=== PATIENT | male | born 1955 | race Caucasian/White ===

== ENCOUNTER → 2018-02-16 10:35 | Outpatient (CLI) | payer BC, SELFPAY | PROVIDERS: Family Provider Family Medicine Geriatric Medicine; PCP Family Medicine Geriatric Medicine; Visit Provider Family Medicine Geriatric Medicine | DX: R68.83 Chills (without fever) (principal) | CPT/HCPCS: 87633 ==

== ENCOUNTER → 2018-05-09 10:16 | Outpatient (CLI) | payer BC, SELFPAY ==
[2018-05-09 13:02] LABS: AST(SGOT) 19 U/L (15-37); Alanine Aminotransfer ALT/SGPT 26 U/L (16-61); Albumin, Serum 3.5 g/dL (3.2-5.0); Alkaline Phosphatase 52 U/L (45-117); Anion Gap 5 (5-15); BUN 17 mg/dL (7-18); BUN/Creat Ratio 17.6 RATIO (10-20); Calcium,Total 8.8 mg/dL (8.5-10.1); Chloride 105 mmol/L (98-107); Creatinine, Serum 0.97 mg/dL (0.70-1.30); EST Glomerular Filtration Rate 83 mL/min (>60); Est Glom Filt Rate - Afr Amer 101 mL/min (>60); Globulin 3.4 g/dL (2.2-4.2); Glucose 94 mg/dL (74-106); Potassium 4.1 mmol/L (3.5-5.1); Protein, Total 6.9 g/dL (6.4-8.2); Sodium Level 141 mmol/L (136-145); Thyroid Stim Hormone (TSH) 0.46 uIU/mL (0.358-3.74)
[2018-05-09 13:07] LABS: Absolute Lymphocyte Count 0.92 X10^3/ul (0.83-4.51); Absolute Neutrophil Count 2.9 X10^3/uL (2.0-7.7); Basophil# 0.02 X10^3/uL; Basophil% 0.5 % (0-1); Eosinophil# 0.06 X10^3/uL; Eosinophils% 1.4 % (0-5); Hematocrit 43.5 % (40-54); Hemoglobin 13.6 g/dl (13.0-16.5); Lymphocyte # 0.92 X10^3/ul (4.0); Lymphocyte % 22.1 % (19-41); Mean Corp Hgb Conc 31.3 g/gl (32-36); Mean Corpuscular Hgb 28.3 pg (27.0-32.0); Mean Corpuscular Volume 90.4 fL (80-94); Mean Platelet Vol. 9.7 fl (6.2-12.0); Monocyte# 0.29 X10^3/uL; Neutrophil # 2.87 X10^3/uL (2.7-7.7); Neutrophil % 68.8 % (47-70); Platelet Count 243 K/mm3 (150-450); RBC Distribution Width CV 13.3 % (11.6-14.6); RBC Distribution Width SD 44.2 fl (35.1-43.9); Red Blood Count 4.81 M/mm3 (4.6-6.2); White Blood Count 4.2 K/mm3 (4.4-11.0)
[2018-05-09 13:09] LABS: POSITIVE COUNT NO; POSITIVE DIFFERENTIAL NO; POSITIVE MORPHOLOGY NO
[2018-05-10 08:24] LABS: Hep C Antibodies <0.1 s/co ratio (0.0-0.9)
== END ==
PROVIDERS: Family Provider Family Medicine Geriatric Medicine; PCP Family Medicine Geriatric Medicine; Visit Provider Family Medicine Geriatric Medicine
DX: R53.83 Other fatigue (principal); Z12.5 Encounter for screening for malignant neoplasm of prostate; Z13.89 Encounter for screening for other disorder
CPT/HCPCS: 36415; 80053; 84153; 84443; 85025; 86803; G0103

== ENCOUNTER → 2019-03-20 16:51 | Outpatient (CLI) | payer BC, SELFPAY ==
--- NOTE | 2019-03-20 17:05 | RAD_ITS ---
STUDY: X-RAY - LUMBAR SPINE REASON FOR EXAM: Male, 63 years old. Lower back pain, 3 days, without injury. TECHNIQUE: 3 view(s) of the lumbar spine were obtained. COMPARISON: None FINDINGS: Mild osteopenia. Mild symmetric degenerative changes of the SI joints. Evaluated ribs, pelvis and sacrum are intact. Mild levoscoliotic curvature of the lumbar spine, with a Blanco angle approximately 17 degrees. Vertebral body height and alignment are normal with preserved lordosis. No significant intervertebral disc narrowing is present at any level. There are multilevel mild endplate degenerative changes with small anterior osteophytes. There is multilevel mild to moderate facet arthropathy/hypertrophy most prominent in the low lumbar spine. Questionable pars interarticularis defect at L5-S1. Oblique views are not available for refined assessment. The posterior elements appear acutely intact. No acute intra-abdominal process is evident. Unremarkable bowel pattern. RAD/Lumbar Spine 2 or 3 Views IMPRESSION: Spondylotic features as described above. No acute fracture or traumatic subluxation. Mild scoliosis. Correlate clinically for any convincing symptoms of lumbar radiculopathy that may indicate the presence of nerve root impingement. Depending upon clinical presentation a follow-up CT or MR lumbar spine may be appropriate. Electronically Signed: Hank Thomas MD at 8:44 EDT Tel , Service support ,
--- NOTE | 2019-03-20 17:10 | RAD_ITS ---
STUDY: X-RAY - PELVIS AND LEFT HIP REASON FOR EXAM: Male, 63 years old. Left hip pain TECHNIQUE: 3 views of the pelvis and hip. COMPARISON: None. FINDINGS: Right hip: Minimal suppressed turbo margin osteophytic spurring, no significant joint space narrowing and no significant degenerative changes of the articular surfaces. Periarticular soft tissues normal. Left hip: Periarticular soft tissues normal. Osseous structures intact. Minimal superior acetabular margin osteophytic spurring. No significant joint space narrowing and no significant degenerative features of the articular surfaces. No apparent effusion. 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 Electronically Signed: Hank Thomas MD at 8:45 EDT Tel , Service support ,
== END ==
PROVIDERS: Family Provider Family Medicine Geriatric Medicine; PCP Family Medicine Geriatric Medicine; Referring Provider Family Medicine Geriatric Medicine; Visit Provider Family Medicine Geriatric Medicine
DX: M54.5 Low back pain (principal); M25.552 Pain in left hip
CPT/HCPCS: 72100; 73502

== ENCOUNTER → 2019-05-03 15:28 | Outpatient (CLI) | payer BC, SELFPAY ==
[2017-04-29 13:32] VITALS: BMI 26.8
[2019-05-03 17:08] LABS: Anion Gap 6 (5-15); BUN 13 mg/dL (7-18); BUN/Creat Ratio 13.8 RATIO (10-20); Calcium,Total 8.9 mg/dL (8.5-10.1); Chloride 104 mmol/L (98-107); Creatinine, Serum 0.94 mg/dL (0.70-1.30); EST Glomerular Filtration Rate 85 mL/min (>60); Est Glom Filt Rate - Afr Amer 103 mL/min (>60); Glucose 119 mg/dL (74-106); Potassium 3.8 mmol/L (3.5-5.1); Sodium Level 133 mmol/L (136-145); Thyroid Stim Hormone (TSH) 0.23 uIU/mL (0.358-3.74)
[2019-05-03 17:19] LABS: Absolute Lymphocyte Count 0.36 X10^3/ul (0.83-4.51); Absolute Neutrophil Count 9.2 X10^3/uL (2.0-7.7); Basophil# 0.01 X10^3/uL; Basophil% 0.1 % (0-1); Eosinophil# 0.01 X10^3/uL; Eosinophils% 0.1 % (0-5); Hematocrit 43.2 % (40-54); Hemoglobin 14.1 g/dl (13.0-16.5); Lymphocyte # 0.36 X10^3/ul (4.0); Lymphocyte % 3.5 % (19-41); Mean Corp Hgb Conc 32.6 g/gl (32-36); Mean Corpuscular Hgb 28.3 pg (27.0-32.0); Mean Corpuscular Volume 86.6 fL (80-94); Mean Platelet Vol. 9.6 fl (6.2-12.0); Monocyte# 0.54 X10^3/uL; Monocyte% 5.3 % (0-10); Neutrophil # 9.22 X10^3/uL (2.7-7.7); Neutrophil % 90.8 % (47-70); Platelet Count 180 K/mm3 (150-450); RBC Distribution Width SD 40.2 fl (35.1-43.9); Red Blood Count 4.99 M/mm3 (4.6-6.2); White Blood Count 10.2 K/mm3 (4.4-11.0)
[2019-05-03 17:26] LABS: Differential Indicated SCAN CRITERIA MET; POSITIVE COUNT NO; POSITIVE DIFFERENTIAL YES; POSITIVE MORPHOLOGY NO
[2019-05-03 20:18] LABS: Platelet Estimate ADEQUATE (ADEQ); Red Cell Morphology NORM C+C NORMAL (NORM C&C)
[2019-05-05 11:57] LABS: T3 Uptake 34 % (33-40); T4 Free Direct 1.18 ng/dL (0.76-1.46)
== END ==
PROVIDERS: Family Provider Family Medicine Geriatric Medicine; PCP Family Medicine Geriatric Medicine; Visit Provider Family Medicine Geriatric Medicine
DX: N39.0 Urinary tract infection, site not specified (principal); R50.9 Fever, unspecified; R53.83 Other fatigue
CPT/HCPCS: 36415; 80048; 84439; 84443; 84479; 85025; 87040; 87086

== ENCOUNTER → 2019-05-10 08:55 | Outpatient (CLI) | payer BC, SELFPAY ==
[2017-04-29 13:32] VITALS: BMI 26.8
[2019-05-10 13:00] LABS: Absolute Lymphocyte Count 0.99 X10^3/ul (0.83-4.51); Absolute Neutrophil Count 2.4 X10^3/uL (2.0-7.7); Basophil# 0.01 X10^3/uL; Basophil% 0.2 % (0-1); Eosinophil# 0.07 X10^3/uL; Eosinophils% 1.7 % (0-5); Hematocrit 43.4 % (40-54); Hemoglobin 13.8 g/dl (13.0-16.5); Lymphocyte # 0.99 X10^3/ul (4.0); Lymphocyte % 24.5 % (19-41); Mean Corp Hgb Conc 31.8 g/gl (32-36); Mean Corpuscular Hgb 28.2 pg (27.0-32.0); Mean Corpuscular Volume 88.6 fL (80-94); Mean Platelet Vol. 9.1 fl (6.2-12.0); Monocyte# 0.46 X10^3/uL; Monocyte% 11.4 % (0-10); Neutrophil % 59.5 % (47-70); Platelet Count 301 K/mm3 (150-450); RBC Distribution Width CV 13.2 % (11.6-14.6); RBC Distribution Width SD 42.5 fl (35.1-43.9)
[2019-05-10 13:05] LABS: POSITIVE COUNT YES; POSITIVE DIFFERENTIAL NO; POSITIVE MORPHOLOGY YES
[2019-05-10 13:19] LABS: ALB/GLOB Ratio 0.9 RATIO (0.9-2.4); AST(SGOT) 27 U/L (15-37); Alanine Aminotransfer ALT/SGPT 61 U/L (16-61); Albumin, Serum 3.2 g/dL (3.2-5.0); Alkaline Phosphatase 80 U/L (45-117); Anion Gap 7 (5-15); BUN 14 mg/dL (7-18); BUN/Creat Ratio 16.1 RATIO (10-20); Calcium,Total 8.8 mg/dL (8.5-10.1); Chloride 106 mmol/L (98-107); Creatinine, Serum 0.87 mg/dL (0.70-1.30); EST Glomerular Filtration Rate 94 mL/min (>60); Est Glom Filt Rate - Afr Amer 113 mL/min (>60); Globulin 3.6 g/dL (2.2-4.2); Glucose 90 mg/dL (74-106); Potassium 4.2 mmol/L (3.5-5.1); Protein, Total 6.8 g/dL (6.4-8.2); Sodium Level 141 mmol/L (136-145); Thyroid Stim Hormone (TSH) 0.21 uIU/mL (0.358-3.74)
[2019-05-10 18:46] LABS: T3 Uptake 36 % (33-40); T4 Free Direct 1.18 ng/dL (0.76-1.46)
[2019-05-11 11:58] LABS: Pathologist Review Reviewed
== END ==
PROVIDERS: Family Provider Family Medicine Geriatric Medicine; PCP Family Medicine Geriatric Medicine; Visit Provider Family Medicine Geriatric Medicine
DX: R53.83 Other fatigue (principal); E03.9 Hypothyroidism, unspecified; Z12.5 Encounter for screening for malignant neoplasm of prostate
CPT/HCPCS: 36415; 80053; 84153; 84439; 84443; 84479; 85025; G0103

== ENCOUNTER → 2019-05-17 07:06 | Outpatient (CLI) | payer BC, SELFPAY ==
--- NOTE | 2019-05-17 07:10 | CT_ITS ---
STUDY: CT ABDOMEN AND PELVIS WITHOUT CONTRAST REASON FOR EXAM: Male, 63 years old. UTI. RADIATION DOSAGE (If Supplied By Facility): CTDIvol = ( 8.80 ) mGy, DLP = ( 457.34 ) mGycm TECHNIQUE: Transaxial images were obtained from the dome of the diaphragm to the symphysis pubis without oral contrast, and without intravenous contrast. Sagittal and coronal images were reconstructed. Individualized dose optimization techniques were used for this CT. COMPARISON: 11/12/2011 FINDINGS: Evaluation of the abdominal viscera is limited in the absence of intravenous contrast. The visualized lung bases are clear. The visualized portions of the heart and pericardium are within normal limits. There are no calcified gallstones present. The liver demonstrates an unremarkable unenhanced appearance. The spleen is normal in size. The pancreas demonstrates an unremarkable unenhanced appearance. The adrenal glands are within normal limits. There are no renal or ureteral stones. There is no hydronephrosis. There is a simple cyst in the upper pole right kidney. Normal visualized stomach. There is no bowel obstruction or inflammation. There are colonic diverticula without evidence of diverticulitis. The appendix is visualized and appears normal. The aorta is normal in caliber. There is no abdominal or pelvic free air, free fluid, fluid collection or lymphadenopathy. There are no destructive osseous lesions. There is bilateral spondylolysis at L5. CT/Abdomen/Pelvis without Cont IMPRESSION: Thick-walled urinary bladder which is likely due to cystitis. No urinary calculi. No hydronephrosis. Normal noncontrast appearance of the kidneys. However, please note that pyelonephritis cannot be excluded without contrast. Electronically Signed: Elian Castellanos, at 16:59 EDT Tel , Service support ,
== END ==
PROVIDERS: Family Provider Family Medicine Geriatric Medicine; PCP Family Medicine Geriatric Medicine; Referring Provider Urology; Visit Provider Urology
DX: N12 Tubulo-interstitial nephritis, not specified as acute or chronic (principal)
CPT/HCPCS: 74176

== ENCOUNTER → 2019-06-03 08:38 | Outpatient (CLI) | payer BC, SELFPAY ==
[2019-06-03 09:30] LABS: PSA,Total- Diagnostic 7.22 ng/mL (0.0-4.0)
== END ==
PROVIDERS: Family Provider Family Medicine Geriatric Medicine; PCP Family Medicine Geriatric Medicine; Referring Provider Urology; Visit Provider Urology
DX: R97.20 Elevated prostate specific antigen [PSA] (principal)
CPT/HCPCS: 36415; 84153

== ENCOUNTER → 2019-09-22 11:33 | Outpatient (CLI) | payer BC, SELFPAY ==
[2019-09-22 13:17] LABS: PSA,Total- Diagnostic 5.66 ng/mL (0.0-4.0)
== END ==
PROVIDERS: Family Provider Family Medicine Geriatric Medicine; PCP Family Medicine Geriatric Medicine; Referring Provider Urology; Visit Provider Urology
DX: R97.20 Elevated prostate specific antigen [PSA] (principal)
CPT/HCPCS: 36415; 84153

== ENCOUNTER → 2020-05-13 09:38 | Outpatient (CLI) | payer BC, SELFPAY ==
[2020-05-13 12:38] LABS: Absolute Lymphocyte Count 1.04 X10^3/uL (0.83-4.51); Absolute Neutrophil Count 3.2 X10^3/uL (2.0-7.7); Basophil# 0.02 X10^3/uL; Basophil% 0.4 % (0-1); Eosinophils% 2.1 % (0-5); Hematocrit 46.6 % (40-54); Hemoglobin 14.7 g/dL (13.0-16.5); Lymphocyte # 1.04 X10^3/ul (4.0); Lymphocyte % 21.8 % (19-41); Mean Corp Hgb Conc 31.5 g/dL (32-36); Mean Corpuscular Hgb 28.6 pg (27.0-32.0); Mean Corpuscular Volume 90.7 fL (80-94); Monocyte# 0.37 X10^3/uL; Monocyte% 7.8 % (0-10); NRBC Flagged by Analyzer 0 % (0-5); Neutrophil # 3.22 X10^3/uL (2.7-7.7); Neutrophil % 67.7 % (47-70); Platelet Count 264 K/mm3 (150-450); RBC Distribution Width CV 12.5 % (11.6-14.6); RBC Distribution Width SD 41.2 fl (35.1-43.9); Red Blood Count 5.14 M/mm3 (4.6-6.2); White Blood Count 4.8 K/mm3 (4.4-11.0)
[2020-05-13 13:03] LABS: Vitamin D,25 Hydroxy 38.4 ng/mL
[2020-05-13 13:06] LABS: AST(SGOT) 16 U/L (15-37); Alanine Aminotransfer ALT/SGPT 24 U/L (16-61); Albumin, Serum 3.5 g/dL (3.2-5.0); Alkaline Phosphatase 62 U/L (45-117); Anion Gap 6 (5-15); BUN 21 mg/dL (7-18); Calcium,Total 8.8 mg/dL (8.5-10.1); Chloride 104 mmol/L (98-107); EST Glomerular Filtration Rate 80 mL/min (>60); Est Glom Filt Rate - Afr Amer 96 mL/min (>60); Globulin 3.6 g/dL (2.2-4.2); Glucose 77 mg/dL (74-106); Protein, Total 7.1 g/dL (6.4-8.2); Sodium Level 139 mmol/L (136-145); Thyroid Stim Hormone (TSH) 0.77 uIU/mL (0.358-3.74)
== END ==
PROVIDERS: PCP Family Medicine Geriatric Medicine; Visit Provider Family Medicine Geriatric Medicine
DX: E55.9 Vitamin D deficiency, unspecified (principal); R53.83 Other fatigue; Z12.5 Encounter for screening for malignant neoplasm of prostate
CPT/HCPCS: 36415; 80053; 82306; 84443; 85025

== ENCOUNTER → 2021-05-14 08:58 | Outpatient (CLI) | payer BC, SELFPAY ==
[2021-05-14 12:22] LABS: Absolute Lymphocyte Count 1.02 X10^3/uL (0.83-4.51); Absolute Neutrophil Count 3.5 X10^3/uL (2.0-7.7); Basophil# 0.02 X10^3/uL; Basophil% 0.4 % (0-1); Hematocrit 46.2 % (40-54); Hemoglobin 14.6 g/dL (13.0-16.5); Lymphocyte # 1.02 X10^3/ul (0.83-4.51); Lymphocyte % 20.4 % (19-41); Mean Corp Hgb Conc 31.6 g/dL (32-36); Mean Corpuscular Hgb 28.3 pg (27.0-32.0); Mean Corpuscular Volume 89.7 fL (80-94); Mean Platelet Vol. 9.7 fl (6.2-12.0); Monocyte# 0.35 X10^3/uL; NRBC Flagged by Analyzer 0 % (0-5); Neutrophil # 3.48 X10^3/uL (2.7-7.7); Neutrophil % 69.8 % (47-70); Platelet Count 278 K/mm3 (150-450); RBC Distribution Width CV 12.3 % (11.6-14.6); RBC Distribution Width SD 40.7 fl (35.1-43.9); Red Blood Count 5.15 M/mm3 (4.6-6.2)
[2021-05-14 12:51] LABS: AST(SGOT) 15 U/L (15-37); Alanine Aminotransfer ALT/SGPT 27 U/L (16-61); Albumin, Serum 3.6 g/dL (3.2-5.0); Alkaline Phosphatase 65 U/L (45-117); Anion Gap 5 (5-15); BUN 17 mg/dL (7-18); Calcium,Total 8.9 mg/dL (8.5-10.1); Chloride 105 mmol/L (98-107); Creatinine, Serum 1.06 mg/dL (0.70-1.30); EST Glomerular Filtration Rate 74 mL/min (>60); Est Glom Filt Rate - Afr Amer 90 mL/min (>60); Globulin 3.5 g/dL (2.2-4.2); Glucose 83 mg/dL (74-106); PSA,Total - Annual Screen 3.37 ng/mL (0.00-4.00); Potassium 4.2 mmol/L (3.5-5.1); Protein, Total 7.1 g/dL (6.4-8.2); Sodium Level 141 mmol/L (136-145); Thyroid Stim Hormone (TSH) 0.87 uIU/mL (0.358-3.74)
== END ==
PROVIDERS: PCP Family Medicine Geriatric Medicine; Visit Provider Family Medicine Geriatric Medicine
DX: E55.9 Vitamin D deficiency, unspecified (principal); R53.83 Other fatigue; Z12.5 Encounter for screening for malignant neoplasm of prostate
CPT/HCPCS: 36415; 80053; 82306; 84153; 84443; 85025; G0103

== ENCOUNTER → 2022-05-19 | Outpatient (CLI) | payer MEDICARE, OTHER, SELFPAY ==
[2022-05-19 12:24] LABS: Absolute Lymphocyte Count 0.97 X10^3/uL (0.83-4.51); Absolute Neutrophil Count 2.3 X10^3/uL (2.0-7.7); Basophil# 0.04 X10^3/uL; Basophil% 1.1 % (0-1); Eosinophils% 2.7 % (0-5); Hematocrit 42.8 % (40-54); Hemoglobin 14.1 g/dL (13.0-16.5); Lymphocyte # 0.97 X10^3/ul (0.83-4.51); Lymphocyte % 26.4 % (19-41); Mean Corp Hgb Conc 32.9 g/dL (32-36); Mean Corpuscular Hgb 29.1 pg (27.0-32.0); Mean Corpuscular Volume 88.2 fL (80-94); Mean Platelet Vol. 9.5 fl (6.2-12.0); Monocyte# 0.26 X10^3/uL; Monocyte% 7.1 % (0-10); NRBC Flagged by Analyzer 0 % (0-5); Neutrophil # 2.29 X10^3/uL (2.7-7.7); Neutrophil % 62.4 % (47-70); Platelet Count 239 K/mm3 (150-450); RBC Distribution Width CV 12.6 % (11.6-14.6); RBC Distribution Width SD 41.2 fl (35.1-43.9); Red Blood Count 4.85 M/mm3 (4.6-6.2); White Blood Count 3.7 K/mm3 (4.4-11.0)
[2022-05-19 12:38] LABS: Vitamin D,25 Hydroxy 44.4 ng/mL
[2022-05-19 13:05] LABS: AST(SGOT) 14 U/L (15-37); Alanine Aminotransfer ALT/SGPT 23 U/L (16-61); Albumin, Serum 3.3 g/dL (3.2-5.0); Alkaline Phosphatase 55 U/L (45-117); Anion Gap 5 (5-15); BUN 18 mg/dL (7-18); BUN/Creat Ratio 19.6 RATIO (10-20); Calcium,Total 8.8 mg/dL (8.5-10.1); Chloride 106 mmol/L (98-107); Creatinine, Serum 0.92 mg/dL (0.70-1.30); EST Glomerular Filtration Rate 87 mL/min (>60); Est Glom Filt Rate - Afr Amer 106 mL/min (>60); Globulin 3.3 g/dL (2.2-4.2); Glucose 111 mg/dL (74-106); PSA,Total - Annual Screen 5.05 ng/mL (0.00-4.00); Potassium 3.7 mmol/L (3.5-5.1); Protein, Total 6.6 g/dL (6.4-8.2); Sodium Level 141 mmol/L (136-145); Thyroid Stim Hormone (TSH) 1.05 uIU/mL (0.358-3.74)
== END | disposition home or self-care (01) ==
PROVIDERS: PCP Family Medicine Geriatric Medicine; Visit Provider Family Medicine Geriatric Medicine
DX: Z12.5 Encounter for screening for malignant neoplasm of prostate (principal); E55.9 Vitamin D deficiency, unspecified; R53.83 Other fatigue
CPT/HCPCS: 36415; 80053; 82306; 84153; 84443; 85025; G0103

== ENCOUNTER → 2023-06-02 | Outpatient (CLI) | payer MEDICARE, OTHER, SELFPAY ==
[2023-06-02 13:22] LABS: Absolute Lymphocyte Count 0.83 X10^3/uL (0.83-4.51); Basophil# 0.03 X10^3/uL; Basophil% 0.7 % (0-1); Eosinophils% 2.3 % (0-5); Hematocrit 43.8 % (40-54); Hemoglobin 14.3 g/dL (13.0-16.5); Lymphocyte # 0.83 X10^3/ul (0.83-4.51); Lymphocyte % 19.5 % (19-41); Mean Corp Hgb Conc 32.6 g/dL (32-36); Mean Corpuscular Hgb 29.1 pg (27.0-32.0); Mean Platelet Vol. 9.6 fl (6.2-12.0); Monocyte# 0.33 X10^3/uL; Monocyte% 7.7 % (0-10); NRBC Flagged by Analyzer 0 % (0-5); Neutrophil # 2.96 X10^3/uL (2.7-7.7); Neutrophil % 69.6 % (47-70); Platelet Count 255 K/mm3 (150-450); RBC Distribution Width CV 12.7 % (11.6-14.6); RBC Distribution Width SD 41.7 fl (35.1-43.9); Red Blood Count 4.92 M/mm3 (4.6-6.2); White Blood Count 4.3 K/mm3 (4.4-11.0)
[2023-06-02 13:35] LABS: Vitamin D,25 Hydroxy 34.2 ng/mL
[2023-06-02 13:44] LABS: AST(SGOT) 17 U/L (15-37); Alanine Aminotransfer ALT/SGPT 26 U/L (16-61); Albumin, Serum 3.5 g/dL (3.2-5.0); Alkaline Phosphatase 60 U/L (45-117); Anion Gap 2 (5-15); BUN 17 mg/dL (7-18); Chloride 105 mmol/L (98-107); Creatinine, Serum 0.89 mg/dL (0.70-1.30); EST Glomerular Filtration Rate 90 mL/min (>60); Est Glom Filt Rate - Afr Amer 109 mL/min (>60); Globulin 3.5 g/dL (2.2-4.2); Glucose 97 mg/dL (74-106); PSA,Total - Annual Screen 4.24 ng/mL (0.00-4.00); Potassium 4.3 mmol/L (3.5-5.1); Sodium Level 137 mmol/L (136-145); Thyroid Stim Hormone (TSH) 0.72 uIU/mL (0.358-3.74)
== END | disposition home or self-care (01) ==
PROVIDERS: PCP Family Medicine Geriatric Medicine; Visit Provider Family Medicine Geriatric Medicine
DX: Z12.5 Encounter for screening for malignant neoplasm of prostate (principal); E55.9 Vitamin D deficiency, unspecified; R53.83 Other fatigue
CPT/HCPCS: 36415; 80053; 82306; 84153; 84443; 85025; G0103

== ENCOUNTER → 2023-08-10 | Outpatient (CLI) | payer MEDICARE, OTHER, SELFPAY | END | disposition home or self-care (01) | LOC: PSN 12:33 | PROVIDERS: PCP Family Medicine Geriatric Medicine; Referring Provider Family Medicine Geriatric Medicine; Visit Provider Family Medicine Geriatric Medicine | DX: R68.83 Chills (without fever) (principal) | CPT/HCPCS: 87635; 87804; 87807; C9803 ==

== ENCOUNTER 2023-11-22 11:23 | Emergency (ER) | payer MEDICARE, OTHER, SELFPAY ==
[2023-11-22 11:24] VITALS: BP 120/94; PULSE 61; RESP 15; TEMP 36; O2SAT 97; BMI 26.4
--- NOTE | 2023-11-22 11:53 | CT_ITS ---
STUDY: CT ABDOMEN AND PELVIS WITH CONTRAST - URINARY TRACT REASON FOR EXAM: Male, 68 years old. Right lower quadrant pain RADIATION DOSAGE (If Supplied By Facility): CTDIvol = ( 17.05 ) mGy, DLP = ( 917.34 ) mGycm TECHNIQUE: IV 100mL Isovue-370 was administered. Transaxial images were obtained from the dome of the diaphragm to the symphysis pubis subsequent to intravenous contrast administration. Multiplanar coronal and sagittal images were reformatted. Individualized Dose Optimization Techniques Were Used For This CT. COMPARISON: May 17, 2019 FINDINGS: There is a 2.7 mm nodule along the right major fissure.. The visualized portions of the heart are within normal limits. There is decreased attenuation of the liver consistent with steatosis. There is a stable too small to characterize low-attenuation focus within the right hepatic lobe. Normal gallbladder and extrahepatic biliary system. Normal spleen. Normal pancreas. Normal bilateral adrenal glands. Normal visualized stomach. Normal small intestine. There are multiple colonic diverticula consistent with diverticulosis. There is circumferential wall thickening of the proximal and mid sigmoid colon. The appendix is visualized and appears normal. There is diffuse atherosclerotic calcification of the abdominal aorta, without a demonstrated aneurysm. No retroperitoneal adenopathy. There are right renal cysts. Normal left kidney. Normal urinary bladder. There is enlargement of the prostate gland. Normal abdominal wall. There are diffuse degenerative changes of the visualized lumbar spine. There are bilateral L5 pars defects. CT/Abdomen/Pelvis W IV Cont ONLY IMPRESSION: Circumferential wall thickening of the proximal and mid sigmoid colon may be secondary to chronic diverticulitis, cannot exclude a neoplastic process, recommend direct visualization. Fatty infiltration of the liver. Atherosclerosis. Enlarged prostate gland Bilateral L5 pars defects. Degenerative changes of the lumbar spine. Electronically Signed: Pretty Cervantes MD at 13:21 EST ,
--- NOTE | 2023-11-22 11:54 | EX.ED.DYSGE1 ---
HPI History of Present Illness Chief Complaint: Back Informant: patient and spouse/S.O. Narrative Narrative: For the past 4 days or so patient has been having pain in the right flank. He states it started in his right groin and lower quadrant gradually, radiating into his right medial thigh on this tendon right here, hurts more to move it. He then started getting pain into his right low back, it is more into his sacrum and buttock, not higher near the CVA. No urinary symptoms. He states he has had urinary infections and symptoms of an enlarged prostate in the past and has seen urology but nothing in the past month. He was seen at urgent care today and had tenderness in his right lower quadrant and was sent to the emergency department apparently. [facility] Medical History High cholesterol Home Medications pravastatin 40 mg tablet 40 mg PO QHS 04/29/17 [History Last Taken 04/28/17] timolol maleate 0.5 % eye drops 1 drp QHS 04/29/17 [History Last Taken 04/28/17] oxycodone 5 mg tablet 5 mg PO Q8H PRN PRN Pain ##10 04/30/17 [Rx Last Taken Unknown] rivaroxaban 15 mg tablet (Xarelto) 15 mg PO BIDCM #42 tabs 04/30/17 [Rx Last Taken Unknown] rivaroxaban 20 mg tablet (Xarelto) 20 mg PO DAILY ##90 04/30/17 [Rx Last Taken Unknown] hydrocodone-acetaminophen 5-325mg 5mg-325mg 1 tab PO Q6H PRN PRN Pain 3 days #10 TABLETS 11/22/23 [Rx Last Taken Unknown] Allergy/AdvReac Type Severity Reaction Status Date / Time No Known Allergies Allergy Verified 11/22/23 11:27 Social History Smoking Status: Former smoker ROS ROS ED Constitutional Constitutional ED: Denies chills or fever(s) Eyes Eyes: Denies change in vision or diplopia ENT ENT ED: Denies rhinorrhea or sore throat Cardiovascular Cardiovascular: Denies chest pain, leg edema or palpitations Respiratory/Chest Respiratory/Chest: Denies cough or dyspnea Gastrointestinal Gastrointestinal: Reports abdominal pain; Denies diarrhea, nausea or vomiting Genitourinary Genitourinary ED: Denies dysuria, hematuria or urinary frequency Musculoskeletal Musculoskeletal: Reports back pain and extremity pain; Denies neck pain Integumentary Denies abscess or rash Neurologic Neurologic: Denies headache(s), paresthesias or weakness Psychiatric Psychiatric: Denies suicidal ideation or suicidal thoughts EXAM Physical Exam Const Vital Signs: 11/22/23 11:24 Temperature 96.8 F L Temperature Source Temporal Pulse Rate 61 Respiratory Rate 15 Blood Pressure 120/94 H Blood Pressure Mean 102 Pulse Ox 97 Oxygen Delivery Method Room Air Positive well nourished and well developed General Appearance ED: well developed and NAD HEENT Reports moist mucous membranes normocephalic and atraumatic Eyes PERRL and EOMs intact bilaterally Neck full ROM and supple Resp normal respiratory effort and clear to auscultation bilaterally Cardio regular rate, regular rhythm and no murmurs GI non-distended GI Narrative: Tenderness in the right lower quadrant at McBurney's point and a little distal to that as well. Less tender into the flank, no CVA tenderness. No guarding or rebound tenderness. Negative Rovsing, obturator, psoas signs. However, is moving his right lower extremity around makes his groin and medial proximal thigh hurt more. There is mild tenderness here but no palpable cords and no edema. Auscultation: normoactive bowel sounds Palpation: soft Back/Spine no CVA tenderness Back/Spine Narrative: Negative straight leg raises. General Back: other FROM Extremity normal to inspection General Extremety ED: Negative for edema, pulses abnormal or tenderness General Extremity: Negative for edema or pulses abnormal Neuro oriented x3, CN's II-XII intact bilaterally and no sensory deficits noted Sensorium / Orientation: awake and alert Motor Exam: strength 5/5 throughout Skin no rashes or lesions noted and no wounds MDM MDM MDM Narrative Medical decision making narrative: Patient does not have anorexia or any fevers. This is not a great story for appendicitis but I think a CT is indicated as a retroflexed appendix can sometimes present atypically. These tests were performed, the blood work is unremarkable with a very low white blood count and no shift, CT was performed I reviewed the images and report which I agree with, it shows no evidence of appendicitis. There is some nonspecific thickening of the bowel wall in the rectosigmoid, however this is not in an area where he has pain or tenderness. No sign of a stone. No sign of a urinary infection on the urinalysis. He was given Toradol and is doing okay. My suspicion is that this is all musculoskeletal. There is no evidence of any acute intra-abdominal process. I discussed the bowel wall thickening with him. He has had prior colonoscopies that if showed diverticulosis but no polyps or anything else acute. He is supposed to get them every 10 years his last one was 3 to 4 years ago, he is advised to follow-up with his doctor and asking for something for pain at nighttime, supportive care advised otherwise and follow-up next week if the pain is persistent. This is less likely to be sciatica given the nature of the discomfort and negative straight leg raises. Lab Data Attestation: I reviewed the patient's lab results. Labs: Laboratory Results - last 24 hr 11/22/23 12:00 WBC 4.7 RBC 5.23 Hgb 14.9 Hct 45.4 MCV 86.8 MCH 28.5 MCHC 32.8 RDW Std Deviation 40.1 RDW Coeff of Anshu 12.8 Plt Count 251 MPV 9.1 Immature Gran % (Auto) 0.200 Neut % (Auto) 71.6 H Lymph % (Auto) 16.6 L [place] % (Auto) 8.7 Eos % (Auto) 2.3 Baso % (Auto) 0.6 Absolute Neuts (auto) 3.4 Absolute Lymphs (auto) 0.78 L Nucleated RBC % 0 Sodium 140 Potassium 4.2 Chloride 105 Carbon Dioxide 29.0 Anion Gap 6 BUN 16 Creatinine 0.94 Estim Creat Clear Calc 83.82 Est GFR (MDRD) Af Amer 102 Est GFR (MDRD) Non-Af 84 BUN/Creatinine Ratio 16.9 Glucose 102 Calcium 9.3 Total Bilirubin 1.20 H AST 17 ALT 24 Alkaline Phosphatase 63 Total Protein 6.9 Albumin 3.4 Globulin 3.5 Albumin/Globulin Ratio 1.0 Urine Color Yellow Urine Clarity Sl. Cloudy Urine pH 5.0 Ur Specific Sarah Ann 1.020 Urine Protein 30 H Urine Glucose (UA) Normal Urine Ketones Negative Urine Occult Blood 10 H Urine Nitrite Negative Urine Bilirubin Negative Urine Urobilinogen 1 H Ur Leukocyte Esterase 25 H Urine RBC 0-5 SEEN Urine WBC 0-5 SEEN Ur Squamous Epith Cells 0 SEEN Urine Bacteria 1+ Urine Mucus 2+ Radiography Diagnostic Testing: Clinical Impression(s) from Imaging Studies Abdomen/Pelvis CT 11/22/23 11:53 IMPRESSION: Circumferential wall thickening of the proximal and mid sigmoid colon may be secondary to chronic diverticulitis, cannot exclude a neoplastic process, recommend direct visualization. Fatty infiltration of the liver. Atherosclerosis. Enlarged prostate gland Bilateral L5 pars defects. Degenerative changes of the lumbar spine. Electronically Signed: Pretty Cervantes MD at 13:21 EST , Discharge Plan Triage Chief Complaint: Back ED Provider: Douglas Shah Dx/Rx/DC Orders Clinical Impression: Acute abdominal pain in right flank, Right groin pain Instructions: Abdominal Pain Prescriptions: New hydrocodone-acetaminophen [hydrocodone-acetaminophen] 5-325 mg tablet 1 tab PO Q6H PRN PRN (Reason: Pain) 3 Days Qty: 10 0RF No Action pravastatin 40 MG tablet 40 mg PO QHS Patient Comments: CHOLESTEROL timolol maleate 1 DROP drops 1 drp Right Eye QHS Patient Comments: EYE PRESSURE rivaroxaban [Xarelto] 15 MG tablet 15 mg PO BIDCM Qty: 42 0RF rivaroxaban [Xarelto] 20 MG tablet 20 mg PO DAILY Qty: 90 0RF oxycodone 5 MG tablet 5 mg PO Q8H PRN PRN (Reason: Pain) Qty: 10 0RF Primary Care Provider: Aditya Altamirano Chi Referrals: Aditya Altamirano Chi, MD [Primary Care Provider] - Disposition Disposition: Home, Self Care
[2023-11-22 12:12] LABS: Squamous Epithelial Cells - UA 0 SEEN /hpf (0-5)
[2023-11-22] MEDS: Ketorolac 15 MG/ML Vial IV (12:12)
[2023-11-22] MEDS: 0.9% Normal Saline (1000mL) 1,000 ML 125 ML IV (12:12)
[2023-11-22 12:15] LABS: Color, Urine Yellow (Yellow); Glucose, Dipstick Normal (Normal); Ketone-Dipstick Negative (Negative); Leukocyte Esterase-Dipstick 25 /ul (Negative); Nitrite-Dipstick Negative (Negative); Occult Blood-Urine 10 /ul (Negative); Protein-Dipstick 30 mg/dl (Negative); Urine Bilirubin Dipstick Negative (Negative); Urine Clarity Sl. Cloudy (Clear); Urine Urobilinogen 1 mg/dl (Normal)
[2023-11-22 12:24] LABS: Absolute Lymphocyte Count 0.78 X10^3/uL (0.83-4.51); Absolute Neutrophil Count 3.4 X10^3/uL (2.0-7.7); Basophil# 0.03 X10^3/uL; Basophil% 0.6 % (0-1); Eosinophil# 0.11 X10^3/uL; Eosinophils% 2.3 % (0-5); Hematocrit 45.4 % (40-54); Hemoglobin 14.9 g/dL (13.0-16.5); Lymphocyte # 0.78 X10^3/ul (0.83-4.51); Lymphocyte % 16.6 % (19-41); Mean Corp Hgb Conc 32.8 g/dL (32-36); Mean Corpuscular Hgb 28.5 pg (27.0-32.0); Mean Corpuscular Volume 86.8 fL (80-94); Mean Platelet Vol. 9.1 fl (6.2-12.0); Monocyte# 0.41 X10^3/uL; Monocyte% 8.7 % (0-10); NRBC Flagged by Analyzer 0 % (0-5); Neutrophil # 3.36 X10^3/uL (2.7-7.7); Neutrophil % 71.6 % (47-70); Platelet Count 251 K/mm3 (150-450); RBC Distribution Width CV 12.8 % (11.6-14.6); RBC Distribution Width SD 40.1 fl (35.1-43.9); Red Blood Count 5.23 M/mm3 (4.6-6.2); White Blood Count 4.7 K/mm3 (4.4-11.0)
[2023-11-22 12:29] LABS: Bacteria 1+ /hpf (None Seen); Mucous, Urine 2+ /hpf (<or=2+); Red Blood Cells-Urine 0-5 SEEN /hpf (0-5); White Blood Cells 0-5 SEEN /hpf (0-5)
[2023-11-22 12:34] LABS: AST(SGOT) 17 U/L (15-37); Alanine Aminotransfer ALT/SGPT 24 U/L (16-61); Albumin, Serum 3.4 g/dL (3.2-5.0); Alkaline Phosphatase 63 U/L (45-117); Anion Gap 6 (5-15); BUN 16 mg/dL (7-18); BUN/Creat Ratio 16.9 RATIO (10-20); Calcium,Total 9.3 mg/dL (8.5-10.1); Chloride 105 mmol/L (98-107); Creatinine, Serum 0.94 mg/dL (0.70-1.30); EST Glomerular Filtration Rate 84 mL/min (>60); Est Glom Filt Rate - Afr Amer 102 mL/min (>60); Estimated Creatinine Clearance 83.82 ml/min; Globulin 3.5 g/dL (2.2-4.2); Glucose 102 mg/dL (74-106); Potassium 4.2 mmol/L (3.5-5.1); Protein, Total 6.9 g/dL (6.4-8.2); Sodium Level 140 mmol/L (136-145)
[2023-11-22 15:10] VITALS: BP 118/76; PULSE 71; RESP 14; O2SAT 98
== END 2023-11-22 15:12 | disposition home or self-care (01) ==
PROVIDERS: Emergency Provider Emergency Medicine; PCP Family Medicine Geriatric Medicine; Visit Provider Emergency Medicine
DX: R10.9 Unspecified abdominal pain (principal); Z87.891 Personal history of nicotine dependence
CPT/HCPCS: 74177; 80053; 81001; 85025; 96361; 96374; 99283; J7030; Q9967; A4216

== ENCOUNTER → 2023-11-29 | Outpatient (CLI) | payer MEDICARE, OTHER, SELFPAY ==
--- OUTSIDE RECORDS SUMMARY | 2023-11-29 10:48 | XMS RPT_ITS | CCD ---
Author Name Unknown Address [address] [place] [address] Organization [facility] Care Team Providers Care Assistant To The Director Name Role Phone FERNIE [facility]EPEDA [facility] Unavailable Results Test Name Value Interpretation Reference Range Facil ity Encounters Encounter Date Encounter Type Care Provider Facility Start: 11-22-2023 End: 11-22-2023 ambulatory FERNIE ZEPEDA Facility:[facility] Progress note 11-22-2023 Note Date & Type Note Facility 11-22-2023 Note HNO ID: [id number] Author: DANYEL CORREA MD Service: ? Author Type: Physician Type: Progress Notes Filed: 11/22/2023 11:09 Note Text: Patient presents with: Low Back Pain: Radiating to R leg x5 days HPI: Back pain: Duration: 5 days Character: aching, worsening, sleep disturbance from pain last night Location: right upper buttock Radiation: right hip, RLQ, anterior medial thigh to the anterior knee. Aggravating: lying on the right side. Not bothered by hip movement, bowel movements, coughing. Relieving: moving/walking Pain relievers: Aspirin and left over oxycodone Associated: flushing, may have had a UTI around [place] (hesitancy and frequency with small volume), Hx of diverticulosis Pertinent negatives: No known injury. Denies numbness or weakness, fever, loss of bladder or bowel control, nausea, vomiting, diarrhea, constipation, blood in stool, dysuria, frequency, urgency, or hematuria. Imaging: XR 02/18/2019 showed multilevel mild to moderate facet arthropathy/hypertrophy most prominent in the low lumbar spine. Questionable pars interarticularis defect at L5-S1. PAST MEDICAL HISTORY Diagnosis Date Hyperlipidemia Pulmonary embolism (HCC) PAST SURGICAL HISTORY Procedure Laterality Date RPR RETINAL DTCHMNT INJECTION AIR/OTHER GAS Right MEDICATIONS: PRAVASTATIN SODIUM (PRAVASTATIN ORAL) Take by mouth. timolol hemihydrate (BETIMOL) 0.25 % ophthalmic solution Timolol Timolol 0.5% 1 DROP RIGHT EYE AT BEDTIME April 29, 2017 Active 04-29-2017 [facility] ([id number]) (Patient not taking: Reported on 11/22/2023) ALLERGIES: ALLERGIES No Known Allergies VITALS: BP 134/92 Pulse 70 Temp 36.5 ?C (97.7 ?F) Resp 18 Wt 88.9 kg (196 lb) SpO2 97% PHYSICAL EXAM: GEN: pleasant, no acute distress, alert HEART: regular rate, regular rhythm, no murmurs LUNGS: clear to auscultation, no wheezes or crackles, no increased WOB ABD: soft, non-distended, no masses palpated, tender RLQ, no rebound tenderness EXT: no clubbing, no cyanosis, no edema HIP: No tenderness over the greater trochanter. No pain with flexion or internal/external rotation. BACK: Normal curvature of spine. No midline tenderness. No paraspinal tenderness. Tender right SI joint. Straight leg test negative. Deep tendon reflexes 2+/4 at patellas. Normal lower extremity strength. ASSESSMENT/PLAN: 1. Acute hip pain, right - ICD9: 719.45, ICD10: M25.551 (primary diagnosis) 2. Right lower quadrant abdominal tenderness without rebound tenderness - ICD9: 789.63, ICD10: R10.813 Positive exam findings include right lower quadrant/suprapubic tenderness and right upper buttock/SI joint tenderness. Differential includes appendicitis, diverticulitis, urinary calculus, lumbar radicular pain, and hip joint pathology. Imaging would be helpful to delineate the underlying source or sources of pain. He is uncomfortable enough that he prefers ER evaluation rather than follow up with PCP. Report sent to [facility] by ER passport. Danyel Correa MD [facility] Summary Purpose Family History No Family History Records Found Advance Directives No Advanced Directives Records Found Additional Source Comments (unrecognized sect ion and content) No Status Records Found INFORMATION SOURCE (unrecogn ized section and content) FOR RECORDS PERTAINING TO PATIENTS WHO ARE OR HAVE BEEN ENROLLED IN A CHEMICAL DEPENDENCY/SUBSTANCEABUSE PROGRAM, SOME INFORMATION MAY BE OMITTED. This clinical summary was aggregated from multiple sources. Caution should be exercised in using it in the provision of clinical care. This summary normalizes information from multiple sources, and as a consequence, information in this document may materially change the coding, format and clinical context of patient data. In addition, data may be omitted in some cases. CLINICAL DECISIONS SHOULD BE BASED ON THE PRIMARY CLINICAL RECORDS. [employer] [facility]. provides no warranty or guarantee of the accuracy or completeness of information in this document.
[2023-11-29 11:12] LABS: PSA,Total- Diagnostic 7.34 ng/mL (0.0-4.0)
== END | disposition home or self-care (01) ==
LOC: LAB 09:53
PROVIDERS: PCP Family Medicine Geriatric Medicine; Referring Provider Urology; Visit Provider Urology
DX: R97.20 Elevated prostate specific antigen [PSA] (principal)
CPT/HCPCS: 36415; 84153

== ENCOUNTER 2023-12-12 14:41 | Emergency (ER) | payer MEDICARE, OTHER, SELFPAY ==
[2023-12-12 14:41] VITALS: BP 140/85; PULSE 56; RESP 16; TEMP 36.2; O2SAT 94; BMI 25.4
--- OUTSIDE RECORDS SUMMARY | 2023-12-12 15:03 | XMS RPT_ITS | CCD ---
Author Name Unknown Address [address] [place] [address] Organization [facility] Care Team Providers Care Claims Administrator Name Role Phone [facility] Unavailable Results Test Name Value Interpretation Reference Range Facil ity Encounters Encounter Date Encounter Type Care Provider Facility Start: 11-22-2023 End: 11-22-2023 ambulatory FERNIE ZEPEDA Facility:[facility] Progress note 11-22-2023 Note Date & Type Note Facility 11-22-2023 Note HNO ID: [id number] Author: DANYEL CORREA MD Service: ? Author [...] flushing, may have had a UTI around [place] (hesitancy and frequency with small volume), Hx [...] AT BEDTIME April 29, 2017 Active 04-29-2017 [facility] ([id number]) (Patient not taking: Reported on 11/22/2023) ALLERGIES: [...] follow up with PCP. Report sent to [facility] by ER passport. Danyel Correa MD [facility] Summary Purpose Family History No Family History [...] BE BASED ON THE PRIMARY CLINICAL RECORDS. [employer] [facility]. provides no warranty or guarantee of the accuracy or completeness of information in this document.
--- NOTE | 2023-12-12 15:26 | EDS_ITS ---
HPI History of Present Illness Chief Complaint: Back Informant: patient and spouse/S.O. Narrative Narrative: Patient presents with right-sided back pain and sciatica. He has been having the symptoms for about 3 and half weeks. Nothing specifically initiated them. 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 But really no big issues. Never had surgeries. He has had no recent trauma. No fevers or chills. No weight loss. He has had some BPH but his urination is unchanged. He has seen his urologist and had minimal elevation of his PSA but is being followed up. He has radiation of pain mostly down the anterior surface of the right thigh and a little bit into the groin. But no weakness. He was actually seen here on about the . An extensive workup including imaging. It showed some nonspecific thickening of some of the bowels but he has no abdominal pain diarrhea issues at all. Patient states he has not gotten a lot of relief. But when I talked to him he was seen here. He was then seen by his primary doctor who placed him on steroids although I do not know what dose. It sounds like he was also on gabapentin and muscle relaxant. He got well enough that the patient started taking long walks in the park up and down hills for the last 10 days after he finished that. But now the last 3 to 4 days it has been getting worse again. He has been referred to pain management but no referral yet to orthopedic or spine surgeon. [facility] Medical History High cholesterol Home Medications pravastatin 40 mg tablet 40 mg PO QHS 04/29/17 [History Last Taken 04/28/17] timolol maleate 0.5 % eye drops 1 drp QHS 04/29/17 [History Last Taken 04/28/17] oxycodone 5 mg tablet 5 mg PO Q8H PRN PRN Pain ##10 04/30/17 [Rx Last Taken Unknown] rivaroxaban 15 mg tablet (Xarelto) 15 mg PO BIDCM #42 tabs 04/30/17 [Rx Last Taken Unknown] rivaroxaban 20 mg tablet (Xarelto) 20 mg PO DAILY ##90 04/30/17 [Rx Last Taken Unknown] hydrocodone-acetaminophen 5-325mg 5mg-325mg 1 tab PO Q6H PRN PRN Pain 3 days #10 TABLETS 11/22/23 [Rx Last Taken Unknown] oxycodone-acetaminophen 5 mg-325 mg tablet 1 tab PO Q6H PRN PRN Pain 3 days #12 TABLETS 12/12/23 [Rx Last Taken Unknown] prednisone 20 mg tablet 60 mg (3 x 20 mg) PO DAILY #15 TABLETS 12/12/23 [Rx Last Taken Unknown] Allergy/AdvReac Type Severity Reaction Status Date / Time No Known Allergies Allergy Verified 11/22/23 11:27 Social History Smoking Status: Former smoker EXAM Physical Exam Narrative Exam Narrative: CONSTITUTIONAL: Patient is nontoxic in appearance. The patient looks a bit uncomfortable. He rubs his right thigh. He moves in bed trying to get a good comfortable spot. HEENT: No notable trauma. Mucous membranes moist. No sinus tenderness. No sign of dental infection. EYES: No conjunctival injection. No pallor. NECK: No meningismus. No JVD. CARDIOVASCULAR: Regular rate actually a little on the slow side but asymptomatic. Regular rhythm. No notable murmur. No JVD. RESPIRATORY: No respiratory distress. Breathing is unlabored. No wheezes. No rhonchi. No rales. No pain with a deep breath. GASTROINTESTINAL: Not distended. Bowel sounds are normal. No tenderness. No guarding. No rebound. No palpable mass. No bruit. Absolutely no tenderness or clinical indication of diverticulitis. GENITOURINARY: No tenderness over the bladder or enlarged bladder. No CVA tender ness. I had him strain and there is no indication of hernia. MUSCULOSKELETAL: Atraumatic. No peripheral edema. No cord. No tenderness along the deep venous system. No asymmetry. Distal pulses are intact. Patient does have some tenderness low lumbar on the right and a little bit into the SI joint. But no skin changes. A little bit of sciatic notch tenderness. I get no peripheral weakness though. Quadrant strength heel and toe standing are okay. Patient is sore with some motions though. NEUROLOGICAL: Patient is alert and oriented. No focal deficit noted. Patient can stand on toes and heels and do squats Patellar reflex does seem a little bit reduced on right compared to left. He is about 1 on the right and about 1?2 on the left. Achilles reflex are both 1+ and equal. SKIN: No noted rashes. No diaphoresis. No vesicles noted. No notable pallor. PSYCHIATRIC: Patient is calm. Mood is appropriate. Const Vital Signs: 12/12/23 14:41 Temperature 97.2 F L Temperature Source Temporal Pulse Rate 56 L Respiratory Rate 16 Blood Pressure 140/85 H Blood Pressure Mean 103 Pulse Ox 94 Oxygen Delivery Method Room Air MDM MDM MDM Narrative Medical decision making narrative: This patient has been having 3 or so weeks of pain. He has no history indicative of significant cord compression or exam findings. He does have a little bit of reflex change. I do not know if this is new though. But it is concerning. But without weakness bowel bladder dysfunction or numbness I do not think this necessitates an acute MRI. I will start him on a course of steroids because he got benefit a few weeks ago when he took these. But I do not even know the dose that he was on. I will give him meds for pain and meds here. I have encouraged him to follow-up with orthopedic spine. His doctor has him referred to pain management but this is still a relatively acute/subacute issue and I think would be best if we can just manage and get him better. He may b enefit from physical therapy. It is possible he may even get surgery for this. But I think a spine surgeon evaluation is very appropriate. This patient's symptoms seem to match about an L3-4 distribution. But there is no bowel or bladder dysfunction or numbness. Discharge Plan Triage Chief Complaint: Back ED Provider: Thee Phelan Dx/Rx/DC Orders Clinical Impression: Acute lumbar radiculopathy, Lower back pain Instructions: ED Back Pain (Acute or Chronic) Prescriptions: New oxycodone-acetaminophen [oxycodone-acetaminophen] 5-325 mg tablet 1 tab PO Q6H PRN PRN (Reason: Pain) 3 Days Qty: 12 0RF prednisone 20 mg tablet 60 mg PO DAILY Qty: 15 0RF No Action pravastatin 40 MG tablet 40 mg PO QHS Patient Comments: CHOLESTEROL timolol maleate 1 DROP drops 1 drp Right Eye QHS Patient Comments: EYE PRESSURE rivaroxaban [Xarelto] 15 MG tablet 15 mg PO BIDCM Qty: 42 0RF rivaroxaban [Xarelto] 20 MG tablet 20 mg PO DAILY Qty: 90 0RF oxycodone 5 MG tablet 5 mg PO Q8H PRN PRN (Reason: Pain) Qty: 10 0RF hydrocodone-acetaminophen [hydrocodone-acetaminophen] 5-325 mg tablet 1 tab PO Q6H PRN PRN (Reason: Pain) 3 Days Qty: 10 0RF Primary Care Provider: Aditya Altamirano Chi Referrals: Guillermo Parekh DO [Med Staff - Active Staff] - As soon as possible Aditya Altamirano Chi, MD [Primary Care Provider] - Disposition Disposition: Home, Self Care
[2023-12-12] MEDS: HYDROmorphone 1 MG/ML Syringe IM (15:42)
[2023-12-12 16:07] VITALS: PULSE 72; RESP 16; O2SAT 97
== END 2023-12-12 16:10 | disposition home or self-care (01) ==
PROVIDERS: Emergency Provider Emergency Medicine; PCP Family Medicine Geriatric Medicine; Visit Provider Emergency Medicine
DX: M54.16 Radiculopathy, lumbar region (principal); Z87.891 Personal history of nicotine dependence
CPT/HCPCS: 96372; 99282

== ENCOUNTER → 2023-12-27 | Outpatient (CLI) | payer MEDICARE, OTHER, SELFPAY ==
[2023-12-27 15:17] LABS: Absolute Lymphocyte Count 0.89 X10^3/uL (0.83-4.51); Basophil# 0.02 X10^3/uL; Basophil% 0.2 % (0-1); Eosinophils% 0.9 % (0-5); Hemoglobin 14.9 g/dL (13.0-16.5); Lymphocyte # 0.89 X10^3/ul (0.83-4.51); Lymphocyte % 7.6 % (19-41); Mean Corp Hgb Conc 32.4 g/dL (32-36); Mean Corpuscular Hgb 28.9 pg (27.0-32.0); Mean Corpuscular Volume 89.3 fL (80-94); Monocyte# 0.69 X10^3/uL; Monocyte% 5.9 % (0-10); NRBC Flagged by Analyzer 0 % (0-5); Neutrophil # 9.97 X10^3/uL (2.7-7.7); Neutrophil % 84.7 % (47-70); Platelet Count 263 K/mm3 (150-450); RBC Distribution Width SD 42.5 fl (35.1-43.9); Red Blood Count 5.15 M/mm3 (4.6-6.2); White Blood Count 11.8 K/mm3 (4.4-11.0)
[2023-12-27 15:28] LABS: International Normalized Ratio 0.9; Prothrombin Time (Protime)PT. 12.4 SECONDS (11.7-14.9)
[2023-12-27 15:34] LABS: Anion Gap 3 (5-15); BUN 22 mg/dL (7-18); BUN/Creat Ratio 26.4 RATIO (10-20); Calcium,Total 9.7 mg/dL (8.5-10.1); Chloride 105 mmol/L (98-107); Creatinine, Serum 0.83 mg/dL (0.70-1.30); EST Glomerular Filtration Rate 97 mL/min (>60); Est Glom Filt Rate - Afr Amer 118 mL/min (>60); Glucose 102 mg/dL (74-106); Potassium 4.1 mmol/L (3.5-5.1); Sodium Level 139 mmol/L (136-145)
--- OUTSIDE RECORDS SUMMARY | 2023-12-27 23:08 | XMS RPT_ITS | CCD ---
Author Name Unknown Address [address] [place] [address] Organization [facility] Care Team Providers Care Public Address Announcer Name Role Phone FERNIE ZEPEDA [facility] Unavailable Results Test Name Value Interpretation Reference Range Facil ity Encounters Encounter Date Encounter Type Care Provider Facility Start: 11-22-2023 End: 11-22-2023 ambulatory FERNIE ZEPEDA Facility:[facility] Progress note 11-22-2023 Note Date & Type Note Facility 11-22-2023 Note HNO ID: [id number] Author: DANYEL CORREA MD Service: ? Author [...] flushing, may have had a UTI around [place] (hesitancy and frequency with small volume), Hx [...] AT BEDTIME April 29, 2017 Active 04-29-2017 [facility] ([id number]) (Patient not taking: Reported on 11/22/2023) ALLERGIES: [...] follow up with PCP. Report sent to [facility] by ER passport. Danyel Correa MD [facility] Summary Purpose Family History No [...] BE BASED ON THE PRIMARY CLINICAL RECORDS. [employer] [facility]. provides no warranty or guarantee of the accuracy or completeness of information in this document.
== END | disposition home or self-care (01) ==
LOC: POLAB3 14:37
PROVIDERS: PCP Family Medicine Geriatric Medicine; Visit Provider Family Medicine Geriatric Medicine
DX: E78.5 Hyperlipidemia, unspecified (principal); D86.9 Sarcoidosis, unspecified
CPT/HCPCS: 36415; 80048; 85025; 85610

== ENCOUNTER 2023-12-28 13:16 | Inpatient (IN) | payer MEDICARE, OTHER, SELFPAY ==
[2023-12-28 13:18] VITALS: BP 81/62; PULSE 82; RESP 20; TEMP 36.4; O2SAT 95
[2023-12-28 13:22] VITALS: BMI 26.6
--- NOTE | 2023-12-28 13:48 | EDS_ITS ---
HPI History of Present Illness Chief Complaint: Complaint Detail of Chief Complaint: Fever and chills and generalized weakness Informant: patient Narrative Narrative: Patient presents the emergency department complaint not feeling well since yesterday afternoon. They were seen in the primary care physician for some preadmission testing and on the way home he started feeling fevered and chilled. He states he had a hard time sleeping last night. He has been complaining of some lightheadedness with standing and walking. He denies cough or sore throat. Patient scheduled to have surgery on his back for herniated disc in January 17. Patient also complaining of some right-sided lower abdomen pain. Patient noticed very dark urine today. [facility] Medical History High cholesterol Home Medications pravastatin 40 mg tablet 40 mg PO QHS 04/29/17 [History Last Taken 04/28/17] timolol maleate 0.5 % eye drops 1 drp QHS 04/29/17 [History Last Taken 04/28/17] gabapentin 300 mg capsule 300 mg PO DAILY 12/28/23 [History Last Taken Unknown] naproxen 500 mg tablet 500 mg PO Q12H 12/28/23 [History Last Taken Unknown] pantoprazole 40 mg tablet,delayed release 40 mg PO DAILY 12/28/23 [History Last Taken Unknown] Allergy/AdvReac Type Severity Reaction Status Date / Time No Known Allergies Allergy Verified 12/28/23 13:18 Social History (Updated 12/28/23 @ 13:56 by Nighat Treviño) household members: spouse housing: house Smoking Status: Former smoker ROS ROS ED Review of Systems ROS Unobtainable: other Constitutional Constitutional ED: Reports chills, fever(s) and lethargy; Denies sweats or weight loss Eyes Eyes: Denies blurry vision, change in vision or diplopia ENT ENT ED: Denies rhinorrhea or sore throat Cardiovascular Cardiovascular: Denies chest pain, orthopnea or racing heartbeat Respiratory/Chest Respiratory/Chest: Denies cough, dyspnea, dyspnea on exertion, orthopnea or sputum Gastrointestinal Gastrointestinal: Denies abdominal pain, diarrhea, nausea or vomiting Genitourinary Genitourinary ED: Reports other Details: Dark urine ; Denies dysuria, hematuria or urinary frequency Musculoskeletal Musculoskeletal: Denies arthralgias, back pain, myalgias or neck pain Integumentary Denies abscess, Abrasions or rash Neurologic Neurologic: Reports weakness; Denies headache(s) Psychiatric Psychiatric: Denies anxiety, depression or suicidal thoughts Endocrine Endocrinology: Denies polydipsia, polyphagia or polyuria Hematologic/Lymphatic Hematologic/Lymphatic: Denies easy bleeding, easy bruising or lymphadenopathy Allergic/Immunologic Allergic/Immunologic ED: Denies mouth swelling, tongue swelling or urticaria EXAM Physical Exam Const Vital Signs: 12/28/23 13:18 12/28/23 15:16 12/28/23 15:17 Temperature 97.6 F L 98.2 F Temperature Source Temporal Pulse Rate 82 67 Respiratory Rate 20 H 15 Respiratory Effort Normal Respiratory Pattern Normal Blood Pressure 81/62 L 98/65 Blood Pressure Mean 68 76 Pulse Ox 95 94 Oxygen Delivery Method Room Air 12/28/23 15:18 Temperature Temperature Source Pulse Rate 66 Respiratory Rate 18 Respiratory Effort Respiratory Pattern Blood Pressure Blood Pressure Mean Pulse Ox 96 Oxygen Delivery Method Room Air Positive well nourished and well developed General Appearance ED: well developed and NAD HEENT Reports TM's clear and moist mucous membranes normocephalic and atraumatic; Negative for trauma or tenderness Tympanic Membrane ED: Yes TM's clear Eyes PERRL and EOMs intact bilaterally General Eye ED: Negative for pale conjunctiva or scleral icterus Neck no lymphadenopathy, supple and no JVD General: Negative for tenderness Chest Wall inspection of chest normal and palpation of chest normal Chest: Negative for tenderness Resp normal respiratory effort and clear to auscultation bilaterally Effort and Inspection: Negative for respiratory distress or pain with movement Auscultation: Negative for rhonchi, wheezes or diminished lung sounds Cardio regular rate, regular rhythm, S1 normal heart sound, S2 normal heart sound and no murmurs Peripheral Pulses: pulses 2+ throughout GI normal to inspection, nondistended, normoactive bowel sounds, soft to palpation, non-distended and no masses GI Narrative: Tender to palpation over right lower quadrant with some guarding. There is no rebound, rigidity, or signs. No mass palpated. Back/Spine no CVA tenderness and no thoracic nor lumbar tenderness Extremity normal to inspection General Extremety ED: Negative for edema General Extremity: Negative for edema Neuro oriented x3, CN's II-XII intact bilaterally, no sensory deficits noted and gait normal Sensorium / Orientation: awake, alert, oriented to person, oriented to place and oriented to time Motor Exam: strength 5/5 throughout and strength abnormal Psych mental status grossly normal Skin no rashes or lesions noted and no wounds MDM MDM MDM Narrative Medical decision making narrative: Patient presents with fever and chills and low blood pressure. Complains of lower abdomen pain. Patient also noted dark urine today. IV line established. CBC with differential obtained showed white count 8.0 with hemoglobin 14 and platelet count 153. Chemistries unremarkable. Lactate was normal at 1.9. Patient did have elevated total bilirubin at 2.2 with AST of 105 and ALT of 165 and a normal alk phos at 83. Urinalysis positive for nitrites and +1 bacteria however only 25 leukocyte esterase and 0-5 WBCs seen. Urine culture sent. CT scan of the abdomen pelvis without contrast showed acute diverticulitis of the sigmoid colon without complication. I did start patient on Cipro and Flagyl. On arrival he had a liter of normal saline ordered and his most recent pressure is 97 systolic. I ordered a second liter of normal saline. Case will be discussed with hospitalist to evaluate patient for admission for acute diverticulitis and hypotension. Patient was given 50 mcg of fentanyl IV for his chronic back pain. Lab Data Attestation: I reviewed the patient's lab results. Labs: Laboratory Results - last 24 hr 12/28/23 14:00 WBC 8.0 RBC 4.90 Hgb 14.2 Hct 43.2 MCV 88.2 MCH 29.0 MCHC 32.9 RDW Std Deviation 43.0 RDW Coeff of Anshu 13.2 Plt Count 153 MPV 9.2 Immature Gran % (Auto) 0.600 Neut % (Auto) 94.9 H Lymph % (Auto) 2.5 L [place] % (Auto) 1.4 Eos % (Auto) 0.3 Baso % (Auto) 0.3 Absolute Neuts (auto) 7.6 Absolute Lymphs (auto) 0.20 L Nucleated RBC % 0 Sodium 137 Potassium 4.4 Chloride 107 Carbon Dioxide 28.0 Anion Gap 2 L BUN 25 H Creatinine 1.03 Est GFR (MDRD) Af Amer 92 Est GFR (MDRD) Non-Af 76 BUN/Creatinine Ratio 24.3 H Glucose 111 H Lactic Acid 1.9 Calcium 9.0 Total Bilirubin 2.20 H AST 105 H ALT 165 H Alkaline Phosphatase 83 Total Protein 6.1 L Albumin 2.5 L Globulin 3.6 Albumin/Globulin Ratio 0.7 L Urine Color Yellow Urine Clarity Clear Urine pH 5.0 Ur Specific [place] 1.020 Urine Protein 30 H Urine Glucose (UA) Normal Urine Ketones 5 H Urine Occult Blood 10 H Urine Nitrite Positive H Urine Bilirubin 3 H Urine Urobilinogen 8 H Ur Leukocyte Esterase 25 H Urine RBC 0 SEEN Urine WBC 0-5 SEEN Ur Squamous Epith Cells 0 SEEN Urine Bacteria 1+ Urine Mucus 0 SEEN Radiography Diagnostic Testing: Clinical Impression(s) from Imaging Studies Abdomen/Pelvis CT 12/28/23 13:51 IMPRESSION: Findings suggestive of a noncomplicated acute sigmoid diverticulitis. Stable right renal cyst. Prostatic enlargement. Electronically Signed: Jermain Mendoza MD at 14:55 EST , Discharge Plan Dx/Rx/DC Orders Clinical Impression: Acute hypotension, Acute diverticulitis, Chronic back pain Disposition Disposition: Acute Care Hospital [facility]
--- NOTE | 2023-12-28 13:51 | CT_ITS ---
STUDY: CT ABDOMEN AND PELVIS WITHOUT CONTRAST REASON FOR EXAM: Male, 68 years old. Right flank pain. Fever. Hematuria. RADIATION DOSAGE (If Supplied By Facility): CTDIvol = ( 13.89 ) mGy, DLP = ( 743.25 ) mGycm TECHNIQUE: Transaxial images were obtained from the dome of the diaphragm to the symphysis pubis without oral contrast, and without intravenous contrast. Sagittal and coronal images were reconstructed. Individualized dose optimization techniques were used for this CT. COMPARISON: Comparison is made with prior study dated November 22, 2023 and May 17, 2019. FINDINGS: Stable 2 mm nodule in the lateral aspect of the anterior right lower lobe abutting the right minor fissure. Coronary artery calcification. Normal liver. Normal gallbladder and extrahepatic biliary system. Normal spleen. Normal pancreas. Normal bilateral adrenal glands. Stable 2.6 cm cyst in the upper medial aspect of the right kidney. Normal left kidney. Normal visualized stomach. Normal small intestine. There is diverticulosis, with thickening of the colon wall, and pericolonic inflammation changes consistent with acute diverticulitis. The appendix is visualized and appears normal. There is scattered atherosclerotic calcification of the abdominal aorta, without a demonstrated aneurysm. Normal inferior vena cava. Normal retroperitoneum. Normal urinary bladder. Prostate is enlarged and measures 4.8 cm x 4.4 cm. This causes indentation at the bladder base. Normal abdominal wall. There are degenerative changes of the visualized lumbar spine. 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 CT/Abdomen/Pelvis without Cont IMPRESSION: Findings suggestive of a noncomplicated acute sigmoid diverticulitis. Stable right renal cyst. Prostatic enlargement. Electronically Signed: Jermain Mendoza MD at 14:55 EST ,
[2023-12-28] MEDS: 0.9% Normal Saline (1000mL) 1,000 ML 1000 ML IV (14:13)
[2023-12-28 14:14] LABS: Mucous, Urine 0 SEEN /hpf (<or=2+); Red Blood Cells-Urine 0 SEEN /hpf (0-5); Squamous Epithelial Cells - UA 0 SEEN /hpf (0-5)
[2023-12-28 14:27] LABS: Absolute Neutrophil Count 7.6 X10^3/uL (2.0-7.7); Basophil# 0.02 X10^3/uL; Basophil% 0.3 % (0-1); Color, Urine Yellow (Yellow); Eosinophil# 0.02 X10^3/uL; Eosinophils% 0.3 % (0-5); Glucose, Dipstick Normal (Normal); Hematocrit 43.2 % (40-54); Hemoglobin 14.2 g/dL (13.0-16.5); Ketone-Dipstick 5 mg/dl (Negative); Leukocyte Esterase-Dipstick 25 /ul (Negative); Lymphocyte % 2.5 % (19-41); Mean Corp Hgb Conc 32.9 g/dL (32-36); Mean Corpuscular Volume 88.2 fL (80-94); Mean Platelet Vol. 9.2 fl (6.2-12.0); Monocyte# 0.11 X10^3/uL; Monocyte% 1.4 % (0-10); NRBC Flagged by Analyzer 0 % (0-5); Neutrophil # 7.55 X10^3/uL (2.7-7.7); Neutrophil % 94.9 % (47-70); Nitrite-Dipstick Positive (Negative); Occult Blood-Urine 10 /ul (Negative); POSITIVE DIFFERENTIAL YES; Platelet Count 153 K/mm3 (150-450); Protein-Dipstick 30 mg/dl (Negative); RBC Distribution Width CV 13.2 % (11.6-14.6); Urine Clarity Clear (Clear); Urine Urobilinogen 8 mg/dl (Normal)
[2023-12-28 14:29] LABS: Urine Bilirubin Dipstick 3 mg/dL (Negative)
[2023-12-28 14:36] LABS: Bacteria 1+ /hpf (None Seen); White Blood Cells 0-5 SEEN /hpf (0-5)
[2023-12-28 14:39] LABS: ALB/GLOB Ratio 0.7 RATIO (0.9-2.4); AST(SGOT) 105 U/L (15-37); Alanine Aminotransfer ALT/SGPT 165 U/L (16-61); Albumin, Serum 2.5 g/dL (3.2-5.0); Alkaline Phosphatase 83 U/L (45-117); Anion Gap 2 (5-15); BUN 25 mg/dL (7-18); BUN/Creat Ratio 24.3 RATIO (10-20); Chloride 107 mmol/L (98-107); Creatinine, Serum 1.03 mg/dL (0.70-1.30); EST Glomerular Filtration Rate 76 mL/min (>60); Est Glom Filt Rate - Afr Amer 92 mL/min (>60); Globulin 3.6 g/dL (2.2-4.2); Glucose 111 mg/dL (74-106); Lactic Acid 1.9 mmol/L (0.4-1.9); Potassium 4.4 mmol/L (3.5-5.1); Protein, Total 6.1 g/dL (6.4-8.2); Sodium Level 137 mmol/L (136-145)
[2023-12-28] MEDS: Ciprofloxacin 400 MG/200 ML BAG 200 MG IV (15:11)
[2023-12-28] MEDS: fentaNYL 100 MCG/2 ML Ampul 50 MCG IV (15:11)
[2023-12-28] MEDS: 0.9% Normal Saline (1000mL) 1,000 ML 150 ML IV ×2 (15:12→23:38)
--- NOTE | 2023-12-28 15:12 | NURSING ---
DR DELGADILLO FOR DR FAUSTIN
[2023-12-28 15:16] VITALS: BP 98/65; PULSE 67; RESP 15; TEMP 36.8; O2SAT 94
[2023-12-28 15:18] VITALS: PULSE 66; RESP 18; O2SAT 96
[2023-12-28] MEDS: 0.9% Normal Saline (1000mL) 1,000 ML 999 ML IV (15:19)
--- NOTE | 2023-12-28 15:29 | NURSING ---
MED SURG TERRAMYA ABD PAIN, ACUTE DIVERTICULITIS, HYPOTENSION
[2023-12-28] MEDS: metroNIDAZOLE 500 MG/100 ML BAG 100 MG IV (16:26)
--- NOTE | 2023-12-28 16:29 | PCM.HP.STD ---
HPI - General General Date of Admission: 12/28/23 Date of Service: 12/28/23 Chief Complaint: Mid abdominal pain, fever, chills HPI Narrative LORIE COOK, is a 68 M who presents to the emergency room at [facility] with complaints of fever and chills since last night along with mid to lower/right lower quadrant abdominal pain. Patient had been seen in the emergency room in November with complaints of abdominal discomfort, CT done at that time question chronic diverticulitis. Patient denies any blood in his stool, he denies any nausea and vomiting, he denies any diarrhea. Patient states that his urine has looked dark and he question whether there was blood in the urine. Patient denies any dysuria or urinary frequency. Patient states his temperature at home last night went up to 101. Lab work done in the emergency room revealed a normal white blood cell count, hemoglobin and platelet counts were normal, chemistry profile was remarkable for BUN of 25, liver enzymes were elevated with a total bilirubin of 2.2, AST of 105, ALT of 165, patient's urinalysis showed no red cells, there is 0-5 white cells and +1 bacteria. Nitrites were positive. CT of the abdomen pelvis shows evidence of sigmoid diverticulitis. Patient blood pressure was low in the emergency room, he was given a fluid bolus and IV antibiotics were started for diverticulitis. [facility] Medical History High cholesterol Home Medications pravastatin 40 mg tablet 40 mg PO QHS 04/29/17 [History Last Taken 04/28/17] timolol maleate 0.5 % eye drops 1 drp QHS 04/29/17 [History Last Taken 04/28/17] gabapentin 300 mg capsule 300 mg PO DAILY 12/28/23 [History Last Taken Unknown] naproxen 500 mg tablet 500 mg PO Q12H 12/28/23 [History Last Taken Unknown] pantoprazole 40 mg tablet,delayed release 40 mg PO DAILY 12/28/23 [History Last Taken Unknown] Allergy/AdvReac Type Severity Reaction Status Date / Time No Known Allergies Allergy Verified 12/28/23 13:18 Social History (Updated 12/28/23 @ 13:56 by Nighat Treviño) household members: spouse housing: house Smoking Status: Former smoker ROS Constitutional Constitutional: Reports chills and fever(s); Denies anorexia, change in weight, night sweats or weakness Eyes Eyes: Denies blurry vision, change in vision, discharge from eye(s) or eye pain Cardiovascular Cardiovascular: Denies chest pain, claudication, dyspnea on exertion, edema, lightheadedness or palpitations Respiratory/Chest Respiratory/Chest: Denies cough, dyspnea, excessive phlegm production, hemoptysis, productive cough, shortness of breath at rest or shortness of breath with exertion Gastrointestinal Gastrointestinal: Reports abdominal pain; Denies coffee ground emesis, constipation, diarrhea, dyspepsia, hematemesis, hematochezia, melena, nausea or vomiting Genitourinary Genitourinary: Denies difficulty urinating, dysuria, hematuria, nocturia, urinary frequency, urinary hesitancy, urinary incontinence or urinary urgency Musculoskeletal Musculoskeletal: Denies back pain, joint pain, joint stiffness, joint swelling, myalgias or neck pain Neurologic Neurologic: Denies abnormal gait, abnormal speech, dizziness, focal weakness, headache(s), loss of vision, numbness, other visual disturbances, paresthesias, syncope or tingling Psychiatric Psychiatric: Denies anxiety, cognitive impairment, depression, irritability, mood swings or suicidal ideation Endocrine Endocrinology: Denies change in body appearance, cold intolerance, excessive sweating, heat intolerance, polydipsia or polyuria Hematologic/Lymphatic Hematologic/Lymphatic: Denies none, anemia, easy bleeding, easy bruising or lymphadenopathy Allergic/Immunologic Allergic/Immunologic: Denies rhinitis, urticaria, eczemia or asthma Vital Signs Vital Signs Vital Signs: 12/28/23 13:18 12/28/23 15:16 12/28/23 15:17 Temperature 97.6 F L 98.2 F Temperature Source Temporal Pulse Rate 82 67 Respiratory Rate 20 H 15 Respiratory Effort Normal Respiratory Pattern Normal Blood Pressure 81/62 L 98/65 Blood Pressure Mean 68 76 Pulse Ox 95 94 Oxygen Delivery Method Room Air 12/28/23 15:18 Temperature Temperature Source Pulse Rate 66 Respiratory Rate 18 Respiratory Effort Respiratory Pattern Blood Pressure Blood Pressure Mean Pulse Ox 96 Oxygen Delivery Method Room Air Weight Weight: 91.6 kg Body Mass Index (BMI) 26.6 Physical Exam Const alert, oriented x3, no apparent distress, average body habitus and healthy appearing General Appearance: cooperative, well kempt and well developed Orientation / Consciousness: awake, oriented to person, oriented to place and oriented to time HEENT normocephalic, head/scalp atraumatic, hearing grossly normal bilaterally and moist oral mucous membranes Eyes PERRL, EOMs intact bilaterally and conjunctivae normal Neck supple, no JVD, thyroid normal and no carotid bruits General: trachea midline Resp normal respiratory effort, no retractions, no use of accessory muscles and clear to auscultation bilaterally Auscultation: Negative for rales, rhonchi or wheezes Cardio regular rate, regular rhythm, S1 normal heart sound, S2 normal heart sound, no murmurs, no rub and no gallops GI GI Narrative: Patient is abdomen is soft, there is tenderness to palpation in the mid lower abdominal area and the right lower quadrant, no rebound abdominal tenderness was noted, bowel sounds are present in all 4 quadrants, abdomen is not distended. Extremity no clubbing, cyanosis or edema Skin no rashes or lesions noted General Skin Exam: no breakdown Neuro oriented x3, CN's II-XII intact bilaterally, moves all extremities, no focal motor deficits and no sensory deficits noted Sensorium / Orientation: awake, alert, oriented to person, oriented to place and oriented to time Speech: speech normal Psych affect normal Results Lab / Micro Data 12/28/23 14:00 12/28/23 14:00 Labs: Laboratory Results - last 24 hr 12/28/23 14:00: WBC 8.0, RBC 4.90, Hgb 14.2, Hct 43.2, MCV 88.2, MCH 29.0, MCHC 32.9, RDW Std Deviation 43.0, RDW Coeff of Anshu 13.2, Plt Count 153, MPV 9.2, Immature Gran % (Auto) 0.600, Neut % (Auto) 94.9 H, Lymph % (Auto) 2.5 L, [place] % (Auto) 1.4, Eos % (Auto) 0.3, Baso % (Auto) 0.3, Absolute Neuts (auto) 7.6, Absolute Lymphs (auto) 0.20 L, Nucleated RBC % 0, Sodium 137, Potassium 4.4, Chloride 107, Carbon Dioxide 28.0, Anion Gap 2 L, BUN 25 H, Creatinine 1.03, Est GFR (MDRD) Af Amer 92, Est GFR (MDRD) Non-Af 76, BUN/Creatinine Ratio 24.3 H, Glucose 111 H, Lactic Acid 1.9, Calcium 9.0, Total Bilirubin 2.20 H, AST 105 H, ALT 165 H, Alkaline Phosphatase 83, Total Protein 6.1 L, Albumin 2.5 L, Globulin 3.6, Albumin/Globulin Ratio 0.7 L, Urine Color Yellow, Urine Clarity Clear, Urine pH 5.0, Ur Specific Mercer 1.020, Urine Protein 30 H, Urine Glucose (UA) Normal, Urine Ketones 5 H, Urine Occult Blood 10 H, Urine Nitrite Positive H, Urine Bilirubin 3 H, Urine Urobilinogen 8 H, Ur Leukocyte Esterase 25 H, Urine RBC 0 SEEN, Urine WBC 0-5 SEEN, Ur Squamous Epith Cells 0 SEEN, Urine Bacteria 1+, Urine Mucus 0 SEEN Micro: Microbiology 12/28/23 14:02 Mucosa - Nose SARS-CoV-2, Influenza & RSV (PCR) - Final Imaging Radiology Impression Abdomen/Pelvis CT 12/28/23 13:51 IMPRESSION: Findings suggestive of a noncomplicated acute sigmoid diverticulitis. Stable right renal cyst. Prostatic enlargement. Electronically Signed: Jermain Mendoza MD at 14:55 EST , Assessment & Plan Assessment/Plan (1) Acute diverticulitis: PLAN: Plan 1. Acute sigmoid diverticulitis-patient's presentation is odd and that he does not complain of any left lower quadrant abdominal pain, CT scan does show evidence of acute diverticulitis however in the sigmoid area. Patient will be admitted to [facility], he was started on Zosyn, he will receive fluids and be on a clear liquid diet for now. #2 elevated liver enzymes-etiology unclear at this point, patient does not appear to have an obstructive type pattern on his liver enzyme elevation, I have ordered an ultrasound of the right upper quadrant, CMP will be repeated tomorrow. #3 hypotension-etiology unclear, this may be due to dehydration, patient will be given IV fluids and blood pressure will be monitored #4 degenerative disc disease of the lumbar spine-patient is due to have a microdiscectomy done in December of this year. #5 hyperlipidemia-I doubt that the patient's pravastatin is causing any problems but I have elected to hold it for now Total clinical time spent by myself addressing the patient's medical issues, reviewing all of his data, and collaborating with patient's care team: 55 minutes Charges/Coding Visit Charges Inpatient E&M: 22055 Init Hosp L2
[2023-12-28 17:51] VITALS: BMI 25.6
--- NOTE | 2023-12-28 18:02 | US_ITS ---
STUDY: ABDOMINAL ULTRASOUND - RIGHT UPPER QUADRANT REASON FOR VISIT: Male, 68 years old Elevated liver enzymes TECHNIQUE: Ultrasound evaluation of the right upper quadrant was performed with real-time and static arizmendi-scale imaging. TECHNICAL QUALITY: Adequate. COMPARISON: Comparison is made with prior CT scan the abdomen and pelvis done on December 28, 2023. FINDINGS: Liver: The liver is enlarged and measures 17.9 cm. There is normal echogenicity of the liver. The bile ducts are within normal limits. There is hepatic color flow. The direction of portal flow is hepatopetal. There is no demonstrated mass lesion. Gallbladder: Normal distended gallbladder. The gallbladder wall measures 2.3 mm. There is a negative sonographic Christianson''s sign. There is no pericholecystic fluid. There is a solitary echogenic gallstone within the gallbladder. This measures 1.7 cm x 1.4 cm x 1 cm. Common Bile Duct (C.B.D.): The common bile duct measures 4.2 mm. Pancreas: Normal size of the head, body and tail of the pancreas. There is increased echogenicity of the pancreas. There is no demonstrated pancreatic mass or cyst. Right Kidney: Normal size of the right kidney. The right kidney measures 11 cm x 6.2 cm x 5.3 cm. Normal renal cortex. The right cortex measures 1.5 cm. There is a 3.2 cm x 2.1 centimeters by 2.4 cm cyst in the upper pole of the kidney. There is also evidence of a 1.4 cm x 1 cm x 1 cm cyst in the lateral portion of the kidney. There is no right hydronephrosis. US/Abdomen Limited IMPRESSION: Solitary gallstone measuring 1.7 cm x 1.4 cm x 1 cm. Right renal cysts. Electronically Signed: Jermain Mendoza MD at 15:33 EST ,
[2023-12-28 18:03] VITALS: BP 100/66; PULSE 68; RESP 18; TEMP 36.7; O2SAT 95
[2023-12-28] MEDS: Acetaminophen 325 MG Tablet 650 MG PO (18:19)
[2023-12-28 20:10] VITALS: BP 93/65; PULSE 65; RESP 16; TEMP 36.7; O2SAT 99
[2023-12-28] MEDS: oxyCODONE 5 MG Tablet 10 MG PO (23:37)
--- OUTSIDE RECORDS SUMMARY | 2023-12-28 23:54 | XMS RPT_ITS | CCD ---
Author Name Unknown Address [address] [place] [address] Organization [facility] Care Team Providers Care Store Promoter Name Role Phone FERNIE ZEPEDA [facility] Unavailable Results Test Name Value Interpretation Reference Range Facil ity Encounters Encounter Date Encounter Type Care Provider Facility Start: 11-22-2023 End: 11-22-2023 ambulatory FERNIE ZEPEDA Facility:[facility] Progress note 11-22-2023 Note Date & Type Note Facility 11-22-2023 Note HNO ID: [id number] Author: DANYEL CORREA MD Service: ? Author [...] flushing, may have had a UTI around [place] (hesitancy and frequency with small volume), Hx [...] AT BEDTIME April 29, 2017 Active 04-29-2017 [facility] ([id number]) (Patient not taking: Reported on 11/22/2023) ALLERGIES: [...] follow up with PCP. Report sent to [facility] by ER passport. Danyel Correa MD [facility] Summary Purpose Family History No Family [...] BE BASED ON THE PRIMARY CLINICAL RECORDS. [employer] [facility]. provides no warranty or guarantee of the accuracy or completeness of information in this document.
--- OUTSIDE RECORDS SUMMARY | 2023-12-29 00:31 | XMS RPT_ITS | CCD ---
Author Name Unknown Address [address] [place] [address] Organization [facility] Care Team Providers Care Staffing Operations Manager Name Role Phone FERNIE ZEPEDA [facility] Unavailable Results Test Name Value Interpretation Reference Range Facil ity Encounters Encounter Date Encounter Type Care Provider Facility Start: 11-22-2023 End: 11-22-2023 ambulatory FERNIE ZEPEDA Facility:[facility] Progress note 11-22-2023 Note Date & Type Note Facility 11-22-2023 Note HNO ID: [id number] Author: DANYEL CORREA MD Service: ? Author [...] flushing, may have had a UTI around [place] (hesitancy and frequency with small volume), Hx [...] AT BEDTIME April 29, 2017 Active 04-29-2017 [facility] ([id number]) (Patient not taking: Reported on 11/22/2023) ALLERGIES: [...] Hospital by ER passport. Danyel Correa MD [facility] Summary Purpose Family History No [...] BE BASED ON THE PRIMARY CLINICAL RECORDS. [employer] [facility]. provides no warranty or guarantee of the accuracy or completeness of information in this document.
[2023-12-29] MEDS: 0.9% Normal Saline (1000mL) 1,000 ML 150 ML IV ×2 (05:38→12:27)
[2023-12-29 05:43] VITALS: BP 93/53; PULSE 68; RESP 16; TEMP 36.8; O2SAT 95
[2023-12-29 06:01] LABS: Absolute Lymphocyte Count 0.21 X10^3/uL (0.83-4.51); Absolute Neutrophil Count 3.8 X10^3/uL (2.0-7.7); Basophil# 0.01 X10^3/uL; Basophil% 0.2 % (0-1); Eosinophil# 0.01 X10^3/uL; Eosinophils% 0.2 % (0-5); Hematocrit 37.2 % (40-54); Hemoglobin 11.6 g/dL (13.0-16.5); Lymphocyte # 0.21 X10^3/ul (0.83-4.51); Mean Corp Hgb Conc 31.2 g/dL (32-36); Mean Corpuscular Hgb 28.1 pg (27.0-32.0); Mean Corpuscular Volume 90.1 fL (80-94); Mean Platelet Vol. 9.3 fl (6.2-12.0); Monocyte# 0.15 X10^3/uL; Monocyte% 3.6 % (0-10); NRBC Flagged by Analyzer 0 % (0-5); Neutrophil # 3.81 X10^3/uL (2.7-7.7); Neutrophil % 90.3 % (47-70); POSITIVE DIFFERENTIAL YES; POSITIVE MORPHOLOGY YES; Platelet Count 104 K/mm3 (150-450); RBC Distribution Width CV 13.2 % (11.6-14.6); RBC Distribution Width SD 43.8 fl (35.1-43.9); Red Blood Count 4.13 M/mm3 (4.6-6.2); White Blood Count 4.2 K/mm3 (4.4-11.0)
[2023-12-29 06:13] LABS: Differential Indicated SCAN CRITERIA MET
[2023-12-29 06:36] LABS: ALB/GLOB Ratio 0.7 RATIO (0.9-2.4); AST(SGOT) 77 U/L (15-37); Alanine Aminotransfer ALT/SGPT 141 U/L (16-61); Alkaline Phosphatase 76 U/L (45-117); Anion Gap -1 (5-15); BUN 15 mg/dL (7-18); BUN/Creat Ratio 19.7 RATIO (10-20); Calcium,Total 8.4 mg/dL (8.5-10.1); Chloride 112 mmol/L (98-107); Creatinine, Serum 0.76 mg/dL (0.70-1.30); EST Glomerular Filtration Rate 108 mL/min (>60); Est Glom Filt Rate - Afr Amer 130 mL/min (>60); Estimated Creatinine Clearance 98.49 ml/min; Globulin 2.8 g/dL (2.2-4.2); Glucose 109 mg/dL (74-106); Potassium 4.6 mmol/L (3.5-5.1); Protein, Total 4.8 g/dL (6.4-8.2); Sodium Level 141 mmol/L (136-145)
[2023-12-29 07:56] LABS: Differential Comment SCANNED
[2023-12-29 08:46] VITALS: BP 103/67; PULSE 66; RESP 18; TEMP 37.2; O2SAT 95
--- NOTE | 2023-12-29 09:36 | CASEMGMT ---
DEWAYNE HERNANDEZ Assessment Face to Face with patient for initial transition planning/care coordination assessment. DEWAYNE HERNANDEZ introduced self and role at [facility], pt voices understanding. Pt is A&Ox4 and is resting comfortably in bed and is calm. Care providers, pharmacy, and demographics verified. Admitting dx: ABD pain, Acute Diverticulitis, Hypotension LACE Strata: 2 PCP: [facility] Specialists: Pt states he does not normally see any specialist but he will be seeing Dr. Parekh for surgery in 3 weeks for a herniated disc. Preferred Pharmacy: [facility] Insurance: [employer] Prescription Benefit: Yes LNOK: Otilia Obrien (W) Living Arrangements: Pt lives with his and son (38) in a single story home with a BM with HR and 2 steps to enter the home with HR and no issues. ADLs/IADLs: States normally ind but the pt has been having back pain since November d/t a herniated disc (per the pt). Transportation: Pt drives. Pt will drive pt home from [facility] DME: Pt states he has been using a walker more lately d/t his back pain. Walk-in shower with GB and seat. Denies all other DME uses or needs. HHC/SNF: Denies history or needs. Pt?s goal: Home Plan: Pt 6-Click is 21. No therapy ordered on the pt. Pt denies the need for HHC or OP therapy at this time. Pt states that he would be interested in visiting a chiropractor after DC for his back. This DEWAYNE HERNANDEZ educated the pt that it would be luciano to talk to his orthopedic Dr or PCP prior to going to the chiropractor to make sure that would be OK. Pt states understanding and denies further needs at this time. Gunner Lopez RN, CM
[2023-12-29] MEDS: Gabapentin 300 MG Capsule PO (10:04)
[2023-12-29] MEDS: Pantoprazole Sodium 40 MG Tablet PO (10:04)
[2023-12-29] MEDS: Heparin Injection (Vial) 5,000 UNIT/ML VIAL 5000 UNIT SC ×2 (10:04→21:05)
[2023-12-29] MEDS: oxyCODONE 5 MG Tablet 10 MG PO ×2 (10:09→21:18)
[2023-12-29 15:00] VITALS: BP 142/58; PULSE 78; RESP 18; TEMP 36.8; O2SAT 97
--- NOTE | 2023-12-29 16:50 | PN.HOSP_ITS ---
Reason for Visit Reason for Visit: Abdominal pain/fever/chills Subjective Subjective Mr. Obrien is a 68-year-old white male who presented to emergency department at [facility] on 12/28/2023 with a chief complaint of abdominal pain, fever, and chills that started the evening prior to presentation. The patient was seen in November with similar complaints and a CT was done at that time that had questionable chronic diverticulitis. Patient denied any hematochezia or melena and had no nausea or vomiting. He has not had any diarrhea. He reported his temperature last evening on presentation was 101. Vital signs emergency department demonstrated he was afebrile with a temperature of 97.6, heart rate 82, blood pressure was 81/62 with repeat at 98/65, heart rate was 82 and oxygen saturation was 95% on room air. His CBC was overtly unremarkable, but he did have a significant left shift with a 94.9% neutrophilia on presentation. His chemistry panel was consistent with some mild dehydration showing a BUN of 25 and a serum creatinine of 1.03 and a baseline of 0.7-0.9. His lactic acid was normal however his liver enzymes were elevated with an AST of 105 and an ALT of 6165 and a total bilirubin of 2.2. His UA was somewhat suggestive of infection overall as he had no white cells and only 1+ bacteria however he was positive for nitrates and leuk esterase. Urine culture was sent and is preliminary positive for Enterococcus however colony counts are less than 1000 which is below infection level. COVID/flu/RSV was normal. CT of the abdomen pelvis showed uncomplicated acute sigmoid diverticulitis and a stable right renal cyst with prostatic enlargement and a right upper quadrant ultrasound was performed due to transaminitis and demonstrated a solitary gallstone measuring 1.7 x 1.4 x 1 cm and right renal cysts. Common bile duct was not dilated. He was admitted to the medical floor and maintained on IV antibiotics with Zosyn. Patient states all of his pain is on the right side of his very lower abdomen and he was afraid he had appendicitis. He is having no abdominal pain today. He states the pain he had yesterday was related to his low back and radiated down to his leg. He is tolerating a diet without any difficulty. Objective Data Objective Data Vital Signs: Vital Signs Temp Pulse Resp BP Pulse Ox O2 Del Method 98.3 F 78 18 142/58 H 97 Room Air 12/29/23 15:00 12/29/23 15:00 12/29/23 15:00 12/29/23 15:00 12/29/23 15:00 12/29/23 15:00 Oxygen Delivery Method Room Air Weight: 88.1 kg Body Mass Index (BMI) 25.6 Intake & Output: Intake and Output for Last 24 Hours 12/27/23 12/28/23 12/29/23 23:59 23:59 23:59 Intake Total 4050.0 / 4050.0 2049 Balance 4050.0 / 4050.0 2049 Lab / Micro Data 12/29/23 05:05 12/29/23 05:05 Labs: Laboratory Results - last 24 hr 12/29/23 05:05: WBC 4.2 L, RBC 4.13 L, Hgb 11.6 L, Hct 37.2 L, MCV 90.1, MCH 28.1, MCHC 31.2 L D, RDW Std Deviation 43.8, RDW Coeff of Anshu 13.2, Plt Count 104 L, MPV 9.3, Immature Gran % (Auto) 0.700, Neut % (Auto) 90.3 H, Lymph % (Auto) 5.0 L, [place] % (Auto) 3.6, Eos % (Auto) 0.2, Baso % (Auto) 0.2, Absolute Neuts (auto) 3.8, Absolute Lymphs (auto) 0.21 L, Nucleated RBC % 0, Differential Comment SCANNED, Diff Path Review March, Sodium 141, Potassium 4.6, Chloride 112 H, Carbon Dioxide 30.0, Anion Gap -1 L, BUN 15, Creatinine 0.76, Estim Creat Clear Calc 98.49, Est GFR (MDRD) Af Amer 130, Est GFR (MDRD) Non-Af 108, BUN/Creatinine Ratio 19.7, Glucose 109 H, Calcium 8.4 L, Total Bilirubin 1.80 H, AST 77 H, ALT 141 H, Alkaline Phosphatase 76, Total Protein 4.8 L, Albumin 2.0 L , Globulin 2.8, Albumin/Globulin Ratio 0.7 L Micro: Microbiology 12/28/23 14:00 Urine, Clean Catch Urine Culture - Preliminary GPC Poss Enterococcus sp 12/28/23 14:02 Mucosa - Nose SARS-CoV-2, Influenza & RSV (PCR) - Final Radiography Diagnostic Testing: Radiology Impression Abdomen Ultrasound 12/28/23 18:02 IMPRESSION: Solitary gallstone measuring 1.7 cm x 1.4 cm x 1 cm. Right renal cysts. Electronically Signed: Jermain Mendoza MD at 15:33 EST , Physical Exam Const alert, oriented x3, no apparent distress, average body habitus, healthy appearing and well nourished Constitutional Narrative: Upper middle-aged white male, sitting up in bed eating dinner, appears well and nontoxic HEENT head/scalp atraumatic and moist oral mucous membranes Head and Scalp: normocephalic Resp normal respiratory effort, no retractions, no use of accessory muscles and clear to auscultation bilaterally Auscultation: Negative for rales, rhonchi or wheezes Cardio regular rate, regular rhythm, S1 normal heart sound, S2 normal heart sound, no murmurs, no rub, no gallops and no clicks GI normal to inspection, nondistended, normoactive bowel sounds, soft to palpation and non-tender Extremity no clubbing, cyanosis or edema Extremity Narrative: Pedal pulses are 2+ Neuro oriented x3, moves all extremities and no focal motor deficits Speech: speech normal Psych affect normal Psych Narrative: Eye contact is good, patient interacts appropriately Assessment & Plan Assessment/Plan (1) Chronic back pain: (2) Acute diverticulitis: (3) Acute hypotension: (4) Transaminitis: (5) Hyperbilirubinemia: PLAN: Plan Acute sigmoid diverticulitis -Continue IV antibiotics with Zosyn -Continue clear liquid diet for today -As needed pain medication -Continue IV fluids but decrease rate from 150 cc/h to 75 cc/h Hyperbilirubinemia/transaminitis -Etiology is unclear -No dilated biliary ducts noted on ultrasound -May be related to hypotension and decreased perfusion -Bilirubin and transaminases are trending down -Repeat in a.m. and continue to monitor -If do not further trend down may consider ERCP Hypotension -Resolved -Current blood pressure is 142/58 -Continue to monitor Thrombocytopenia -Platelet count has dropped to 104 -Suspect related to Zosyn -If drop further as will transition from Zosyn to Cipro and Flagyl. -Repeat CBC in a.m. -Could also be dilutional with IV fluids Mild serum creatinine elevation -Has returned to normal Hyperlipidemia -Continue home pravastatin GERD -Continue home PPI Neuropathy -Continue home gabapentin Degenerative disc disease of the lumbar spine -Due to have microdiscectomy done in December 2023 DVT prophylaxis -Continue subcu heparin CODE STATUS -Full code Charges/Coding Visit Charges Inpatient E&M: 41605 Subs Hosp L2
[2023-12-29 20:55] VITALS: BP 125/78; PULSE 73; RESP 18; TEMP 37.1; O2SAT 95
[2023-12-29] MEDS: 0.9% Normal Saline (1000mL) 1,000 ML 75 ML IV (21:05)
[2023-12-30 03:00] VITALS: BP 127/88; PULSE 62; RESP 16; TEMP 36.4; O2SAT 95
[2023-12-30 05:45] VITALS: BP 112/76; PULSE 60; RESP 16; TEMP 36.7; O2SAT 96
[2023-12-30 08:01] LABS: Absolute Lymphocyte Count 0.29 X10^3/uL (0.83-4.51); Absolute Neutrophil Count 2.2 X10^3/uL (2.0-7.7); Basophil# 0.01 X10^3/uL; Basophil% 0.4 % (0-1); Eosinophil# 0.01 X10^3/uL; Eosinophils% 0.4 % (0-5); Hematocrit 39.2 % (40-54); Hemoglobin 12.5 g/dL (13.0-16.5); Lymphocyte # 0.29 X10^3/ul (0.83-4.51); Lymphocyte % 10.9 % (19-41); Mean Corp Hgb Conc 31.9 g/dL (32-36); Mean Corpuscular Hgb 28.6 pg (27.0-32.0); Mean Corpuscular Volume 89.7 fL (80-94); Mean Platelet Vol. 9.4 fl (6.2-12.0); Monocyte# 0.16 X10^3/uL; NRBC Flagged by Analyzer 0 % (0-5); Neutrophil # 2.18 X10^3/uL (2.7-7.7); Neutrophil % 81.6 % (47-70); POSITIVE DIFFERENTIAL YES; Platelet Count 102 K/mm3 (150-450); RBC Distribution Width CV 13.2 % (11.6-14.6); RBC Distribution Width SD 43.8 fl (35.1-43.9); Red Blood Count 4.37 M/mm3 (4.6-6.2); White Blood Count 2.7 K/mm3 (4.4-11.0)
[2023-12-30 08:09] LABS: Differential Indicated SCAN CRITERIA MET
[2023-12-30 08:13] VITALS: BP 127/90; PULSE 58; RESP 16; TEMP 36.6; O2SAT 96
[2023-12-30] MEDS: oxyCODONE 5 MG Tablet 10 MG PO (08:22)
[2023-12-30 08:44] LABS: ALB/GLOB Ratio 0.6 RATIO (0.9-2.4); AST(SGOT) 100 U/L (15-37); Alanine Aminotransfer ALT/SGPT 171 U/L (16-61); Albumin, Serum 2.2 g/dL (3.2-5.0); Alkaline Phosphatase 194 U/L (45-117); Anion Gap 1 (5-15); BUN 11 mg/dL (7-18); BUN/Creat Ratio 14.2 RATIO (10-20); Chloride 110 mmol/L (98-107); Creatinine, Serum 0.78 mg/dL (0.70-1.30); EST Glomerular Filtration Rate 105 mL/min (>60); Est Glom Filt Rate - Afr Amer 128 mL/min (>60); Estimated Creatinine Clearance 98.49 ml/min; Globulin 3.6 g/dL (2.2-4.2); Glucose 111 mg/dL (74-106); Magnesium 2.2 mg/dL (1.6-2.6); Phosphorus 3.2 mg/dL (2.5-4.9); Protein, Total 5.8 g/dL (6.4-8.2); Sodium Level 140 mmol/L (136-145)
--- NOTE | 2023-12-30 09:18 | MRI_ITS ---
INDICATION: transamines elevation EXAMINATION: MRI - MR MRCP and Abdomen W/O Contrast TECHNIQUE: Multiplanar and multisequence MR images of the abdomen were obtained with MRCP sequence. Three-dimensional post-processing reconstructions were performed. IV Contrast Dosage and Agent: None. COMPARISON: FINDINGS: LIVER: No mass. Normal morphology. GALLBLADDER AND BILIARY TREE: Cholelithiasis. No gallbladder distension or wall edema. The CBD measures 3 mm. No intra- or extrahepatic biliary dilation. No choledochal filling defect. PANCREAS: No mass. No pancreatic duct dilation. SPLEEN: Non-enlarged. ADRENAL GLANDS: No nodules. KIDNEYS: Normal renal size and position. No hydronephrosis. Bilateral renal cysts. LYMPH NODES: No enlarged periportal or retroperitoneal lymph nodes. Colonic diverticulosis. PERITONEUM: No ascites or fluid collection. VESSELS: Aorta is non-dilated. LOWER CHEST: No pleural effusion. MRI/MRCP Abdomen without Contrast IMPRESSION: Cholelithiasis. Renal cysts. Diverticulosis of the colon. Electronically Signed: Tl Baeza DO at 17:26 EST ,
[2023-12-30] MEDS: Heparin Injection (Vial) 5,000 UNIT/ML VIAL 5000 UNIT SC (10:05)
[2023-12-30] MEDS: Gabapentin 300 MG Capsule PO (10:05)
[2023-12-30] MEDS: Pantoprazole Sodium 40 MG Tablet PO (10:05)
[2023-12-30] MEDS: 0.9% Normal Saline (1000mL) 1,000 ML 75 ML IV (10:06)
[2023-12-30] MEDS: 0.9% Saline Lock 10 ML Syringe IV ×2 (10:11→12:41)
[2023-12-30] MEDS: Morphine 4 MG/ML Syringe IV ×2 (10:12→12:40)
[2023-12-30 11:59] LABS: Differential Comment SCANNED
[2023-12-30 15:49] VITALS: BP 124/87; PULSE 59; RESP 18; TEMP 36.9; O2SAT 96
--- NOTE | 2023-12-30 17:37 | DS.PCM_ITS ---
Providers Date of Admission: 12/28/23 Date of Discharge: 12/30/23 Primary Care Physician: Dr. Aditya Altamirano MD Reason For Visit: ABDOMINAL PAIN, ACUTE DIVERTICULITIS, HYPOTENSION Diagnosis Discharge Diagnosis (1) Chronic back pain: Status: Chronic Code(s): M54.9 - Dorsalgia, unspecified; G89.29 - Other chronic pain (2) Acute diverticulitis: Status: Acute Code(s): K57.92 - Diverticulitis of intestine, part unspecified, without perforation or abscess without bleeding (3) Acute hypotension: Status: Acute Code(s): I95.9 - Hypotension, unspecified (4) Transaminitis: Status: Acute Code(s): R74.01 - Elevation of levels of liver transaminase levels (5) Hyperbilirubinemia: Status: Acute Code(s): E80.6 - Other disorders of bilirubin metabolism Plan Acute sigmoid diverticulitis -Continue IV antibiotics with Zosyn -Continue clear liquid diet for today -As needed pain medication -Continue IV fluids but decrease rate from 150 cc/h to 75 cc/h Hyperbilirubinemia/transaminitis -Etiology is unclear -No dilated biliary ducts noted on ultrasound -May be related to hypotension and decreased perfusion -Bilirubin and transaminases are trending down -Repeat in a.m. and continue to monitor -If do not further trend down may consider ERCP Hypotension -Resolved -Current blood pressure is 142/58 -Continue to monitor Thrombocytopenia -Platelet count has dropped to 104 -Suspect related to Zosyn -If drop further as will transition from Zosyn to Cipro and Flagyl. -Repeat CBC in a.m. -Could also be dilutional with IV fluids Mild serum creatinine elevation -Has returned to normal Hyperlipidemia -Continue home pravastatin GERD -Continue home PPI Neuropathy -Continue home gabapentin Degenerative disc disease of the lumbar spine -Due to have microdiscectomy done in December 2023 DVT prophylaxis -Continue subcu heparin CODE STATUS -Full code Medications at Discharge Home Medications pravastatin 40 mg tablet 40 mg PO QHS 04/29/17 timolol maleate 0.5 % eye drops 1 drp QHS 04/29/17 gabapentin 300 mg capsule 300 mg PO DAILY 12/28/23 naproxen 500 mg tablet 500 mg PO Q12H 12/28/23 pantoprazole 40 mg tablet,delayed release 40 mg PO DAILY 12/28/23 amoxicillin 875 mg-potassium clavulanate 125 mg tablet 1 tab PO BID #10 tabs 12/30/23 Hospital Course Operations None Procedures - (Right upper quadrant ultrasound/MRCP/CT of the abdomen pelvis) Summary of Care Provided Minutes Spent on Discharge: 40 Hospital Course: Mr. Obrien is a 68-year-old white male who presented to emergency department at [facility] on 12/28/2023 with a chief complaint of abdominal pain, fever, and chills that started the evening prior to presentation. The patient was seen in November with similar complaints and a CT was done at that time that had questionable chronic diverticulitis. Patient denied any hematochezia or melena and had no nausea or vomiting. He has not had any diarrhea. He reported his temperature last evening on presentation was 101. Vital signs emergency department demonstrated he was afebrile with a temperature of 97.6, heart rate 82, blood pressure was 81/62 with repeat at 98/65, heart rate was 82 and oxygen saturation was 95% on room air. His CBC was overtly unremarkable, but he did have a significant left shift with a 94.9% neutrophilia on presentation. His chemistry panel was consistent with some mild dehydration showing a BUN of 25 and a serum creatinine of 1.03 and a baseline of 0.7-0.9. His lactic acid was normal however his liver enzymes were elevated with an AST of 105 and an ALT of 6165 and a total bilirubin of 2.2. His UA was somewhat suggestive of infection overall as he had no white cells and only 1+ bacteria however he was positive for nitrates and leuk esterase. Urine culture was sent and is preliminary positive for Enterococcus however colony counts are less than 1000 which is below infection level. COVID/flu/RSV was normal. CT of the abdomen pelvis showed uncomplicated acute sigmoid diverticulitis and a stable right renal cyst with prostatic enlargement and a right upper quadrant ultrasound was performed due to transaminitis and demonstrated a solitary gallstone measuring 1.7 x 1.4 x 1 cm and right renal cysts. Common bile duct was not dilated. He was admitted to the medical floor and maintained on IV antibiotics with Zosyn. Within 24 hours after admission he was feeling much better. His liver enzymes were trending down and his blood pressure had normalized. Diet was started and he was monitored for tolerance. I discussed with him the probability of discharge on as long as his liver enzymes trended down. He continued to feel well however his liver enzymes trended slightly back up but his bilirubin normalized. Given this I obtained an MRCP and it was found to be unremarkable. He incidentally was found to have a right renal cyst that was appeared to be noncomplex and should not need extensive follow-up. I have asked him to get a repeat hepatic panel in another week to 2 to ensure normalization and we will hold his atorvastatin until that time and he was told to hold until he discusses further with his primary care physician. He also should receive a repeat CBC as he did have some thrombocytopenia however I suspect this is likely related to his Zosyn as it was normal on presentation. The MRCP did note diverticulosis but no diverticulitis at this time so he trina ears to be clinically improving. Given no findings of diverticulitis on the MRI I will discharge him home with 5 more days of Augmentin to complete his treatment and have asked him to follow-up with his primary care physician in 1-2 weeks. His prescription was sent to his local pharmacy and the patient was discharged in stable condition on 12/30/2023. Discharge diagnoses: Sigmoid diverticulitis-resolving Hyperbilirubinemia-resolved Transaminitis Bilateral renal cysts Hypotension-resolved Thrombocytopenia-stable Leukopenia-suspect antibiotic induced Mild serum creatinine elevation-resolved Hyperlipidemia GERD Neuropathy Degenerative disc disease of the lumbar spine-microdiscectomy to be done in December 2023 Physical Exam Const alert, oriented x3, no apparent distress, average body habitus, no limitations, healthy appearing and well nourished Constitutional Narrative: Upper middle-aged white male, sitting up in bed watching television, at bedside, appears well and nontoxic General Appearance: cooperative, comfortable, well kempt and well developed Orientation / Consciousness: awake, oriented to person, oriented to place and oriented to time Exam Limitations: no limitations HEENT normocephalic, head/scalp atraumatic, hearing grossly normal bilaterally and moist oral mucous membranes HEENT Narrative: Mallampati 2, no thrush Eyes PERRL, EOMs intact bilaterally and conjunctivae normal Eyes Narrative: No scleral icterus Neck no lymphadenopathy and supple Neck Narrative: Trachea midline, no thyroid enlargement Resp normal respiratory effort, no retractions, no use of accessory muscles and clear to auscultation bilaterally Auscultation: Negative for rales, rhonchi or wheezes Cardio regular rate, regular rhythm, S1 normal heart sound, S2 normal heart sound, no murmurs, no rub, no gallops and no clicks GI normal to inspection, nondistended, normoactive bowel sounds, soft to palpation and non-tender Extremity no clubbing, cyanosis or edema Extremity Narrative: Pedal pulses are 2+ Skin no rashes or lesions noted, no wounds, skin turgor normal and no jaundice Neuro oriented x3, moves all extremities and no focal motor deficits Speech: speech normal Psych affect normal Psych Narrative: Eye contact is good, patient interacts appropriately Weight / BMI Weight Weight: 88.1 kg Body Mass Index (BMI) 25.6 ABG / Lab / Microbiology Data 12/30/23 07:51 12/30/23 07:51 Laboratory: Laboratory Results - last 24 hr 12/30/23 07:51: WBC 2.7 L, RBC 4.37 L, Hgb 12.5 L, Hct 39.2 L, MCV 89.7, MCH 28.6, MCHC 31.9 L, RDW Std Deviation 43.8, RDW Coeff of Anshu 13.2, Plt Count 102 L, MPV 9.4, Immature Gran % (Auto) 0.700, Neut % (Auto) 81.6 H, Lymph % (Auto) 10.9 L, [place] % (Auto) 6.0, Eos % (Auto) 0.4, Baso % (Auto) 0.4, Absolute Neuts (auto) 2.2, Absolute Lymphs (auto) 0.29 L, Nucleated RBC % 0, Differential Comment SCANNED, Diff Path Review March, Sodium 140, Potassium 4.0, Chloride 110 H, Carbon Dioxide 29.0, Anion Gap 1 L, BUN 11, Creatinine 0.78, Estim Creat Clear Calc 98.49, Est GFR (MDRD) Af Amer 128, Est GFR (MDRD) Non-Af 105, BUN/Creatinine Ratio 14.2, Glucose 111 H, Calcium 9.0, Phosphorus 3.2, Magnesium 2.2, Total Bilirubin 0.90, AST 100 H, ALT 171 H, Alkaline Phosphatase 194 H, Total Protein 5.8 L, Albumin 2.2 L, Globulin 3.6, Albumin/Globulin Ratio 0.6 L Microbiology: Microbiology 12/28/23 14:00 Urine, Clean Catch Urine Culture - Final GPC Poss Enterococcus sp 12/28/23 14:02 Mucosa - Nose SARS-CoV-2, Influenza & RSV (PCR) - Final Radiography Diagnostic Testing: Radiology Impression MRCP 12/30/23 09:18 IMPRESSION: Cholelithiasis. Renal cysts. Diverticulosis of the colon. Electronically Signed: Tl DO Aryan at 17:26 EST , Meaningful Use Info Meaningful Use Diagnoses (Choose all that apply): None applicable Discharge Plan Admission Admit Date/Time: 12/28/23 16:47 Primary Reason for Your Visit: Abdominal pain Attending Provider: Meera Plaza Primary Care Provider: Aditya Altamirano [employer] Consulting Providers: Deacon Ramirez Instructions Additional Instructions / Restrictions: 1. Please call your primary care physician and request that a hepatic panel be performed in 1 to 2 weeks to reassess your liver function. Extensive workup here for obstruction was unremarkable and we want to be sure that those trend back down to normal. 2. Please hold your statin (atorvastatin) until instructed to restart it by your primary care physician since your liver enzymes are currently elevated Discharge Orders/Prescriptions Prescriptions: New amoxicillin-pot clavulanate 875-125 mg tablet 1 tab PO BID Qty: 10 0RF Continued timolol maleate 1 DROP drops 1 drp Right Eye QHS Patient Comments: EYE PRESSURE naproxen 500 mg tablet 500 mg PO Q12H Patient Comments: TAKE 1 TAB BY MOUTH TWICE A DAY NEEDED WITH FOOD gabapentin 300 mg capsule 300 mg PO DAILY Patient Comments: TAKE 1 CAPSULE BY MOUTH EVERYDAY AT BEDTIME pantoprazole 40 mg tablet,delayed release (DR/EC) 40 mg PO DAILY Patient Comments: TAKE 1 TABLET BY MOUTH EVERY DAY Held pravastatin 40 MG tablet 40 mg PO QHS Hold Instructions: Until after you get your liver functions rechecked Patient Comments: CHOLESTEROL Referrals / Follow Up: Aditya Altamirano Chi, MD [Primary Care Provider] - Within 2 Weeks Disposition Disposition (needs filled in before D/C Order can be placed): Home, Self Care Charges/Coding Visit Charges Inpatient E&M: 14009 Disch Hosp >30min
[2023-12-30 19:10] VITALS: BP 124/88; PULSE 67; RESP 18; TEMP 36.8; O2SAT 98
[2023-12-31 10:13] LABS: Pathologist Review Reviewed
[2023-12-31 14:30] LABS: Pathologist Review Reviewed
== END 2023-12-30 19:14 | disposition home or self-care (01) | DRG 392 ==
LOC: ED 15:08 → MS3 15:48
PROVIDERS: Admitting Provider Internal Medicine; Emergency Provider Emergency Medicine; PCP Family Medicine Geriatric Medicine; Visit Provider Internal Medicine
DX: K57.32 Diverticulitis of large intestine without perforation or abscess without bleeding (principal); D69.6 Thrombocytopenia, unspecified; E78.00 Pure hypercholesterolemia, unspecified; M51.36 Other intervertebral disc degeneration, lumbar region; G62.9 Polyneuropathy, unspecified; K21.9 Gastro-esophageal reflux disease without esophagitis; D72.829 Elevated white blood cell count, unspecified; G89.29 Other chronic pain; R74.01 Elevation of levels of liver transaminase levels; Z79.899 Other long term (current) drug therapy; Z87.891 Personal history of nicotine dependence; N28.1 Cyst of kidney, acquired
CPT/HCPCS: 36415; 74176; 74181; 76705; 80048; 80053; 81001; 83605; 83735; 84100; 85025; 85610; 87086; 87088; 87631; 97802; 99285; J7030; A4216; J0744

== ENCOUNTER → 2024-01-03 | Outpatient (CLI) | payer MEDICARE, OTHER, SELFPAY | END | disposition home or self-care (01) | LOC: LAB 13:57 | PROVIDERS: PCP Family Medicine Geriatric Medicine; Referring Provider Family Medicine Geriatric Medicine; Visit Provider Family Medicine Geriatric Medicine | DX: R69 Illness, unspecified (principal) ==

== ENCOUNTER → 2024-01-05 | Outpatient (CLI) | payer MEDICARE, OTHER, SELFPAY ==
--- OUTSIDE RECORDS SUMMARY | 2024-01-05 12:09 | XMS RPT_ITS | CCD ---
Author Name Unknown Address [address] [place] [address] Organization [facility] Care Team Providers Care Filter Tank Tender Helper Head Name Role Phone FERNIE ZEPEDA [facility] Unavailable Results Test Name Value Interpretation Reference Range Facil ity Encounters Encounter Date Encounter Type Care Provider Facility Start: 11-22-2023 End: 11-22-2023 ambulatory FERNIE ZEPEDA Facility:[facility] Progress note 11-22-2023 Note Date & Type Note Facility 11-22-2023 Note HNO ID: [id number] Author: DANYEL CORREA MD Service: ? Author [...] AT BEDTIME April 29, 2017 Active 04-29-2017 [facility] ([id number]) (Patient not taking: Reported on 11/22/2023) ALLERGIES: [...] Hospital by ER passport. Danyel Correa MD [facility] Summary Purpose Family History No [...] BE BASED ON THE PRIMARY CLINICAL RECORDS. [employer] [facility]. provides no warranty or guarantee of the accuracy or completeness of information in this document.
[2024-01-05 13:32] LABS: Absolute Lymphocyte Count 1.07 X10^3/uL (0.83-4.51); Absolute Neutrophil Count 3.6 X10^3/uL (2.0-7.7); Basophil# 0.02 X10^3/uL; Basophil% 0.4 % (0-1); Eosinophil# 0.05 X10^3/uL; Hematocrit 45.7 % (40-54); Hemoglobin 14.5 g/dL (13.0-16.5); Lymphocyte # 1.07 X10^3/ul (0.83-4.51); Lymphocyte % 20.6 % (19-41); Mean Corp Hgb Conc 31.7 g/dL (32-36); Mean Corpuscular Volume 88.4 fL (80-94); Mean Platelet Vol. 8.6 fl (6.2-12.0); Monocyte# 0.36 X10^3/uL; Monocyte% 6.9 % (0-10); NRBC Flagged by Analyzer 0 % (0-5); Neutrophil # 3.55 X10^3/uL (2.7-7.7); Neutrophil % 68.4 % (47-70); Platelet Count 375 K/mm3 (150-450); RBC Distribution Width CV 13.3 % (11.6-14.6); RBC Distribution Width SD 43.4 fl (35.1-43.9); Red Blood Count 5.17 M/mm3 (4.6-6.2); White Blood Count 5.2 K/mm3 (4.4-11.0)
[2024-01-05 13:38] LABS: ALB/GLOB Ratio 0.8 RATIO (0.9-2.4); AST(SGOT) 28 U/L (15-37); Alanine Aminotransfer ALT/SGPT 113 U/L (16-61); Albumin, Serum 2.9 g/dL (3.2-5.0); Alkaline Phosphatase 200 U/L (45-117); Anion Gap 7 (5-15); BUN 23 mg/dL (7-18); BUN/Creat Ratio 30.4 RATIO (10-20); Calcium,Total 9.1 mg/dL (8.5-10.1); Chloride 107 mmol/L (98-107); Creatinine, Serum 0.76 mg/dL (0.70-1.30); EST Glomerular Filtration Rate 108 mL/min (>60); Est Glom Filt Rate - Afr Amer 131 mL/min (>60); Globulin 3.7 g/dL (2.2-4.2); Glucose 108 mg/dL (74-106); Potassium 4.2 mmol/L (3.5-5.1); Protein, Total 6.6 g/dL (6.4-8.2); Sodium Level 141 mmol/L (136-145)
== END | disposition home or self-care (01) ==
LOC: POLAB3 11:49
PROVIDERS: PCP Family Medicine Geriatric Medicine; Visit Provider Family Medicine Geriatric Medicine
DX: E80.6 Other disorders of bilirubin metabolism (principal); R79.89 Other specified abnormal findings of blood chemistry
CPT/HCPCS: 36415; 80053; 85025

== ENCOUNTER 2024-01-07 10:48 | Outpatient (CLI) | payer MEDICARE, OTHER, SELFPAY ==
[2024-01-07 10:55] LABS: Red Blood Cells-Urine 0 SEEN /hpf (0-5); Squamous Epithelial Cells - UA 0 SEEN /hpf (0-5)
--- OUTSIDE RECORDS SUMMARY | 2024-01-07 11:11 | XMS RPT_ITS | CCD ---
Author Name Unknown Address [address] [place] [address] Organization [facility] Care Team Providers Care Battery Inspector Name Role Phone [facility] Unavailable Results Test Name Value Interpretation Reference Range Facil ity Encounters Encounter Date Encounter Type Care Provider Facility Start: 11-22-2023 End: 11-22-2023 ambulatory FERNIE ZEPEDA Facility:[facility] Progress note 11-22-2023 Note Date & Type Note Facility 11-22-2023 Note HNO ID: [id number] Author: DANYEL CORREA MD Service: ? Author [...] AT BEDTIME April 29, 2017 Active 04-29-2017 [facility] ([id number]) (Patient not taking: Reported on 11/22/2023) ALLERGIES: [...] follow up with PCP. Report sent to [facility] by ER passport. Danyel Correa MD [facility] Summary Purpose Family History No Family History [...] BE BASED ON THE PRIMARY CLINICAL RECORDS. [facility]. provides no warranty or guarantee of the accuracy or completeness of information in this document.
--- NOTE | 2024-01-07 11:13 | RAD_ITS ---
STUDY: X-RAY CHEST REASON FOR EXAM: Male, 68 years old. Preoperative evaluation. TECHNIQUE: Frontal and lateral views of the chest. COMPARISON: 10/19/2016 FINDINGS: Stable mild hyperinflation. There is no demonstrated pleural abnormality. Mild cardiomegaly unchanged. Normal mediastinum and shawn. Normal visualized pulmonary arteries. Aortic tortuosity with calcification unchanged. Stable thoracic spondylosis. Normal visualized ribs, clavicles, and shoulders. No abnormality of the visualized soft tissue structures of the upper abdomen. RAD/Chest PA and Lateral IMPRESSION: Stable chest with no acute or active cardiopulmonary disease. Electronically Signed: Praveen Peterson MD at 14:22 EST ,
[2024-01-07 12:11] LABS: Absolute Lymphocyte Count 1.12 X10^3/uL (0.83-4.51); Absolute Neutrophil Count 3.6 X10^3/uL (2.0-7.7); Basophil# 0.03 X10^3/uL; Basophil% 0.6 % (0-1); Eosinophil# 0.05 X10^3/uL; Eosinophils% 0.9 % (0-5); Hematocrit 42.9 % (40-54); Hemoglobin 13.7 g/dL (13.0-16.5); Lymphocyte # 1.12 X10^3/ul (0.83-4.51); Lymphocyte % 21.3 % (19-41); Mean Corp Hgb Conc 31.9 g/dL (32-36); Mean Corpuscular Hgb 28.8 pg (27.0-32.0); Mean Corpuscular Volume 90.1 fL (80-94); Mean Platelet Vol. 8.5 fl (6.2-12.0); Monocyte# 0.41 X10^3/uL; Monocyte% 7.8 % (0-10); NRBC Flagged by Analyzer 0 % (0-5); Neutrophil # 3.59 X10^3/uL (2.7-7.7); Neutrophil % 68.1 % (47-70); Platelet Count 417 K/mm3 (150-450); RBC Distribution Width CV 13.3 % (11.6-14.6); Red Blood Count 4.76 M/mm3 (4.6-6.2); White Blood Count 5.3 K/mm3 (4.4-11.0)
[2024-01-07 12:15] LABS: Color, Urine Yellow (Yellow); Glucose, Dipstick Normal (Normal); Ketone-Dipstick Negative (Negative); Leukocyte Esterase-Dipstick 25 /ul (Negative); Nitrite-Dipstick Negative (Negative); Occult Blood-Urine Negative /ul (Negative); Protein-Dipstick 15 mg/dl (Negative); Urine Clarity Sl. Cloudy (Clear); Urine Urobilinogen 1 mg/dl (Normal)
[2024-01-07 12:18] LABS: Urine Bilirubin Dipstick 1 mg/dL (Negative)
[2024-01-07 12:22] LABS: Bacteria 1+ /hpf (None Seen); Mucous, Urine 1+ /hpf (<or=2+); White Blood Cells 0-5 SEEN /hpf (0-5)
[2024-01-07 12:27] LABS: Partial Thromboplast Time 27.4 Seconds (24.1-36.2)
== END 2024-01-07 23:59 | disposition home or self-care (01) ==
LOC: RAD 10:50
PROVIDERS: PCP Family Medicine Geriatric Medicine; Referring Provider Orthopaedic Surgery; Visit Provider Orthopaedic Surgery
DX: Z01.811 Encounter for preprocedural respiratory examination (principal); M46.96 Unspecified inflammatory spondylopathy, lumbar region; M46.98 Unspecified inflammatory spondylopathy, sacral and sacrococcygeal region; M51.26 Other intervertebral disc displacement, lumbar region; M48.061 Spinal stenosis, lumbar region without neurogenic claudication; M43.16 Spondylolisthesis, lumbar region; M47.896 Other spondylosis, lumbar region; M51.36 Other intervertebral disc degeneration, lumbar region; M41.86 Other forms of scoliosis, lumbar region; M51.16 Intervertebral disc disorders with radiculopathy, lumbar region; R79.9 Abnormal finding of blood chemistry, unspecified; R82.90 Unspecified abnormal findings in urine; R31.9 Hematuria, unspecified
CPT/HCPCS: 36415; 71046; 81001; 85025; 85610; 85730; 87086

== ENCOUNTER → 2024-01-12 | Outpatient (CLI) | payer MEDICARE, OTHER, SELFPAY ==
[2024-01-12 16:39] LABS: ALB/GLOB Ratio 0.9 RATIO (0.9-2.4); AST(SGOT) 16 U/L (15-37); Alanine Aminotransfer ALT/SGPT 38 U/L (16-61); Albumin, Serum 3.2 g/dL (3.2-5.0); Alkaline Phosphatase 112 U/L (45-117); Anion Gap 4 (5-15); BUN 18 mg/dL (7-18); BUN/Creat Ratio 22.5 RATIO (10-20); Calcium,Total 9.2 mg/dL (8.5-10.1); Chloride 105 mmol/L (98-107); EST Glomerular Filtration Rate 102 mL/min (>60); Est Glom Filt Rate - Afr Amer 123 mL/min (>60); Globulin 3.5 g/dL (2.2-4.2); Glucose 111 mg/dL (74-106); Potassium 3.8 mmol/L (3.5-5.1); Protein, Total 6.7 g/dL (6.4-8.2); Sodium Level 140 mmol/L (136-145)
== END | disposition home or self-care (01) ==
LOC: LAB 15:14
PROVIDERS: PCP Family Medicine Geriatric Medicine; Referring Provider Family Medicine Geriatric Medicine; Visit Provider Family Medicine Geriatric Medicine
DX: E80.6 Other disorders of bilirubin metabolism (principal)
CPT/HCPCS: 36415; 80053

== ENCOUNTER 2024-01-18 17:22 | Emergency (ER) | payer MEDICARE, OTHER, SELFPAY ==
[2024-01-18 17:22] VITALS: BP 136/94; PULSE 66; RESP 17; TEMP 36.4; O2SAT 97; BMI 25.2
--- NOTE | 2024-01-18 18:35 | EX.ED.DYSGE1 ---
HPI History of Present Illness Chief Complaint: Complaint Informant: patient Onset/Context/Timing Onset: Today Narrative Narrative: Patient presents with difficulty urinating. He had back surgery this morning with Dr. Parekh at the outpatient surgery center. He had an L3 laminectomy and discectomy. He states he did not urinate prior to leaving the surgery center. He has had the urge to urinate all afternoon but can only get out small trickles. He states he does not have significant pain in his legs. PFSH PFS Medical History Chronic pain COPD (chronic obstructive pulmonary disease) Former smoker High cholesterol Home Medications pravastatin 40 mg tablet 40 mg PO QHS 04/29/17 [History Last Taken 04/28/17] timolol maleate 0.5 % eye drops 1 drp QHS 04/29/17 [History Last Taken 04/28/17] gabapentin 300 mg capsule 300 mg PO DAILY 12/28/23 [History Last Taken Unknown] naproxen 500 mg tablet 500 mg PO Q12H 12/28/23 [History Last Taken Unknown] pantoprazole 40 mg tablet,delayed release 40 mg PO DAILY 12/28/23 [History Last Taken Unknown] amoxicillin 875 mg-potassium clavulanate 125 mg tablet 1 tab PO BID #10 tabs 12/30/23 [Rx Last Taken Unknown] Allergy/AdvReac Type Severity Reaction Status Date / Time No Known Allergies Allergy Verified 01/18/24 17:24 Social History household members: spouse housing: house Smoking Status: Never smoker ROS ROS ED Constitutional Constitutional ED: Denies chills or fever(s) Eyes Eyes: Denies discharge from eye(s) ENT ENT ED: Denies discharge from eye(s), rhinorrhea or sore throat Cardiovascular Cardiovascular: Denies chest pain or palpitations Respiratory/Chest Respiratory/Chest: Denies cough or dyspnea Gastrointestinal Gastrointestinal: Denies abdominal pain, nausea or vomiting Genitourinary Genitourinary ED: Reports difficulty urinating Musculoskeletal Musculoskeletal: Denies extremity pain Integumentary Denies Abrasions or rash Neurologic Neurologic: Denies headache(s) or weakness Psychiatric Psychiatric: Denies anxiety or depression Allergic/Immunologic Allergic/Immunologic ED: Denies lip swelling or urticaria EXAM Physical Exam Const Vital Signs: 01/18/24 17:22 01/18/24 19:00 Temperature 97.6 F L Temperature Source Temporal Pulse Rate 66 63 Respiratory Rate 17 18 Blood Pressure 136/94 H 122/81 H Blood Pressure Mean 108 95 Pulse Ox 97 98 Oxygen Delivery Method Room Air Positive well nourished and well developed General Appearance ED: well developed Eyes EOMs intact bilaterally Chest Wall inspection of chest normal and palpation of chest normal Resp normal respiratory effort and clear to auscultation bilaterally Cardio regular rate and regular rhythm GI non-tender Palpation: soft Extremity normal to inspection Neuro oriented x3 and no sensory deficits noted Motor Exam: strength 5/5 throughout Psych mental status grossly normal Skin no rashes or lesions noted MDM MDM MDM Narrative Medical decision making narrative: Willams catheter ordered given the patient's urinary retention after surgery. Nursing staff did advise the patient had urinated about 200 cc of urine. Bladder scan was performed that showed at least 500 cc remaining in the bladder. Willams catheter is placed and at this time he has approximately 700 cc of urine out. I did speak with Dr. Parekh given the patient just had surgery today. Given the patient has not have any saddle paresthesias, leg pain or weakness, or increased back pain I do not feel imaging is needed at this time. Dr. Parekh will be in the clinic tomorrow and is happy to see the patient for follow-up. This was relayed to the patient. Patient be given a leg bag and instructions for home care. Discharge Plan Triage Chief Complaint: Complaint ED Provider: Jaclyn Phillips Dx/Rx/DC Orders Clinical Impression: Urinary retention Instructions: Willams Catheter Male , ED Urinary Retention, Male Prescriptions: No Action pravastatin 40 MG tablet 40 mg PO QHS Hold Instructions: Until after you get your liver functions rechecked Patient Comments: CHOLESTEROL timolol maleate 1 DROP drops 1 drp Right Eye QHS Patient Comments: EYE PRESSURE naproxen 500 mg tablet 500 mg PO Q12H Patient Comments: TAKE 1 TAB BY MOUTH TWICE A DAY NEEDED WITH FOOD gabapentin 300 mg capsule 300 mg PO DAILY Patient Comments: TAKE 1 CAPSULE BY MOUTH EVERYDAY AT BEDTIME pantoprazole 40 mg tablet,delayed release (DR/EC) 40 mg PO DAILY Patient Comments: TAKE 1 TABLET BY MOUTH EVERY DAY amoxicillin-pot clavulanate 875-125 mg tablet 1 tab PO BID Qty: 10 0RF Primary Care Provider: Aditya Altamirano Chi Referrals: Guillermo Parekh DO [Med Staff - Active Staff] - 1 Day Aditya Altamirano Chi, MD [Primary Care Provider] - 3-5 Days
[2024-01-18 19:00] VITALS: BP 122/81; PULSE 63; RESP 18; O2SAT 98
[2024-01-18 20:05] VITALS: BP 126/81; PULSE 57; RESP 16; TEMP 36.8; O2SAT 97
== END 2024-01-18 20:09 | disposition home or self-care (01) ==
PROVIDERS: Emergency Provider Emergency Medicine; PCP Family Medicine Geriatric Medicine; Visit Provider Emergency Medicine
DX: R33.9 Retention of urine, unspecified (principal); J44.9 Chronic obstructive pulmonary disease, unspecified
CPT/HCPCS: 51702; 99283

== ENCOUNTER 2024-01-20 21:34 | Emergency (ER) | payer MEDICARE, OTHER, SELFPAY ==
[2024-01-20 21:34] VITALS: BP 113/71; PULSE 85; RESP 16; TEMP 36.8; O2SAT 95
[2024-01-20 21:36] VITALS: BP 123/84; PULSE 80; RESP 16; TEMP 36.6; O2SAT 99
--- NOTE | 2024-01-20 22:11 | CT_ITS ---
EXAM: CT LUMBAR SPINE WITH INTRAVENOUS CONTRAST CLINICAL INDICATION: POST OP DRAINAGE TECHNIQUE: Helically acquired images were obtained of the lumbar spine with intravenous contrast. 2D reformats were reviewed. This CT exam was performed using one or more of the following dose reduction techniques: automated exposure control, adjustment of the mA and/or kV according to patient size, and/or use of iterative reconstruction technique. CONTRAST: IV 100mL Isovue-370 RADIATION DOSE: CTDIvol = 15.35 mGy, DLP = 542.12 mGy-cm COMPARISON: Abdomen and pelvis December 28, 2023. FINDINGS: VERTEBRAE: There are bilateral L5 pars defects but no significant anterolisthesis of L5 with respect to S1. No evidence of intraspinous gas or suspicious fluid collection on mildly enhanced exam. DISCS/SPINAL CANAL/NEURAL FORAMINA: Vacuum disc and minimal disc space narrowing and mild annular disc bulge and mild spondylosis at L5-S1. With annular disc bulge and spondylosis at L3-4 and L4-5 and to a lesser extent at L2-3. Fairly well-maintained disc height. SOFT TISSUES: In the soft tissues there is mild bilateral subcutaneous gas and there is gas in the right laminectomy site at L3, slight gas posterior to the right L2-3 facet joint, and mild gas in right paraspinous muscle at this level. No discrete drainable visible fluid collection evident. VASCULATURE: See below. LYMPH NODES: Unremarkable. No retroperitoneal adenopathy. KIDNEYS AND URETERS: There are at least 2 right renal cysts, the largest 3.1 cm AP-and oblique. Mild peripheral calcification of aortoiliac vessels. STOMACH AND BOWEL: Previously seen marked diverticulosis of the sigmoid colon is not included. No aortic aneurysm or dissection. CT/Spine Lumbar WITH Contrast IMPRESSION: Postoperative changes with postoperative gas. No discrete drainable fluid collection. Multilevel degenerative changes. Electronically Signed: Sherri Hammonds MD at 23:47 EDT ,
--- NOTE | 2024-01-20 22:13 | EX.ED.DYSGE1 ---
HPI History of Present Illness Chief Complaint: General Illness Informant: patient and spouse/S.O. Narrative Narrative: Patient and his are presenting out of concern for infection. Patient postop day 3 from L3 laminectomy/discectomy with Dr. Parekh. Postoperatively was complicated by urinary retention. He is currently on Bactrim. He saw urology this morning. He was started on Flomax but has not yet taken it tonight. Patient states that tonight he felt chilled and a little shaky. states she noticed some drainage that seemed more than normal on the dressing. She notes it was serosanguineous in nature. Oral temperature is about 99 degrees. He notes that he did cough earlier tonight but wonders is more clearing his throat. No rhinorrhea. He had diverticulitis and was hospitalized about 2 weeks ago. No pain like that. He does note continued constipation and increased gas today but is having flatus. He states the color/clarity of the urine is not different. He denies any acute neurologic deficits. No significant headache. PFSH PFS Medical History Chronic pain COPD (chronic obstructive pulmonary disease) Former smoker High cholesterol Home Medications pravastatin 40 mg tablet 40 mg PO QHS 04/29/17 [History Last Taken 04/28/17] timolol maleate 0.5 % eye drops 1 drp QHS 04/29/17 [History Last Taken 04/28/17] gabapentin 300 mg capsule 300 mg PO DAILY 12/28/23 [History Last Taken Unknown] naproxen 500 mg tablet 500 mg PO Q12H 12/28/23 [History Last Taken Unknown] pantoprazole 40 mg tablet,delayed release 40 mg PO DAILY 12/28/23 [History Last Taken Unknown] amoxicillin 875 mg-potassium clavulanate 125 mg tablet 1 tab PO BID #10 tabs 12/30/23 [Rx Last Taken Unknown] Allergy/AdvReac Type Severity Reaction Status Date / Time No Known Allergies Allergy Verified 01/20/24 21:37 Social History household members: spouse housing: house Smoking Status: Never smoker ROS ROS ED Constitutional Constitutional ED: Reports chills and other Details: Temperature reported 99 degrees ; Denies weight loss Eyes Eyes: Denies change in vision or diplopia ENT ENT ED: Denies ear pain, rhinorrhea or sore throat Cardiovascular Cardiovascular: Denies chest pain, orthopnea, palpitations or racing heartbeat Respiratory/Chest Respiratory/Chest: Reports cough and other Details: Patient notes a very slight cough earlier tonight but states it could be just clearing his throat ; Denies dyspnea or orthopnea Gastrointestinal Gastrointestinal: Reports constipation and other Details: Positive flatus ; Denies abdominal pain, diarrhea, nausea or vomiting Genitourinary Genitourinary ED: Reports other Details: Indwelling catheter secondary to urinary retention postoperatively ; Denies dysuria, hematuria or urinary frequency Musculoskeletal Musculoskeletal: Denies arthralgias or myalgias Integumentary Reports other Details: Serosanguineous like drainage from wound ; Denies abscess or rash Neurologic Neurologic: Denies headache(s), paresthesias or weakness Psychiatric Psychiatric: Denies anxiety, depression, suicidal ideation or suicidal thoughts Endocrine Endocrinology: Denies polydipsia, polyphagia or polyuria Allergic/Immunologic Allergic/Immunologic ED: Denies mouth swelling, tongue swelling or urticaria EXAM Physical Exam Const Vital Signs: 01/20/24 21:34 01/20/24 22:02 01/20/24 21:36 Temperature 98.2 F 98 F Temperature Source Oral Oral Pulse Rate 85 80 Respiratory Rate 16 16 Respiratory Effort Normal Respiratory Pattern Normal Blood Pressure 113/71 123/84 H Blood Pressure Mean 85 97 Pulse Ox 95 99 Oxygen Delivery Method Room Air 01/20/24 22:36 01/20/24 23:00 01/20/24 23:34 Temperature 98 F 98.1 F Temperature Source Oral Temporal Pulse Rate 80 89 82 Respiratory Rate 16 18 18 Respiratory Effort Respiratory Pattern Blood Pressure 133/80 H 125/77 H 126/75 H Blood Pressure Mean 97 93 92 Pulse Ox 98 99 Oxygen Delivery Method Room Air Room Air Room Air 01/21/24 00:42 Temperature 97.9 F Temperature Source Pulse Rate 69 Respiratory Rate 16 Respiratory Effort Respiratory Pattern Blood Pressure 140/68 H Blood Pressure Mean 92 Pulse Ox 95 Oxygen Delivery Method Positive well nourished and well developed General Appearance ED: well developed HEENT Reports normocephalic, head/scalp atraumatic and moist mucous membranes Eyes PERRL and EOMs intact bilaterally Neck no lymphadenopathy, supple and no JVD Resp normal respiratory effort and clear to auscultation bilaterally Cardio regular rate, regular rhythm and no murmurs GI normal to inspection, nondistended, normoactive bowel sounds and non-tender Palpation: soft Narrative: Indwelling Willams catheter present Back/Spine no CVA tenderness and normal ROM Extremity normal to inspection General Extremety ED: Negative for edema General Extremity: Negative for edema Neuro oriented x3 and CN's II-XII intact bilaterally Sensorium / Orientation: alert Motor Exam: strength 5/5 throughout Psych mental status grossly normal Mood & Affect: Negative for depressed or tearful Skin no rashes or lesions noted Skin Narrative: There is a lumbar midline incision. There is Betadine on the dressing in the wound. I do not appreciate any odor or significant erythema. There is local skin irritation from the tape in a linear pattern. MDM MDM MDM Narrative Medical decision making narrative: Broad differential including but not limited to postoperative wound infection, viral syndrome, UTI, hepatitis, pneumonia/atelectasis electrolyte abnormalities, renal dysfunction White count returns at 7.5 hemoglobin of 13 platelet count of 250. 76.3 neutrophils 13.4 lymphocytes. Coags normal. BMP with a glucose of 134 lactic acid 1.8 liver enzymes within normal limits. Urinalysis 0-5 red cells 0 white cells 0 bacteria. My independent interpretation of the chest x-ray is no acute process. CT of the lumbar spine with IV contrast was obtained. Please see radiologist read below. Essentially though there is postoperative changes including some postoperative air but drainable fluid collection. COVID influenza RSV were negative. The above results were discussed with Dr. Parekh. I also spoke with the patient and his regarding the above findings and we participated together and shared decision making. She notes that he seems extremely restful here in the bed. He states he just cannot get comfortable that as he lays on his back makes the incision hurt. If he lays on his hips too long it makes him roll over. He states he feels shaky but that has been ongoing since this afternoon. He states he really felt shaky while he was going into the CT scanner. states that he feels very stressed. We talked about pain medication. They want to try to stick with Tylenol and he will take a home dose here. He states that he has hydrocodone but was advised not to take it by urology. I advised him that if he is having pain that is not controlled by Tylenol he can certainly try some hydrocodone but I would recommend to use it only when needed. We talked about giving a dose of morphine here to see if we can help him get some sleep when he gets home. History & Record Review Discussion w/independent historian: Patient and Significant other Additional record(s) reviewed:: Prior ED visit and Prior labs Lab Data Attestation: I reviewed the patient's lab results. Labs: Laboratory Results - last 24 hr 01/20/24 01/20/24 22:27 22:32 WBC 7.5 RBC 4.52 L Hgb 13.0 Hct 39.8 L MCV 88.1 MCH 28.8 MCHC 32.7 RDW Std Deviation 43.8 RDW Coeff of Anshu 13.6 Plt Count 250 MPV 9.3 Immature Gran % (Auto) 1.200 H Neut % (Auto) 76.3 H Lymph % (Auto) 13.4 L [place] % (Auto) 8.4 Eos % (Auto) 0.4 Baso % (Auto) 0.3 Absolute Neuts (auto) 5.7 Absolute Lymphs (auto) 1.01 Nucleated RBC % 0 PT 13.6 INR 1.0 APTT 29.9 Sodium 137 Potassium 3.6 Chloride 103 Carbon Dioxide 26.0 Anion Gap 8 BUN 14 Creatinine 0.95 Est GFR (MDRD) Af Amer 101 Est GFR (MDRD) Non-Af 84 BUN/Creatinine Ratio 14.8 Glucose 134 H Lactic Acid 1.8 Calcium 9.1 Total Bilirubin 0.70 Direct Bilirubin 0.15 AST 25 ALT 45 Alkaline Phosphatase 79 Total Protein 6.4 Albumin 2.8 L Globulin 3.6 Lipase 76 H Urine Color Yellow Urine Clarity Clear Urine pH 6.0 Ur Specific [place] 1.025 Urine Protein 15 H Urine Glucose (UA) Normal Urine Ketones Negative Urine Occult Blood 50 H Urine Nitrite Negative Urine Bilirubin Negative Urine Urobilinogen 1 H Ur Leukocyte Esterase 100 H Urine RBC 0-5 SEEN Urine WBC 0 SEEN Ur Squamous Epith Cells 0 SEEN Urine Bacteria 0 SEEN Urine Mucus 0 SEEN Radiography Diagnostic Testing: Clinical Impression(s) from Imaging Studies Lumbar Spine CT 01/20/24 22:11 IMPRESSION: Postoperative changes with postoperative gas. No discrete drainable fluid collection. Multilevel degenerative changes. Electronically Signed: Sherri Hammonds MD at 23:47 EDT , Chest X-Ray 01/20/24 23:01 IMPRESSION: No radiographic evidence of acute cardiopulmonary disease. Electronically Signed: Sherri Hammonds MD at 23:49 EDT , Management Discussion w/another healthcare provider: Tube Test Technician (Dr Parekh) Discharge Plan Triage Chief Complaint: General Illness Other Complaint: Wound ED Provider: Robert Vallejo Dx/Rx/DC Orders Clinical Impression: Encounter for post surgical wound check, Paresthesia, Shaking Prescriptions: No Action pravastatin 40 MG tablet 40 mg PO QHS Hold Instructions: Until after you get your liver functions rechecked Patient Comments: CHOLESTEROL timolol maleate 1 DROP drops 1 drp Right Eye QHS Patient Comments: EYE PRESSURE naproxen 500 mg tablet 500 mg PO Q12H Patient Comments: TAKE 1 TAB BY MOUTH TWICE A DAY NEEDED WITH FOOD gabapentin 300 mg capsule 300 mg PO DAILY Patient Comments: TAKE 1 CAPSULE BY MOUTH EVERYDAY AT BEDTIME pantoprazole 40 mg tablet,delayed release (DR/EC) 40 mg PO DAILY Patient Comments: TAKE 1 TABLET BY MOUTH EVERY DAY amoxicillin-pot clavulanate 875-125 mg tablet 1 tab PO BID Qty: 10 0RF Primary Care Provider: Aditya Altamirano Chi Referrals: Guillermo Parekh DO [Med Staff - Active Staff] - Keep Magi appointment Aditya Altamirano Chi, MD [Primary Care Provider] - As Needed Activity Restrictions/Additional Instructions: Continue to monitor and follow postoperative instructions as you were given by your surgeon. Please feel free to return if any concerns or worsening. Disposition Disposition: Home, Self Care Discharge Date/Time: 01/21/24 00:43
[2024-01-20 22:36] VITALS: BP 133/80; PULSE 80; RESP 16; TEMP 36.6; O2SAT 98
[2024-01-20 22:43] LABS: Bacteria 0 SEEN /hpf (None Seen); Mucous, Urine 0 SEEN /hpf (<or=2+); Squamous Epithelial Cells - UA 0 SEEN /hpf (0-5); White Blood Cells 0 SEEN /hpf (0-5)
[2024-01-20 22:45] LABS: Absolute Lymphocyte Count 1.01 X10^3/uL (0.83-4.51); Absolute Neutrophil Count 5.7 X10^3/uL (2.0-7.7); Basophil# 0.02 X10^3/uL; Basophil% 0.3 % (0-1); Eosinophil# 0.03 X10^3/uL; Eosinophils% 0.4 % (0-5); Hematocrit 39.8 % (40-54); Lymphocyte # 1.01 X10^3/ul (0.83-4.51); Lymphocyte % 13.4 % (19-41); Mean Corp Hgb Conc 32.7 g/dL (32-36); Mean Corpuscular Hgb 28.8 pg (27.0-32.0); Mean Corpuscular Volume 88.1 fL (80-94); Mean Platelet Vol. 9.3 fl (6.2-12.0); Monocyte# 0.63 X10^3/uL; Monocyte% 8.4 % (0-10); NRBC Flagged by Analyzer 0 % (0-5); Neutrophil # 5.73 X10^3/uL (2.7-7.7); Neutrophil % 76.3 % (47-70); Platelet Count 250 K/mm3 (150-450); RBC Distribution Width CV 13.6 % (11.6-14.6); RBC Distribution Width SD 43.8 fl (35.1-43.9); Red Blood Count 4.52 M/mm3 (4.6-6.2); White Blood Count 7.5 K/mm3 (4.4-11.0)
[2024-01-20 22:53] LABS: Color, Urine Yellow (Yellow); Glucose, Dipstick Normal (Normal); Ketone-Dipstick Negative (Negative); Leukocyte Esterase-Dipstick 100 /ul (Negative); Nitrite-Dipstick Negative (Negative); Occult Blood-Urine 50 /ul (Negative); Protein-Dipstick 15 mg/dl (Negative); Specific Gravity, Urine 1.025 (1.002-1.030); Urine Bilirubin Dipstick Negative (Negative); Urine Clarity Clear (Clear); Urine Urobilinogen 1 mg/dl (Normal)
[2024-01-20 22:53] LABS: Prothrombin Time (Protime)PT. 13.6 SECONDS (11.7-14.9)
[2024-01-20 22:54] LABS: Red Blood Cells-Urine 0-5 SEEN /hpf (0-5)
[2024-01-20 22:54] LABS: Partial Thromboplast Time 29.9 Seconds (24.1-36.2)
[2024-01-20 23:00] VITALS: BP 125/77; PULSE 89; RESP 18; TEMP 36.7; O2SAT 99
--- NOTE | 2024-01-20 23:01 | RAD_ITS ---
EXAM: XR CHEST, 1 VIEW CLINICAL INDICATION: COUGH TECHNIQUE: Frontal view of the chest. COMPARISON: No relevant prior studies available. FINDINGS: LUNGS AND PLEURAL SPACES: Unremarkable. No consolidation or edema. No pneumothorax. No effusion. HEART: Unremarkable. Cardiac silhouette not enlarged. MEDIASTINUM: Central airways and mediastinal contour are unremarkable. BONES/JOINTS: Unremarkable. No acute fracture. SOFT TISSUES: Unremarkable. RAD/Chest 1 View (Portable) IMPRESSION: No radiographic evidence of acute cardiopulmonary disease. Electronically Signed: Sherri Hammonds MD at 23:49 EDT ,
[2024-01-20 23:05] LABS: AST(SGOT) 25 U/L (15-37); Alanine Aminotransfer ALT/SGPT 45 U/L (16-61); Albumin, Serum 2.8 g/dL (3.2-5.0); Alkaline Phosphatase 79 U/L (45-117); Anion Gap 8 (5-15); BUN 14 mg/dL (7-18); BUN/Creat Ratio 14.8 RATIO (10-20); Bilirubin, Direct 0.15 mg/dL (0.00-0.30); Calcium,Total 9.1 mg/dL (8.5-10.1); Chloride 103 mmol/L (98-107); Creatinine, Serum 0.95 mg/dL (0.70-1.30); EST Glomerular Filtration Rate 84 mL/min (>60); Est Glom Filt Rate - Afr Amer 101 mL/min (>60); Globulin 3.6 g/dL (2.2-4.2); Glucose 134 mg/dL (74-106); Lipase 76 U/L (13-75); Potassium 3.6 mmol/L (3.5-5.1); Protein, Total 6.4 g/dL (6.4-8.2); Sodium Level 137 mmol/L (136-145)
[2024-01-20 23:07] LABS: Lactic Acid 1.8 mmol/L (0.4-1.9)
[2024-01-20 23:34] VITALS: BP 126/75; PULSE 82; RESP 18
[2024-01-21] MEDS: Ondansetron 4 MG/2 ML Vial IV (00:30)
[2024-01-21] MEDS: Morphine 4 MG/ML Syringe IV (00:30)
[2024-01-21 00:42] VITALS: BP 140/68; PULSE 69; RESP 16; TEMP 36.6; O2SAT 95
== END 2024-01-21 00:43 | disposition home or self-care (01) ==
PROVIDERS: Emergency Provider Emergency Medicine; PCP Family Medicine Geriatric Medicine; Visit Provider Emergency Medicine
DX: Z48.01 Encounter for change or removal of surgical wound dressing (principal); J44.9 Chronic obstructive pulmonary disease, unspecified; R20.2 Paresthesia of skin; R25.1 Tremor, unspecified; E78.00 Pure hypercholesterolemia, unspecified; Z98.1 Arthrodesis status; Z79.899 Other long term (current) drug therapy; Z87.891 Personal history of nicotine dependence
CPT/HCPCS: 71045; 72132; 80048; 80076; 81001; 83605; 83690; 85025; 85610; 85730; 87040; 87086; 87631; 96374; 96375; 99284; Q9967; A4216; J2405

== ENCOUNTER 2024-03-09 12:30 | Outpatient (RCR) | payer MEDICARE, OTHER, SELFPAY ==
--- NOTE | 2024-02-07 14:55 | HP.PTEVAL_ITS ---
Patient's Visit Information Visit Information Visit Information: LORIE COOK is a 68 year old M referred to Physical Therapy by Dr. Guillermo Parekh DO with a diagnosis of INTERVERTRBRAL DISC DISPLACEMENT ,LUMBAR REGION ,SPINAL STENOSIS. Date of Evaluation: 02/07/24 Physical Therapist: Miguel Smith, PT, Cert MDT, OCS Visit Plan Frequency: 2-3x /Week Duration: 4-6 Weeks Plan: S/P LUMBAR DISCECTOMY 01/17 PT INTERVENTIONS DLS ,POSTURAL EX'S ,LE FLEXABILITY ,LUMBAR ROM ,BLE STRENGTHENING AND ACTIVITY MODIFICATION Subjective Subjective: This 68 y/o female presents to physical therapy with lumbar discectomy on 01/18/24 at [facility] by DR Parekh. Patient d/c day of surgery and had complications 2 days with patient had difficulty urinating had catheter for 1week and seen Urologist provided medication. Seen DR dietz Wed remove sutures. Patient initially used walker after surgery for ~ 1week. Patient has had back many years pain worse in November . MRI showed Lumbar HNP. Patient initially had pain in right thigh to knee. Patient doing better some pain incision and lateral back. Patient stop pain medication. Current aggravating fac tors extended standing ,walking.Alleviating better rest. Coughing/sneezing-. Bowel/bladder - Sleeping okay buit 2 weeks was not good. Patient surgery affects QOL and function. Patient goal to return to normal activity ride back. SOCIAL: VOCATION: retired Pain Bilateral Back: Pain Intensity (Out of 10): 2 Pain Intensity Range: 10 Objective Objective: POSTURE: mild forward posture INCISION: well approximate ,crusty dry NEURO: denies paresthesia/tingling reflexes L3-4,L4-5 ,L5-S1 1/3 GAIT: reciprocal pattern MMT: quads/hams 4/5 ,hip flexion 4-/5 ,ankle 4/5 LUMBAR ROM: flexion min loss ,extension mod/severe loss ,side glides min loss FLEXABILITY: hamstrings min loss Special Tests L/S Slump test left side: Negative L/S Slump test right side: Negative L/S Left Straight Leg Raise: Negative L/S Right Straight Leg Raise: Negative Balance/Special Test Scores Oswestry Low Back Score: 13 Goals Goal 1:: I with HEP for lumbar Goal Time Frame: 4-6 Weeks Goal 2:: Patient to improve lumbar ROM for function of recovery to tie shoes Goal Time Frame: 4-6 Weeks Goal 3:: Patient to improve back oswestry score by 5 points to improve QOL and function. Goal Time Frame: 4-6 Weeks Goal 4:: Patient to demonstrate 60% -70% improved function and QOL Goal Time Frame: 4-6 Weeks Goal 5:: Patient to return to prior level of function with housework tasks and hobbies with min to no limiations Goal Time Frame: 4-6 Weeks Rehabilitation Potential Physical Therapy Diagnosis: This patient had s/p lumbar discectomy 01/18/24 with some pain ,weakness with gait and endurance and decrease lumbar ROM and muscular endurance core thus benefit from skilled PT Rehabilitation Potential: Good Anticipated Interventions Patient/Client Instruction: Educate patient on: Condition and Plan of Care For the Purpose of:: To decrease pain, To improve muscle performance and motor function, To improve ability to perform ADL's, To increase tolerance to activity/condition/position, To improve performance and independence with ADL's, To improve ability of physical actions for home/community/work/leisure, To improve gait and locomotor functions, To improve health of tissue, To increase flexibility/ROM and To improve endurance Therapeutic Exercise to Include: Strength training, Agility training, Postural training, Flexibilty training and Dynamic Lumbar Stabilization Comment: BLE For the Purpose of:: To decrease pain, To increase ROM, To improve muscle performance and motor function, To improve ability to perform ADL's, To increase tolerance to activity/condition/position, To improve performance and independence with ADL's, To improve ability of physical actions for home/community/work/leisure, To improve health of tissue, To decrease soft tissue restriction, To increase flexibility/ROM, To improve endurance, To prevent re-injury and To improve tolerance to ADL's Text: Thank you for the opportunity to evaluate your patient. For Medicare and Medicare HMO plans, please review the plan of care and approve it. It will need to be FAXED BACK to us at [phone] for Medicare purposes. For Medicare only, by signing this I certify the plan of care. Please let me know if there are questions or concerns regarding this plan of care. Physician Signature: Date:
--- NOTE | 2024-03-09 13:16 | HP.PTDCSUM ---
Discharge Summary D/C summary: It has been my pleasure to treat LORIE COOK referred by Dr. Guillermo Parekh DO, with the diagnosis of INTERVERTRBRAL DISC DISPLACEMENT ,LUMBAR REGION ,SPINAL STENOSIS for a total of 10 visit(s). Discharge Date: 03/09/24 Please see the following information for a summary of their discharge status. Subjective Subjective: Patient return to normal Patient Pain Bilateral Back: Pain Intensity (Out of 10): 0 Overall Improvement % Improvement: 100 Objective Objective/Function: OSTURE: mild forward posture INCISION: well approximate ,crusty dry NEURO: denies paresthesia/tingling reflexes L3-4,L4-5 ,L5-S1 1/3 GAIT: reciprocal pattern MMT: quads/hams 4/5 ,hip flexion 4-/5 ,ankle 4/5 LUMBAR ROM: flexion min loss ,extension mod/severe loss ,side glides min loss FLEXABILITY: hamstrings min loss Goals Goal 1:: I with HEP for lumbar Goal Progress: Goal Met Goal 2:: Patient to improve lumbar ROM for function of recovery to tie shoes Goal Progress: Goal Met Goal 3:: Patient to improve back oswestry score by 5 points to improve QOL and function. Goal Progress: Goal Met Goal 4:: Patient to demonstrate 60% -70% improved function and QOL Goal Progress: Goal Met Goal 5:: Patient to return to prior level of function with housework tasks and hobbies with min to no limiations Goal Progress: Goal Met Plan Plan: D/C TO HEP D/C Information Discharge Comments: HEP d/c sentence: If there are questions or concerns regarding this patient's physical therapy, please feel free to call me at [phone]. Thank you for the referral of this patient. Sincerely, Miguel Smith, PT, Cert MDT, OCS Balance/Gait/Functional tests Balance/Special Test Scores Oswestry Low Back Score: 1 Improvement % Improvement: 100
== END 2024-03-09 19:00 | disposition home or self-care (01) ==
LOC: PT 12:30
PROVIDERS: PCP Family Medicine Geriatric Medicine; Referring Provider Orthopaedic Surgery; Visit Provider Orthopaedic Surgery
DX: M51.26 Other intervertebral disc displacement, lumbar region (principal); M48.061 Spinal stenosis, lumbar region without neurogenic claudication; M43.06 Spondylolysis, lumbar region
CPT/HCPCS: 97110; 97162; 97530

== ENCOUNTER → 2024-05-17 | Outpatient (CLI) | payer MEDICARE, OTHER, SELFPAY ==
[2024-05-17 15:59] LABS: PSA,Total- Diagnostic 1.31 ng/mL (0.0-4.0)
== END | disposition home or self-care (01) ==
LOC: LAB 14:04
PROVIDERS: PCP Family Medicine Geriatric Medicine; Referring Provider Urology; Visit Provider Urology
DX: R97.20 Elevated prostate specific antigen [PSA] (principal)
CPT/HCPCS: 36415; 84153

== ENCOUNTER → 2024-06-05 | Outpatient (CLI) | payer MEDICARE, OTHER, SELFPAY ==
[2024-06-05 14:47] LABS: Absolute Neutrophil Count 3.1 X10^3/uL (2.0-7.7); Basophil# 0.03 X10^3/uL; Basophil% 0.6 % (0-1); Eosinophil# 0.11 X10^3/uL; Eosinophils% 2.3 % (0-5); Hematocrit 45.1 % (40-54); Hemoglobin 14.1 g/dL (13.0-16.5); Lymphocyte % 23.4 % (19-41); Mean Corp Hgb Conc 31.3 g/dL (32-36); Mean Corpuscular Hgb 27.9 pg (27.0-32.0); Mean Corpuscular Volume 89.3 fL (80-94); Mean Platelet Vol. 9.3 fl (6.2-12.0); Monocyte# 0.31 X10^3/uL; Monocyte% 6.6 % (0-10); NRBC Flagged by Analyzer 0 % (0-5); Neutrophil # 3.14 X10^3/uL (2.7-7.7); Neutrophil % 66.7 % (47-70); Platelet Count 270 K/mm3 (150-450); RBC Distribution Width CV 12.5 % (11.6-14.6); RBC Distribution Width SD 41.1 fl (35.1-43.9); Red Blood Count 5.05 M/mm3 (4.6-6.2); White Blood Count 4.7 K/mm3 (4.4-11.0)
[2024-06-05 15:15] LABS: Vitamin D,25 Hydroxy 36.8 ng/mL
[2024-06-05 15:23] LABS: ALB/GLOB Ratio 0.9 RATIO (0.9-2.4); AST(SGOT) 16 U/L (15-37); Alanine Aminotransfer ALT/SGPT 19 U/L (16-61); Albumin, Serum 3.2 g/dL (3.2-5.0); Alkaline Phosphatase 74 U/L (45-117); Anion Gap 4 (5-15); BUN 15 mg/dL (7-18); BUN/Creat Ratio 16.7 RATIO (10-20); Calcium,Total 8.9 mg/dL (8.5-10.1); Chloride 107 mmol/L (98-107); EST Glomerular Filtration Rate 89 mL/min (>60); Est Glom Filt Rate - Afr Amer 107 mL/min (>60); Globulin 3.6 g/dL (2.2-4.2); Glucose 97 mg/dL (74-106); Potassium 4.1 mmol/L (3.5-5.1); Protein, Total 6.8 g/dL (6.4-8.2); Sodium Level 141 mmol/L (136-145); Thyroid Stim Hormone (TSH) 0.57 uIU/mL (0.358-3.74)
== END | disposition home or self-care (01) ==
LOC: POLAB3 14:04
PROVIDERS: PCP Family Medicine Geriatric Medicine; Visit Provider Family Medicine Geriatric Medicine
DX: R53.83 Other fatigue (principal); E55.9 Vitamin D deficiency, unspecified
CPT/HCPCS: 36415; 80053; 82306; 84443; 85025

== ENCOUNTER → 2025-06-06 | Outpatient (CLI) | payer MEDICARE, OTHER, SELFPAY ==
[2025-06-06 13:05] LABS: Hematocrit 43.7 % (40-54); Hemoglobin 14.3 g/dL (13.0-16.5); Immature Granulocytes Count 0.010 X10^3/uL (0.0-0.0); Mean Corp Hgb Conc 32.7 g/dL (32-36); Mean Corpuscular Volume 87.6 fL (80-94); Mean Platelet Vol. 9.0 fl (6.2-12.0); NRBC Flagged by Analyzer 0 % (0-5); Platelet Count 245 K/mm3 (150-450); RBC Distribution Width CV 12.8 % (11.6-14.6); RBC Distribution Width SD 40.8 fl (35.1-43.9); Red Blood Count 4.99 M/mm3 (4.6-6.2); White Blood Count 4.4 K/mm3 (4.4-11.0)
[2025-06-06 14:23] LABS: AST(SGOT) 18 U/L (<=37); Alanine Aminotransfer ALT/SGPT 17 U/L (<=46); Albumin, Serum 4.0 g/dL (3.4-4.8); Alkaline Phosphatase 63 U/L (40-129); Anion Gap 13 (5-15); BUN 16 mg/dL (4-19); BUN/Creat Ratio 17.1 RATIO (10-20); Calcium,Total 9.2 mg/dL (7.6-11.0); Carbon Dioxide 23.9 mmol/L (21.0-32.0); Chloride 103 mmol/L (98-108); Globulin 2.8 g/dL (2.2-4.2); Glucose 103 mg/dL (70-99); PSA,Total - Annual Screen 5.81 ng/mL (0.02-4.00); Potassium 4.1 mmol/L (3.3-5.1); Vitamin D,25 Hydroxy 27.3 ng/mL (30-100)
--- OUTSIDE RECORDS SUMMARY | 2025-06-06 17:42 | XMS RPT_ITS | CCD ---
Author Organization [facility] Care Team Providers Care Reliability Technicians Name Role Phone KATELYN FERNIE CHI Primary Care Unavailable Katelyn, Dr. Fernie Luke Primary Care Provider [phone] Kasey Thomas Emergency Provider Dr. Deacon Ramirez Admit Provider 1([facility])[phone] Deacon Ramirez Attending Provider Dr. Deacon Ramirez Other Provider Dr. Meera Plaza Attending Provider Dr. Meera Plaza Other Provider Dr. Fernie Altamirano Chi Primary Care Provider [phone] Kasey Thomas Emergency Provider Dr. Deacon Ramirez Admit Provider Dr. Deacon Ramirez Attending Provider Dr. Deacon Ramirez Other Provider Dr. Meera Plaza Attending Provider Dr. Meera Plaza Other Provider Katelyn, Fernie Chi Primary Care Unavailable Deacon Ramirez Consulting Unavailable Meera Plaza Attending Unavailable Deacon Ramirez Admitting Unavailable Meera Plaza Consulting Unavailable Katelyn, Fernie Chi Primary Care Unavailable Katelyn, Fernie Chi Attending Unavailable Katelyn, Fernie Chi Attending Unavailable Katelyn, Fernie Chi Primary Care Unavailable Katelyn, Fernie Chi Primary Care Unavailable Katelyn, Fernie Chi Attending Unavailable Katelyn, Fernie Chi Primary Care Unavailable SaiDavid Referring Unavailable SaiDavid Attending Unavailable Katelyn, Fernie Chi Primary Care Unavailable Katelyn, Fernie Chi Referring Unavailable Katelyn, Fernie Chi Attending Unavailable Katelyn, Fernie Chi Primary Care Unavailable Tereletsky, Deacon Admitting Unavailable Meera Plaza Attending Unavailable Deacon Ramirez Consulting Unavailable Katelyn, Fernie Chi Primary Care Unavailable Robert Vallejo Attending Unavailable Katelyn, Fernie Chi Attending Unavailable Katelyn, Fernie Chi Primary Care Unavailable Katelyn, Fernie Chi Referring Unavailable Katelyn, Fernie Chi Primary Care Unavailable Guillermo Parekh Referring Unavailable Guillermo Parekh Attending Unavailable Katelyn, Fernie Chi Primary Care Unavailable Guillermo Parekh Referring Unavailable Giullermo Parekh Attending Unavailable Katelyn, Fernie Chi Primary Care Unavailable Jaclyn Phillips Attending Unavailable Katelyn, Fernie Chi Primary Care Unavailable Douglas Shah Attending Unavailable Thee Phelan Attending Unavailable Katelyn, Fernie Chi Primary Care Unavailable Katelyn, Fernie Chi Primary Care Unavailable Katelyn, Fernie Chi Referring Unavailable Katelyn, Fernie Chi Attending Unavailable Katelyn, Fernie Chi Primary Care Unavailable David Gibbs Referring Unavailable David Gibbs Attending Unavailable Katelyn, Fernie Chi Primary Care Unavailable Deacon Ramirez Admitting Unavailable Deacon Ramirez Attending Unavailable Deacon Ramirez Consulting Unavailable Medications Current Medications Medication Drug Class(es) Dates Sig (Normalized) Sig (Original) amoxicillin 875 mg / clavulanate 125 mg oral tablet (9 sources) Penicillin-class Antibacterial Start: 12-30-2023 take 1 tablet by mouth twice daily Amoxicillin-Pot Clavulanate Active 1 TABLET PO TWICE A DAY 10 December 30, 2023 1:00am gabapentin 300 mg oral capsule (10 sources) Anti-epileptic Agent Start: 12-28-2023 take 300 mg by mouth once daily Gabapentin Active 300 MG PO DAILY December 28, 2023 1:00am naproxen 500 mg oral tablet (10 sources) Nonsteroidal Anti-inflammatory Drug Start: 12-28-2023 take 500 mg by mouth every twelve hours Naproxen Active 500 MG PO Q12H December 28, 2023 1:00am pantoprazole 40 mg delayed release oral tablet (10 sources) Proton Pump Inhibitor Start: 12-28-2023 take 40 mg by mouth once daily Pantoprazole Active 40 MG PO DAILY December 28, 2023 1:00am pravastatin sodium 40 mg oral tablet (15 sources) HMG-CoA Reductase Inhibitor Start: 04-29-2017 take 40 mg by mouth at bedtime Pravastatin Active 40 MG PO AT BEDTIME April 29, 2017 12:00am Timolol Maleate (15 sources) beta-Adrenergic Rosalina Start: 04-29-2017 Timolol Maleate Active 1 DRP Right Eye AT BEDTIME April 28, 2017 11:00pm Start: 04-29-2017 Timolol Maleat e Active 1 DRP Right Eye AT BEDTIME April 29, 2017 12:00am Completed/Discontinued Medications Medication Drug Class(es) Dates Sig (Normalized) Sig (Original) acetaminophen 325 mg / HYDROcodone bitartrate 5 mg oral tablet (12 sources) Opioid Agonist Start: 11-22-2023 End: 12-28-2023 take 1 tablet by mouth every six hours as needed Hydrocodone-Acetam inophen Discontinued 1 TABLET PO EVERY 6 HOURS NEEDED 08 03November 22, 2023 December 28, 2023 2:59pm acetaminophen 325 mg / oxyCODONE hydrochloride 5 mg oral tablet (11 sources) Opioid Agonist Start: 12-12-2023 End: 12-28-2023 take 1 tablet by mouth every six hours as needed Oxycodone-Acetamin ophen Discontinued 1 TABLET PO EVERY 6 HOURS NEEDED 12 December 12, 2023 December 28, 2023 2:59pm oxyCODONE hydrochloride 5 mg oral tablet (15 sources) Opioid Agonist Start: 04-30-2017 End: 12-28-2023 take 5 mg by mouth every eight hours as needed Oxycodone Discontinued 5 MG PO EVERY 8 HOURS NEEDED April 30, 2017 10:04am December 28, 2023 2:59pm predniSONE 20 mg oral tablet (11 sources) Start: 12-12-2023 End: 12-28-2023 take 60 mg by mouth once daily Prednisone Discontinued 60 MG PO DAILY December 12, 2023 1:00am December 28, 2023 2:58pm rivaroxaban 15 mg oral tablet (20 sources) Factor Xa Inhibitor Start: 04-30-2017 End: 12-28-2023 take 1 tablet by mouth twice daily at mealtime Rivaroxaban (Xarelto) 15 MG tablet Discontinued 15 MG PO TWICE DAILY WITH MEALS April 30, 2017 12:00am December 28, 2023 2:59pm Start: 04-30-2017 End: 12-28-2023 take 1 tablet by mouth once daily Rivaroxaban (Xarelto) 20 MG tablet Discontinued 20 MG PO DAILY 90 April 30, 2017 12:00am December 28, 2023 2:59pm Problems Active Problems Problem Classification Problem Date Documented Date Episodic/Chronic Disorders of lipid metabolism (16 sources) Hyperlipidemia; Translations: [Hyperlipidemia, unspecified] Onset: 12-31-2023 04-29-2017 Chronic Diverticulosis and diverticulitis (20 sources) Diverticulitis of intestine; Translations: [Diverticulitis of intestine, part unspecified, without perforation or abscess without bleeding] Onset: 12-30-2023 12-28-2023 Chronic Malaise and fatigue (1 source) Other fatigue; Translations: [Other fatigue] Onset: 07-11-2024 Episodic Other aftercare (2 sources) Wound ; Translations: [Encounter for other specified surgical aftercare] 01-21-2024 Episodic Other circulatory disease (10 sources) Low blood pressure; Translations: [Hypotension, unspecified] 12-28-2023 Episodic Other liver diseases (18 sources) Enzyme level - finding; Translations: [Elevated transaminase measurement] 12-29-2023 Episodic Other lower respiratory disease (15 sources) Multiple nodules of lung; Translations: [Other nonspecific abnormal finding of lung field] 04-29-2017 Episodic Other nervous system disorders (1 source) Other chronic pain; Translations: [Other chronic pain] Onset: 12-30-2023 Chronic Other nervous system disorders (2 sources) Paresthesia; Translations: [Paresthesia of skin] 01-21-2024 Episodic Other nervous system disorders (2 sources) Tremor; Translations: [Tremor, unspecified] 01-21-2024 Episodic Other non-epithelial cancer of skin (15 sources) Basal cell carcinoma of skin; Translations: [Basal cell carcinoma of skin, unspecified] 04-29-2017 Episodic Other nutritional; endocrine; and metabolic disorders (9 sources) Hyperbilirubinemia; Translations: [Other disorders of bilirubin metabolism] 12-29-2023 Chronic Other nutritional; endocrine; and metabolic disorders (11 sources) Other disorders of bilirubin metabolism; Translations: [Jaundice, unspecified, not of ] Onset: 12-30-2023 12-30-2023 Chronic Other screening for suspected conditions (not mental disorders or infectious disease) (1 source) Elevated prostate specific antigen [PSA]; Translations: [Elevated prostate specific antigen [PSA]] Onset: 06-01-2024 Episodic Pulmonary heart disease (6 sources) Acute pulmonary embolism; Translations: [Other pulmonary embolism without acute cor pulmonale] 04-29-2017 Episodic Unclassified (1 source) Elevation of levels of liver transaminase levels; Translations: [Elevation of levels of liver transaminase levels] Onset: 12-30-2023 Unclassified (1 source) Low back pain, unspecified; Translations: [Low back pain, unspecified] Onset: 12-16-2023 Past or Other Problems Problem Classification Problem Date Documented Da te Episodic/Chronic Abdominal pain (20 sources) Right flank pain; Translations: [Unspecified abdominal pain] Onset: 11-22-2023 11-30-2023 Episodic Genitourinary symptoms and ill-defined conditions (4 sources) Retention of urine; Translations: [Retention of urine, unspecified] Onset: 01-24-2024 01-18-2024 Episodic Other aftercare (1 source) Encounter for change or removal of surgical wound dressing; Translations: [Encounter for change or removal of surgical wound dressing] Onset: 01-27-2024 Episodic Other circulatory disease (11 sources) Hypotension, unspecified; Translations: [Hypotension, unspecified] Onset: 12-30-2023 12-28-2023 Episodic Residual codes; unclassified (1 source) Illness, unspecified; Translations: [Illness, unspecified] Onset: 01-07-2024 Episodic Residual codes; unclassified (1 source) Chills (without fever); Translations: [Chills (without fever)] Onset: 08-14-2023 Episodic Spondylosis; intervertebral disc disorders; other back problems (20 sources) Lumbar radiculopathy; Translations: [Radiculopathy, lumbar region] Onset: 12-30-2023 12-12-2023 Episodic Results Test Name Value Interpretation Reference Range Facility CBC W/Diff, Automatedon 08-0 Absolute Lymph 1.10 X10 3/uL Normal 0.83-4.51 [facility] Comment on above: Performed By: #### L 506.1000, L501.9520, L100.0100, L500.4050 #### [facility] [address] [place], [address] Absolute Neut 3.1 X10 3/uL Normal 2.0-7.7 [facility] Comment on above: Performed By: #### L 506.1000, L501.9520, L100.0100, L500.4050 #### [facility] [address] [place], [address] Basophils/100 WBC (Bld) 0.6 % Normal 0-1 [facility] Comment on above: Performed By: #### L 506.1000, L501.9520, L100.0100, L500.4050 #### [facility] [address] [place], [address] Eosinophils/100 WBC (Bld) 2.3 % Normal 0-5 [facility] Comment on above: Performed By: #### L 506.1000, L501.9520, L100.0100, L500.4050 #### [facility] [address] [place], [address] Erythrocyte distribution width (RBC) [Ratio] 12.5 % Normal 11.6-14.6 [facility] Comment on above: Performed By: #### L 506.1000, L501.9520, L100.0100, L500.4050 #### [facility] [address] [place], [address] Hematocrit (Bld) [Volume fraction] 45.1 % Normal 40-54 [facility] Comment on above: Performed By: #### L 506.1000, L501.9520, L100.0100, L500.4050 #### [facility] [address] [place], [address] Hemoglobin (Bld) [Mass/Vol] 14.1 g/dL Normal 13.0-16.5 [facility] Comment on above: Performed By: #### L 506.1000, L501.9520, L100.0100, L500.4050 #### [facility] [address] [place], [address] IG% 0.400 Normal 0.0-0.9 [facility] Comment on above: Result Comment: IG% - Immature Granulocytes (promyelocytes, myelocytes and metamyelocytes) > 1% indicates that a LEFT SHIFT is Present. Performed By: #### L 506.1000, L501.9520, L100.0100, L500.4050 #### [facility] [address] [place], [address] Lymphocytes/100 WBC (Bld) 23.4 % Normal 19-41 [facility] Comment on above: Performed By: #### L 506.1000, L501.9520, L100.0100, L500.4050 #### [facility] [address] [place], [address] MCH (RBC) [Entitic mass] 27.9 pg Normal 27.0-32.0 [facility] Comment on above: Performed By: #### L 506.1000, L501.9520, L100.0100, L500.4050 #### [facility] [address] [place], [address] MCHC (RBC) [Mass/Vol] 31.3 g/dL Low 32-36 [facility] Comment on above: Performed By: #### L 506.1000, L501.9520, L100.0100, L500.4050 #### [facility] [address] [place], [address] MCV (RBC) [Entitic vol] 89.3 fL Normal 80-94 [facility] Comment on above: Performed By: #### L 506.1000, L501.9520, L100.0100, L500.4050 #### [facility] [address] [place], [address] Monocytes/100 WBC (Bld) 6.6 % Normal 0-10 [facility] Comment on above: Performed By: #### L 506.1000, L501.9520, L100.0100, L500.4050 #### [facility] [address] [place], [address] Neutrophils/100 WBC (Bld) 66.7 % Normal 47-70 [facility] Comment on above: Performed By: #### L 506.1000, L501.9520, L100.0100, L500.4050 #### [facility] [address] [place], [address] Nucleated RBC (Bld) [#/Vol] 0 10*3/uL Normal 0-5 [facility] Comment on above: Performed By: #### L 506.1000, L501.9520, L100.0100, L500.4050 #### [facility] [address] [place], [address] Platelet mean volume (Bld) [Entitic vol] 9.3 fL Normal 6.2-12.0 [facility] Comment on above: Performed By: #### L 506.1000, L501.9520, L100.0100, L500.4050 #### [facility] [address] [place], [address] Platelets (Bld) [#/Vol] 270 10*3/uL Normal 150-450 [facility] Comment on above: Performed By: #### L 506.1000, L501.9520, L100.0100, L500.4050 #### [facility] [address] [place], [address] RBC (Bld) [#/Vol] 5.05 10*6/uL Normal 4.6-6.2 [facility] Comment on above: Performed By: #### L 506.1000, L501.9520, L100.0100, L500.4050 #### [facility] [address] [place], [address] RDW SD 41.1 fl Normal 35.1-43.9 [facility] Comment on above: Performed By: #### L 506.1000, L501.9520, L100.0100, L500.4050 #### [facility] [address] [place], [address] WBC (Bld) [#/Vol] 4.7 10*3/uL Normal 4.4-11.0 [facility] Comment on above: Performed By: #### L 506.1000, L501.9520, L100.0100, L500.4050 #### [facility] [address] [place], [address] Comprehensive Metabolic [facility] 06-05-2024 Albumin [Mass/Vol] 3.2 g/dL Normal 3.2-5.0 [facility] Comment on above: Performed By: #### L 506.1000, L501.9520, L100.0100, L500.4050 #### [facility] [address] [place], [address] Albumin/Globulin [Mass ratio] 0.9 {ratio} Normal 0.9-2.4 [facility] Comment on above: Performed By: #### L 506.1000, L501.9520, L100.0100, L500.4050 #### [facility] [address] [place], [address] ALK P 74 U/L Normal 45-117 [facility] Comment on above: Performed By: #### L 506.1000, L501.9520, L100.0100, L500.4050 #### [facility] [address] [place], [address] ALT [Catalytic activity/Vol] 19 U/L Normal 16-61 [facility] Comment on above: Performed By: #### L 506.1000, L501.9520, L100.0100, L500.4050 #### [facility] [address] [place], [address] AST [Catalytic activity/Vol] 16 U/L Normal 15-37 [facility] Comment on above: Performed By: #### L 506.1000, L501.9520, L100.0100, L500.4050 #### [facility] [address] [place], [address] Bilirubin [Mass/Vol] 1.30 mg/dL High 0.20-1.00 [facility] Comment on above: Result Comment: For patients on eltrombopag therapy, use of Dimension [place] TBIL is not recommended. Performed By: #### L 506.1000, L501.9520, L100.0100, L500.4050 #### [facility] [address] [place], [address] BUN/CRE 16.7 RATIO Normal 10-20 [facility] Comment on above: Performed By: #### L 506.1000, L501.9520, L100.0100, L500.4050 #### [facility] [address] [place], [address] CA,Total 8.9 mg/dL Normal 8.5-10.1 [facility] Comment on above: Performed By: #### L 506.1000, L501.9520, L100.0100, L500.4050 #### [facility] [address] [place], [address] Chloride [Moles/Vol] 107 mmol/L Normal 98-107 [facility] Comment on above: Performed By: #### L 506.1000, L501.9520, L100.0100, L500.4050 #### [facility] [address] [place] [place], [address] CO2 [Moles/Vol] 30.0 mmol/L Normal 21.0-32.0 [facility] Comment on above: Performed By: #### L 506.1000, L501.9520, L100.0100, L500.4050 #### [facility] [address] [place], [address] Creatinine [Mass/Vol] 0.90 mg/dL Normal 0.70-1.30 [facility] Comment on above: Result Comment: The validity of the calculated GFR GFRAA in patients over 70 years has not been determined. Clinical correlation is essential. Performed By: #### L 506.1000, L501.9520, L100.0100, L500.4050 #### [facility] [address] [place], [address] EST GFR - AA 107 mL/min Normal >60 [facility] Comment on above: Result Comment: Afri can Iraqi GFR Calc Performed By: #### L 506.1000, L501.9520, L100.0100, L500.4050 #### [facility] [address] [place], [address] GAP 4 Low 5-15 [facility] Comment on above: Performed By: #### L 506.1000, L501.9520, L100.0100, L500.4050 #### [facility] [address] [place], [address] GFR/1.73 sq M.predicted among non-blacks MDRD (S/P/Bld) [Vol rate/Area] 89 mL/min/{1.73_m2} Normal >60 [facility] Comment on above: Result Comment: Non- GFR Calc Performed By: #### L 506.1000, L501.9520, L100.0100, L500.4050 #### [facility] [address] [place], [address] Globulin (S) [Mass/Vol] 3.6 g/dL Normal 2.2-4.2 [facility] Comment on above: Performed By: #### L 506.1000, L501.9520, L100.0100, L500.4050 #### [facility] [address] [place], [address] Glucose [Mass/Vol] 97 mg/dL Normal 74-106 [facility] Comment on above: Performed By: #### L 506.1000, L501.9520, L100.0100, L500.4050 #### [facility] [address] [place], [address] Potassium [Moles/Vol] 4.1 mmol/L Normal 3.5-5.1 [facility] Comment on above: Performed By: #### L 506.1000, L501.9520, L100.0100, L500.4050 #### [facility] [address] [place], [address] Sodium [Moles/Vol] 141 mmol/L Normal 136-145 [facility] Comment on above: Performed By: #### L 506.1000, L501.9520, L100.0100, L500.4050 #### [facility] [address] [place], [address] T PROT 6.8 g/dL Normal 6.4-8.2 [facility] Comment on above: Performed By: #### L 506.1000, L501.9520, L100.0100, L500.4050 #### [facility] [address] [place], [address] Urea nitrogen [Mass/Vol] 15 mg/dL Normal 7-18 [facility] Comment on above: Performed By: #### L 506.1000, L501.9520, L100.0100, L500.4050 #### [facility] [address] [place], [address] Thyroid Stim Hormone (TSH)on 06-05-2024 TSH 0.57 uIU/mL Normal 0.358-3.74 [facility] Comment on above: Performed By: #### L 506.1000, L501.9520, L100.0100, L500.4050 #### [facility] [address] [place], [address] Vitamin D,25 Hydroxyon 06-05 Vitamin D 25-OH 36.8 ng/mL Normal [facility] Comment on above: Result Comment: Dariela min D 25(OH) Status Range Deficiency <20 ng/mL (50nmol/L) Insufficiency 20 - 30 ng/mL (50 - 75 nmol/L) Sufficiency 30 - 100 ng/mL (75 - 250 nmol/L) Toxicity >100 ng/mL (>250 nmol/L) Performed By: #### L 506.1000, L501.9520, L100.0100, L500.4050 #### [facility] [address] [place], [address] PSA,Total- Diagnosticon 05-01 PSA, DIAGNOSTIC 1.31 ng/mL Normal 0.0-4.0 [facility] Comment on above: Result Comment: This test was performed using the TPSA assay method for the ImageTag chemistry system. Values obtained with different assay methods cannot be used interchangably. When changing PSA assays in the course of monitoring a patient, additional sequential testing should be carried out to confirm baseline values. Performed By: #### L 501.9940 #### [facility] [address] [place], [place], [address] PT D/C Summary (1)on 024 PT D/C Summary (1) [facility] Physical Therapy [facility] [place] [address] / REHABILITATION SERVICES DISCHARGE SUMMARY MR#: [id number] Acct: [id number] Name: LORIE OBRIEN Rep #: [id number] : 1955 68 From: Miguel Smith PT, Cert. MD Dominguez, OCS Referring DrJacy: Dr. Guillermo Parekh DO Status: RE G RCR [place] [facility] [place] D/C summary: It has been my pleasure to treat LORIE OBRIEN referred by Dr. Guillermo Parekh DO, with the diagnosis of INTERVERTRBRAL DISC DISPLACEMENT ,LUMBAR REGION ,SPINAL STENOSIS for a total of 10 visit(s). Discharge Date: 03/09/24 Please see the following information for a summary of their discharge status. Subjective Subjective: Patient return to normal Patient Pain Bilateral Back: Pain Intensity (Out of 10): 0 Overall Improvement % Improvement: 100 Objective Objective/Function: OSTURE: mild forward posture INCISION: well approximate ,crusty dry NEURO: denies paresthesia/tingling reflexes L3-4,L4-5 ,L5-S1 1/3 GAIT: reciprocal pattern MMT: quads/hams 4/5 ,hip flexion 4-/5 ,ankle 4/5 LUMBAR ROM: flexion min loss ,extension mod/severe loss ,side glides min loss FLEXABILITY: hamstrings min loss Goals Goal 1:: I with HEP for lumbar Goal Progress: Goal Met Goal 2:: Patient to improve lumbar ROM for function of recovery to tie shoes Goal Progress: Goal Met Goal 3:: Patient to improve back oswestry score by 5 points to improve QOL and function. Goal Progress: Goal Met Goal 4:: Patient to demonstrate 60% -70% improved function and QOL Goal Progress: Goal Met Goal 5:: Patient to return to prior level of function with housework tasks and hobbies with min to no limiations Goal Progress: Goal Met Plan Plan: D/C TO HEP D/C Information Discharge Comments: HEP d/c sentence: If there are questions or concerns regarding this patient's physical therapy, please feel free to call me at [phone]. Thank you for the referral of this patient. Sincerely, Miguel Smith PT, Cert MDT, OCS Balance/Gait/Functio nal tests Balance/Special Test Scores Oswestry Low Back Score: 1 Improvement % Improvement: 100 03/09/24 1524 CC: Dr. Guillermo Parekh DO; Dr. Fernie Altamirano MD TEE Signed Normal [facility] Inital Evaluation (1) - PTon 02-07-2024 Inital Evaluation (1) - PT [facility] [address] [place] [address] / REHABILITATION SERVICES INITIAL EVALUATION MR#: [id number] Acct: [id number] Name: LORIE OBRIEN Rep #: [id number] : 1955 68 From: Miguel Smith PT, Cert. MD Dominguez, OCS Referring Dr.: Dr. Guillermo Parekh DO Status: RE G RCR Insurance: MEDICARE PART A B [employer] [facility] Patient's Visit Information Visit Information Visit Information: LORIE OBRIEN is a 68 year old M referred to Physical Therapy by Dr. Guillermo Parekh DO with a diagnosis of INTERVERTRBRAL DISC DISPLACEMENT ,LUMBAR REGION ,SPINAL STENOSIS. Date of Evaluation: 02/07/24 Physical Therapist: Miguel Smith PT, Cert T, OCS Visit Plan Frequency: 2-3x /Week Duration: 4-6 Weeks Plan: S/P LUMBAR DISCECTOMY 01/17 PT INTERVENTIONS DLS ,POSTURAL EX'S ,LE FLEXABILITY ,LUMBAR ROM ,BLE STRENGTHENING AND ACTIVITY MODIFICATION Subjective Subjective: This 68 y/o female presents to physical therapy with lumbar discectomy on 01/18/24 at [facility] by DR Parekh. Patient d/c day of surgery and had complications 2 days with patient had difficulty urinating had catheter for 1week and seen Urologist provided medication. Seen DR dietz Wed remove sutures. Patient initially used walker after surgery for 1week. Patient has had back many years pain worse in November . MRI showed Lumbar HNP. Patient initially had pain in right thigh to knee. Patient doing better some pain incision and lateral back. Patient stop pain medication. Current aggravating factors extended standing ,walking.Alleviating better rest. Coughing/sneezing-. Bowel/bladder - Sleeping okay buit 2 weeks was not good. Patient surgery affects QOL and function. Patient goal to return to normal activity ride back. SOCIAL: VOCATION: retired Pain Bilateral Back: Pain Intensity (Out of 10): 2 Pain Intensity Range: 10 Objective Objective: POSTURE: mild forward posture INCISION: well approximate ,crusty dry NEURO: denies paresthesia/tingling reflexes L3-4,L4-5 ,L5-S1 1/3 GAIT: reciprocal pattern MMT: quads/hams 4/5 ,hip flexion 4-/5 ,ankle 4/5 LUMBAR ROM: flexion min loss ,extension mod/severe loss ,side glides min loss FLEXABILITY: hamstrings min loss Special Tests L/S Slump test left side: Negative L/S Slump test right side: Negative L/S Left Straight Leg Raise: Negative L/S Right Straight Leg Raise: Negative Balance/Special Test Scores Oswestry Low Back Score: 13 Goals Goal 1:: I with HEP for lumbar Goal Time Frame: 4-6 Weeks Goal 2:: Patient to improve lumbar ROM for function of recovery to tie shoes Goal Time Frame: 4-6 Weeks Goal 3:: Patient to improve back oswestry score by 5 points to improve QOL and function. Goal Time Frame: 4-6 Weeks Goal 4:: Patient to demonstrate 60% -70% improved function and QOL Goal Time Frame: 4-6 Weeks Goal 5:: Patient to return to prior level of function with housework tasks and hobbies with min to no limiations Goal Time Frame: 4-6 Weeks Rehabilitation Potential Physical Therapy Diagnosis: This patient had s/p lumbar discectomy 01/18/24 with some pain ,weakness with gait and endurance and decrease lumbar ROM and muscular endurance core thus benefit from skilled PT Rehabilitation Potential: Good Anticipated Interventions Patient/Client Instruction: Educate patient on: Condition and Plan of Care For the Purpose of:: To decrease pain, To improve muscle performance and motor function, To improve ability to perform ADL's, To increase tolerance to activity/condition/p osition, To improve performance and independence with ADL's, To improve ability of physical actions for home/community/work/ leisure, To improve gait and locomotor functions, To improve health of tissue, To increase flexibility/ROM and To improve endurance Therapeutic Exercise to Include: Strength training, Agility training, Postural training, Flexibilty training and Dynamic Lumbar Stabilization Comment: BLE For the Purpose of:: To decrease pain, To increase ROM, To improve muscle performance and motor function, To improve ability to perform ADL's, To increase tolerance to activity/condition/p osition, To improve performance and independence with ADL's, To improve ability of physical actions for home/community/work/ leisure, To improve health of tissue, To decrease soft tissue restriction, To increase flexibility/ROM, To improve endurance, To prevent re-injury and To improve tolerance to ADL's Text: Thank you for the opportunity to evaluate your patient. For Medicare and Medicare HMO plans, please review the plan of care and approve it. It will need to be FAXED BACK to us at [phone] for Medicare purposes. For Medicare only, by signing this I certify the plan of care. Please let me know if there are questions or concerns regardi (more content not included)... Normal [facility] Culture, Blood (WB)on 2023 CUB No growth in 5 days. Normal [facility] Comment on above: Performed By: #### L 501.9940 #### [facility] [address] [place], [address] Performed By: #### L 506.1000, L501.9520, L100.0100, L500.4050 #### [facility] [address] [place], [address] Urine Cultureon 01-21-2024 [facility] Culture exhibits no growth. Normal [facility] Comment on above: Performed By: #### L 506.1000, L501.9520, L100.0100, L500.4050 #### [facility] [address] [place], [address] Absolute lymphocyte countOrd ered By: Robert Vallejo on 01-20-2024 Lymphocytes Auto (Unsp spec) [#/Vol] 1.01 10*3/uL 0.83-4.51 [facility] Activated partial thrombopla stin time (aPTT) in platelet poor plasma by coagulation aOrdered By: Robert Vallejo on 01-20-2024 aPTT Coag (PPP) [Time] 29.9 s 24.1-36.2 [facility] Automated lymphocyte count a s percentage of total leukocytesOrdered By: Robert Vallejo on 01-20-2024 Lymphocytes/100 WBC Auto (Unsp spec) 13.4 % 19-41 [facility] Basic Metabolic Profile (BMP )on 01-20-2024 BUN/CRE 14.8 RATIO Normal 10-20 [facility] Comment on above: Performed By: #### L 300.3900, L500.2500, L100.0100 #### [facility] [address] [place], [address] CA,Total 9.1 mg/dL Normal 8.5-10.1 [facility] Comment on above: Performed By: #### L 300.3900, L500.2500, L100.0100 #### [facility] [address] [place], [address] Chloride [Moles/Vol] 103 mmol/L Normal 98-107 [facility] Comment on above: Performed By: #### L 300.3900, L500.2500, L100.0100 #### [facility] [address] [place], [address] CO2 [Moles/Vol] 26.0 mmol/L Normal 21.0-32.0 [facility] Comment on above: Performed By: #### L 300.3900, L500.2500, L100.0100 #### [facility] [address] [place], [address] Creatinine [Mass/Vol] 0.95 mg/dL Normal 0.70-1.30 [facility] Comment on above: Result Comment: The validity of the calculated GFR GFRAA in patients over 70 years has not been determined. Clinical correlation is essential. Performed By: #### L 300.3900, L500.2500, L100.0100 #### [facility] [address] [place], [address] EST GFR - AA 101 mL/min Normal >60 [facility] Comment on above: Result Comment: Afri can Iraqi GFR Calc Performed By: #### L 300.3900, L500.2500, L100.0100 #### [facility] [address] [place], [address] GAP 8 Normal 5-15 [facility] Comment on above: Performed By: #### L 300.3900, L500.2500, L100.0100 #### [facility] [address] [place], [address] GFR/1.73 sq M.predicted among non-blacks MDRD (S/P/Bld) [Vol rate/Area] 84 mL/min/{1.73_m2} Normal >60 [facility] Comment on above: Result Comment: Non- GFR Calc Performed By: #### L 300.3900, L500.2500, L100.0100 #### [facility] [address] [place], [address] Glucose [Mass/Vol] 134 mg/dL High 74-106 [facility] Comment on above: Result Comment: Fast ing Glucose result greater than or equal to 126 mg/dL suggests DIABETES MELLITUS per A.D.A. criteria. Performed By: #### L 300.3900, L500.2500, L100.0100 #### [facility] [address] [place], [address] Potassium [Moles/Vol] 3.6 mmol/L Normal 3.5-5.1 [facility] Comment on above: Performed By: #### L 300.3900, L500.2500, L100.0100 #### [facility] [address] [place], [address] Sodium [Moles/Vol] 137 mmol/L Normal 136-145 [facility] Comment on above: Performed By: #### L 300.3900, L500.2500, L100.0100 #### [facility] [address] [place], [address] Urea nitrogen [Mass/Vol] 14 mg/dL Normal 7-18 [facility] Comment on above: Performed By: #### L 300.3900, L500.2500, L100.0100 #### [facility] [address] [place], [address] Basophil percentageOrdered B y: Robert Nietoehne on 01-20-2024 Basophil percentage 0 SEEN /hpf 0-5 [facility] Basophils/100 WBC (Bld) 0.3 % 0-1 [facility] Bilirubin [Mass/Vol] 0.70 mg/dL 0.20-1.00 [facility] Comment on above: For patients on eltr ombopag therapy, use of Dimension [place] TBIL is not recommended. Chloride [Moles/Vol] 103 mmol/L 98-107 [facility] Eosinophils/100 WBC (Bld) 0.4 % 0-5 [facility] Glucose [Mass/Vol] 134 mg/dL 74-106 [facility] Comment on above: Fasting Glucose resu lt greater than or equal to 126 mg/dL suggests DIABETES MELLITUS per A.D.A. criteria. Hemoglobin (Bld) [Mass/Vol] 13.0 g/dL 13.0-16.5 [facility] Lactate [Moles/Vol] 1.8 mmol/L 0.4-2.0 [facility] Monocytes/100 WBC (Bld) 8.4 % 0-10 [facility] Neutrophils (Bld) [#/Vol] 5.7 10*3/uL 2.0-7.7 [facility] Neutrophils/100 WBC (Bld) 76.3 % 47-70 [facility] Potassium [Moles/Vol] 3.6 mmol/L 3.5-5.1 [facility] Protein [Mass/Vol] 6.4 g/dL 6.4-8.2 [facility] Sodium [Moles/Vol] 137 mmol/L 136-145 [facility] WBC (Bld) [#/Vol] 7.5 10*3/uL 4.4-11.0 [facility] Bilirubin Test strip Ql (U)O rdered By: Robert Nietoehne on 01-20-2024 Bilirubin Ql (U) Negative Negative [facility] CBC W/Diff, Automatedon - Absolute Lymph 1.01 X10 3/uL Normal 0.83-4.51 [facility] Comment on above: Performed By: #### L 300.3900, L500.2500, L100.0100 #### [facility] [address] [place], [address] Absolute Neut 5.7 X10 3/uL Normal 2.0-7.7 [facility] Comment on above: Performed By: #### L 300.3900, L500.2500, L100.0100 #### [facility] [address] [place], [address] Basophils/100 WBC (Bld) 0.3 % Normal 0-1 [facility] Comment on above: Performed By: #### L 300.3900, L500.2500, L100.0100 #### [facility] [address] [place], [address] Eosinophils/100 WBC (Bld) 0.4 % Normal 0-5 [facility] Comment on above: Performed By: #### L 300.3900, L500.2500, L100.0100 #### [facility] [address] [place], [address] Erythrocyte distribution width (RBC) [Ratio] 13.6 % Normal 11.6-14.6 [facility] Comment on above: Performed By: #### L 300.3900, L500.2500, L100.0100 #### [facility] [address] [place], [address] Hematocrit (Bld) [Volume fraction] 39.8 % Low 40-54 [facility] Comment on above: Performed By: #### L 300.3900, L500.2500, L100.0100 #### [facility] [address] [place], [address] Hemoglobin (Bld) [Mass/Vol] 13.0 g/dL Normal 13.0-16.5 [facility] Comment on above: Performed By: #### L 300.3900, L500.2500, L100.0100 #### [facility] [address] [place], [address] IG% 1.200 High 0.0-0.9 [facility] Comment on above: Result Comment: IG% - Immature Granulocytes (promyelocytes, myelocytes and metamyelocytes) > 1% indicates that a LEFT SHIFT is Present. Performed By: #### L 300.3900, L500.2500, L100.0100 #### [facility] [address] [place], [address] Lymphocytes/100 WBC (Bld) 13.4 % Low 19-41 [facility] Comment on above: Performed By: #### L 300.3900, L500.2500, L100.0100 #### [facility] [address] [place], [address] MCH (RBC) [Entitic mass] 28.8 pg Normal 27.0-32.0 [facility] Comment on above: Performed By: #### L 300.3900, L500.2500, L100.0100 #### [facility] [address] [place], [address] MCHC (RBC) [Mass/Vol] 32.7 g/dL Normal 32-36 [facility] Comment on above: Performed By: #### L 300.3900, L500.2500, L100.0100 #### [facility] [address] [place], [address] MCV (RBC) [Entitic vol] 88.1 fL Normal 80-94 [facility] Comment on above: Performed By: #### L 300.3900, L500.2500, L100.0100 #### [facility] [address] [place], [address] Monocytes/100 WBC (Bld) 8.4 % Normal 0-10 [facility] Comment on above: Performed By: #### L 300.3900, L500.2500, L100.0100 #### [facility] [address] [place], [address] Neutrophils/100 WBC (Bld) 76.3 % High 47-70 [facility] Comment on above: Performed By: #### L 300.3900, L500.2500, L100.0100 #### [facility] [address] [place], [address] Nucleated RBC (Bld) [#/Vol] 0 10*3/uL Normal 0-5 [facility] Comment on above: Performed By: #### L 300.3900, L500.2500, L100.0100 #### [facility] [address] [place], [address] Platelet mean volume (Bld) [Entitic vol] 9.3 fL Normal 6.2-12.0 [facility] Comment on above: Performed By: #### L 300.3900, L500.2500, L100.0100 #### [facility] [address] [place], [address] Platelets (Bld) [#/Vol] 250 10*3/uL Normal 150-450 [facility] Comment on above: Performed By: #### L 300.3900, L500.2500, L100.0100 #### [facility] [address] [place], [address] RBC (Bld) [#/Vol] 4.52 10*6/uL Low 4.6-6.2 [facility] Comment on above: Performed By: #### L 300.3900, L500.2500, L100.0100 #### [facility] [address] [place], [address] RDW SD 43.8 fl Normal 35.1-43.9 [facility] Comment on above: Performed By: #### L 300.3900, L500.2500, L100.0100 #### [facility] [address] [place], [address] WBC (Bld) [#/Vol] 7.5 10*3/uL Normal 4.4-11.0 [facility] Comment on above: Performed By: #### L 300.3900, L500.2500, L100.0100 #### [facility] [address] [place], [address] Chest 1 View (Portable)on Chest 1 View (Portable) [facility] Imaging Services [address] [place] [address] Chest 1 View (Portable) MR#: [id number] Acct: [id number] Name: LORIE OBRIEN Regina Rep #: [id number] : 1955 M 68 From: Sherri Hammonds MD PCP: Dr. Fernie Altamirano MD Status: REG ER Study: Chest 1 View (Portable) Date of Exam: 01/20/24 Exam# [id number] Ordering Dr: Robert Vallejo DO [id number] EXAM: XR CHEST, 1 VIEW CLINICAL INDICATION: COUGH TECHNIQUE: Frontal view of the chest. COMPARISON: No relevant prior studies available. FINDINGS: LUNGS AND PLEURAL SPACES: Unremarkable. No consolidation or edema. No pneumothorax. No effusion. HEART: Unremarkable. Cardiac silhouette not enlarged. MEDIASTINUM: Central airways and mediastinal contour are unremarkable. BONES/JOINTS: Unremarkable. No acute fracture. SOFT TISSUES: Unremarkable. RAD/Chest 1 View (Portable) IMPRESSION: No radiographic evidence of acute cardiopulmonary disease. Electronically Signed: Sherri Hammonds MD at 23:49 EDT , CC: Dr. Robert Vallejo DO; Dr. Fernie Altamirano MD [employer]: Signed Normal [facility] Culture, urineOrdered By: Armin Vallejo on 01-20-2024 Bacteria identified Cx Nom (U) Culture exhibits no growth. [facility] Determination of erythrocyte mean corpuscular volume (MCV)Ordered By: Robert Vallejo on 01-20-2024 MCV (RBC) [Entitic vol] 88.1 fL 80-94 [facility] Direct bilirubinOrdered By: Robert Vallejo on 01-20-2024 Bilirubin.direct [Mass/Vol] 0.15 mg/dL 0.00-0.30 [facility] Emergency Department Summary on 01-20-2024 Emergency Department Summary [facility] Medical Records Department [address] [place] [address] Emergency Department Summary 01/20/24 MR#: [id number] Acct: [id number] Name: LORIE OBRIEN Rep #: [id number] : 1955 68 From: Robert Vallejo DO PCP: Dr. Fernie Altamirano MD Status:DEP ER Location: ED HPI History of Present Illness Chief Complaint: General Illness Informant: patient and spouse/S.O. Narrative Narrative: Patient and his are presenting out of concern for infection. Patient postop day 3 from L3 laminectomy/discecto my with Dr. Parekh. Postoperatively was complicated by urinary retention. He is currently on Bactrim. He saw urology this morning. He was started on Flomax but has not yet taken it tonight. Patient states that tonight he felt chilled and a little shaky. states she noticed some drainage that seemed more than normal on the dressing. She notes it was serosanguineous in nature. Oral temperature is about 99 degrees. He notes that he did cough earlier tonight but wonders is more clearing his throat. No rhinorrhea. He had diverticulitis and was hospitalized about 2 weeks ago. No pain like that. He does note continued constipation and increased gas today but is having flatus. He states the color/clarity of the urine is not different. He denies any acute neurologic deficits. No significant headache. PFSH PFSH Medical History Chronic pain COPD (chronic obstructive pulmonary disease) Former smoker High cholesterol Home Medications pravastatin 40 mg tablet 40 mg PO QHS 04/29/17 [History Last Taken 04/28/17] timolol maleate 0.5 % eye drops 1 drp QHS 04/29/17 [History Last Taken 04/28/17] gabapentin 300 mg capsule 300 mg PO DAILY 12/28/23 [History Last Taken Unknown] naproxen 500 mg tablet 500 mg PO Q12H 12/28/23 [History Last Taken Unknown] pantoprazole 40 mg tablet,delayed release 40 mg PO DAILY 12/28/23 [History Last Taken Unknown] amoxicillin 875 mg-potassium clavulanate 125 mg tablet 1 tab PO BID #10 tabs 12/30/23 [Rx Last Taken Unknown] Allergy/AdvReac Type Severity Reaction Status Date / Time No Known Allergies Allergy Verified 01/20/24 21:37 Social History household members: spouse housing: house Smoking Status: Never smoker ROS ROS ED Constitutional Constitutional ED: Reports chills and other Details: Temperature reported 99 degrees ; Denies weight loss Eyes Eyes: Denies change in vision or diplopia ENT ENT ED: Denies ear pain, rhinorrhea or sore throat Cardiovascular Cardiovascular: Denies chest pain, orthopnea, palpitations or racing heartbeat Respiratory/Chest Respiratory/Chest: Reports cough and other Details: Patient notes a very slight cough earlier tonight but states it could be just clearing his throat ; Denies dyspnea or orthopnea Gastrointestinal Gastrointestinal: Reports constipation and other Details: Positive flatus ; Denies abdominal pain, diarrhea, nausea or vomiting Genitourinary Genitourinary ED: Reports other Details: Indwelling catheter secondary to urinary retention postoperatively ; Denies dysuria, hematuria or urinary frequency Musculoskeletal Musculoskeletal: Denies arthralgias or myalgias Integumentary Reports other Details: Serosanguineous like drainage from wound ; Denies abscess or rash Neurologic Neurologic: Denies headache(s), paresthesias or weakness Psychiatric Psychiatric: Denies anxiety, depression, suicidal ideation or suicidal thoughts Endocrine Endocrinology: Denies polydipsia, polyphagia or polyuria Allergic/Immunologic Allergic/Immunologic ED: Denies mouth swelling, tongue swelling or urticaria EXAM Physical Exam Const Vital Signs: 01/20/24 21:34 01/20/24 22:02 01/20/24 21:36 Temperature 98.2 F 98 F Temperature Source Oral Oral Pulse Rate 85 80 Respiratory Rate 16 16 Respiratory Effort Normal Respiratory Pattern Normal Blood Pressure 113/71 123/84 H Blood Pressure Mean 85 97 Pulse Ox 95 99 Oxygen Delivery Method Room Air 01/20/24 22:36 01/20/24 23:00 01/20/24 23:34 Temperature 98 F 98.1 F Temperature Source Oral Temporal Pulse Rate 80 89 82 Respiratory Rate 16 18 18 Respiratory Effort Respiratory Pattern Blood Pressure 133/80 H 125/77 H 126/75 H Blood Pressure Mean 97 93 92 Pulse Ox 98 99 Oxygen Delivery Method Room Air Room Air Room Air 01/21/24 00:42 Temperature 97.9 F Temperature Source Pulse Rate 69 Respiratory Rate 16 Respiratory Effort Respiratory Pattern Blood Pressure 140/68 H Blood Pressure Mean 92 Pulse Ox 95 Oxygen Delivery Method Positive well nourished and well developed General Appearance ED: well developed HEENT Reports no (more content not included)... Normal [facility] Erythrocyte distribution wid th ratioOrdered By: Robert Vallejo on 01-20-2024 Erythrocyte distribution width (RBC) [Ratio] 13.6 % 11.6-14.6 [facility] Erythrocyte distribution wid th standard deviationOrdered By: Robert Vallejo on 01-20-2024 Erythrocyte distribution width (RBC) [Entitic vol] 43.8 fL 35.1-43.9 [facility] Hematocrit Auto (Bld) [Volum e fraction]Ordered By: Robert Vallejo on 01-20-2024 Hematocrit (Bld) [Volume fraction] 39.8 % 40-54 [facility] Immature granulocytes/100 WB C Auto (Bld)Ordered By: Robert Vallejo on 01-20-2024 Immature granulocytes/100 WBC (Bld) 1.200 % 0.0-0.9 [facility] Comment on above: IG% - Immature Granu locytes (promyelocytes, myelocytes and metamyelocytes) > 1% indicates that a LEFT SHIFT is Present. Ketones Test strip Ql (U)Ord ered By: Robert Vallejo on 01-20-2024 Ketones Ql (U) Negative Negative [facility] - Chemistry and C hemistry - challengeOrdered By: Robert Vallejo on 01-20-2024 ALP [Catalytic activity/Vol] 79 U/L 45-117 [facility] ALT [Catalytic activity/Vol] 45 U/L 16-61 [facility] CO2 [Moles/Vol] 26.0 mmol/L 21.0-32.0 [facility] Globulin (S) [Mass/Vol] 3.6 g/dL 2.2-4.2 [facility] Lipase [Catalytic activity/Vol] 76 U/L 13-75 [facility] Comment on above: Please note:LIPASE r evised reference range effective 23. New Lipase methodology. Expected to produce lower values than the previous assay method. NEW Reference Range: 13 - 75 U/L Urea nitrogen/Creatinine [Mass ratio] 14.8 mg/mg 10-20 [facility] - CoagulationOrde red By: Robert Vallejo on 01-20-2024 INR Coag (Bld) [Relative time] 1.0 {INR} [facility] PT Coag (PPP) [Time] 13.6 s 11.7-14.9 [facility] - Hematology and Cell countsOrdered By: Robert Vallejo on 01-20-2024 MCH (RBC) [Entitic mass] 28.8 pg 27.0-32.0 [facility] MCHC (RBC) [Mass/Vol] 32.7 g/dL 32-36 [facility] Nucleated RBC/100 WBC (Bld) [Ratio] 0 % 0-5 [facility] Platelet mean volume (Bld) [Entitic vol] 9.3 fL 6.2-12.0 [facility] Platelets (Bld) [#/Vol] 250 10*3/uL 150-450 [facility] - Microbiology an d Antimicrobial susceptibilityOrdered By: Robert Vallejo on 01-20-2024 SARS-CoV-2 (COVID-19) RNA VINI+probe Ql (Unsp spec) [facility] Bacteria identified Cx Nom (Bld) No growth in 5 days. [facility] Lactic Acidon 01-20-2024 Lactate [Moles/Vol] 1.8 mmol/L Normal 0.4-1.9 [facility] Comment on above: Order Comment: Y Performed By: #### L 300.3900, L500.2500, L100.0100 #### [facility] [address] [place], [address] Lipaseon 01-20-2024 Lipase [Catalytic activity/Vol] 76 U/L High 13-75 [facility] Comment on above: Result Comment: Dior foote note: LIPASE revised reference range effective 23. New Lipase methodology. Expected to produce lower values than the previous assay method. NEW Reference Range: 13 - 75 U/L Performed By: #### L 300.3900, L500.2500, L100.0100 #### [facility] [address] [place], [address] Liver Profileon 01-20-2024 Albumin [Mass/Vol] 2.8 g/dL Low 3.2-5.0 [facility] Comment on above: Performed By: #### L 300.3900, L500.2500, L100.0100 #### [facility] [address] [place], [address] ALK P 79 U/L Normal 45-117 [facility] Comment on above: Performed By: #### L 300.3900, L500.2500, L100.0100 #### [facility] [address] [place], [address] ALT [Catalytic activity/Vol] 45 U/L Normal 16-61 [facility] Comment on above: Performed By: #### L 300.3900, L500.2500, L100.0100 #### [facility] [address] [place], [address] AST [Catalytic activity/Vol] 25 U/L Normal 15-37 [facility] Comment on above: Performed By: #### L 300.3900, L500.2500, L100.0100 #### [facility] [address] [place], [address] Bilirubin [Mass/Vol] 0.70 mg/dL Normal 0.20-1.00 [facility] Comment on above: Result Comment: For patients on eltrombopag therapy, use of Dimension [place] TBIL is not recommended. Performed By: #### L 300.3900, L500.2500, L100.0100 #### [facility] [address] [place], [address] Bilirubin.direct [Mass/Vol] 0.15 mg/dL Normal 0.00-0.30 [facility] Comment on above: Performed By: #### L 300.3900, L500.2500, L100.0100 #### [facility] [address] [place], [address] Globulin (S) [Mass/Vol] 3.6 g/dL Normal 2.2-4.2 [facility] Comment on above: Performed By: #### L 300.3900, L500.2500, L100.0100 #### [facility] [address] [place], [address] T PROT 6.4 g/dL Normal 6.4-8.2 [facility] Comment on above: Performed By: #### L 300.3900, L500.2500, L100.0100 #### [facility] [address] [place], [address] M100.678on 01-20-2024 M100.678 SARS-CoV-2 (COVID 19) Negative INFLUENZA A Negative INFLUENZA B Negative RSV PCR Negative Normal [facility] Comment on above: Performed By: #### L 506.1000, L501.9520, L100.0100, L500.4050 #### [facility] [address] [place], [address] Mucus LM Ql (Urine sed)Order ed By: Robert Vallejo on 01-20-2024 Mucus Ql (Urine sed) 0 SEEN /hpf [facility] Nitrite Test strip Ql (U)Ord ered By: Robert Vallejo on 01-20-2024 Nitrite Ql (U) Negative Negative [facility] No Panel InformationOrdered By: Robert Vallejo on 01-20-2024 Urine RBC 0-5 SEEN /hpf 0-5 [facility] Estimated GFR (MDRD) Amer 101 mL/min >60 [facility] Comment on above: GFR Calc Estimated GFR (MDRD) Non-Af Amer 84 mL/min >60 [facility] Comment on above: Non- GFR Calc Partial Thromboplast Timeon 01-20-2024 aPTT Coag (Bld) [Time] 29.9 s Normal 24.1-36.2 [facility] Comment on above: Performed By: #### L 300.3900, L500.2500, L100.0100 #### [facility] [address] [place], [address] Protein Test strip Ql (U)Ord ered By: Robert Vallejo on 01-20-2024 Protein Ql (U) 15 mg/dl Negative [facility] Prothrombin Time w/INRon INR Coag (PPP) [Relative time] 1.0 {INR} Normal [facility] Comment on above: Performed By: #### L 300.3900, L500.2500, L100.0100 #### [facility] [address] [place], [address] PT Coag (PPP) [Time] 13.6 s Normal 11.7-14.9 [facility] Comment on above: Performed By: #### L 300.3900, L500.2500, L100.0100 #### [facility] [address] [place], [address] RBC Auto (Bld) [#/Vol]Ordere d By: Robert Vallejo on 01-20-2024 RBC (Bld) [#/Vol] 4.52 10*6/uL 4.6-6.2 [facility] Serum or plasma calcium shante urement (mass/volume)Ordered By: Robert Vallejo on 01-20-2024 Calcium [Mass/Vol] 9.1 mg/dL 8.5-10.1 [facility] Serum or plasma creatinine m easurement (mass/volume)Ordered By: Robert Vallejo on 01-20-2024 Creatinine [Mass/Vol] 0.95 mg/dL 0.70-1.30 [facility] Comment on above: The validity of the calculated GFR & GFRAA in patients over 70 years has not been determined. Clinical correlation is essential. Serum or plasma urea nitroge n measurement (mass/volume)Ordered By: Robert Vallejo on 01-20-2024 Urea nitrogen [Mass/Vol] 14 mg/dL 7 [facility] Spine Lumbar WITH Contraston 01-20-2024 Spine Lumbar WITH Contrast [facility] [address] [place] [address] Spine Lumbar WITH Contrast MR#: [id number] Acct: [id number] Name: LOREI OBRIEN Rep #: [id number] : 1955 M 68 From: Sherri Hammonds MD PCP: Dr. Fernie Altamirano MD Status: [facility] ER Study: Spine Lumbar WITH Contrast Date of Exam: 01/19 Exam# [id number] Ordering Dr: Robert Vallejo DO [id number] EXAM: CT LUMBAR SPINE WITH INTRAVENOUS CONTRAST CLINICAL INDICATION: POST OP DRAINAGE TECHNIQUE: Helically acquired images were obtained of the lumbar spine with intravenous contrast. 2D reformats were reviewed. This CT exam was performed using one or more of the following dose reduction techniques: automated exposure control, adjustment of the mA and/or kV according to patient size, and/or use of iterative reconstruction technique. CONTRAST: IV 100mL Isovue-370 RADIATION DOSE: CTDIvol = 15.35 mGy, DLP = 542.12 mGy-cm COMPARISON: Abdomen and pelvis December 28, 2023. FINDINGS: VERTEBRAE: There are bilateral L5 pars defects but no significant anterolisthesis of L5 with respect to S1. No evidence of intraspinous gas or suspicious fluid collection on mildly enhanced exam. DISCS/SPINAL CANAL/NEURAL FORAMINA: Vacuum disc and minimal disc space narrowing and mild annular disc bulge and mild spondylosis at L5-S1. With annular disc bulge and spondylosis at L3-4 and L4-5 and to a lesser extent at L2-3. Fairly well-maintained disc height. SOFT TISSUES: In the soft tissues there is mild bilateral subcutaneous gas and there is gas in the right laminectomy site at L3, slight gas posterior to the right L2-3 facet joint, and mild gas in right paraspinous muscle at this level. No discrete drainable visible fluid collection evident. VASCULATURE: See below. LYMPH NODES: Unremarkable. No retroperitoneal adenopathy. KIDNEYS AND URETERS: There are at least 2 right renal cysts, the largest 3.1 cm AP-and oblique. Mild peripheral calcification of aortoiliac vessels. STOMACH AND BOWEL: Previously seen marked diverticulosis of the sigmoid colon is not included. No aortic aneurysm or dissection. CT/Spine Lumbar WITH Contrast IMPRESSION: Postoperative changes with postoperative gas. No discrete drainable fluid collection. Multilevel degenerative changes. Electronically Signed: Sherri Hammonds MD at 23:47 EDT , CC: Dr. Robert Vallejo DO; Dr. Fernie Altamirano MD [employer]: Signed Normal [facility] Squamous epithelial cells de tection in urine sediment by light microscopyOrdered By: Robert Vallejo on 01-20-2024 Epithelial cells.squamous LM Ql (Urine sed) 0 SEEN /hpf 0-5 [facility] Thin prep Papanicolaou smear with manual screeningOrdered By: Robert Vallejo on 01-20-2024 Thin prep Papanicolaou smear with manual screening 2.8 g/dL 3.2-5.0 [facility] Thin prep Papanicolaou smear with manual screening 25 U/L 15-37 [facility] Thin prep Papanicolaou smear with manual screening 8 5-15 [facility] Urinalysis, Completeon 01-19 RBC 0-5 SEEN Normal 0-5 [facility] Comment on above: Order Comment: CLEAN CATCH Performed By: #### L 506.1000, L501.9520, L100.0100, L500.4050 #### [facility] [address] [place], [address] BACTERIA 0 SEEN Normal None Seen [facility] Comment on above: Order Comment: CLEAN CATCH Performed By: #### L 506.1000, L501.9520, L100.0100, L500.4050 #### [facility] [address] [place], [address] EPI,SQUAMOUS 0 SEEN Normal 0-5 [facility] Comment on above: Order Comment: CLEAN CATCH Performed By: #### L 506.1000, L501.9520, L100.0100, L500.4050 #### [facility] [address] [place], [address] Mucus Ql (Urine sed) 0 SEEN Normal [facility] Comment on above: Order Comment: CLEAN CATCH Performed By: #### L 506.1000, L501.9520, L100.0100, L500.4050 #### [facility] [address] [place], [address] WBC 0 SEEN Normal [address] Comment on above: Order Comment: CLEAN CATCH Performed By: #### L 506.1000, L501.9520, L100.0100, L500.4050 #### [facility] [address] [place], [address] Urine blood detectionOrdered By: Robert Vallejo on 01-20-2024 RBC Ql (U) 50 /ul Negative [facility] Urine clarityOrdered By: Ronal Vallejo on 01-20-2024 Clarity (U) Clear Clear [facility] Urine color determinationOrd ered By: Robert Vallejo on 01-20-2024 Color (U) Yellow Yellow [facility] Urine glucose detectionOrder ed By: Robert Vallejo on 01-20-2024 Glucose Ql (U) Normal mg/dl Normal [facility] Urine leukocyte esterase det ection by dipstickOrdered By: Robert Vallejo on 01-20-2024 Leukocyte esterase Test strip Ql (U) 100 /ul Negative [facility] Urine pHOrdered By: Robert hess on 01-20-2024 pH (U) 6.0 [pH] 5.0 - 8.0 [facility] Urine sediment bacteria coun t by microscopy (number/high power field)Ordered By: Robert Vallejo on 01-20-2024 Bacteria LM.HPF (Urine sed) [#/Area] 0 /[HPF] None Seen [facility] Urine specific gravity measu rementOrdered By: Robert Vallejo on 01-20-2024 Specific gravity (U) [Rel density] 1.025 1.002-1.030 [facility] Urine urobilinogen measureme ntOrdered By: Robert Vallejo on 01-20-2024 Urobilinogen Ql (U) 1 mg/dl Normal [facility] Emergency Department Summary on 01-18-2024 Emergency Department Summary [facility] Medical Records Department [address] [place] [address] Emergency Department Summary 01/18/24 MR#: [id number] Acct: [id number] Name: LORIE OBRIEN Rep #: [id number] : 1955 68 From: Jaclyn Phillips MD PCP: Dr. Fernie Altamirano MD Status:DEP ER Location: ED HPI History of Present Illness Chief Complaint: Complaint Informant: patient Onset/Context/Timing Onset: Today Narrative Narrative: Patient presents with difficulty urinating. He had back surgery this morning with Dr. Parekh at the outpatient surgery center. He had an L3 laminectomy and discectomy. He states he did not urinate prior to leaving the surgery center. He has had the urge to urinate all afternoon but can only get out small trickles. He states he does not have significant pain in his legs. [facility] Medical History Chronic pain COPD (chronic obstructive pulmonary disease) Former smoker High cholesterol Home Medications pravastatin 40 mg tablet 40 mg PO QHS 04/29/17 [History Last Taken 04/28/17] timolol maleate 0.5 % eye drops 1 drp QHS 04/29/17 [History Last Taken 04/28/17] gabapentin 300 mg capsule 300 mg PO DAILY 12/28/23 [History Last Taken Unknown] naproxen 500 mg tablet 500 mg PO Q12H 12/28/23 [History Last Taken Unknown] pantoprazole 40 mg tablet,delayed release 40 mg PO DAILY 12/28/23 [History Last Taken Unknown] amoxicillin 875 mg-potassium clavulanate 125 mg tablet 1 tab PO BID #10 tabs 12/30/23 [Rx Last Taken Unknown] Allergy/AdvReac Type Severity Reaction Status Date / Time No Known Allergies Allergy Verified 01/18/24 17:24 Social History household members: spouse housing: house Smoking Status: Never smoker ROS ROS ED Constitutional Constitutional ED: Denies chills or fever(s) Eyes Eyes: Denies discharge from eye(s) ENT ENT ED: Denies discharge from eye(s), rhinorrhea or sore throat Cardiovascular Cardiovascular: Denies chest pain or palpitations Respiratory/Chest Respiratory/Chest: Denies cough or dyspnea Gastrointestinal Gastrointestinal: Denies abdominal pain, nausea or vomiting Genitourinary Genitourinary ED: Reports difficulty urinating Musculoskeletal Musculoskeletal: Denies extremity pain Integumentary Denies Abrasions or rash Neurologic Neurologic: Denies headache(s) or weakness Psychiatric Psychiatric: Denies anxiety or depression Allergic/Immunologic Allergic/Immunologic ED: Denies lip swelling or urticaria EXAM Physical Exam Const Vital Signs: 01/18/24 17:22 01/18/24 19:00 Temperature 97.6 F L Temperature Source Temporal Pulse Rate 66 63 Respiratory Rate 17 18 Blood Pressure 136/94 H 122/81 H Blood Pressure Mean 108 95 Pulse Ox 97 98 Oxygen Delivery Method Room Air Positive well nourished and well developed General Appearance ED: well developed Eyes EOMs intact bilaterally Chest Wall inspection of chest normal and palpation of chest normal Resp normal respiratory effort and clear to auscultation bilaterally Cardio regular rate and regular rhythm GI non-tender Palpation: soft Extremity normal to inspection Neuro oriented x3 and no sensory deficits noted Motor Exam: strength 5/5 throughout Psych mental status grossly normal Skin no rashes or lesions noted MDM MDM MDM Narrative Medical decision making narrative: Willams catheter ordered given the patient's urinary retention after surgery. Nursing staff did advise the patient had urinated about 200 cc of urine. Bladder scan was performed that showed at least 500 cc remaining in the bladder. Willams catheter is placed and at this time he has approximately 700 cc of urine out. I did speak with Dr. Parekh given the patient just had surgery today. Given the patient has not have any saddle paresthesias, leg pain or weakness, or increased back pain I do not feel imaging is needed at this time. Dr. Parekh will be in the clinic tomorrow and is happy to see the patient for follow-up. This was relayed to the patient. Patient be given a leg bag and instructions for home care. Discharge Plan Triage Chief Complaint: Complaint ED Provider: Jaclyn Phillips Dx/Rx/DC Orders Clinical Impression: Urinary retention Instructions: Willams Catheter Male Ch, ED Urinary Retention, Male Prescriptions: No Action pravastatin 40 MG tablet 40 mg PO QHS Hold Instructions: Until after you get your liver functions rechecked Patient Comments: CHOLESTEROL timolol maleate 1 DROP drops 1 drp Right Eye QHS Patient Comments: EYE PRESSURE naproxen 500 mg tablet 500 mg PO Q12H Patient Comments: TAKE 1 TAB BY MOUTH TWICE A DAY NEEDED WITH FOOD gabapentin 300 mg capsule 300 mg PO DA (more content not included)... Normal [facility] Basophil percentageOrdered B y: Fernie Altamirano on 01-12-2024 Bilirubin [Mass/Vol] 1.00 mg/dL 0.20-1.00 [facility] Comment on above: For patients on eltr ombopag therapy, use of Dimension [place] TBIL is not recommended. Chloride [Moles/Vol] 105 mmol/L 98-107 [facility] Glucose [Mass/Vol] 111 mg/dL 74-106 [facility] Comment on above: Fasting Glucose resu lt from 100 to 125 mg/dL suggests IMPAIRED HOMEOSTASIS per A.D.A. criteria. Potassium [Moles/Vol] 3.8 mmol/L 3.5-5.1 [facility] Protein [Mass/Vol] 6.7 g/dL 6.4-8.2 [facility] Sodium [Moles/Vol] 140 mmol/L 136-145 [facility] Comprehensive Metabolic Prof ilon 01-12-2024 Albumin [Mass/Vol] 3.2 g/dL Normal 3.2-5.0 [facility] Comment on above: Performed By: #### L 506.1000, L501.9520, L100.0100, L500.4050 #### [facility] [address] [place], [address] Albumin/Globulin [Mass ratio] 0.9 {ratio} Normal 0.9-2.4 [facility] Comment on above: Performed By: #### L 506.1000, L501.9520, L100.0100, L500.4050 #### [facility] [address] [place], [address] ALK P 112 U/L Normal 45-117 [facility] Comment on above: Performed By: #### L 506.1000, L501.9520, L100.0100, L500.4050 #### [facility] [address] [place], [address] ALT [Catalytic activity/Vol] 38 U/L Normal 16-61 [facility] Comment on above: Performed By: #### L 506.1000, L501.9520, L100.0100, L500.4050 #### [facility] [address] [place], [address] AST [Catalytic activity/Vol] 16 U/L Normal 15-37 [facility] Comment on above: Performed By: #### L 506.1000, L501.9520, L100.0100, L500.4050 #### [facility] [address] [place], [address] Bilirubin [Mass/Vol] 1.00 mg/dL Normal 0.20-1.00 [facility] Comment on above: Result Comment: For patients on eltrombopag therapy, use of Dimension [place] TBIL is not recommended. Performed By: #### L 506.1000, L501.9520, L100.0100, L500.4050 #### [facility] [address] [place], [address] BUN/CRE 22.5 RATIO High 10-20 [facility] Comment on above: Performed By: #### L 506.1000, L501.9520, L100.0100, L500.4050 #### [facility] [address] [place], [address] CA,Total 9.2 mg/dL Normal 8.5-10.1 [facility] Comment on above: Performed By: #### L 506.1000, L501.9520, L100.0100, L500.4050 #### [facility] [address] [place], [address] Chloride [Moles/Vol] 105 mmol/L Normal 98-107 [facility] Comment on above: Performed By: #### L 506.1000, L501.9520, L100.0100, L500.4050 #### [facility] [address] [place], [address] CO2 [Moles/Vol] 31.0 mmol/L Normal 21.0-32.0 [facility] Comment on above: Performed By: #### L 506.1000, L501.9520, L100.0100, L500.4050 #### [facility] [address] [place], [address] Creatinine [Mass/Vol] 0.80 mg/dL Normal 0.70-1.30 [facility] Comment on above: Result Comment: The validity of the calculated GFR GFRAA in patients over 70 years has not been determined. Clinical correlation is essential. Performed By: #### L 506.1000, L501.9520, L100.0100, L500.4050 #### [facility] [address] [place], [address] EST GFR - AA 123 mL/min Normal >60 [facility] Comment on above: Result Comment: Afri can Iraqi GFR Calc Performed By: #### L 506.1000, L501.9520, L100.0100, L500.4050 #### [facility] [address] [place], [address] GAP 4 Low 5-15 [facility] Comment on above: Performed By: #### L 506.1000, L501.9520, L100.0100, L500.4050 #### [facility] [address] [place], [address] GFR/1.73 sq M.predicted among non-blacks MDRD (S/P/Bld) [Vol rate/Area] 102 mL/min/{1.73_m2} Normal >60 [facility] Comment on above: Result Comment: Non- GFR Calc Performed By: #### L 506.1000, L501.9520, L100.0100, L500.4050 #### [facility] [address] [place], [address] Globulin (S) [Mass/Vol] 3.5 g/dL Normal 2.2-4.2 [facility] Comment on above: Performed By: #### L 506.1000, L501.9520, L100.0100, L500.4050 #### [facility] [address] [place], [address] Glucose [Mass/Vol] 111 mg/dL High 74-106 [facility] Comment on above: Result Comment: Fast ing Glucose result from 100 to 125 mg/dL suggests IMPAIRED HOMEOSTASIS per A.D.A. criteria. Performed By: #### L 506.1000, L501.9520, L100.0100, L500.4050 #### [facility] [address] [place], [address] Potassium [Moles/Vol] 3.8 mmol/L Normal 3.5-5.1 [facility] Comment on above: Performed By: #### L 506.1000, L501.9520, L100.0100, L500.4050 #### [facility] [address] [place], [address] Sodium [Moles/Vol] 140 mmol/L Normal 136-145 [facility] Comment on above: Performed By: #### L 506.1000, L501.9520, L100.0100, L500.4050 #### [facility] [address] [place], [address] T PROT 6.7 g/dL Normal 6.4-8.2 [facility] Comment on above: Performed By: #### L 506.1000, L501.9520, L100.0100, L500.4050 #### [facility] [address] [place], [address] Urea nitrogen [Mass/Vol] 18 mg/dL Normal 7-18 [facility] Comment on above: Performed By: #### L 506.1000, L501.9520, L100.0100, L500.4050 #### [facility] [address] [place], [address] Laboratory - Chemistry and C hemistry - challengeOrdered By: Fernie Altamirano on 01-12-2024 Albumin/Globulin [Mass ratio] 0.9 {ratio} 0.9-2.4 [facility] ALP [Catalytic activity/Vol] 112 U/L 45-117 [facility] ALT [Catalytic activity/Vol] 38 U/L 16-61 [facility] CO2 [Moles/Vol] 31.0 mmol/L 21.0-32.0 [facility] Globulin (S) [Mass/Vol] 3.5 g/dL 2.2-4.2 [facility] Urea nitrogen/Creatinine [Mass ratio] 22.5 mg/mg 10-20 [facility] No Panel InformationOrdered By: Fernie Altamirano on 01-12-2024 Estimated GFR (MDRD) Amer 123 mL/min >60 [facility] Comment on above: GFR Calc Estimated GFR (MDRD) Non-Af Amer 102 mL/min >60 [facility] Comment on above: Non- GFR Calc Serum or plasma calcium shante urement (mass/volume)Ordered By: Fernie Altamirano on 01-12-2024 Calcium [Mass/Vol] 9.2 mg/dL 8.5-10.1 [facility] Serum or plasma creatinine m easurement (mass/volume)Ordered By: Fernie Altamirano on 01-12-2024 Creatinine [Mass/Vol] 0.80 mg/dL 0.70-1.30 [facility] Comment on above: The validity of the calculated GFR & GFRAA in patients over 70 years has not been determined. Clinical correlation is essential. Serum or plasma urea nitroge n measurement (mass/volume)Ordered By: Fernie Altamirano on 01-12-2024 Urea nitrogen [Mass/Vol] 18 mg/dL 7-18 [facility] Thin prep Papanicolaou smear with manual screeningOrdered By: Fernie Altamirano on 01-12-2024 Thin prep Papanicolaou smear with manual screening 3.2 g/dL 3.2-5.0 [facility] Thin prep Papanicolaou smear with manual screening 16 U/L 15-37 [facility] [facility] Thin prep Papanicolaou smear with manual screening 4 5-15 [facility] Urine Cultureon 01-08-2024 URC Culture exhibits no growth. Normal [facility] Comment on above: Performed By: #### L 300.3900, L500.2500, L100.0100 #### [facility] [address] [place], [address] Absolute lymphocyte countOrd ered By: Guillermo Parekh on 01-07-2024 Lymphocytes Auto (Unsp spec) [#/Vol] 1.12 10*3/uL 0.83-4.51 [facility] Activated partial thrombopla stin time (aPTT) in platelet poor plasma by coagulation aOrdered By: Guillermo Parekh on 01-07-2024 aPTT Coag (PPP) [Time] 27.4 s 24.1-36.2 [facility] Automated lymphocyte count a s percentage of total leukocytesOrdered By: Guillermo Parekh on 01-07-2024 Lymphocytes/100 WBC Auto (Unsp spec) 21.3 % 19-41 [facility] Basophil percentageOrdered B y: Guillermo Parekh on 01-07-2024 Basophil percentage 0-5 SEEN /hpf 0-5 [facility] Basophils/100 WBC (Bld) 0.6 % 0-1 [facility] Eosinophils/100 WBC (Bld) 0.9 % 0-5 [facility] Hemoglobin (Bld) [Mass/Vol] 13.7 g/dL 13.0-16.5 [facility] Monocytes/100 WBC (Bld) 7.8 % 0-10 [facility] Neutrophils (Bld) [#/Vol] 3.6 10*3/uL 2.0-7.7 [facility] Neutrophils/100 WBC (Bld) 68.1 % 47-70 [facility] WBC (Bld) [#/Vol] 5.3 10*3/uL 4.4-11.0 [facility] Bilirubin Test strip Ql (U)O rdered By: Guillermo Parekh on 01-07-2024 Bilirubin Ql (U) 1 mg/dL Negative [facility] Comment on above: COLOR OF URINE MAY A FFECT DIPSTICK RESULTS. CBC W/Diff, Automatedon Absolute Lymph 1.12 X10 3/uL Normal 0.83-4.51 [facility] Comment on above: Performed By: #### M 100.2200, L100.0100, L400.0001, L300.3900, L300.4310 #### [facility] [address] [place], [place], [id number] Absolute Neut 3.6 X10 3/uL Normal 2.0-7.7 [facility] Comment on above: Performed By: #### M 100.2200, L100.0100, L400.0001, L300.3900, L300.4310 #### [facility] [address] [place], [address] Basophils/100 WBC (Bld) 0.6 % Normal 0-1 [facility] Comment on above: Performed By: #### M 100.2200, L100.0100, L400.0001, L300.3900, L300.4310 #### [facility] [address] [place], [address] Eosinophils/100 WBC (Bld) 0.9 % Normal 0-5 [facility] Comment on above: Performed By: #### M 100.2200, L100.0100, L400.0001, L300.3900, L300.4310 #### [facility] [address] [place], [address] Erythrocyte distribution width (RBC) [Ratio] 13.3 % Normal 11.6-14.6 [facility] Comment on above: Performed By: #### M 100.2200, L100.0100, L400.0001, L300.3900, L300.4310 #### [facility] [address] [place], [address] Hematocrit (Bld) [Volume fraction] 42.9 % Normal 40-54 [facility] Comment on above: Performed By: #### M 100.2200, L100.0100, L400.0001, L300.3900, L300.4310 #### [facility] [address] [place], [address] Hemoglobin (Bld) [Mass/Vol] 13.7 g/dL Normal 13.0-16.5 [facility] Comment on above: Performed By: #### M 100.2200, L100.0100, L400.0001, L300.3900, L300.4310 #### [facility] [address] [place], [address] IG% 1.300 High 0.0-0.9 [facility] Comment on above: Result Comment: IG% - Immature Granulocytes (promyelocytes, myelocytes and metamyelocytes) > 1% indicates that a LEFT SHIFT is Present. Performed By: #### M 100.2200, L100.0100, L400.0001, L300.3900, L300.4310 #### [facility] [address] [place], [address] Lymphocytes/100 WBC (Bld) 21.3 % Normal 19-41 [facility] Comment on above: Performed By: #### M 100.2200, L100.0100, L400.0001, L300.3900, L300.4310 #### [facility] [address] [place], [address] MCH (RBC) [Entitic mass] 28.8 pg Normal 27.0-32.0 [facility] Comment on above: Performed By: #### M 100.2200, L100.0100, L400.0001, L300.3900, L300.4310 #### [facility] [address] [place], [address] MCHC (RBC) [Mass/Vol] 31.9 g/dL Low 32-36 [facility] Comment on above: Performed By: #### M 100.2200, L100.0100, L400.0001, L300.3900, L300.4310 #### [facility] [address] [place], [address] MCV (RBC) [Entitic vol] 90.1 fL Normal 80-94 [facility] Comment on above: Performed By: #### M 100.2200, L100.0100, L400.0001, L300.3900, L300.4310 #### [facility] [address] [place], [address] Monocytes/100 WBC (Bld) 7.8 % Normal 0-10 [facility] Comment on above: Performed By: #### M 100.2200, L100.0100, L400.0001, L300.3900, L300.4310 #### [facility] [address] [place], [address] Neutrophils/100 WBC (Bld) 68.1 % Normal 47-70 [facility] Comment on above: Performed By: #### M 100.2200, L100.0100, L400.0001, L300.3900, L300.4310 #### [facility] [address] [place], [address] Nucleated RBC (Bld) [#/Vol] 0 10*3/uL Normal 0-5 [facility] Comment on above: Performed By: #### M 100.2200, L100.0100, L400.0001, L300.3900, L300.4310 #### [facility] [address] [place], [address] Platelet mean volume (Bld) [Entitic vol] 8.5 fL Normal 6.2-12.0 [facility] Comment on above: Performed By: #### M 100.2200, L100.0100, L400.0001, L300.3900, L300.4310 #### [facility] [address] [place], [address] Platelets (Bld) [#/Vol] 417 10*3/uL Normal 150-450 [facility] Comment on above: Performed By: #### M 100.2200, L100.0100, L400.0001, L300.3900, L300.4310 #### [facility] [address] [place], [address] RBC (Bld) [#/Vol] 4.76 10*6/uL Normal 4.6-6.2 [facility] Comment on above: Performed By: #### M 100.2200, L100.0100, L400.0001, L300.3900, L300.4310 #### [facility] [address] [place], [address] RDW SD 44.0 fl High 35.1-43.9 [facility] Comment on above: Performed By: #### M 100.2200, L100.0100, L400.0001, L300.3900, L300.4310 #### [facility] [address] [place], [address] WBC (Bld) [#/Vol] 5.3 10*3/uL Normal 4.4-11.0 [facility] Comment on above: Performed By: #### M 100.2200, L100.0100, L400.0001, L300.3900, L300.4310 #### [facility] [address] [place], [address] Chest PA and Lateralon 01-06 Chest PA and Lateral [facility] [address] [place] [address] Chest PA and Lateral MR#: [id number] Acct: [id number] Name: LORIE OBRIEN Rep #: [id number] : 1955 M 68 From: Praveen Peterson MD PCP: Dr. Fernie Altamirano MD Status: [facility] Study: Chest PA and Lateral Date of Exam: 01/07/24 Exam# [id number] Ordering Dr: Guillermo Parekh DO [id number] STUDY: X-RAY CHEST REASON FOR EXAM: Male, 68 years old. Preoperative evaluation. TECHNIQUE: Frontal and lateral views of the chest. COMPARISON: 10/19/2016 FINDINGS: Stable mild hyperinflation. There is no demonstrated pleural abnormality. Mild cardiomegaly unchanged. Normal mediastinum and shawn. Normal visualized pulmonary arteries. Aortic tortuosity with calcification unchanged. Stable thoracic spondylosis. Normal visualized ribs, clavicles, and shoulders. No abnormality of the visualized soft tissue structures of the upper abdomen. RAD/Chest PA and Lateral IMPRESSION: Stable chest with no acute or active cardiopulmonary disease. Electronically Signed: Praveen Peterson MD at 14:22 EST , CC: Dr. Guillermo Parekh DO; Dr. Fernie Altamirano MD [employer]: Signed Normal [facility] Culture, urineOrdered By: Osvaldo Parekh on 01-07-2024 Bacteria identified Cx Nom (U) Culture exhibits no growth. [facility] Determination of erythrocyte mean corpuscular volume (MCV)Ordered By: Guillermo Parekh on 01-07-2024 MCV (RBC) [Entitic vol] 90.1 fL 80-94 [facility] Erythrocyte distribution wid th ratioOrdered By: Guillermo Parekh on 01-07-2024 Erythrocyte distribution width (RBC) [Ratio] 13.3 % 11.6-14.6 [facility] Erythrocyte distribution wid th standard deviationOrdered By: Guillermo Parekh on 01-07-2024 Erythrocyte distribution width (RBC) [Entitic vol] 44.0 fL 35.1-43.9 [facility] Hematocrit Auto (Bld) [Volum e fraction]Ordered By: Guillermo Parekh on 01-07-2024 Hematocrit (Bld) [Volume fraction] 42.9 % 40-54 [facility] Immature granulocytes/100 WB C Auto (Bld)Ordered By: Guillermo Parekh on 01-07-2024 Immature granulocytes/100 WBC (Bld) 1.300 % 0.0-0.9 [facility] Comment on above: IG% - Immature Granu locytes (promyelocytes, myelocytes and metamyelocytes) > 1% indicates that a LEFT SHIFT is Present. Ketones Test strip Ql (U)Ord ered By: Guillermo Parekh on 01-07-2024 Ketones Ql (U) Negative Negative [facility] - CoagulationOrde red By: Guillermo Parekh on 01-07-2024 INR Coag (Bld) [Relative time] 1.0 {INR} [facility] PT Coag (PPP) [Time] 13.0 s 11.7-14.9 [facility] Laboratory - Hematology and Cell countsOrdered By: Guillermo Parekh on 01-07-2024 MCH (RBC) [Entitic mass] 28.8 pg 27.0-32.0 [facility] MCHC (RBC) [Mass/Vol] 31.9 g/dL 32-36 [facility] Nucleated RBC/100 WBC (Bld) [Ratio] 0 % 0-5 [facility] Platelet mean volume (Bld) [Entitic vol] 8.5 fL 6.2-12.0 [facility] Platelets (Bld) [#/Vol] 417 10*3/uL 150-450 [facility] Mucus LM Ql (Urine sed)Order ed By: Guillermo Parekh on 01-07-2024 Mucus Ql (Urine sed) 1+ /hpf [facility] Nitrite Test strip Ql (U)Ord ered By: Guillermo Parekh on 01-07-2024 Nitrite Ql (U) Negative Negative [facility] No Panel InformationOrdered By: Guillermo Parekh on 01-07-2024 Urine RBC 0 SEEN /hpf 0-5 [facility] Partial Thromboplast Timeon 01-07-2024 aPTT Coag (Bld) [Time] 27.4 s Normal 24.1-36.2 [facility] Comment on above: Performed By: #### L 300.3900, L500.2500, L100.0100 #### [facility] [place], [address] Protein Test strip Ql (U)Ord ered By: Guillermo Parekh on 01-07-2024 Protein Ql (U) 15 mg/dl Negative [facility] Prothrombin Time w/INRon INR Coag (PPP) [Relative time] 1.0 {INR} Normal [facility] Comment on above: Performed By: #### L 300.3900, L500.2500, L100.0100 #### [facility] [address] [place], [address] PT Coag (PPP) [Time] 13.0 s Normal 11.7-14.9 [facility] Comment on above: Performed By: #### L 300.3900, L500.2500, L100.0100 #### [facility] [address] [place], [address] RBC Auto (Bld) [#/Vol]Ordere d By: Guillermo Parekh on 01-07-2024 RBC (Bld) [#/Vol] 4.76 10*6/uL 4.6-6.2 [facility] Squamous epithelial cells de tection in urine sediment by light microscopyOrdered By: Guillermo Parekh on 01-07-2024 Epithelial cells.squamous LM Ql (Urine sed) 0 SEEN /hpf 0-5 [facility] Urinalysis, Completeon 01-06 BACTERIA 1+ /hpf Normal None Seen [facility] Comment on above: Order Comment: CLEAN CATCH Performed By: #### M 100.2200, L100.0100, L400.0001, L300.3900, L300.4310 #### [facility] [address] [place], [address] Mucus Ql (Urine sed) 1+ /hpf Normal [facility] Comment on above: Order Comment: CLEAN CATCH Performed By: #### M 100.2200, L100.0100, L400.0001, L300.3900, L300.4310 #### [facility] [address] [place], [address] WBC 0-5 SEEN Normal 0-5 [facility] Comment on above: Order Comment: CLEAN CATCH Performed By: #### M 100.2200, L100.0100, L400.0001, L300.3900, L300.4310 #### [facility] [address] [place], [address] EPI,SQUAMOUS 0 SEEN Normal 0-5 [facility] Comment on above: Order Comment: CLEAN CATCH Performed By: #### M 100.2200, L100.0100, L400.0001, L300.3900, L300.4310 #### [facility] [address] [place], [address] RBC 0 SEEN Normal 0-5 [facility] Comment on above: Order Comment: CLEAN CATCH Performed By: #### M 100.2200, L100.0100, L400.0001, L300.3900, L300.4310 #### [facility] [address] [place], [address] Urine blood detectionOrdered By: Guillermo Parekh on 01-07-2024 RBC Ql (U) Negative Negative [facility] Urine clarityOrdered By: Anselmo Parekh on 01-07-2024 Clarity (U) Sl. Cloudy Clear [facility] Urine color determinationOrd ered By: Guillermo Parekh on 01-07-2024 Color (U) Yellow Yellow [facility] Urine glucose detectionOrder ed By: Guillermo Parekh on 01-07-2024 Glucose Ql (U) Normal mg/dl Normal [facility] Urine leukocyte esterase det ection by dipstickOrdered By: Guillermo Parekh on 01-07-2024 Leukocyte esterase Test strip Ql (U) 25 /ul Negative [facility] Urine pHOrdered By: Guillermo Parekh on 01-07-2024 pH (U) 5.0 [pH] 5.0 - 8.0 [facility] Urine sediment bacteria coun t by microscopy (number/high power field)Ordered By: Guillermo Parekh on 01-07-2024 Bacteria LM.HPF (Urine sed) [#/Area] 1 /[HPF] None Seen [facility] Urine specific gravity measu rementOrdered By: Guillermo Parekh on 01-07-2024 Specific gravity (U) [Rel density] 1.020 1.002-1.030 [facility] Urine urobilinogen measureme ntOrdered By: Guillermo Parekh on 01-07-2024 Urobilinogen Ql (U) 1 mg/dl Normal [facility] Absolute lymphocyte countOrd ered By: Fernie Altamirano on 01-05-2024 Lymphocytes Auto (Unsp spec) [#/Vol] 1.07 10*3/uL 0.83-4.51 [facility] Automated lymphocyte count a s percentage of total leukocytesOrdered By: Fernie Altamirano on 01-05-2024 Lymphocytes/100 WBC Auto (Unsp spec) 20.6 % 19-41 [facility] Basophil percentageOrdered B y: Fernie Altamirano on 01-05-2024 Basophils/100 WBC (Bld) 0.4 % 0-1 [facility] Bilirubin [Mass/Vol] 1.30 mg/dL 0.20-1.00 [facility] Comment on above: For patients on eltr ombopag therapy, use of Dimension [place] TBIL is not recommended. Chloride [Moles/Vol] 107 mmol/L 98-107 [facility] Eosinophils/100 WBC (Bld) 1.0 % 0-5 [facility] Glucose [Mass/Vol] 108 mg/dL 74-106 [facility] Comment on above: Fasting Glucose resu lt from 100 to 125 mg/dL suggests IMPAIRED HOMEOSTASIS per A.D.A. criteria. Hemoglobin (Bld) [Mass/Vol] 14.5 g/dL 13.0-16.5 [facility] Monocytes/100 WBC (Bld) 6.9 % 0-10 [facility] Neutrophils (Bld) [#/Vol] 3.6 10*3/uL 2.0-7.7 [facility] Neutrophils/100 WBC (Bld) 68.4 % 47-70 [facility] Potassium [Moles/Vol] 4.2 mmol/L 3.5-5.1 [facility] Protein [Mass/Vol] 6.6 g/dL 6.4-8.2 [facility] Sodium [Moles/Vol] 141 mmol/L 136-145 [facility] WBC (Bld) [#/Vol] 5.2 10*3/uL 4.4-11.0 [facility] CBC W/Diff, Automatedon Absolute Lymph 1.07 X10 3/uL Normal 0.83-4.51 [facility] Comment on above: Performed By: #### L 300.3900, L500.2500, L100.0100 #### [facility] [address] [place], [address] Absolute Neut 3.6 X10 3/uL Normal 2.0-7.7 [facility] Comment on above: Performed By: #### L 300.3900, L500.2500, L100.0100 #### [facility] [address] [place], [address] Basophils/100 WBC (Bld) 0.4 % Normal 0-1 [facility] Comment on above: Performed By: #### L 300.3900, L500.2500, L100.0100 #### [facility] [address] [place], [address] Eosinophils/100 WBC (Bld) 1.0 % Normal 0-5 [facility] Comment on above: Performed By: #### L 300.3900, L500.2500, L100.0100 #### [facility] [address] [place], [address] Erythrocyte distribution width (RBC) [Ratio] 13.3 % Normal 11.6-14.6 [facility] Comment on above: Performed By: #### L 300.3900, L500.2500, L100.0100 #### [facility] [address] [place], [address] Hematocrit (Bld) [Volume fraction] 45.7 % Normal 40-54 [facility] Comment on above: Performed By: #### L 300.3900, L500.2500, L100.0100 #### [facility] [address] [place], [address] Hemoglobin (Bld) [Mass/Vol] 14.5 g/dL Normal 13.0-16.5 [facility] Comment on above: Performed By: #### L 300.3900, L500.2500, L100.0100 #### [facility] [address] [place], [address] IG% 2.700 High 0.0-0.9 [facility] Comment on above: Result Comment: IG% - Immature Granulocytes (promyelocytes, myelocytes and metamyelocytes) > 1% indicates that a LEFT SHIFT is Present. Performed By: #### L 300.3900, L500.2500, L100.0100 #### [facility] [address] [place], [address] Lymphocytes/100 WBC (Bld) 20.6 % Normal 19-41 [facility] Comment on above: Performed By: #### L 300.3900, L500.2500, L100.0100 #### [facility] [address] [place], [address] MCH (RBC) [Entitic mass] 28.0 pg Normal 27.0-32.0 [facility] Comment on above: Performed By: #### L 300.3900, L500.2500, L100.0100 #### [facility] [address] [place], [address] MCHC (RBC) [Mass/Vol] 31.7 g/dL Low 32-36 [facility] Comment on above: Performed By: #### L 300.3900, L500.2500, L100.0100 #### [facility] [address] [place], [address] MCV (RBC) [Entitic vol] 88.4 fL Normal 80-94 [facility] Comment on above: Performed By: #### L 300.3900, L500.2500, L100.0100 #### [facility] [address] [place], [address] Monocytes/100 WBC (Bld) 6.9 % Normal 0-10 [facility] Comment on above: Performed By: #### L 300.3900, L500.2500, L100.0100 #### [facility] [address] [place], [address] Neutrophils/100 WBC (Bld) 68.4 % Normal 47-70 [facility] Comment on above: Performed By: #### L 300.3900, L500.2500, L100.0100 #### [facility] [address] [place], [address] Nucleated RBC (Bld) [#/Vol] 0 10*3/uL Normal 0-5 [facility] Comment on above: Performed By: #### L 300.3900, L500.2500, L100.0100 #### [facility] [address] [place], [address] Platelet mean volume (Bld) [Entitic vol] 8.6 fL Normal 6.2-12.0 [facility] Comment on above: Performed By: #### L 300.3900, L500.2500, L100.0100 #### [facility] [address] [place], [address] Platelets (Bld) [#/Vol] 375 10*3/uL Normal 150-450 [facility] Comment on above: Performed By: #### L 300.3900, L500.2500, L100.0100 #### [facility] [address] [place], [address] RBC (Bld) [#/Vol] 5.17 10*6/uL Normal 4.6-6.2 [facility] Comment on above: Performed By: #### L 300.3900, L500.2500, L100.0100 #### [facility] [address] [place], [address] RDW SD 43.4 fl Normal 35.1-43.9 [facility] Comment on above: Performed By: #### L 300.3900, L500.2500, L100.0100 #### [facility] [address] [place], [address] WBC (Bld) [#/Vol] 5.2 10*3/uL Normal 4.4-11.0 [facility] Comment on above: Performed By: #### L 300.3900, L500.2500, L100.0100 #### [facility] [address] [place], [address] Comprehensive Metabolic Prof ilon 01-05-2024 Albumin [Mass/Vol] 2.9 g/dL Low 3.2-5.0 [facility] Comment on above: Performed By: #### L 300.3900, L500.2500, L100.0100 #### [facility] [address] [place], [address] Albumin/Globulin [Mass ratio] 0.8 {ratio} Low 0.9-2.4 [facility] Comment on above: Performed By: #### L 300.3900, L500.2500, L100.0100 #### [facility] [address] [place], [address] ALK P 200 U/L High 45-117 [facility] Comment on above: Performed By: #### L 300.3900, L500.2500, L100.0100 #### [facility] [address] [place], [address] ALT [Catalytic activity/Vol] 113 U/L High 16-61 [facility] Comment on above: Performed By: #### L 300.3900, L500.2500, L100.0100 #### [facility] [address] [place], [address] AST [Catalytic activity/Vol] 28 U/L Normal 15-37 [facility] Comment on above: Performed By: #### L 300.3900, L500.2500, L100.0100 #### [facility] [address] [place], [address] Bilirubin [Mass/Vol] 1.30 mg/dL High 0.20-1.00 [facility] Comment on above: Result Comment: For patients on eltrombopag therapy, use of Dimension [place] TBIL is not recommended. Performed By: #### L 300.3900, L500.2500, L100.0100 #### [facility] [address] [place], [address] BUN/CRE 30.4 RATIO High 10-20 [facility] Comment on above: Performed By: #### L 300.3900, L500.2500, L100.0100 #### [facility] [address] [place], [address] CA,Total 9.1 mg/dL Normal 8.5-10.1 [facility] Comment on above: Performed By: #### L 300.3900, L500.2500, L100.0100 #### [facility] [address] [place], [address] Chloride [Moles/Vol] 107 mmol/L Normal 98-107 [facility] Comment on above: Performed By: #### L 300.3900, L500.2500, L100.0100 #### [facility] [address] [place], [address] CO2 [Moles/Vol] 27.0 mmol/L Normal 21.0-32.0 [facility] Comment on above: Performed By: #### L 300.3900, L500.2500, L100.0100 #### [facility] [address] [place], [address] Creatinine [Mass/Vol] 0.76 mg/dL Normal 0.70-1.30 [facility] Comment on above: Result Comment: The validity of the calculated GFR GFRAA in patients over 70 years has not been determined. Clinical correlation is essential. Performed By: #### L 300.3900, L500.2500, L100.0100 #### [facility] [address] [place], [address] EST GFR - AA 131 mL/min Normal >60 [facility] Comment on above: Result Comment: Afri can Iraqi GFR Calc Performed By: #### L 300.3900, L500.2500, L100.0100 #### [facility] [address] [place], [address] GAP 7 Normal 5-15 [facility] Comment on above: Performed By: #### L 300.3900, L500.2500, L100.0100 #### [facility] [address] [place], [address] GFR/1.73 sq M.predicted among non-blacks MDRD (S/P/Bld) [Vol rate/Area] 108 mL/min/{1.73_m2} Normal >60 [facility] Comment on above: Result Comment: Non- GFR Calc Performed By: #### L 300.3900, L500.2500, L100.0100 #### [facility] [address] [place], [address] Globulin (S) [Mass/Vol] 3.7 g/dL Normal 2.2-4.2 [facility] Comment on above: Performed By: #### L 300.3900, L500.2500, L100.0100 #### [facility] [address] [place], [address] Glucose [Mass/Vol] 108 mg/dL High 74-106 [facility] Comment on above: Result Comment: Fast ing Glucose result from 100 to 125 mg/dL suggests IMPAIRED HOMEOSTASIS per A.D.A. criteria. Performed By: #### L 300.3900, L500.2500, L100.0100 #### [facility] [address] [place], [address] Potassium [Moles/Vol] 4.2 mmol/L Normal 3.5-5.1 [facility] Comment on above: Performed By: #### L 300.3900, L500.2500, L100.0100 #### [facility] [address] [place], [address] Sodium [Moles/Vol] 141 mmol/L Normal 136-145 [facility] Comment on above: Performed By: #### L 300.3900, L500.2500, L100.0100 #### [facility] [address] [place], [address] T PROT 6.6 g/dL Normal 6.4-8.2 [facility] Comment on above: Performed By: #### L 300.3900, L500.2500, L100.0100 #### [facility] [address] [place], [address] Urea nitrogen [Mass/Vol] 23 mg/dL High 7-18 [facility] Comment on above: Performed By: #### L 300.3900, L500.2500, L100.0100 #### [facility] [address] [place], [address] Determination of erythrocyte mean corpuscular volume (MCV)Ordered By: Fernie Altamirano on 01-05-2024 MCV (RBC) [Entitic vol] 88.4 fL 80-94 [facility] Erythrocyte distribution wid th ratioOrdered By: Fernie Altamirano on 01-05-2024 Erythrocyte distribution width (RBC) [Ratio] 13.3 % 11.6-14.6 [facility] Erythrocyte distribution wid th standard deviationOrdered By: Fernie Altamirano on 01-05-2024 Erythrocyte distribution width (RBC) [Entitic vol] 43.4 fL 35.1-43.9 [facility] Hematocrit Auto (Bld) [Volum e fraction]Ordered By: Fernie Altamirano on 01-05-2024 Hematocrit (Bld) [Volume fraction] 45.7 % 40-54 [facility] Immature granulocytes/100 WB C Auto (Bld)Ordered By: Fernie Altamirano on 01-05-2024 Immature granulocytes/100 WBC (Bld) 2.700 % 0.0-0.9 [facility] Comment on above: IG% - Immature Granu locytes (promyelocytes, myelocytes and metamyelocytes) > 1% indicates that a LEFT SHIFT is Present. Laboratory - Chemistry and C hemistry - challengeOrdered By: Fernie Altamirano on 01-05-2024 Albumin/Globulin [Mass ratio] 0.8 {ratio} 0.9-2.4 [facility] ALP [Catalytic activity/Vol] 200 U/L 45-117 [facility] ALT [Catalytic activity/Vol] 113 U/L 16-61 [facility] CO2 [Moles/Vol] 27.0 mmol/L 21.0-32.0 [facility] Globulin (S) [Mass/Vol] 3.7 g/dL 2.2-4.2 [facility] Urea nitrogen/Creatinine [Mass ratio] 30.4 mg/mg 10-20 [facility] - Hematology and Cell countsOrdered By: Fernie Altamirano on 01-05-2024 MCH (RBC) [Entitic mass] 28.0 pg 27.0-32.0 [facility] MCHC (RBC) [Mass/Vol] 31.7 g/dL 32-36 [facility] Nucleated RBC/100 WBC (Bld) [Ratio] 0 % 0-5 [facility] Platelet mean volume (Bld) [Entitic vol] 8.6 fL 6.2-12.0 [facility] Platelets (Bld) [#/Vol] 375 10*3/uL 150-450 [facility] No Panel InformationOrdered By: Fernie Altamirano on 01-05-2024 Estimated GFR (MDRD) Amer 131 mL/min >60 [facility] Comment on above: GFR Calc Estimated GFR (MDRD) Non-Af Amer 108 mL/min >60 [facility] Comment on above: Non- GFR Calc RBC Auto (Bld) [#/Vol]Ordere d By: Fernie Altamirano on 01-05-2024 RBC (Bld) [#/Vol] 5.17 10*6/uL 4.6-6.2 [facility] Serum or plasma calcium shante urement (mass/volume)Ordered By: Fernie Altamirano on 01-05-2024 Calcium [Mass/Vol] 9.1 mg/dL 8.5-10.1 [facility] Serum or plasma creatinine m easurement (mass/volume)Ordered By: Fernie Altamirano on 01-05-2024 Creatinine [Mass/Vol] 0.76 mg/dL 0.70-1.30 [facility] Comment on above: The validity of the calculated GFR & GFRAA in patients over 70 years has not been determined. Clinical correlation is essential. Serum or plasma urea nitroge n measurement (mass/volume)Ordered By: Fernie Altamirano on 01-05-2024 Urea nitrogen [Mass/Vol] 23 mg/dL 7-18 [facility] Thin prep Papanicolaou smear with manual screeningOrdered By: Fernie Altamirano on 01-05-2024 Thin prep Papanicolaou smear with manual screening 2.9 g/dL 3.2-5.0 [facility] Thin prep Papanicolaou smear with manual screening 28 U/L 15-37 [facility] Thin prep Papanicolaou smear with manual screening 7 5-15 [facility] CBC W/Diff, Automatedon 03-0 PATH REV Reviewed Normal [facility] Comment on above: Result Comment: Panc ytopenia. Leukopenia and Neutropenia. Normocytic anemia. Thrombocytopenia Clinical correlation necessary. Vivek Lobato M.D. 12/31/23 AMENDED REPORT 12/31/23 1429 PATH REV previously reported as: March Performed By: #### L 300.3900, L500.2500, L100.0100 #### [facility] [address] [place], [address] PATH REV Reviewed Normal [facility] Comment on above: Result Comment: Panc ytopenia. Leukopenia and Neutropenia. Normocytic anemia. Thrombocytopenia Clinical correlation necessary. Vivek Lobato M.D. 12/31/23 AMENDED REPORT 12/31/23 1012 PATH REV previously reported as: March Performed By: #### L 300.3900, L500.2500, L100.0100 #### [facility] [address] [place], [address] Absolute lymphocyte countOrd ered By: Meera Plaza on 12-30-2023 Lymphocytes Auto (Unsp spec) [#/Vol] 0.29 10*3/uL 0.83-4.51 [facility] Automated lymphocyte count a s percentage of total leukocytesOrdered By: Meera Plaza on 12-30-2023 Lymphocytes/100 WBC Auto (Unsp spec) 10.9 % 19-41 [facility] Basophil percentageOrdered B y: Meera Plaza on 12-30-2023 Basophil percentage 3.2 mg/dL 2.5-4.9 [facility] Basophils/100 WBC (Bld) 0.4 % 0-1 [facility] Bilirubin [Mass/Vol] 0.90 mg/dL 0.20-1.00 [facility] Comment on above: For patients on eltr ombopag therapy, use of Dimension [place] TBIL is not recommended. Chloride [Moles/Vol] 110 mmol/L 98-107 [facility] Eosinophils/100 WBC (Bld) 0.4 % 0-5 [facility] Glucose [Mass/Vol] 111 mg/dL 74-106 [facility] Comment on above: Fasting Glucose resu lt from 100 to 125 mg/dL suggests IMPAIRED HOMEOSTASIS per A.D.A. criteria. Hemoglobin (Bld) [Mass/Vol] 12.5 g/dL 13.0-16.5 [facility] Monocytes/100 WBC (Bld) 6.0 % 0-10 [facility] Neutrophils (Bld) [#/Vol] 2.2 10*3/uL 2.0-7.7 [facility] Neutrophils/100 WBC (Bld) 81.6 % 47-70 [facility] Potassium [Moles/Vol] 4.0 mmol/L 3.5-5.1 [facility] Protein [Mass/Vol] 5.8 g/dL 6.4-8.2 [facility] Sodium [Moles/Vol] 140 mmol/L 136-145 [facility] WBC (Bld) [#/Vol] 2.7 10*3/uL 4.4-11.0 [facility] Blood manual differential co mment interpretation (narrative result)Ordered By: Meera Plaza on 12-30-2023 Manual differential comment Brendan (Bld) [Interp] SCANNED [facility] Comprehensive Metabolic Prof ilon 12-30-2023 Albumin [Mass/Vol] 2.2 g/dL Low 3.2-5.0 [facility] Comment on above: Performed By: #### L 300.3900, L500.2500, L100.0100 #### [facility] [address] [place], [address] Albumin/Globulin [Mass ratio] 0.6 {ratio} Low 0.9-2.4 [facility] Comment on above: Performed By: #### L 300.3900, L500.2500, L100.0100 #### [facility] [address] [place], [address] ALK P 194 U/L High 45-117 [facility] Comment on above: Performed By: #### L 300.3900, L500.2500, L100.0100 #### [facility] [address] [place], [address] ALT [Catalytic activity/Vol] 171 U/L High 16-61 [facility] Comment on above: Performed By: #### L 300.3900, L500.2500, L100.0100 #### [facility] [address] [place], [address] AST [Catalytic activity/Vol] 100 U/L High 15-37 [facility] Comment on above: Performed By: #### L 300.3900, L500.2500, L100.0100 #### [facility] [address] [place], [address] Bilirubin [Mass/Vol] 0.90 mg/dL Normal 0.20-1.00 [facility] Comment on above: Result Comment: For patients on eltrombopag therapy, use of Dimension [place] TBIL is not recommended. Performed By: #### L 300.3900, L500.2500, L100.0100 #### [facility] [address] [place], [address] BUN/CRE 14.2 RATIO Normal 10-20 [facility] Comment on above: Performed By: #### L 300.3900, L500.2500, L100.0100 #### [facility] [address] [place], [address] CA,Total 9.0 mg/dL Normal 8.5-10.1 [facility] Comment on above: Performed By: #### L 300.3900, L500.2500, L100.0100 #### [facility] [address] [place], [address] Chloride [Moles/Vol] 110 mmol/L High 98-107 [facility] Comment on above: Performed By: #### L 300.3900, L500.2500, L100.0100 #### [facility] [address] [place], [address] CO2 [Moles/Vol] 29.0 mmol/L Normal 21.0-32.0 [facility] Comment on above: Performed By: #### L 300.3900, L500.2500, L100.0100 #### [facility] [address] [place], [address] Creatinine [Mass/Vol] 0.78 mg/dL Normal 0.70-1.30 [facility] Comment on above: Result Comment: The validity of the calculated GFR GFRAA in patients over 70 years has not been determined. Clinical correlation is essential. Performed By: #### L 300.3900, L500.2500, L100.0100 #### [facility] [address] [place], [address] ECRCL 98.49 ml/min Normal [facility] Comment on above: Performed By: #### L 300.3900, L500.2500, L100.0100 #### [facility] [address] [place], [address] EST GFR - AA 128 mL/min Normal >60 [facility] Comment on above: Result Comment: Afri can Iraqi GFR Calc Performed By: #### L 300.3900, L500.2500, L100.0100 #### [facility] [address] [place], [address] GAP 1 Low 5-15 [facility] Comment on above: Performed By: #### L 300.3900, L500.2500, L100.0100 #### [facility] [address] [place], [address] GFR/1.73 sq M.predicted among non-blacks MDRD (S/P/Bld) [Vol rate/Area] 105 mL/min/{1.73_m2} Normal >60 [facility] Comment on above: Result Comment: Non- GFR Calc Performed By: #### L 300.3900, L500.2500, L100.0100 #### [facility] [address] [place], [address] Globulin (S) [Mass/Vol] 3.6 g/dL Normal 2.2-4.2 [facility] Comment on above: Performed By: #### L 300.3900, L500.2500, L100.0100 #### [facility] [address] [place], [address] Glucose [Mass/Vol] 111 mg/dL High 74-106 [facility] Comment on above: Result Comment: Fast ing Glucose result from 100 to 125 mg/dL suggests IMPAIRED HOMEOSTASIS per A.D.A. criteria. Performed By: #### L 300.3900, L500.2500, L100.0100 #### [facility] [address] [place], [address] Potassium [Moles/Vol] 4.0 mmol/L Normal 3.5-5.1 [facility] Comment on above: Performed By: #### L 300.3900, L500.2500, L100.0100 #### [facility] [address] [place], [address] Sodium [Moles/Vol] 140 mmol/L Normal 136-145 [facility] Comment on above: Performed By: #### L 300.3900, L500.2500, L100.0100 #### [facility] [address] [place], [address] T PROT 5.8 g/dL Low 6.4-8.2 [facility] Comment on above: Performed By: #### L 300.3900, L500.2500, L100.0100 #### [facility] [address] [place], [address] Urea nitrogen [Mass/Vol] 11 mg/dL Normal 7-18 [facility] Comment on above: Performed By: #### L 300.3900, L500.2500, L100.0100 #### [facility] [address] [place], [address] Determination of erythrocyte mean corpuscular volume (MCV)Ordered By: Meera Plaza on 12-30-2023 MCV (RBC) [Entitic vol] 89.7 fL 80-94 [facility] Erythrocyte distribution wid th ratioOrdered By: Meera Plaza on 12-30-2023 Erythrocyte distribution width (RBC) [Ratio] 13.2 % 11.6-14.6 [facility] Erythrocyte distribution wid th standard deviationOrdered By: Meera Plaza on 12-30-2023 Erythrocyte distribution width (RBC) [Entitic vol] 43.8 fL 35.1-43.9 [facility] Hematocrit Auto (Bld) [Volum e fraction]Ordered By: Meera Plaza on 12-30-2023 Hematocrit (Bld) [Volume fraction] 39.2 % 40-54 [facility] Immature granulocytes/100 WB C Auto (Bld)Ordered By: Meera Plaza on 12-30-2023 Immature granulocytes/100 WBC (Bld) 0.700 % 0.0-0.9 [facility] Comment on above: IG% - Immature Granu locytes (promyelocytes, myelocytes and metamyelocytes) > 1% indicates that a LEFT SHIFT is Present. Laboratory - Chemistry and C hemistry - challengeOrdered By: Meera Plaza on 12-30-2023 Albumin/Globulin [Mass ratio] 0.6 {ratio} 0.9-2.4 [facility] ALP [Catalytic activity/Vol] 194 U/L 45-117 [facility] ALT [Catalytic activity/Vol] 171 U/L 16-61 [facility] CO2 [Moles/Vol] 29.0 mmol/L 21.0-32.0 [facility] Globulin (S) [Mass/Vol] 3.6 g/dL 2.2-4.2 [facility] Magnesium [Mass/Vol] 2.2 mg/dL 1.6-2.6 [facility] Urea nitrogen/Creatinine [Mass ratio] 14.2 mg/mg 10-20 [facility] - Hematology and Cell countsOrdered By: Meera Plaza on 12-30-2023 MCH (RBC) [Entitic mass] 28.6 pg 27.0-32.0 [facility] MCHC (RBC) [Mass/Vol] 31.9 g/dL 32-36 [facility] Nucleated RBC/100 WBC (Bld) [Ratio] 0 % 0-5 [facility] Platelet mean volume (Bld) [Entitic vol] 9.4 fL 6.2-12.0 [facility] Platelets (Bld) [#/Vol] 102 10*3/uL 150-450 [facility] MRCP Abdomen without Contras ton 12-30-2023 MRCP Abdomen without Contrast [facility] [address] [place] [address] MRCP Abdomen without Contrast MR#: [id number] Acct: [id number] Name: LORIE OBRIEN Rep #: [id number] : 1955 M 68 From: Tl Baeza DO PCP: Dr. Fernie Altamirano MD Status: ADM IN Study: MRCP Abdomen without Contrast Date of Exam: Exam# [id number] Ordering Dr: Meera Plaza DO [id number] INDICATION: transamines elevation EXAMINATION: MRI - MR MRCP and Abdomen W/O Contrast TECHNIQUE: Multiplanar and multisequence MR images of the abdomen were obtained with MRCP sequence. Three-dimensional post-processing reconstructions were performed. IV Contrast Dosage and Agent: None. COMPARISON: ____ FINDINGS: LIVER: No mass. Normal morphology. GALLBLADDER AND BILIARY TREE: Cholelithiasis. No gallbladder distension or wall edema. The CBD measures 3 mm. No intra- or extrahepatic biliary dilation. No choledochal filling defect. PANCREAS: No mass. No pancreatic duct dilation. SPLEEN: Non-enlarged. ADRENAL GLANDS: No nodules. KIDNEYS: Normal renal size and position. No hydronephrosis. Bilateral renal cysts. LYMPH NODES: No enlarged periportal or retroperitoneal lymph nodes. Colonic diverticulosis. PERITONEUM: No ascites or fluid collection. VESSELS: Aorta is non-dilated. LOWER CHEST: No pleural effusion. MRI/MRCP Abdomen without Contrast IMPRESSION: Cholelithiasis. Renal cysts. Diverticulosis of the colon. Electronically Signed: Tl Baeza DO at 17:26 EST , CC: Dr. Meera Plaza DO; Dr. Fernie Altamirano MD [employer]: Signed Normal [facility] Magnesiumon 12-30-2023 Magnesium [Mass/Vol] 2.2 mg/dL Normal 1.6-2.6 [facility] Comment on above: Performed By: #### L 300.3900, L500.2500, L100.0100 #### [facility] [address] [place], [address] No Panel InformationOrdered By: Meera Plaza on 12-30-2023 Estimated Creatinine Clearance Calc 98.49 ml/min [facility] Estimated GFR (MDRD) Amer 128 mL/min >60 [facility] Comment on above: GFR Calc Estimated GFR (MDRD) Non-Af Amer 105 mL/min >60 [facility] Comment on above: Non- GFR Calc Phosphoruson 12-30-2023 Phosphate [Mass/Vol] 3.2 mg/dL Normal 2.5-4.9 [facility] Comment on above: Performed By: #### L 300.3900, L500.2500, L100.0100 #### [facility] [address] [place], [address] RBC Auto (Bld) [#/Vol]Ordere d By: Meera Plaza on 12-30-2023 RBC (Bld) [#/Vol] 4.37 10*6/uL 4.6-6.2 [facility] Review by pathologistOrdered By: Meera Plaza on 12-30-2023 Pathologist review Brendan (Unsp spec) [Interp] Pauline steward [facility] Pathologist review Brendan (Unsp spec) [Interp] Reviewed [facility] Comment on above: Previous reported re sult: Pauline steward Edited by: RGOOD on 12/31/23:1429Pancytopenia.Leukopenia and Neutropenia.Normocytic anemia.ThrombocytopeniaClinical correlation necessary.Vivek Lobato M.D. 12/31/23 AMENDED REPORT 12/31/23 1429 PATH REV previously reported as: Pauline steward Serum or plasma calcium shante urement (mass/volume)Ordered By: Meera Plaza on 12-30-2023 Calcium [Mass/Vol] 9.0 mg/dL 8.5-10.1 [facility] Serum or plasma creatinine m easurement (mass/volume)Ordered By: Meera Plaza on 12-30-2023 Creatinine [Mass/Vol] 0.78 mg/dL 0.70-1.30 [facility] Comment on above: The validity of the calculated GFR & GFRAA in patients over 70 years has not been determined. Clinical correlation is essential. Serum or plasma urea nitroge n measurement (mass/volume)Ordered By: Meera Plaza on 12-30-2023 Urea nitrogen [Mass/Vol] 11 mg/dL 7-18 [facility] Thin prep Papanicolaou smear with manual screeningOrdered By: Meera Plaza on 12-30-2023 Thin prep Papanicolaou smear with manual screening 2.2 g/dL 3.2-5.0 [facility] Thin prep Papanicolaou smear with manual screening 100 U/L 15-37 [facility] Thin prep Papanicolaou smear with manual screening 1 5-15 [facility] Comprehensive Metabolic Prof ilon 12-29-2023 Albumin [Mass/Vol] 2.0 g/dL Low 3.2-5.0 [facility] Comment on above: Performed By: #### L 300.3900, L500.2500, L100.0100 #### [facility] [address] [facility] [place], [address] Albumin/Globulin [Mass ratio] 0.7 {ratio} Low 0.9-2.4 [facility] Comment on above: Performed By: #### L 300.3900, L500.2500, L100.0100 #### [facility] [address] [place], [address] ALK P 76 U/L Normal 45-117 [facility] Comment on above: Performed By: #### L 300.3900, L500.2500, L100.0100 #### [facility] [address] [place], [address] ALT [Catalytic activity/Vol] 141 U/L High 16-61 [facility] Comment on above: Performed By: #### L 300.3900, L500.2500, L100.0100 #### [facility] [address] [place], [address] AST [Catalytic activity/Vol] 77 U/L High 15-37 [facility] Comment on above: Performed By: #### L 300.3900, L500.2500, L100.0100 #### [facility] [address] [place], [address] Bilirubin [Mass/Vol] 1.80 mg/dL High 0.20-1.00 [facility] Comment on above: Result Comment: For patients on eltrombopag therapy, use of Dimension [place] TBIL is not recommended. Performed By: #### L 300.3900, L500.2500, L100.0100 #### [facility] [address] [place], [address] BUN/CRE 19.7 RATIO Normal 10-20 [facility] Comment on above: Performed By: #### L 300.3900, L500.2500, L100.0100 #### [facility] [address] [place], [address] CA,Total 8.4 mg/dL Low 8.5-10.1 [facility] Comment on above: Performed By: #### L 300.3900, L500.2500, L100.0100 #### [facility] [address] [place], [address] Chloride [Moles/Vol] 112 mmol/L High 98-107 [facility] Comment on above: Performed By: #### L 300.3900, L500.2500, L100.0100 #### [facility] [address] [place], [address] CO2 [Moles/Vol] 30.0 mmol/L Normal 21.0-32.0 [facility] Comment on above: Performed By: #### L 300.3900, L500.2500, L100.0100 #### [facility] [address] [place], [address] Creatinine [Mass/Vol] 0.76 mg/dL Normal 0.70-1.30 [facility] Comment on above: Result Comment: The validity of the calculated GFR GFRAA in patients over 70 years has not been determined. Clinical correlation is essential. Performed By: #### L 300.3900, L500.2500, L100.0100 #### [facility] [address] [place], [address] ECRCL 98.49 ml/min Normal [facility] Comment on above: Performed By: #### L 300.3900, L500.2500, L100.0100 #### [facility] [address] [place], [address] EST GFR - AA 130 mL/min Normal >60 [facility] Comment on above: Result Comment: Afri can Iraqi GFR Calc Performed By: #### L 300.3900, L500.2500, L100.0100 #### [facility] [address] [place], [address] GAP -1 Low 5-15 [facility] Comment on above: Performed By: #### L 300.3900, L500.2500, L100.0100 #### [facility] [address] [place], [address] GFR/1.73 sq M.predicted among non-blacks MDRD (S/P/Bld) [Vol rate/Area] 108 mL/min/{1.73_m2} Normal >60 [facility] Comment on above: Result Comment: Non- GFR Calc Performed By: #### L 300.3900, L500.2500, L100.0100 #### [facility] [address] [place], [address] Globulin (S) [Mass/Vol] 2.8 g/dL Normal 2.2-4.2 [facility] Comment on above: Performed By: #### L 300.3900, L500.2500, L100.0100 #### [facility] [address] [place], [address] Glucose [Mass/Vol] 109 mg/dL High 74-106 [facility] Comment on above: Result Comment: Fast ing Glucose result from 100 to 125 mg/dL suggests IMPAIRED HOMEOSTASIS per A.D.A. criteria. Performed By: #### L 300.3900, L500.2500, L100.0100 #### [facility] [address] [place], [address] Potassium [Moles/Vol] 4.6 mmol/L Normal 3.5-5.1 [facility] Comment on above: Performed By: #### L 300.3900, L500.2500, L100.0100 #### [facility] [address] [place], [address] Sodium [Moles/Vol] 141 mmol/L Normal 136-145 [facility] Comment on above: Performed By: #### L 300.3900, L500.2500, L100.0100 #### [facility] [address] [place], [address] T PROT 4.8 g/dL Low 6.4-8.2 [facility] Comment on above: Performed By: #### L 300.3900, L500.2500, L100.0100 #### [facility] [address] [place], [address] Urea nitrogen [Mass/Vol] 15 mg/dL Normal 7-18 [facility] Comment on above: Performed By: #### L 300.3900, L500.2500, L100.0100 #### [facility] [address] [place], [address] Urine Cultureon 12-29-2023 URC Below infection level. GPC Poss Enterococcus sp [place] Count <1000 Normal [facility] Comment on above: Performed By: #### L 506.1000, L501.9520, L100.0100, L500.4050 #### [facility] [address] [place], [address] Abdomen Limitedon 12-28-2023 Abdomen Limited [facility] [address] [place] [address] Abdomen Limited MR#: [id number] Acct: [id number] Name: LORIE OBRIEN Rep #: [id number] : 1955 M 68 From: Jermain olson MD PCP: Dr. Ferine Altamirano MD Status: ADM IN Study: Abdomen Limited Date of Exam: 12/28/23 Exam# [id number] Ordering Dr: Deacon Ramirez DO [id number] STUDY: ABDOMINAL ULTRASOUND - RIGHT UPPER QUADRANT REASON FOR VISIT: Male, 68 years old Elevated liver enzymes TECHNIQUE: Ultrasound evaluation of the right upper quadrant was performed with real-time and static arizmendi-scale imaging. TECHNICAL QUALITY: Adequate. COMPARISON: Comparison is made with prior CT scan the abdomen and pelvis done on December 28, 2023. FINDINGS: Liver: The liver is enlarged and measures 17.9 cm. There is normal echogenicity of the liver. The bile ducts are within normal limits. There is hepatic color flow. The direction of portal flow is hepatopetal. There is no demonstrated mass lesion. Gallbladder: Normal distended gallbladder. The gallbladder wall measures 2.3 mm. There is a negative sonographic Christianson''s sign. There is no pericholecystic fluid. There is a solitary echogenic gallstone within the gallbladder. This measures 1.7 cm x 1.4 cm x 1 cm. Common Bile Duct (C.B.D.): The common bile duct measures 4.2 mm. Pancreas: Normal size of the head, body and tail of the pancreas. There is increased echogenicity of the pancreas. There is no demonstrated pancreatic mass or cyst. Right Kidney: Normal size of the right kidney. The right kidney measures 11 cm x 6.2 cm x 5.3 cm. Normal renal cortex. The right cortex measures 1.5 cm. There is a 3.2 cm x 2.1 centimeters by 2.4 cm cyst in the upper pole of the kidney. There is also evidence of a 1.4 cm x 1 cm x 1 cm cyst in the lateral portion of the kidney. There is no right hydronephrosis. US/Abdomen Limited IMPRESSION: Solitary gallstone measuring 1.7 cm x 1.4 cm x 1 cm. Right renal cysts. Electronically Signed: Jermain Mendoza MD at 15:33 EST Reading Location ID and State: [address] [place] [address] , Service support , CC: Dr. Deacon Ramirez DO; Dr. Fernie Altamirano MD [employer]: Signed Normal [facility] Abdomen/Pelvis without Conto n 12-28-2023 Abdomen/Pelvis without Cont [facility] [address] [place] [address] Abdomen/Pelvis without Cont MR#: [id number] Acct: [id number] Name: LORIE OBRIEN Rep #: [id number] : 1955 M 68 From: Jermain olson MD PCP: Dr. Fernie Altamirano MD Status: REG ER Study: Abdomen/Pelvis without Cont Date of Exam: 12/03 05/24 Exam# [id number] Ordering Dr: Kasey Thomas DO [id number] STUDY: CT ABDOMEN AND PELVIS WITHOUT CONTRAST REASON FOR EXAM: Male, 68 years old. Right flank pain. Fever. Hematuria. RADIATION DOSAGE (If Supplied By Facility): CTDIvol = ( 13.89 ) mGy, DLP = ( 743.25 ) mGycm TECHNIQUE: Transaxial images were obtained from the dome of the diaphragm to the symphysis pubis without oral contrast, and without intravenous contrast. Sagittal and coronal images were reconstructed. Individualized dose optimization techniques were used for this CT. COMPARISON: Comparison is made with prior study dated November 22, 2023 and May 17, 2019. FINDINGS: Stable 2 mm nodule in the lateral aspect of the anterior right lower lobe abutting the right minor fissure. Coronary artery calcification. Normal liver. Normal gallbladder and extrahepatic biliary system. Normal spleen. Normal pancreas. Normal bilateral adrenal glands. Stable 2.6 cm cyst in the upper medial aspect of the right kidney. Normal left kidney. Normal visualized stomach. Normal small intestine. There is diverticulosis, with thickening of the colon wall, and pericolonic inflammation changes consistent with acute diverticulitis. The appendix is visualized and appears normal. There is scattered atherosclerotic calcification of the abdominal aorta, without a demonstrated aneurysm. Normal inferior vena cava. Normal retroperitoneum. Normal urinary bladder. Prostate is enlarged and measures 4.8 cm x 4.4 cm. This causes indentation at the bladder base. Normal abdominal wall. There are degenerative changes of the visualized lumbar spine. 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 CT/Abdomen/Pelvis without Cont IMPRESSION: Findings suggestive of a noncomplicated acute sigmoid diverticulitis. Stable right renal cyst. Prostatic enlargement. Electronically Signed: Jermain Mendoza MD at 14:55 EST , CC: Dr. Kasey Thomas DO; Dr. Fernie Altamirano MD [employer]: Signed Normal [facility] Absolute lymphocyte countOrd ered By: Kasey Thomas on 12-28-2023 Lymphocytes Auto (Unsp spec) [#/Vol] 0.20 10*3/uL 0.83-4.51 [facility] Automated blood erythrocyte count (number/volume)Ordered By: Kasey Morejonvalerie on 12-28-2023 RBC (Bld) [#/Vol] 4.90 10*6/uL Normal 4.6-6.2 [facility] Comment on above: Performed By: #### L 506.1000, L501.9520, L100.0100, L500.4050 #### [facility] [address] [place], [address] Automated blood hematocrit ( percentage)Ordered By: Kasey Morejonvalerie on 12-28-2023 Hematocrit (Bld) [Volume fraction] 43.2 % Normal 40-54 [facility] Comment on above: Performed By: #### L 506.1000, L501.9520, L100.0100, L500.4050 #### [facility] [address] [place], [address] Automated lymphocyte count a s percentage of total leukocytesOrdered By: Kasey Morejonvalerie on 12-28-2023 Lymphocytes/100 WBC Auto (Unsp spec) 2.5 % 19-41 [facility] Basophil percentageOrdered B y: Kasey Morejonvalerie on 12-28-2023 Bilirubin [Mass/Vol] 2.20 mg/dL High 0.20-1.00 [facility] Comment on above: For patients on eltr ombopag therapy, use of Dimension [place] TBIL is not recommended. Result Comment: For patients on eltrombopag therapy, use of Dimension [place] TBIL is not recommended. Performed By: #### L 506.1000, L501.9520, L100.0100, L500.4050 #### [facility] [address] [place], [address] Chloride [Moles/Vol] 107 mmol/L Normal 98-107 [facility] Comment on above: Performed By: #### L 506.1000, L501.9520, L100.0100, L500.4050 #### [facility] [address] [place], [address] Glucose [Mass/Vol] 111 mg/dL High 74-106 [facility] Comment on above: Fasting Glucose resu lt from 100 to 125 mg/dL suggests IMPAIRED HOMEOSTASIS per A.D.A. criteria. Result Comment: Fast ing Glucose result from 100 to 125 mg/dL suggests IMPAIRED HOMEOSTASIS per A.D.A. criteria. Performed By: #### L 506.1000, L501.9520, L100.0100, L500.4050 #### [facility] [address] [place], [address] Lactate [Moles/Vol] 1.9 mmol/L Normal 0.4-1.9 [facility] Comment on above: Order Comment: Y Performed By: #### L 506.1000, L501.9520, L100.0100, L500.4050 #### [facility] [address] [place], [address] Potassium [Moles/Vol] 4.4 mmol/L Normal 3.5-5.1 [facility] Comment on above: Moderate Hemolysis, Result may be falsely increased. Result Comment: Mode rate Hemolysis, Result may be falsely increased. Performed By: #### L 506.1000, L501.9520, L100.0100, L500.4050 #### [facility] [address] [place], [address] Sodium [Moles/Vol] 137 mmol/L Normal 136-145 [facility] Comment on above: Performed By: #### L 506.1000, L501.9520, L100.0100, L500.4050 #### [facility] [address] [place], [address] Basophils/100 WBC (Bld) 0.3 % Normal 0-1 [facility] Comment on above: Performed By: #### L 506.1000, L501.9520, L100.0100, L500.4050 #### [facility] [address] [place], [address] Eosinophils/100 WBC (Bld) 0.3 % Normal 0-5 [facility] Comment on above: Performed By: #### L 506.1000, L501.9520, L100.0100, L500.4050 #### [facility] [address] [place], [address] Hemoglobin (Bld) [Mass/Vol] 14.2 g/dL Normal 13.0-16.5 [facility] Comment on above: Performed By: #### L 506.1000, L501.9520, L100.0100, L500.4050 #### [facility] [address] [place], [address] Monocytes/100 WBC (Bld) 1.4 % Normal 0-10 [facility] Comment on above: Performed By: #### L 506.1000, L501.9520, L100.0100, L500.4050 #### [facility] [address] [place], [address] Neutrophils/100 WBC (Bld) 94.9 % High 47-70 [facility] Comment on above: Performed By: #### L 506.1000, L501.9520, L100.0100, L500.4050 #### [facility] [address] [place], [address] WBC (Bld) [#/Vol] 8.0 10*3/uL Normal 4.4-11.0 [facility] Comment on above: Performed By: #### L 506.1000, L501.9520, L100.0100, L500.4050 #### [facility] [address] [place], [address] Basophil percentage 0-5 SEEN /hpf 0-5 [facility] Neutrophils (Bld) [#/Vol] 7.6 10*3/uL 2.0-7.7 [facility] Protein [Mass/Vol] 6.1 g/dL 6.4-8.2 [facility] Bilirubin Test strip Ql (U)O rdered By: Kasey Thomas on 12-28-2023 Bilirubin Ql (U) 3 mg/dL Negative [facility] Comment on above: COLOR OF URINE MAY A FFECT DIPSTICK RESULTS. CBC W/Diff, Automatedon 12-03 Absolute Lymph 0.20 X10 3/uL Low 0.83-4.51 [facility] Comment on above: Performed By: #### L 506.1000, L501.9520, L100.0100, L500.4050 #### [facility] [address] [place], [address] Absolute Neut 7.6 X10 3/uL Normal 2.0-7.7 [facility] Comment on above: Performed By: #### L 506.1000, L501.9520, L100.0100, L500.4050 #### [facility] [address] [place], [address] IG% 0.600 Normal 0.0-0.9 [facility] Comment on above: Result Comment: IG% - Immature Granulocytes (promyelocytes, myelocytes and metamyelocytes) > 1% indicates that a LEFT SHIFT is Present. Performed By: #### L 506.1000, L501.9520, L100.0100, L500.4050 #### [facility] [address] [place], [address] Lymphocytes/100 WBC (Bld) 2.5 % Low 19-41 [facility] Comment on above: Performed By: #### L 506.1000, L501.9520, L100.0100, L500.4050 #### [facility] [address] [place], [address] Nucleated RBC (Bld) [#/Vol] 0 10*3/uL Normal 0-5 [facility] Comment on above: Performed By: #### L 506.1000, L501.9520, L100.0100, L500.4050 #### [facility] [address] [place], [address] RDW SD 43.0 fl Normal 35.1-43.9 [facility] Comment on above: Performed By: #### L 506.1000, L501.9520, L100.0100, L500.4050 #### [facility] [address] [place], [address] CBC W/Diff, AutomatedOrdered By: Kasey Thomas on 12-28-2023 MCH (RBC) [Entitic mass] 29.0 pg Normal 27.0-32.0 [facility] Comment on above: Performed By: #### L 506.1000, L501.9520, L100.0100, L500.4050 #### [facility] [address] [place], [address] MCHC (RBC) [Mass/Vol] 32.9 g/dL Normal 32-36 [facility] Comment on above: Performed By: #### L 506.1000, L501.9520, L100.0100, L500.4050 #### [facility] [address] [place], [address] Platelet mean volume (Bld) [Entitic vol] 9.2 fL Normal 6.2-12.0 [facility] Comment on above: Performed By: #### L 506.1000, L501.9520, L100.0100, L500.4050 #### [facility] [address] [place], [address] Platelets (Bld) [#/Vol] 153 10*3/uL Normal 150-450 [facility] Comment on above: Performed By: #### L 506.1000, L501.9520, L100.0100, L500.4050 #### [facility] [address] [place], [address] Comprehensive Metabolic Prof ilon 12-28-2023 Albumin [Mass/Vol] 2.5 g/dL Low 3.2-5.0 [facility] Comment on above: Performed By: #### L 506.1000, L501.9520, L100.0100, L500.4050 #### [facility] [address] [place], [address] ALK P 83 U/L Normal 45-117 [facility] Comment on above: Performed By: #### L 506.1000, L501.9520, L100.0100, L500.4050 #### [facility] [address] [place], [address] AST [Catalytic activity/Vol] 105 U/L High 15-37 [facility] Comment on above: Result Comment: Mode rate Hemolysis, Result may be falsely increased. Performed By: #### L 506.1000, L501.9520, L100.0100, L500.4050 #### [facility] [address] [place], [address] BUN/CRE 24.3 RATIO High 10-20 [facility] Comment on above: Performed By: #### L 506.1000, L501.9520, L100.0100, L500.4050 #### [facility] [address] [place], [address] CA,Total 9.0 mg/dL Normal 8.5-10.1 [facility] Comment on above: Performed By: #### L 506.1000, L501.9520, L100.0100, L500.4050 #### [facility] [address] [place], [address] EST GFR - AA 92 mL/min Normal >60 [facility] Comment on above: Result Comment: Afri can Iraqi GFR Calc Performed By: #### L 506.1000, L501.9520, L100.0100, L500.4050 #### [facility] [address] [place], [address] GAP 2 Low 5-15 [facility] Comment on above: Performed By: #### L 506.1000, L501.9520, L100.0100, L500.4050 #### [facility] [address] [place], [address] GFR/1.73 sq M.predicted among non-blacks MDRD (S/P/Bld) [Vol rate/Area] 76 mL/min/{1.73_m2} Normal >60 [facility] Comment on above: Result Comment: Non- GFR Calc Performed By: #### L 506.1000, L501.9520, L100.0100, L500.4050 #### [facility] [address] [place], [address] T PROT 6.1 g/dL Low 6.4-8.2 [facility] Comment on above: Performed By: #### L 506.1000, L501.9520, L100.0100, L500.4050 #### [facility] [address] [place], [address] Comprehensive Metabolic Prof ilOrdered By: Kasey Thomas on 12-28-2023 Albumin/Globulin [Mass ratio] 0.7 {ratio} Low 0.9-2.4 [facility] Comment on above: Performed By: #### L 506.1000, L501.9520, L100.0100, L500.4050 #### [facility] [address] [place], [address] ALT [Catalytic activity/Vol] 165 U/L High 16-61 [facility] Comment on above: Performed By: #### L 506.1000, L501.9520, L100.0100, L500.4050 #### [facility] [address] [place], [address] CO2 [Moles/Vol] 28.0 mmol/L Normal 21.0-32.0 [facility] Comment on above: Performed By: #### L 506.1000, L501.9520, L100.0100, L500.4050 #### [facility] [address] [place], [address] Globulin (S) [Mass/Vol] 3.6 g/dL Normal 2.2-4.2 [facility] Comment on above: Performed By: #### L 506.1000, L501.9520, L100.0100, L500.4050 #### [facility] [address] [place], [address] Culture, urineOrdered By: Celsa Thomas on 12-28-2023 Bacteria identified Cx Nom (U) GPC Poss Enterococcus sp [facility] Determination of erythrocyte mean corpuscular volume (MCV)Ordered By: Kasey Thomas on 12-28-2023 MCV (RBC) [Entitic vol] 88.2 fL Normal 80-94 [facility] Comment on above: Performed By: #### L 506.1000, L501.9520, L100.0100, L500.4050 #### [facility] [address] [place], [address] Emergency Department Summary on 12-28-2023 Emergency Department Summary [facility] Medical Records Department [address] [place], [place] [address] [place] [address] Emergency Department Summary 12/28/23 MR#: [id number] Acct: [id number] Name: LORIE OBRIEN Rep #: [id number] : 1955 68 From: Kasey Thomas DO PCP: Dr. Fernie Altamirano MD Status:ADM IN Location: [place] [address]-1 HPI History of Present Illness Chief Complaint: Complaint Detail of Chief Complaint: Fever and chills and generalized weakness Informant: patient Narrative Narrative: Patient presents the emergency department complaint not feeling well since yesterday afternoon. They were seen in the primary care physician for some preadmission testing and on the way home he started feeling fevered and chilled. He states he had a hard time sleeping last night. He has been complaining of some lightheadedness with standing and walking. He denies cough or sore throat. Patient scheduled to have surgery on his back for herniated disc in January 17. Patient also complaining of some right-sided lower abdomen pain. Patient noticed very dark urine today. [facility] Medical History High cholesterol Home Medications pravastatin 40 mg tablet 40 mg PO QHS 04/29/17 [History Last Taken 04/28/17] timolol maleate 0.5 % eye drops 1 drp QHS 04/29/17 [History Last Taken 04/28/17] gabapentin 300 mg capsule 300 mg PO DAILY 12/28/23 [History Last Taken Unknown] naproxen 500 mg tablet 500 mg PO Q12H 12/28/23 [History Last Taken Unknown] pantoprazole 40 mg tablet,delayed release 40 mg PO DAILY 12/28/23 [History Last Taken Unknown] Allergy/AdvReac Type Severity Reaction Status Date / Time No Known Allergies Allergy Verified 12/28/23 13:18 Social History (Updated 12/28/23 @ 13:56 by Nighat Treviño) household members: spouse housing: house Smoking Status: Former smoker ROS ROS ED Review of Systems ROS Unobtainable: other Constitutional Constitutional ED: Reports chills, fever(s) and lethargy; Denies sweats or weight loss Eyes Eyes: Denies blurry vision, change in vision or diplopia ENT ENT ED: Denies rhinorrhea or sore throat Cardiovascular Cardiovascular: Denies chest pain, orthopnea or racing heartbeat Respiratory/Chest Respiratory/Chest: Denies cough, dyspnea, dyspnea on exertion, orthopnea or sputum Gastrointestinal Gastrointestinal: Denies abdominal pain, diarrhea, nausea or vomiting Genitourinary Genitourinary ED: Reports other Details: Dark urine ; Denies dysuria, hematuria or urinary frequency Musculoskeletal Musculoskeletal: Denies arthralgias, back pain, myalgias or neck pain Integumentary Denies abscess, Abrasions or rash Neurologic Neurologic: Reports weakness; Denies headache(s) Psychiatric Psychiatric: Denies anxiety, depression or suicidal thoughts Endocrine Endocrinology: Denies polydipsia, polyphagia or polyuria Hematologic/Lymphati c Hematologic/Lymphati c: Denies easy bleeding, easy bruising or lymphadenopathy Allergic/Immunologic Allergic/Immunologic ED: Denies mouth swelling, tongue swelling or urticaria EXAM Physical Exam Const Vital Signs: 12/28/23 13:18 12/28/23 15:16 12/28/23 15:17 Temperature 97.6 F L 98.2 F Temperature Source Temporal Pulse Rate 82 67 Respiratory Rate 20 H 15 Respiratory Effort Normal Respiratory Pattern Normal Blood Pressure 81/62 L 98/65 Blood Pressure Mean 68 76 Pulse Ox 95 94 Oxygen Delivery Method Room Air 12/28/23 15:18 Temperature Temperature Source Pulse Rate 66 Respiratory Rate 18 Respiratory Effort Respiratory Pattern Blood Pressure Blood Pressure Mean Pulse Ox 96 Oxygen Delivery Method Room Air Positive well nourished and well developed General Appearance ED: well developed and NAD HEENT Reports TM's clear and moist mucous membranes normocephalic and atraumatic; Negative for trauma or tenderness Tympanic Membrane ED: Yes TM's clear Eyes PERRL and EOMs intact bilaterally General Eye ED: Negative for pale conjunctiva or scleral icterus Neck no lymphadenopathy, supple and no JVD General: Negative for tenderness Chest Wall inspection of chest normal and palpation of chest normal Chest: Negative for tenderness Resp normal respiratory effort and clear to auscultation bilaterally Effort and Inspection: Negative for respiratory distress or pain with movement Auscultation: Negative for rhonchi, wheezes or diminished lung sounds Cardio regular rate, regular rhythm, S1 normal heart sound, S2 normal heart sound and no murmurs Peripheral Pulses: pulses 2+ throughout GI normal to inspection, nondistended, normoactive bowel sounds, soft to palpation, non-distended and no masses GI Narrative: Tender to palpation over right lower quadrant with some guarding. There is no rebound, rigidi (more content not included)... Normal [facility] Erythrocyte distribution wid th ratioOrdered By: Kasey Thomas on 12-28-2023 Erythrocyte distribution width (RBC) [Ratio] 13.2 % Normal 11.6-14.6 [facility] Comment on above: Performed By: #### L 506.1000, L501.7120, L100.0100, L500.4050 #### [facility] [place], [address] Erythrocyte distribution wid th standard deviationOrdered By: Kasey Thomas on 12-28-2023 Erythrocyte distribution width (RBC) [Entitic vol] 43.0 fL 35.1-43.9 [facility] H [facility] P [facility] 12-28-2023 H&P Exam - Hospitalist [facility] Medical Records Department [address] [place] [address] H P Exam - Hospitalist 12/28/23 1629 MR#: [id number] Acct: [id number] Name: LORIE OBRIEN Rep #: [id number] : 1955 68 From: Deacon Ramirez DO PCP: Dr. Fernie Altamirano MD Status:ADM IN Location: [facility] [place] [facility] HPI - General General Date of Admission: 12/28/23 Date of Service: 12/28/23 Chief Complaint: Mid abdominal pain, fever, chills HPI Narrative LORIE OBRIEN, is a 68 M who presents to the emergency room at [facility] with complaints of fever and chills since last night along with mid to lower/right lower quadrant abdominal pain. Patient had been seen in the emergency room in November with complaints of abdominal discomfort, CT done at that time question chronic diverticulitis. Patient denies any blood in his stool, he denies any nausea and vomiting, he denies any diarrhea. Patient states that his urine has looked dark and he question whether there was blood in the urine. Patient denies any dysuria or urinary frequency. Patient states his temperature at home last night went up to 101. Lab work done in the emergency room revealed a normal white blood cell count, hemoglobin and platelet counts were normal, chemistry profile was remarkable for BUN of 25, liver enzymes were elevated with a total bilirubin of 2.2, AST of 105, ALT of 165, patient's urinalysis showed no red cells, there is 0-5 white cells and +1 bacteria. Nitrites were positive. CT of the abdomen pelvis shows evidence of sigmoid diverticulitis. Patient blood pressure was low in the emergency room, he was given a fluid bolus and IV antibiotics were started for diverticulitis. [facility] Medical History High cholesterol Home Medications pravastatin 40 mg tablet 40 mg PO QHS 06/29/17 [History Last Taken 04/28/17] timolol maleate 0.5 % eye drops 1 drp QHS 04/29/17 [History Last Taken 04/28/17] gabapentin 300 mg capsule 300 mg PO DAILY 12/28/23 [History Last Taken Unknown] naproxen 500 mg tablet 500 mg PO Q12H 12/28/23 [History Last Taken Unknown] pantoprazole 40 mg tablet,delayed release 40 mg PO DAILY 12/28/23 [History Last Taken Unknown] Allergy/AdvReac Type Severity Reaction Status Date / Time No Known Allergies Allergy Verified 12/28/23 13:18 Social History (Updated 12/28/23 @ 13:56 by Nighat Treviño) household members: spouse housing: house Smoking Status: Former smoker ROS Constitutional Constitutional: Reports chills and fever(s); Denies anorexia, change in weight, night sweats or weakness Eyes Eyes: Denies blurry vision, change in vision, discharge from eye(s) or eye pain Cardiovascular Cardiovascular: Denies chest pain, claudication, dyspnea on exertion, edema, lightheadedness or palpitations Respiratory/Chest Respiratory/Chest: Denies cough, dyspnea, excessive phlegm production, hemoptysis, productive cough, shortness of breath at rest or shortness of breath with exertion Gastrointestinal Gastrointestinal: Reports abdominal pain; Denies coffee ground emesis, constipation, diarrhea, dyspepsia, hematemesis, hematochezia, melena, nausea or vomiting Genitourinary Genitourinary: Denies difficulty urinating, dysuria, hematuria, nocturia, urinary frequency, urinary hesitancy, urinary incontinence or urinary urgency Musculoskeletal Musculoskeletal: Denies back pain, joint pain, joint stiffness, joint swelling, myalgias or neck pain Neurologic Neurologic: Denies abnormal gait, abnormal speech, dizziness, focal weakness, headache(s), loss of vision, numbness, other visual disturbances, paresthesias, syncope or tingling Psychiatric Psychiatric: Denies anxiety, cognitive impairment, depression, irritability, mood swings or suicidal ideation Endocrine Endocrinology: Denies change in body appearance, cold intolerance, excessive sweating, heat into lerance, polydipsia or polyuria Hematologic/Lymphati c Hematologic/Lymphati c: Denies none, anemia, easy bleeding, easy bruising or lymphadenopathy Allergic/Immunologic Allergic/Immunologic : Denies rhinitis, urticaria, eczemia or asthma Vital Signs Vital Signs Vital Signs: 12/28/23 13:18 12/28/23 15:16 12/28/23 15:17 Temperature 97.6 F L 98.2 F Temperature Source Temporal Pulse Rate 82 67 Respiratory Rate 20 H 15 Respiratory Effort Normal Respiratory Pattern Normal Blood Pressure 81/62 L 98/65 Blood Pressure Mean 68 76 Pulse Ox 95 94 Oxygen Delivery Method Room Air 12/28/23 15:18 Temperature Temperature Source Pulse Rate 66 Respiratory Rate 18 Respiratory Effort Respiratory Pattern Blood Pressure Blood Pressure Mean Pulse Ox 96 Oxygen Delivery Method Room Air Weight Weight: 91.6 kg Body Mass Index (B (more content not included)... Normal [facility] Immature granulocytes/100 WB C Auto (Bld)Ordered By: Kasey Thomas on 12-28-2023 Immature granulocytes/100 WBC (Bld) 0.600 % 0.0-0.9 [facility] Comment on above: IG% - Immature Granu locytes (promyelocytes, myelocytes and metamyelocytes) > 1% indicates that a LEFT SHIFT is Present. Ketones Test strip Ql (U)Ord ered By: Kasey Thomas on 12-28-2023 Ketones Ql (U) 5 mg/dl Negative [facility] Laboratory - Chemistry and C hemistry - challengeOrdered By: Kasey Thomas on 12-28-2023 ALP [Catalytic activity/Vol] 83 U/L 45-117 [facility] Urea nitrogen/Creatinine [Mass ratio] 24.3 mg/mg 10-20 [facility] - Hematology and Cell countsOrdered By: Kasey Thomas on 12-28-2023 Nucleated RBC/100 WBC (Bld) [Ratio] 0 % 0-5 [facility] - Microbiology an d Antimicrobial susceptibilityOrdered By: Kasey Thomas on 12-28-2023 SARS-CoV-2 (COVID-19) RNA VINI+probe Ql (Unsp spec) [facility] SARS-CoV-2 (COVID-19) RNA VINI+probe Ql (Unsp spec) [facility] M100.678on 12-28-2023 M100.678 SARS-CoV-2 (COVID 19) Negative INFLUENZA A Negative INFLUENZA B Negative RSV PCR Negative Normal [facility] Comment on above: Performed By: #### L 300.3900, L500.2500, L100.0100 #### [facility] [address] [place], [address] Mucus LM Ql (Urine sed)Order ed By: Kasey Thomas on 12-28-2023 Mucus Ql (Urine sed) 0 SEEN /hpf [facility] Nitrite Test strip Ql (U)Ord ered By: Remus Ungur on 12-28-2023 Nitrite Ql (U) Positive Negative [facility] No Panel InformationOrdered By: Remus Ungvalerie on 12-28-2023 Estimated GFR (MDRD) Amer 92 mL/min >60 [facility] Comment on above: GFR Calc Estimated GFR (MDRD) Non-Af Amer 76 mL/min >60 [facility] Comment on above: Non- GFR Calc Urine RBC 0 SEEN /hpf 0-5 [facility] Protein Test strip Ql (U)Ord ered By: Remus Ungvalerie on 12-28-2023 Protein Ql (U) 30 mg/dl Negative [facility] Serum or plasma calcium shante urement (mass/volume)Ordered By: Remus William on 12-28-2023 Calcium [Mass/Vol] 9.0 mg/dL 8.5-10.1 [facility] Serum or plasma creatinine m easurement (mass/volume)Ordered By: Remus Thomas on 12-28-2023 Creatinine [Mass/Vol] 1.03 mg/dL Normal 0.70-1.30 [facility] Comment on above: The validity of the calculated GFR & GFRAA in patients over 70 years has not been determined. Clinical correlation is essential. Result Comment: The validity of the calculated GFR GFRAA in patients over 70 years has not been determined. Clinical correlation is essential. Performed By: #### L 506.1000, L501.9520, L100.0100, L500.4050 #### [facility] [address] [place], [address] Serum or plasma urea nitroge n measurement (mass/volume)Ordered By: Remus Ungvalerie on 12-28-2023 Urea nitrogen [Mass/Vol] 25 mg/dL High 7-18 [facility] Comment on above: Performed By: #### L 506.1000, L501.9520, L100.0100, L500.4050 #### [facility] [address] [place], [address] Squamous epithelial cells de tection in urine sediment by light microscopyOrdered By: Kasey Thomas on 12-28-2023 Epithelial cells.squamous LM Ql (Urine sed) 0 SEEN /hpf 0-5 [facility] Thin prep Papanicolaou smear with manual screeningOrdered By: Kasey Thomas on 12-28-2023 Thin prep Papanicolaou smear with manual screening 2.5 g/dL 3.2-5.0 [facility] Thin prep Papanicolaou smear with manual screening 105 U/L 15-37 [facility] Comment on above: Moderate Hemolysis, Result may be falsely increased. Thin prep Papanicolaou smear with manual screening 2 5-15 [facility] Urinalysis, Completeon 12-28 BACTERIA 1+ /hpf Normal None Seen [facility] Comment on above: Order Comment: CLEAN CATCH Performed By: #### L 300.3900, L500.2500, L100.0100 #### [facility] [address] [place], [address] WBC 0-5 SEEN Normal 0-5 [facility] Comment on above: Order Comment: CLEAN CATCH Performed By: #### L 300.3900, L500.2500, L100.0100 #### [facility] [address] [place], [address] EPI,SQUAMOUS 0 SEEN Normal 0-5 [facility] Comment on above: Order Comment: CLEAN CATCH Performed By: #### L 300.3900, L500.2500, L100.0100 #### [facility] [address] [place], [address] Mucus Ql (Urine sed) 0 SEEN Normal [facility] Comment on above: Order Comment: CLEAN CATCH Performed By: #### L 300.3900, L500.2500, L100.0100 #### [facility] [address] [place], [place], [address] RBC 0 SEEN Normal 0-5 [facility] Comment on above: Order Comment: CLEAN CATCH Performed By: #### L 300.3900, L500.2500, L100.0100 #### [facility] [address] [place], [place], [address] Urine blood detectionOrdered By: Remus William on 12-28-2023 RBC Ql (U) 10 /ul Negative [facility] Urine clarityOrdered By: Rem us William on 12-28-2023 Clarity (U) Clear Clear [facility] Urine color determinationOrd ered By: Remus Thomas on 12-28-2023 Color (U) Yellow Yellow [facility] Urine glucose detectionOrder ed By: Remus Thomas on 12-28-2023 Glucose Ql (U) Normal mg/dl Normal [facility] Urine leukocyte esterase det ection by dipstickOrdered By: Remus William on 12-28-2023 Leukocyte esterase Test strip Ql (U) 25 /ul Negative [facility] Urine pHOrdered By: Kasey Barboza gur on 12-28-2023 pH (U) 5.0 [pH] 5.0 - 8.0 [facility] Urine sediment bacteria coun t by microscopy (number/high power field)Ordered By: Kasey Thomas on 12-28-2023 Bacteria LM.HPF (Urine sed) [#/Area] 1 /[HPF] None Seen [facility] Urine specific gravity measu rementOrdered By: Remus William on 12-28-2023 Specific gravity (U) [Rel density] 1.020 1.002-1.030 [facility] Urine urobilinogen measureme ntOrdered By: Remus William on 12-28-2023 Urobilinogen Ql (U) 8 mg/dl Normal [facility] Absolute lymphocyte countOrd ered By: Fernie Altamirano on 12-27-2023 Lymphocytes Auto (Unsp spec) [#/Vol] 0.89 10*3/uL 0.83-4.51 [facility] Automated lymphocyte count a s percentage of total leukocytesOrdered By: Fernie Altamirano on 12-27-2023 Lymphocytes/100 WBC Auto (Unsp spec) 7.6 % 19-41 [facility] Basic Metabolic Profile (BMP )on 12-27-2023 BUN/CRE 26.4 RATIO High 10-20 [facility] Comment on above: Performed By: #### L 300.3900, L500.2500, L100.0100 #### [facility] [address] [place], [address] CA,Total 9.7 mg/dL Normal 8.5-10.1 [facility] Comment on above: Performed By: #### L 300.3900, L500.2500, L100.0100 #### [facility] [address] [place], [address] Chloride [Moles/Vol] 105 mmol/L Normal 98-107 [facility] Comment on above: Performed By: #### L 300.3900, L500.2500, L100.0100 #### [facility] [address] [place], [address] CO2 [Moles/Vol] 31.0 mmol/L Normal 21.0-32.0 [facility] Comment on above: Performed By: #### L 300.3900, L500.2500, L100.0100 #### [facility] [address] [place], [address] Creatinine [Mass/Vol] 0.83 mg/dL Normal 0.70-1.30 [facility] Comment on above: Result Comment: The validity of the calculated GFR GFRAA in patients over 70 years has not been determined. Clinical correlation is essential. Performed By: #### L 300.3900, L500.2500, L100.0100 #### [facility] [address] [place], [address] EST GFR - AA 118 mL/min Normal >60 [facility] Comment on above: Result Comment: Afri can Iraqi GFR Calc Performed By: #### L 300.3900, L500.2500, L100.0100 #### [facility] [address] [place], [address] GAP 3 Low 5-15 [facility] Comment on above: Performed By: #### L 300.3900, L500.2500, L100.0100 #### [facility] [address] [place], [address] GFR/1.73 sq M.predicted among non-blacks MDRD (S/P/Bld) [Vol rate/Area] 97 mL/min/{1.73_m2} Normal >60 [facility] Comment on above: Result Comment: Non- GFR Calc Performed By: #### L 300.3900, L500.2500, L100.0100 #### [facility] [address] [place], [address] Glucose [Mass/Vol] 102 mg/dL Normal 74-106 [facility] Comment on above: Result Comment: Fast ing Glucose result from 100 to 125 mg/dL suggests IMPAIRED HOMEOSTASIS per A.D.A. criteria. Performed By: #### L 300.3900, L500.2500, L100.0100 #### [facility] [address] [place], [address] Potassium [Moles/Vol] 4.1 mmol/L Normal 3.5-5.1 [facility] Comment on above: Performed By: #### L 300.3900, L500.2500, L100.0100 #### [facility] [address] [place], [address] Sodium [Moles/Vol] 139 mmol/L Normal 136-145 [facility] Comment on above: Performed By: #### L 300.3900, L500.2500, L100.0100 #### [facility] [address] [place], [address] Urea nitrogen [Mass/Vol] 22 mg/dL High 7-18 [facility] Comment on above: Performed By: #### L 300.3900, L500.2500, L100.0100 #### [facility] [address] [place], [address] Basophil percentageOrdered B y: Fernie Altamirano on 12-27-2023 Basophils/100 WBC (Bld) 0.2 % 0-1 [facility] Chloride [Moles/Vol] 105 mmol/L 98-107 [facility] Eosinophils/100 WBC (Bld) 0.9 % 0-5 [facility] Glucose [Mass/Vol] 102 mg/dL 74-106 [facility] Comment on above: Fasting Glucose resu lt from 100 to 125 mg/dL suggests IMPAIRED HOMEOSTASIS per A.D.A. criteria. Hemoglobin (Bld) [Mass/Vol] 14.9 g/dL 13.0-16.5 [facility] Monocytes/100 WBC (Bld) 5.9 % 0-10 [facility] Neutrophils (Bld) [#/Vol] 10.0 10*3/uL 2.0-7.7 [facility] Neutrophils/100 WBC (Bld) 84.7 % 47-70 [facility] Potassium [Moles/Vol] 4.1 mmol/L 3.5-5.1 [facility] Sodium [Moles/Vol] 139 mmol/L 136-145 [facility] WBC (Bld) [#/Vol] 11.8 10*3/uL 4.4-11.0 [facility] CBC W/Diff, Automatedon 12-03 Absolute Lymph 0.89 X10 3/uL Normal 0.83-4.51 [facility] Comment on above: Performed By: #### L 300.3900, L500.2500, L100.0100 #### [facility] [address] [place], [address] Absolute Neut 10.0 X10 3/uL High 2.0-7.7 [facility] Comment on above: Performed By: #### L 300.3900, L500.2500, L100.0100 #### [facility] [address] [place], [address] Basophils/100 WBC (Bld) 0.2 % Normal 0-1 [facility] Comment on above: Performed By: #### L 300.3900, L500.2500, L100.0100 #### [facility] [address] [place], [address] Eosinophils/100 WBC (Bld) 0.9 % Normal 0-5 [facility] Comment on above: Performed By: #### L 300.3900, L500.2500, L100.0100 #### [facility] [address] [place], [address] Erythrocyte distribution width (RBC) [Ratio] 13.0 % Normal 11.6-14.6 [facility] Comment on above: Performed By: #### L 300.3900, L500.2500, L100.0100 #### [facility] [address] [place], [address] Hematocrit (Bld) [Volume fraction] 46.0 % Normal 40-54 [facility] Comment on above: Performed By: #### L 300.3900, L500.2500, L100.0100 #### [facility] [address] [place], [address] Hemoglobin (Bld) [Mass/Vol] 14.9 g/dL Normal 13.0-16.5 [facility] Comment on above: Performed By: #### L 300.3900, L500.2500, L100.0100 #### [facility] [address] [place], [address] IG% 0.700 Normal 0.0-0.9 [facility] Comment on above: Result Comment: IG% - Immature Granulocytes (promyelocytes, myelocytes and metamyelocytes) > 1% indicates that a LEFT SHIFT is Present. Performed By: #### L 300.3900, L500.2500, L100.0100 #### [facility] [address] [place], [address] Lymphocytes/100 WBC (Bld) 7.6 % Low 19-41 [facility] Comment on above: Performed By: #### L 300.3900, L500.2500, L100.0100 #### [facility] [address] [place], [address] MCH (RBC) [Entitic mass] 28.9 pg Normal 27.0-32.0 [facility] Comment on above: Performed By: #### L 300.3900, L500.2500, L100.0100 #### [facility] [address] [place], [address] MCHC (RBC) [Mass/Vol] 32.4 g/dL Normal 32-36 [facility] Comment on above: Performed By: #### L 300.3900, L500.2500, L100.0100 #### [facility] [address] [place], [address] MCV (RBC) [Entitic vol] 89.3 fL Normal 80-94 [facility] Comment on above: Performed By: #### L 300.3900, L500.2500, L100.0100 #### [facility] [address] [place], [address] Monocytes/100 WBC (Bld) 5.9 % Normal 0-10 [facility] Comment on above: Performed By: #### L 300.3900, L500.2500, L100.0100 #### [facility] [address] [place], [address] Neutrophils/100 WBC (Bld) 84.7 % High 47-70 [facility] Comment on above: Performed By: #### L 300.3900, L500.2500, L100.0100 #### [facility] [address] [place], [address] Nucleated RBC (Bld) [#/Vol] 0 10*3/uL Normal 0-5 [facility] Comment on above: Performed By: #### L 300.3900, L500.2500, L100.0100 #### [facility] [address] [place], [address] Platelet mean volume (Bld) [Entitic vol] 9.0 fL Normal 6.2-12.0 [facility] Comment on above: Performed By: #### L 300.3900, L500.2500, L100.0100 #### [facility] [address] [place], [address] Platelets (Bld) [#/Vol] 263 10*3/uL Normal 150-450 [facility] Comment on above: Performed By: #### L 300.3900, L500.2500, L100.0100 #### [facility] [address] [place], [address] RBC (Bld) [#/Vol] 5.15 10*6/uL Normal 4.6-6.2 [facility] Comment on above: Performed By: #### L 300.3900, L500.2500, L100.0100 #### [facility] [address] [place], [address] RDW SD 42.5 fl Normal 35.1-43.9 [facility] Comment on above: Performed By: #### L 300.3900, L500.2500, L100.0100 #### [facility] [address] [place], [address] WBC (Bld) [#/Vol] 11.8 10*3/uL High 4.4-11.0 [facility] Comment on above: Performed By: #### L 300.3900, L500.2500, L100.0100 #### [facility] [address] [place], [place], [address] Determination of erythrocyte mean corpuscular volume (MCV)Ordered By: Fernie Altamirano on 12-27-2023 MCV (RBC) [Entitic vol] 89.3 fL 80-94 [facility] Erythrocyte distribution wid th ratioOrdered By: [facility] 12-27-2023 Erythrocyte distribution width (RBC) [Ratio] 13.0 % 11.6-14.6 [facility] Erythrocyte distribution wid th standard deviationOrdered By: [facility] on 12-27-2023 Erythrocyte distribution width (RBC) [Entitic vol] 42.5 fL 35.1-43.9 [facility] Hematocrit Auto (Bld) [Volum e fraction]Ordered By: [facility] 12-27-2023 Hematocrit (Bld) [Volume fraction] 46.0 % 40-54 [facility] Immature granulocytes/100 WB C Auto (Bld)Ordered By: [facility] 12-27-2023 Immature granulocytes/100 WBC (Bld) 0.700 % 0.0-0.9 [facility] Comment on above: IG% - Immature Granu locytes (promyelocytes, myelocytes and metamyelocytes) > 1% indicates that a LEFT SHIFT is Present. Laboratory - Chemistry and C hemistry - challengeOrdered By: Fernie Altamirano 12-27-2023 CO2 [Moles/Vol] 31.0 mmol/L 21.0-32.0 [facility] Urea nitrogen/Creatinine [Mass ratio] 26.4 mg/mg 10-20 [facility] Laboratory - CoagulationOrde red By: Fernie Katelyn 12-27-2023 INR Coag (Bld) [Relative time] 0.9 {INR} [facility] PT Coag (PPP) [Time] 12.4 s 11.7-14.9 [facility] Laboratory - Hematology and Cell countsOrdered By: [facility] 12-27-2023 MCH (RBC) [Entitic mass] 28.9 pg 27.0-32.0 [facility] MCHC (RBC) [Mass/Vol] 32.4 g/dL 32-36 [facility] Nucleated RBC/100 WBC (Bld) [Ratio] 0 % 0-5 [facility] Platelet mean volume (Bld) [Entitic vol] 9.0 fL 6.2-12.0 [facility] Platelets (Bld) [#/Vol] 263 10*3/uL 150-450 [facility] No Panel InformationOrdered By: Fernie Altamirano on 12-27-2023 Estimated GFR (MDRD) Amer 118 mL/min >60 [facility] Comment on above: GFR Calc Estimated GFR (MDRD) Non-Af Amer 97 mL/min >60 [facility] Comment on above: Non- GFR Calc Prothrombin Time w/INRon INR Coag (PPP) [Relative time] 0.9 {INR} Normal [facility] Comment on above: Performed By: #### L 300.3900, L500.2500, L100.0100 #### [facility] [address] [place], [address] PT Coag (PPP) [Time] 12.4 s Normal 11.7-14.9 [facility] Comment on above: Performed By: #### L 300.3900, L500.2500, L100.0100 #### [facility] [address] [place], [address] RBC Auto (Bld) [#/Vol]Ordere d By: Fernie Altamirano on 12-27-2023 RBC (Bld) [#/Vol] 5.15 10*6/uL 4.6-6.2 [facility] Serum or plasma calcium shante urement (mass/volume)Ordered By: Fernie Altamirano on 12-27-2023 Calcium [Mass/Vol] 9.7 mg/dL 8.5-10.1 [facility] Serum or plasma creatinine m easurement (mass/volume)Ordered By: Fernie Altamirano on 12-27-2023 Creatinine [Mass/Vol] 0.83 mg/dL 0.70-1.30 [facility] Comment on above: The validity of the calculated GFR & GFRAA in patients over 70 years has not been determined. Clinical correlation is essential. Serum or plasma urea nitroge n measurement (mass/volume)Ordered By: Fernie Altamirano on 12-27-2023 Urea nitrogen [Mass/Vol] 22 mg/dL 7-18 [facility] Thin prep Papanicolaou smear with manual screeningOrdered By: Fernie Altamirano on 12-27-2023 Thin prep Papanicolaou smear with manual screening 3 - [facility] Emergency Department Summary on 12-12-2023 Emergency Department Summary [facility] Medical Records Department [address] [place] [address] Emergency Department Summary 12/12/23 MR#: [id number] Acct: [id number] Name: LORIE OBRIEN Rep #: [id number] : 1955 68 From: Thee Phelan MD PCP: Dr. Fernie Altamirano MD Status:REG ER Location: ED HPI History of Present Illness Chief Complaint: Back Informant: patient and spouse/S.O. Narrative Narrative: Patient presents with right-sided back pain and sciatica. He has been having the symptoms for about 3 and half weeks. Nothing specifically initiated them. 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 But really no big issues. Never had surgeries. He has had no recent trauma. No fevers or chills. No weight loss. He has had some BPH but his urination is unchanged. He has seen his urologist and had minimal elevation of his PSA but is being followed up. He has radiation of pain mostly down the anterior surface of the right thigh and a little bit into the groin. But no weakness. He was actually seen here on about the . An extensive workup including imaging. It showed some nonspecific thickening of some of the bowels but he has no abdominal pain diarrhea issues at all. Patient states he has not gotten a lot of relief. But when I talked to him he was seen here. He was then seen by his primary doctor who placed him on steroids although I do not know what dose. It sounds like he was also on gabapentin and muscle relaxant. He got well enough that the patient started taking long walks in the park up and down hills for the last 10 days after he finished that. But now the last 3 to 4 days it has been getting worse again. He has been referred to pain management but no referral yet to orthopedic or spine surgeon. [facility] Medical History High cholesterol Home Medications pravastatin 40 mg tablet 40 mg PO QHS 04/29/17 [History Last Taken 04/28/17] timolol maleate 0.5 % eye drops 1 drp QHS 04/29/17 [History Last Taken 04/28/17] oxycodone 5 mg tablet 5 mg PO Q8H PRN PRN Pain ##10 04/30/17 [Rx Last Taken Unknown] rivaroxaban 15 mg tablet (Xarelto) 15 mg PO BIDCM #42 tabs 04/30/17 [Rx Last Taken Unknown] rivaroxaban 20 mg tablet (Xarelto) 20 mg PO DAILY ##90 04/30/17 [Rx Last Taken Unknown] hydrocodone-acetamin ophen 5-325mg 5mg-325mg 1 tab PO Q6H PRN PRN Pain 3 days #10 TABLETS 11/22/23 [Rx Last Taken Unknown] oxycodone-acetaminop hen 5 mg-325 mg tablet 1 tab PO Q6H PRN PRN Pain 3 days #12 TABLETS 12/12/23 [Rx Last Taken Unknown] prednisone 20 mg tablet 60 mg (3 x 20 mg) PO DAILY #15 TABLETS 12/12/23 [Rx Last Taken Unknown] Allergy/AdvReac Type Severity Reaction Status Date / Time No Known Allergies Allergy Verified 11/22/23 11:27 Social History Smoking Status: Former smoker EXAM Physical Exam Narrative Exam Narrative: CONSTITUTIONAL: Patient is nontoxic in appearance. The patient looks a bit uncomfortable. He rubs his right thigh. He moves in bed trying to get a good comfortable spot. HEENT: No notable trauma. Mucous membranes moist. No sinus tenderness. No sign of dental infection. EYES: No conjunctival injection. No pallor. NECK: No meningismus. No JVD. CARDIOVASCULAR: Regular rate actually a little on the slow side but asymptomatic. Regular rhythm. No notable murmur. No JVD. RESPIRATORY: No respiratory distress. Breathing is unlabored. No wheezes. No rhonchi. No rales. No pain with a deep breath. GASTROINTESTINAL: Not distended. Bowel sounds are normal. No tenderness. No guarding. No rebound. No palpable mass. No bruit. Absolutely no tenderness or clinical indication of diverticulitis. GENITOURINARY: No tenderness over the bladder or enlarged bladder. No CVA tenderness. I had him strain and there is no indication of hernia. MUSCULOSKELETAL: Atraumatic. No peripheral edema. No cord. No tenderness along the deep venous system. No asymmetry. Distal pulses are intact. Patient does have some tenderness low lumbar on the right and a little bit into the SI joint. But no skin changes. A little bit of sciatic notch tenderness. I get no peripheral weakness though. Quadrant strength heel and toe standing are okay. Patient is sore with some motions though. NEUROLOGICAL: Patient is alert and oriented. No focal deficit noted. Patient can stand on toes and heels and do squats Patellar reflex does seem a little bit reduced on right compared to left. He is about 1 on the right and about 1???2 on the left. Achilles reflex are both 1+ and equal. SKIN: No noted rashes. No diaphoresis. No vesicles noted. No notable pallor. PSYCHIATRIC: Patient is calm. Mood is appropriate. Const Vital Signs: 12/12/23 14:41 Temperature 97.2 F L Temperature Sour (more content not included)... Normal [facility] Basophil percentageOrdered B y: David Gibbs on 11-29-2023 Basophil percentage 7.34 ng/mL 0.0-4.0 [facility] Comment on above: This test was perfor med using the TPSA assay method for theImageTag chemistry system. Values obtained with differentassay methods cannot be used interchangably.When changing PSA assays in the course of monitoring apatient, additional sequential testing should be carriedout to confirm baseline values. PSA,Total- Diagnosticon 11-02 PSA, DIAGNOSTIC 7.34 ng/mL High 0.0-4.0 [facility] Comment on above: Result Comment: This test was performed using the TPSA assay method for the ImageTag chemistry system. Values obtained with different assay methods cannot be used interchangably. When changing PSA assays in the course of monitoring a patient, additional sequential testing should be carried out to confirm baseline values. Performed By: #### L 501.9940 #### [facility] [address] [place], [address] Abdomen/Pelvis W IV Cont ONL Yon 11-22-2023 Abdomen/Pelvis W IV Cont ONLY [facility] Imaging Services [address] [place] [address] Abdomen/Pelvis W IV Cont ONLY MR#: [id number] Acct: [id number] Name: LORIE OBRIEN Rep #: [id number] : 1955 M 68 From: Pretty Cervantes MD PCP: Dr. Fernie Altamirano MD Status: REG ER Study: Abdomen/Pelvis W IV Cont ONLY Date of Exam: Exam# [id number] Ordering Dr: Douglas Shah MD [id number] STUDY: CT ABDOMEN AND PELVIS WITH CONTRAST - URINARY TRACT REASON FOR EXAM: Male, 68 years old. Right lower quadrant pain RADIATION DOSAGE (If Supplied By Facility): CTDIvol = ( 17.05 ) mGy, DLP = ( 917.34 ) mGycm TECHNIQUE: IV 100mL Isovue-370 was administered. Transaxial images were obtained from the dome of the diaphragm to the symphysis pubis subsequent to intravenous contrast administration. Multiplanar coronal and sagittal images were reformatted. Individualized Dose Optimization Techniques Were Used For This CT. COMPARISON: May 17, 2019 FINDINGS: There is a 2.7 mm nodule along the right major fissure.. The visualized portions of the heart are within normal limits. There is decreased attenuation of the liver consistent with steatosis. There is a stable too small to characterize low-attenuation focus within the right hepatic lobe. Normal gallbladder and extrahepatic biliary system. Normal spleen. Normal pancreas. Normal bilateral adrenal glands. Normal visualized stomach. Normal small intestine. There are multiple colonic diverticula consistent with diverticulosis. There is circumferential wall thickening of the proximal and mid sigmoid colon. The appendix is visualized and appears normal. There is diffuse atherosclerotic calcification of the abdominal aorta, without a demonstrated aneurysm. No retroperitoneal adenopathy. There are right renal cysts. Normal left kidney. Normal urinary bladder. There is enlargement of the prostate gland. Normal abdominal wall. There are diffuse degenerative changes of the visualized lumbar spine. There are bilateral L5 pars defects. CT/Abdomen/Pelvis W IV Cont ONLY IMPRESSION: Circumferential wall thickening of the proximal and mid sigmoid colon may be secondary to chronic diverticulitis, cannot exclude a neoplastic process, recommend direct visualization. Fatty infiltration of the liver. Atherosclerosis. Enlarged prostate gland Bilateral L5 pars defects. Degenerative changes of the lumbar spine. Electronically Signed: Pretty Cervantes MD at 13:21 EST , CC: Dr. Douglas Shah MD; Dr. Fernie Altamirano MD [employer]: Signed Normal [facility] Absolute lymphocyte countOrd ered By: Douglas Shah on 11-22-2023 Lymphocytes Auto (Unsp spec) [#/Vol] 0.78 10*3/uL 0.83-4.51 [facility] Automated blood erythrocyte count (number/volume)Ordered By: Douglas Shah on 11-22-2023 RBC (Bld) [#/Vol] 5.23 10*6/uL Normal 4.6-6.2 [facility] Comment on above: Performed By: #### L 506.1000, L501.9520, L100.0100, L500.4050 #### [facility] [address] [place], [place], [id number] Automated blood hematocrit ( percentage)Ordered By: Douglas Shah on 11-22-2023 Hematocrit (Bld) [Volume fraction] 45.4 % Normal 40-54 [facility] Comment on above: Performed By: #### L 506.1000, L501.9520, L100.0100, L500.4050 #### [facility] [address] [place], [address] Automated lymphocyte count a s percentage of total leukocytesOrdered By: oDuglas Shah on 11-22-2023 Lymphocytes/100 WBC Auto (Unsp spec) 16.6 % 19-41 [facility] Basophil percentageOrdered B y: Douglas Shah on 11-22-2023 Bilirubin [Mass/Vol] 1.20 mg/dL High 0.20-1.00 [facility] Comment on above: For patients on eltr ombopag therapy, use of Dimension [place] TBIL is not recommended. Result Comment: For patients on eltrombopag therapy, use of Dimension [place] TBIL is not recommended. Performed By: #### L 506.1000, L501.9520, L100.0100, L500.4050 #### [facility] [address] [place], [address] Chloride [Moles/Vol] 105 mmol/L Normal 98-107 [facility] Comment on above: Performed By: #### L 506.1000, L501.9520, L100.0100, L500.4050 #### [facility] [address] [place], [address] Glucose [Mass/Vol] 102 mg/dL Normal 74-106 [facility] Comment on above: Fasting Glucose resu lt from 100 to 125 mg/dL suggests IMPAIRED HOMEOSTASIS per A.D.A. criteria. Result Comment: Fast ing Glucose result from 100 to 125 mg/dL suggests IMPAIRED HOMEOSTASIS per A.D.A. criteria. Performed By: #### L 506.1000, L501.9520, L100.0100, L500.4050 #### [facility] [address] [place], [address] Potassium [Moles/Vol] 4.2 mmol/L Normal 3.5-5.1 [facility] Comment on above: Slight Hemolysis, Re sult may be falsely increased. Result Comment: Slig ht Hemolysis, Result may be falsely increased. Performed By: #### L 506.1000, L501.9520, L100.0100, L500.4050 #### [facility] [address] [place], [address] Sodium [Moles/Vol] 140 mmol/L Normal 136-145 [facility] Comment on above: Performed By: #### L 506.1000, L501.9520, L100.0100, L500.4050 #### [facility] [address] [place], [address] Basophils/100 WBC (Bld) 0.6 % Normal 0-1 [facility] Comment on above: Performed By: #### L 506.1000, L501.9520, L100.0100, L500.4050 #### [facility] [address] [place], [address] Eosinophils/100 WBC (Bld) 2.3 % Normal 0-5 [facility] Comment on above: Performed By: #### L 506.1000, L501.9520, L100.0100, L500.4050 #### [facility] [address] [place], [address] Hemoglobin (Bld) [Mass/Vol] 14.9 g/dL Normal 13.0-16.5 [facility] Comment on above: Performed By: #### L 506.1000, L501.9520, L100.0100, L500.4050 #### [facility] [address] [place], [address] Monocytes/100 WBC (Bld) 8.7 % Normal 0-10 [facility] Comment on above: Performed By: #### L 506.1000, L501.9520, L100.0100, L500.4050 #### [facility] [address] [place], [address] Neutrophils/100 WBC (Bld) 71.6 % High 47-70 [facility] Comment on above: Performed By: #### L 506.1000, L501.9520, L100.0100, L500.4050 #### [facility] [address] [place], [address] WBC (Bld) [#/Vol] 4.7 10*3/uL Normal 4.4-11.0 [facility] Comment on above: Performed By: #### L 506.1000, L501.9520, L100.0100, L500.4050 #### [facility] [address] [place], [address] Basophil percentage 0-5 SEEN /hpf 0-5 [facility] Neutrophils (Bld) [#/Vol] 3.4 10*3/uL 2.0-7.7 [facility] Protein [Mass/Vol] 6.9 g/dL 6.4-8.2 [facility] Bilirubin Test strip Ql (U)O rdered By: Douglas Shah on 11-22-2023 Bilirubin Ql (U) Negative Negative [facility] CBC W/Diff, Automatedon 11-02 Absolute Lymph 0.78 X10 3/uL Low 0.83-4.51 [facility] Comment on above: Performed By: #### L 506.1000, L501.9520, L100.0100, L500.4050 #### [facility] [address] [place], [address] Absolute Neut 3.4 X10 3/uL Normal 2.0-7.7 [facility] Comment on above: Performed By: #### L 506.1000, L501.9520, L100.0100, L500.4050 #### [facility] [address] [place], [address] IG% 0.200 Normal 0.0-0.9 [facility] Comment on above: Result Comment: IG% - Immature Granulocytes (promyelocytes, myelocytes and metamyelocytes) > 1% indicates that a LEFT SHIFT is Present. Performed By: #### L 506.1000, L501.9520, L100.0100, L500.4050 #### [facility] [address] [place], [address] Lymphocytes/100 WBC (Bld) 16.6 % Low 19-41 [facility] Comment on above: Performed By: #### L 506.1000, L501.9520, L100.0100, L500.4050 #### [facility] [address] [place], [address] Nucleated RBC (Bld) [#/Vol] 0 10*3/uL Normal 0-5 [facility] Comment on above: Performed By: #### L 506.1000, L501.9520, L100.0100, L500.4050 #### [facility] [address] [place], [address] RDW SD 40.1 fl Normal 35.1-43.9 [facility] Comment on above: Performed By: #### L 506.1000, L501.9520, L100.0100, L500.4050 #### [facility] [address] [place], [address] CBC W/Diff, AutomatedOrdered By: Douglas Shah on 11-22-2023 MCH (RBC) [Entitic mass] 28.5 pg Normal 27.0-32.0 [facility] Comment on above: Performed By: #### L 506.1000, L501.9520, L100.0100, L500.4050 #### [facility] [address] [place], [address] MCHC (RBC) [Mass/Vol] 32.8 g/dL Normal 32-36 [facility] Comment on above: Performed By: #### L 506.1000, L501.9520, L100.0100, L500.4050 #### [facility] [address] [place], [address] Platelets (Bld) [#/Vol] 251 10*3/uL Normal 150-450 [facility] Comment on above: Performed By: #### L 506.1000, L501.9520, L100.0100, L500.4050 #### [facility] [address] [place], [address] CNOVon 11-22-2023 CNOV Office Visit (UCWSTR) MELY OBRIEN ([id number]) 1955 M Date Time Provider Department 11/22/23 10:30 AM RUSH CORREA [facility] During your visit today, we recorded the following information about you: Temperature Pulse Respiration Blood pressure 97.7 degrees 70/minute 18/minute 134/92 Weight 88.9 kg Rush Correa MD 11/22/2023 11:09 AM Signed Patient presents with: Low Back Pain: Radiating [...] 02/18/2019 showed multilevel mild to moderate facet arthropathy/hypertro phy most prominent in the low lumbar spine. [...] AT BEDTIME April 29, 2017 Active 04-29-2017 [facility] ([id number]) (Patient not taking: Reported on 11/22/2023) ALLERGIES: [...] follow up with PCP. Report sent to [facility] by ER passport. Rush Correa MD Allergies As of Date: 11/22/2023 (No Known Allergies) Date Reviewed: 11/22/2023 Reviewed by: Anushka Shah MA - Fully Assessed Reason for Visit: Low Back Pain [126] Cmt: Radiating to R leg x5 days Primary Visit Diagnosis:Acute hip pain, right [M25.551] Other Visit Diagnosis:Right lower quadrant abdominal tenderness without rebound tenderness [R10.813] Prescriptions as of 11/22/2023 - timolol hemihydrate (BETIMOL) 0.25 % ophthalmic solution Timolol Timolol 0.5% 1 DROP RIGHT EYE AT BEDTIME April 29, 2017 Active 04-29-2017 [facility] ([id number]) - PRAVASTATIN SODIUM (PRAVASTATIN ORAL) Take by mouth. Problem List As Of Date: 11/22/2023 (None) Encounter Status:Closed by RUSH CORREA on 11/22/23 Normal [facility] Metabolic Prof ilon 11-22-2023 Albumin [Mass/Vol] 3.4 g/dL Normal 3.2-5.0 [facility] Comment on above: Performed By: #### L 506.1000, L501.9520, L100.0100, L500.4050 #### [facility] [address] [place], [address] ALK P 63 U/L Normal 45-117 [facility] Comment on above: Performed By: #### L 506.1000, L501.9520, L100.0100, L500.4050 #### [facility] [address] [place], [address] AST [Catalytic activity/Vol] 17 U/L Normal 15-37 [facility] Comment on above: Result Comment: Slig ht Hemolysis, Result may be falsely increased. Performed By: #### L 506.1000, L501.9520, L100.0100, L500.4050 #### [facility] [address] [place], [address] BUN/CRE 16.9 RATIO Normal 10-20 [facility] Comment on above: Performed By: #### L 506.1000, L501.9520, L100.0100, L500.4050 #### [facility] [address] [place], [address] CA,Total 9.3 mg/dL Normal 8.5-10.1 [facility] Comment on above: Performed By: #### L 506.1000, L501.9520, L100.0100, L500.4050 #### [facility] [address] [place], [address] ECRCL 83.82 ml/min Normal [facility] Comment on above: Performed By: #### L 506.1000, L501.9520, L100.0100, L500.4050 #### [facility] [address] [place], [address] EST GFR - AA 102 mL/min Normal >60 [facility] Comment on above: Result Comment: Afri can Iraqi GFR Calc Performed By: #### L 506.1000, L501.9520, L100.0100, L500.4050 #### [facility] [address] [place], [address] GAP 6 Normal 5-15 [facility] Comment on above: Performed By: #### L 506.1000, L501.9520, L100.0100, L500.4050 #### [facility] [address] [place], [address] GFR/1.73 sq M.predicted among non-blacks MDRD (S/P/Bld) [Vol rate/Area] 84 mL/min/{1.73_m2} Normal >60 [facility] Comment on above: Result Comment: Non- GFR Calc Performed By: #### L 506.1000, L501.9520, L100.0100, L500.4050 #### [facility] [address] [place], [address] T PROT 6.9 g/dL Normal 6.4-8.2 [facility] Comment on above: Performed By: #### L 506.1000, L501.9520, L100.0100, L500.4050 #### [facility] [address] [place], [address] Comprehensive Metabolic Prof ilOrdered By: Douglas Shah on 11-22-2023 Albumin/Globulin [Mass ratio] 1.0 {ratio} Normal 0.9-2.4 [facility] Comment on above: Performed By: #### L 506.1000, L501.9520, L100.0100, L500.4050 #### [facility] [address] [place], [address] ALT [Catalytic activity/Vol] 24 U/L Normal 16-61 [facility] Comment on above: Performed By: #### L 506.1000, L501.9520, L100.0100, L500.4050 #### [facility] [address] [place], [address] CO2 [Moles/Vol] 29.0 mmol/L Normal 21.0-32.0 [facility] Comment on above: Performed By: #### L 506.1000, L501.9520, L100.0100, L500.4050 #### [facility] [address] [place], [address] Globulin (S) [Mass/Vol] 3.5 g/dL Normal 2.2-4.2 [facility] Comment on above: Performed By: #### L 506.1000, L501.9520, L100.0100, L500.4050 #### [facility] [address] [place], [address] Determination of erythrocyte mean corpuscular volume (MCV)Ordered By: Douglas Shah on 11-22-2023 MCV (RBC) [Entitic vol] 86.8 fL Normal 80-94 [facility] Comment on above: Performed By: #### L 506.1000, L501.9520, L100.0100, L500.4050 #### [facility] [address] [place], [address] Emergency Department Summary on 11-22-2023 Emergency Department Summary [facility] Medical Records Department [address] [place] [address] Emergency Department Summary 11/22/23 MR#: [id number] Acct: [id number] Name: OLRIE OBRIEN Rep #: [id number] : 1955 68 From: Douglas Shah MD PCP: Dr. Fernie Altamirano MD Status:REG ER Location: ED HPI History of Present Illness Chief Complaint: Back Informant: patient and spouse/S.O. Narrative Narrative: For the past 4 days or so patient has been having pain in the right flank. He states it started in his right groin and lower quadrant gradually, radiating into his right medial thigh on this tendon right here, hurts more to move it. He then started getting pain into his right low back, it is more into his sacrum and buttock, not higher near the CVA. No urinary symptoms. He states he has had urinary infections and symptoms of an enlarged prostate in the past and has seen urology but nothing in the past month. He was seen at urgent care today and had tenderness in his right lower quadrant and was sent to the emergency department apparently. [facility] Medical History High cholesterol Home Medications pravastatin 40 mg tablet 40 mg PO QHS 04/29/17 [History Last Taken 04/28/17] timolol maleate 0.5 % eye drops 1 drp QHS 04/29/17 [History Last Taken 04/28/17] oxycodone 5 mg tablet 5 mg PO Q8H PRN PRN Pain ##10 04/30/17 [Rx Last Taken Unknown] rivaroxaban 15 mg tablet (Xarelto) 15 mg PO BIDCM #42 tabs 04/30/17 [Rx Last Taken Unknown] rivaroxaban 20 mg tablet (Xarelto) 20 mg PO DAILY ##90 04/30/17 [Rx Last Taken Unknown] hydrocodone-acetamin ophen 5-325mg 5mg-325mg 1 tab PO Q6H PRN PRN Pain 3 days #10 TABLETS 11/22/23 [Rx Last Taken Unknown] Allergy/AdvReac Type Severity Reaction Status Date / Time No Known Allergies Allergy Verified 11/22/23 11:27 Social History Smoking Status: Former smoker ROS ROS ED Constitutional Constitutional ED: Denies chills or fever(s) Eyes Eyes: Denies change in vision or diplopia ENT ENT ED: Denies rhinorrhea or sore throat Cardiovascular Cardiovascular: Denies chest pain, leg edema or palpitations Respiratory/Chest Respiratory/Chest: Denies cough or dyspnea Gastrointestinal Gastrointestinal: Reports abdominal pain; Denies diarrhea, nausea or vomiting Genitourinary Genitourinary ED: Denies dysuria, hematuria or urinary frequency Musculoskeletal Musculoskeletal: Reports back pain and extremity pain; Denies neck pain Integumentary Denies abscess or rash Neurologic Neurologic: Denies headache(s), paresthesias or weakness Psychiatric Psychiatric: Denies suicidal ideation or suicidal thoughts EXAM Physical Exam Const Vital Signs: 11/22/23 11:24 Temperature 96.8 F L Temperature Source Temporal Pulse Rate 61 Respiratory Rate 15 Blood Pressure 120/94 H Blood Pressure Mean 102 Pulse Ox 97 Oxygen Delivery Method Room Air Positive well nourished and well developed General Appearance ED: well developed and NAD HEENT Reports moist mucous membranes normocephalic and atraumatic Eyes PERRL and EOMs intact bilaterally Neck full ROM and supple Resp normal respiratory effort and clear to auscultation bilaterally Cardio regular rate, regular rhythm and no murmurs GI non-distended GI Narrative: Tenderness in the right lower quadrant at McBurney's point and a little distal to that as well. Less tender into the flank, no CVA tenderness. No guarding or rebound tenderness. Negative Rovsing, obturator, psoas signs. However, is moving his right lower extremity around makes his groin and medial proximal thigh hurt more. There is mild tenderness here but no palpable cords and no edema. Auscultation: normoactive bowel sounds Palpation: soft Back/Spine no CVA tenderness Back/Spine Narrative: Negative straight leg raises. General Back: other FROM Extremity normal to inspection General Extremety ED: Negative for edema, pulses abnormal or tenderness General Extremity: Negative for edema or pulses abnormal Neuro oriented x3, CN's II-XII intact bilaterally and no sensory deficits noted Sensorium / Orientation: awake and alert Motor Exam: strength 5/5 throughout Skin no rashes or lesions noted and no wounds MDM MDM MDM Narrative Medical decision making narrative: Patient does not have anorexia or any fevers. This is not a great story for appendicitis but I think a CT is indicated as a retroflexed appendix can sometimes present atypically. These tests were performed, the blood work is unremarkable with a very low white blood count and no shift, CT was performed I reviewed the images and report which I agree with, it shows no evidence of appendicitis. There is some nonspecific t (more content not included)... Normal [facility] Erythrocyte distribution wid th ratioOrdered By: Douglas Shah on 11-22-2023 Erythrocyte distribution width (RBC) [Ratio] 12.8 % Normal 11.6-14.6 [facility] Comment on above: Performed By: #### L 506.1000, L501.9520, L100.0100, L500.4050 #### [facility] [address] [place], [address] Erythrocyte distribution wid th standard deviationOrdered By: Douglas Shah on 11-22-2023 Erythrocyte distribution width (RBC) [Entitic vol] 40.1 fL 35.1-43.9 [facility] Immature granulocytes/100 WB C Auto (Bld)Ordered By: Douglas Shah on 11-22-2023 Immature granulocytes/100 WBC (Bld) 0.200 % 0.0-0.9 [facility] Comment on above: IG% - Immature Granu locytes (promyelocytes, myelocytes and metamyelocytes) > 1% indicates that a LEFT SHIFT is Present. Ketones Test strip Ql (U)Ord ered By: Douglas Shah on 11-22-2023 Ketones Ql (U) Negative Negative [facility] Laboratory - Chemistry and C hemistry - challengeOrdered By: Douglas Shah on 11-22-2023 ALP [Catalytic activity/Vol] 63 U/L 45-117 [facility] Urea nitrogen/Creatinine [Mass ratio] 16.9 mg/mg 10-20 [facility] Laboratory - Hematology and Cell countsOrdered By: Douglas Shah on 11-22-2023 Nucleated RBC/100 WBC (Bld) [Ratio] 0 % 0-5 [facility] Mean platelet volume determi nationOrdered By: Douglas Shah on 11-22-2023 Platelet mean volume (Bld) [Entitic vol] 9.1 fL Normal 6.2-12.0 [facility] Comment on above: Performed By: #### L 506.1000, L501.9520, L100.0100, L500.4050 #### [facility] [address] [place], [place], [id number] Mucus LM Ql (Urine sed)Order ed By: Douglas Shah on 11-22-2023 Mucus Ql (Urine sed) 2+ /hpf [facility] Nitrite Test strip Ql (U)Ord ered By: Douglas Shah on 11-22-2023 Nitrite Ql (U) Negative Negative [facility] No Panel InformationOrdered By: Douglas Shah on 11-22-2023 Estimated Creatinine Clearance Calc 83.82 ml/min [facility] Estimated GFR (MDRD) Amer 102 mL/min >60 [facility] Comment on above: GFR Calc Estimated GFR (MDRD) Non-Af Amer 84 mL/min >60 [facility] Comment on above: Non- GFR Calc Urine RBC 0-5 SEEN /hpf 0-5 [facility] Protein Test strip Ql (U)Ord ered By: Douglas Shah on 11-22-2023 Protein Ql (U) 30 mg/dl Negative [facility] Serum or plasma calcium shante urement (mass/volume)Ordered By: Douglas Shah on 11-22-2023 Calcium [Mass/Vol] 9.3 mg/dL 8.5-10.1 [facility] Serum or plasma creatinine m easurement (mass/volume)Ordered By: Douglas Shah on 11-22-2023 Creatinine [Mass/Vol] 0.94 mg/dL Normal 0.70-1.30 [facility] Comment on above: The validity of the calculated GFR & GFRAA in patients over 70 years has not been determined. Clinical correlation is essential. Result Comment: The validity of the calculated GFR GFRAA in patients over 70 years has not been determined. Clinical correlation is essential. Performed By: #### L 506.1000, L501.9520, L100.0100, L500.4050 #### [facility] [address] [place], [address] Serum or plasma urea nitroge n measurement (mass/volume)Ordered By: Douglas Shah on 11-22-2023 Urea nitrogen [Mass/Vol] 16 mg/dL Normal 7-18 [facility] Comment on above: Performed By: #### L 506.1000, L501.9520, L100.0100, L500.4050 #### [facility] [address] [place], [address] Squamous epithelial cells de tection in urine sediment by light microscopyOrdered By: Douglas Shah on 11-22-2023 Epithelial cells.squamous LM Ql (Urine sed) 0 SEEN /hpf 0-5 [facility] Thin prep Papanicolaou smear with manual screeningOrdered By: Douglas Shah on 11-22-2023 Thin prep Papanicolaou smear with manual screening 3.4 g/dL 3.2-5.0 [facility] Thin prep Papanicolaou smear with manual screening 17 U/L 15-37 [facility] Comment on above: Slight Hemolysis, Re sult may be falsely increased. Thin prep Papanicolaou smear with manual screening 6 5-15 [facility] Urinalysis, Completeon 11-22 BACTERIA 1+ /hpf Normal None Seen [facility] Comment on above: Order Comment: CLEAN CATCH Performed By: #### L [id number] #### [facility] [address] [place], [address] Mucus Ql (Urine sed) 2+ /hpf Normal [facility] Comment on above: Order Comment: CLEAN CATCH Performed By: #### L [id number] #### [facility] [address] [place], [address] RBC 0-5 SEEN Normal 0-5 [facility] Comment on above: Order Comment: CLEAN CATCH Performed By: #### L [id number] #### [facility] [address] [place], [address] WBC 0-5 SEEN Normal 0-5 [facility] Comment on above: Order Comment: CLEAN CATCH Performed By: #### L [id number] #### [facility] [address] [place], [address] EPI,SQUAMOUS 0 SEEN Normal 0-5 [facility] Comment on above: Order Comment: CLEAN CATCH Performed By: #### L [id number] #### [facility] [address] [place], [address] Urine blood detectionOrdered By: Douglas Shah on 11-22-2023 RBC Ql (U) 10 /ul Negative [facility] Urine clarityOrdered By: Roxanne Shah on 11-22-2023 Clarity (U) Sl. Cloudy Clear [facility] Urine color determinationOrd ered By: Douglas Shah on 11-22-2023 Color (U) Yellow Yellow [facility] Urine glucose detectionOrder ed By: Douglas Shah on 11-22-2023 Glucose Ql (U) Normal mg/dl Normal [facility] Urine leukocyte esterase det ection by dipstickOrdered By: Douglas Shah on 11-22-2023 Leukocyte esterase Test strip Ql (U) 25 /ul Negative [facility] Urine pHOrdered By: Douglas Shah on 11-22-2023 pH (U) 5.0 [pH] 5.0 - 8.0 [facility] Urine sediment bacteria coun t by microscopy (number/high power field)Ordered By: Douglas Shah on 11-22-2023 Bacteria LM.HPF (Urine sed) [#/Area] 1 /[HPF] None Seen [facility] Urine specific gravity measu rementOrdered By: Douglas Shah on 11-22-2023 Specific gravity (U) [Rel density] 1.020 1.002-1.030 [facility] Urine urobilinogen measureme ntOrdered By: Douglas Shah on 11-22-2023 Urobilinogen Ql (U) 1 mg/dl Normal [facility] Influenza A+B (Rapid OHLGER)on 08-10-2023 FLU Negative test results should be confirmed with FLU PANEL MOLECULAR if indicated. Influenza A+B (Rapid HOLGER) Normal Reference Range: Negative Nohemi, HOLGER method Influenza Ag, Direct NEGATIVE for Influenza A/B Antigen (See Note) Normal [facility] Comment on above: Performed By: #### L 506.1000, L501.9520, L100.0100, L500.4050 #### [facility] [address] [place], [place], [id number] Laboratory - Microbiology an d Antimicrobial susceptibilityOrdered By: Fernie Altamirano on 08-10-2023 SARS-CoV-2 (COVID-19) RNA VINI+probe Ql (Unsp spec) [facility] SARS-CoV-2 (COVID-19) RNA VINI+probe Ql (Unsp spec) [facility] M100.019on 08-10-2023 M100.019 Negative Normal [facility] Comment on above: Performed By: #### L 506.1000, L501.9520, L100.0100, L500.4050 #### [facility] [address] [place], [place], [id number] No Panel InformationOrdered By: Fernie Altamirano on 08-10-2023 Influenza Types A,B Direct FA (ROMELIA) [facility] Influenza Types A,B Direct FA (ROMELIA) [facility] RSV Ag (Rapid HOLGER)on 023 RSV Ag (HOLGER) Normal Reference Range: Negative Nohemi, HOLGER method RSV Ag NEGATIVE Normal [facility] Comment on above: Performed By: #### L 506.1000, L501.9520, L100.0100, L500.4050 #### [facility] [address] [place], [address] RSV Ag EIAOrdered By: Fernie caldwell on 08-10-2023 RSV Ag Immune stain Ql (Tiss) [facility] RSV Ag Immune stain Ql (Tiss) [facility] Absolute lymphocyte countOrd ered By: Fernie Altamirano on 06-02-2023 Lymphocytes Auto (Unsp spec) [#/Vol] 0.83 10*3/uL 0.83-4.51 [facility] Basophil percentageOrdered B y: Fernie Altamirano on 06-02-2023 Basophils/100 WBC (Bld) 0.7 % 0-1 [facility] Bilirubin [Mass/Vol] 1.10 mg/dL 0.20-1.00 [facility] Comment on above: For patients on eltr ombopag therapy, use of Dimension [place] TBIL is not recommended. Chloride [Moles/Vol] 105 mmol/L 98-107 [facility] Eosinophils/100 WBC (Bld) 2.3 % 0-5 [facility] Glucose [Mass/Vol] 97 mg/dL 74-106 [facility] Neutrophils (Bld) [#/Vol] 3.0 10*3/uL 2.0-7.7 [facility] Neutrophils/100 WBC (Bld) 69.6 % 47-70 [facility] Potassium [Moles/Vol] 4.3 mmol/L 3.5-5.1 [facility] Protein [Mass/Vol] 7.0 g/dL 6.4-8.2 [facility] Sodium [Moles/Vol] 137 mmol/L 136-145 [facility] WBC (Bld) [#/Vol] 4.3 10*3/uL 4.4-11.0 [facility] Blood erythrocytes count (nu mber/volume)Ordered By: Fernie Altamirano on 06-02-2023 RBC (Bld) [#/Vol] 4.92 10*6/uL 4.6-6.2 [facility] Blood hemoglobin measurement (mass/volume)Ordered By: Fernie Altamirano on 06-02-2023 Hemoglobin (Bld) [Mass/Vol] 14.3 g/dL 13.0-16.5 [facility] Blood lymphocytes/100 leukoc ytesOrdered By: Fernie Altamirano on 06-02-2023 Lymphocytes/100 WBC (Bld) 19.5 % 19-41 [facility] Blood monocytes/100 leukocyt esOrdered By: Fernie Altamirano on 06-02-2023 Monocytes/100 WBC (Bld) 7.7 % 0-10 [facility] Blood platelet mean volumeOr dered By: Fernie Altamirano on 06-02-2023 Platelet mean volume (Bld) [Entitic vol] 9.6 fL 6.2-12.0 [facility] Determination of erythrocyte mean corpuscular volume (MCV)Ordered By: Fernie Altamirano on 06-02-2023 MCV (RBC) [Entitic vol] 89.0 fL 80-94 [facility] Hematocrit Auto (Bld) [Volum e fraction]Ordered By: Fernie Altamirano on 06-02-2023 Hematocrit (Bld) [Volume fraction] 43.8 % 40-54 [facility] Laboratory - Chemistry and C hemistry - challengeOrdered By: Fernie Altamirano 06-02-2023 ALP [Catalytic activity/Vol] 60 U/L 45-117 [facility] ALT [Catalytic activity/Vol] 26 U/L 16-61 [facility] CO2 [Moles/Vol] 30.0 mmol/L 21.0-32.0 [facility] Globulin (S) [Mass/Vol] 3.5 g/dL 2.2-4.2 [facility] Urea nitrogen/Creatinine [Mass ratio] 19.0 mg/mg 10-20 [facility] Laboratory - Hematology and Cell countsOrdered By: Fernie Altamirano 06-02-2023 Erythrocyte distribution width (RBC) [Entitic vol] 41.7 fL 35.1-43.9 [facility] Erythrocyte distribution width (RBC) [Ratio] 12.7 % 11.6-14.6 [facility] Immature granulocytes/100 WBC (Bld) 0.200 % 0.0-0.9 [facility] Comment on above: IG% - Immature Granu locytes (promyelocytes, myelocytes and metamyelocytes) > 1% indicates that a LEFT SHIFT is Present. MCH (RBC) [Entitic mass] 29.1 pg 27.0-32.0 [facility] Nucleated RBC/100 WBC (Bld) [Ratio] 0 % 0-5 [facility] MCHC Auto (RBC) [Mass/Vol]Or dered By: Fernie Altamirano on 06-02-2023 MCHC (RBC) [Mass/Vol] 32.6 g/dL 32-36 [facility] No Panel InformationOrdered By: Fernie Altamirano on 06-02-2023 Estimated GFR (MDRD) Amer 109 mL/min >60 [facility] Comment on above: GFR Calc Estimated GFR (MDRD) Non-Af Amer 90 mL/min >60 [facility] Comment on above: Non- GFR Calc Prostate Specific Antigen Screen 4.24 ng/mL 0.00-4.00 [facility] Comment on above: This test was perfor med using the TPSA assay method for [employer] system. Values obtained with differentassay methods cannot be used interchangably.When changing PSA assays in the course of monitoring apatient, additional sequential testing should be carriedout to confirm baseline values. Thyroid Stimulating Hormone (TSH) 0.72 uIU/mL 0.358-3.74 [facility] Vitamin D 25-Hydroxy 34.2 ng/mL [facility] Comment on above: Vitamin D 25(OH) Sta tus Range Deficiency <20 ng/mL (50nmol/L) Insufficiency 20 - 30 ng/mL (50 - 75 nmol/L) Sufficiency 30 - 100 ng/mL (75 - 250 nmol/L) Toxicity >100 ng/mL (>250 nmol/L) Platelets bldOrdered By: Fernie Altamirano on 06-02-2023 Platelets (Bld) [#/Vol] 255 10*3/uL 150-450 [facility] Serum or plasma albumin shante urement (mass/volume)Ordered By: Fernie Altamirano on 06-02-2023 Albumin [Mass/Vol] 3.5 g/dL 3.2-5.0 [facility] Serum or plasma albumin/glob ulin mass ratioOrdered By: Fernie Altamirano on 06-02-2023 Albumin/Globulin [Mass ratio] 1.0 {ratio} 0.9-2.4 [facility] Serum or plasma calcium shante urement (mass/volume)Ordered By: Fernie Altamirano on 06-02-2023 Calcium [Mass/Vol] 9.0 mg/dL 8.5-10.1 [facility] Serum or plasma creatinine m easurement (mass/volume)Ordered By: Fernie Katelyn on 06-02-2023 Creatinine [Mass/Vol] 0.89 mg/dL 0.70-1.30 [facility] Comment on above: The validity of the calculated GFR & GFRAA in patients over 70 years has not been determined. Clinical correlation is essential. Serum or plasma urea nitroge n measurement (mass/volume)Ordered By: Fernie Katelyn on 06-02-2023 Urea nitrogen [Mass/Vol] 17 mg/dL 7-18 [facility] Thin prep Papanicolaou smear with manual screeningOrdered By: Fernie Katelyn on 06-02-2023 Thin prep Papanicolaou smear with manual screening 17 U/L 15-37 [facility] Thin prep Papanicolaou smear with manual screening 2 5-15 [facility] Absolute lymphocyte counton 05-19-2022 Lymphocytes Auto (Unsp spec) [#/Vol] 0.97 10*3/uL 0.83-4.51 [facility] Work Phone: Basophil percentageon 2021 Basophils/100 WBC (Bld) 1.1 % 0-1 [facility] Work Phone: Bilirubin [Mass/Vol] 0.90 mg/dL 0.20-1.00 [facility] Work Phone: Comment on above: For patients on eltr ombopag therapy, use of Dimension [place] TBIL is not recommended. Chloride [Moles/Vol] 106 mmol/L 98-107 [facility] Work Phone: Eosinophils/100 WBC (Bld) 2.7 % 0-5 [facility] Work Phone: Glucose [Mass/Vol] 111 mg/dL 74-106 [facility] Work Phone: Comment on above: Fasting Glucose resu lt from 100 to 125 mg/dL suggests IMPAIRED HOMEOSTASIS per A.D.A. criteria. Neutrophils (Bld) [#/Vol] 2.3 10*3/uL 2.0-7.7 [facility] Work Phone: Neutrophils/100 WBC (Bld) 62.4 % 47-70 [facility] Work Phone: Potassium [Moles/Vol] 3.7 mmol/L 3.5-5.1 [facility] Work Phone: Protein [Mass/Vol] 6.6 g/dL 6.4-8.2 [facility] Work Phone: Sodium [Moles/Vol] 141 mmol/L 136-145 [facility] Work Phone: WBC (Bld) [#/Vol] 3.7 10*3/uL 4.4-11.0 [facility] Work Phone: Blood erythrocytes count (nu mber/volume)on 05-19-2022 RBC (Bld) [#/Vol] 4.85 10*6/uL 4.6-6.2 [facility]: Blood hemoglobin measurement (mass/volume)on 05-19-2022 Hemoglobin (Bld) [Mass/Vol] 14.1 g/dL 13.0-16.5 [facility] Work Phone: Blood lymphocytes/100 leukoc yteson 05-19-2022 Lymphocytes/100 WBC (Bld) 26.4 % 19-41 [facility] Work Phone: Blood monocytes/100 leukocyt eson 05-19-2022 Monocytes/100 WBC (Bld) 7.1 % 0-10 [facility] Work Phone: Blood platelet mean volumeon 05-19-2022 Platelet mean volume (Bld) [Entitic vol] 9.5 fL 6.2-12.0 [facility] Work Phone: Determination of erythrocyte mean corpuscular volume (MCV)on 05-19-2022 MCV (RBC) [Entitic vol] 88.2 fL 80-94 [facility] Work Phone: Hematocrit Auto (Bld) [Volum e fraction]on 05-19-2022 Hematocrit (Bld) [Volume fraction] 42.8 % 40-54 [facility] Work Phone: [phone] Laboratory - Chemistry and C hemistry - challengeon 05-19-2022 ALP [Catalytic activity/Vol] 55 U/L 45-117 [facility] Work Phone: [phone] ALT [Catalytic activity/Vol] 23 U/L 16-61 [facility] Work Phone: [phone] CO2 [Moles/Vol] 30.0 mmol/L 21.0-32.0 [facility] Work Phone: [phone] Globulin (S) [Mass/Vol] 3.3 g/dL 2.2-4.2 [facility] Work Phone: [phone] Urea nitrogen/Creatinine [Mass ratio] 19.6 mg/mg 10-20 [facility] Work Phone: [phone] Laboratory - Hematology and Cell countson 05-19-2022 Erythrocyte distribution width (RBC) [Entitic vol] 41.2 fL 35.1-43.9 [facility] Work Phone: [phone] Erythrocyte distribution width (RBC) [Ratio] 12.6 % 11.6-14.6 [facility] Work Phone: [phone] Immature granulocytes/100 WBC (Bld) 0.300 % 0.0-0.9 [facility] Work Phone: [phone] Comment on above: IG% - Immature Granu locytes (promyelocytes, myelocytes and metamyelocytes) > 1% indicates that a LEFT SHIFT is Present. MCH (RBC) [Entitic mass] 29.1 pg 27.0-32.0 [facility] Work Phone: [phone] Nucleated RBC/100 WBC (Bld) [Ratio] 0 % 0-5 [facility] Work Phone: [phone] MCHC Auto (RBC) [Mass/Vol]on 05-19-2022 MCHC (RBC) [Mass/Vol] 32.9 g/dL 32-36 [facility] Work Phone: [phone] No Panel Informationon 05-19 Estimated GFR (MDRD) Amer 106 mL/min >60 [facility] Work Phone: Comment on above: GFR Calc Estimated GFR (MDRD) Non-Af Amer 87 mL/min >60 [facility] Work Phone: Comment on above: Non- GFR Calc Prostate Specific Antigen Screen 5.05 ng/mL 0.00-4.00 [facility] Work Phone: Comment on above: This test was perfor med using the TPSA assay method for [employer] system. Values obtained with differentassay methods cannot be used interchangably.When changing PSA assays in the course of monitoring apatient, additional sequential testing should be carriedout to confirm baseline values. Thyroid Stimulating Hormone (TSH) 1.05 uIU/mL 0.358-3.74 [facility] Work Phone: Vitamin D 25-Hydroxy 44.4 ng/mL [facility] Work Phone: Comment on above: Vitamin D 25(OH) Sta tus Range Deficiency <20 ng/mL (50nmol/L) Insufficiency 20 - 30 ng/mL (50 - 75 nmol/L) Sufficiency 30 - 100 ng/mL (75 - 250 nmol/L) Toxicity >100 ng/mL (>250 nmol/L) Platelets bldon 05-19-2022 Platelets (Bld) [#/Vol] 239 10*3/uL 150-450 [facility] Work Phone: Serum or plasma albumin shante urement (mass/volume)on 05-19-2022 Albumin [Mass/Vol] 3.3 g/dL 3.2-5.0 [facility] Work Phone: [phone] Serum or plasma albumin/glob ulin mass ratioon 05-19-2022 Albumin/Globulin [Mass ratio] 1.0 {ratio} 0.9-2.4 [facility] Work Phone: [phone] Serum or plasma calcium shante urement (mass/volume)on 05-19-2022 Calcium [Mass/Vol] 8.8 mg/dL 8.5-10.1 [facility] Work Phone: [phone] Serum or plasma creatinine m easurement (mass/volume)on 05-19-2022 Creatinine [Mass/Vol] 0.92 mg/dL 0.70-1.30 [facility] Work Phone: Comment on above: The validity of the calculated GFR & GFRAA in patients over 70 years has not been determined. Clinical correlation is essential. Serum or plasma urea nitroge n measurement (mass/volume)on 05-19-2022 Urea nitrogen [Mass/Vol] 18 mg/dL 7-18 [facility] Work Phone: Thin prep Papanicolaou smear with manual screeningon 05-19-2022 Thin prep Papanicolaou smear with manual screening 14 U/L 15-37 [facility] Work Phone: Thin prep Papanicolaou smear with manual screening 5 5-15 [facility] Work Phone: Vital Signs Date Time Vital Sign Value Performing Clinician Faci lity 01-21-2024 00:42-0400 Body temperature 97.9 [degF] Dr. Fernie Altamirano Work Phone: [facility] 01-21-2024 00:42-0400 Diastolic blood pressure 68 mm[Hg] Dr. Fernie Altamirano Work Phone: [facility] 01-21-2024 00:42-0400 Heart rate 69 /min Dr. Fernie Altamirano Work Phone: [facility] 01-21-2024 00:42-0400 Respiratory rate 16 /min Dr. Fernie Altamirano Work Phone: [facility] 01-21-2024 00:42-0400 SaO2% (BldA) [Mass fraction] 95 % Dr. Fernie Altamirano Work Phone: [facility] 01-21-2024 00:42-0400 Systolic blood pressure 140 mm[Hg] Dr. Fernie Altamirano Work Phone: [facility] 01-20-2024 21:34-0400 Body height 185.[address] Fernie Altamirano Work Phone: [facility] 01-18-2024 20:05-0400 Body temperature 98.3 [degF] Dr. Fernie Altamirano Work Phone: [facility] 01-18-2024 20:05-0400 Diastolic blood pressure 81 mm[Hg] Dr. Fernie Altamirano Work Phone: [facility] 01-18-2024 20:05-0400 Heart rate 57 /min Dr. Fernie Altamirano Work Phone: 0(596)[phone] [place] [address] 01-18-2024 20:05-0400 Respiratory rate 16 /min Dr. Fernie Altamirano Work Phone: 5(306)846-511867 [place] [address] 01-18-2024 20:05-0400 SaO2% (BldA) [Mass fraction] 97 % Dr. Fernie Altamirano Work Phone: 8(677)[phone] [place] [address] 01-18-2024 20:05-0400 Systolic blood pressure 126 mm[Hg] Dr. Fernie Altamirano Work Phone: 4(860)109-330067 [place] [address] 01-18-2024 17:22-0400 Body height 185.[address] Fernie Altamirano Work Phone: 0(028)485-690567 [place] [address] 01-18-2024 17:22-0400 Body mass index (BMI) [Ratio] 25.2 kg/m2 Dr. Fernie Altamirano Work Phone: 6(558)474-175567 [place] [address] 01-18-2024 17:22-0400 Body weight 86.[address] Fernie Altamirano Work Phone: 8(435)634-954267 [place] [address] 12-30-2023 19:10-0500 Body temperature 98.2 [degF] Dr. Fernie Altamirano Work Phone: [facility] 12-30-2023 19:10-0500 Diastolic blood pressure 88 mm[Hg] Dr. Fernie Altamirano Work Phone: 1(209)310-217067 [place] [address] 12-30-2023 19:10-0500 Heart rate 67 /min Dr. Fernie Altamirano Work Phone: 3(143)082-523067 [place] [address] 12-30-2023 19:10-0500 Respiratory rate 18 /min Dr. Fernie Altamirano Work Phone: 8(106)625-387767 [place] [address] 12-30-2023 19:10-0500 SaO2% (BldA) [Mass fraction] 98 % Dr. Fernie Altamirano Work Phone: 7(287)365-705067 [place] [address] 12-30-2023 19:10-0500 Systolic blood pressure 124 mm[Hg] Dr. Fernie Altamirano Work Phone: 3(996)694-114967 [place] [address] 12-30-2023 15:49-0500 Body temperature 98.5 [degF] Dr. Fernie Altamirano Work Phone: 1(326)887-080367 [place] [address] 12-30-2023 15:49-0500 Diastolic blood pressure 87 mm[Hg] Dr. Fernie Altamirano Work Phone: 0(276)988-534013 [place] [address] 12-30-2023 15:49-0500 Heart rate 59 /min Dr. Fernie Altamirano Work Phone: 4(893)823-668813 [place] [address] 12-30-2023 15:49-0500 Respiratory rate 18 /min Dr. Fernie Altamirano Work Phone: 1(909)687-624967 [place] [address] 12-30-2023 15:49-0500 SaO2% (BldA) [Mass fraction] 96 % Dr. Fernie Altamirano Work Phone: 1(499)933-055667 [place] [address] 12-30-2023 15:49-0500 Systolic blood pressure 124 mm[Hg] Dr. Fernie Altamirano Work Phone: 7(501)095-614767 [place] [address] 12-29-2023 10:19-0500 Body height 185.[address] Fernie Altamirano Work Phone: 7(631)346-252867 [place] [address] 12-29-2023 10:19-0500 Body weight 88.[address] Fernie Altamirano Work Phone: 7(651)085-394067 [place] [address] 12-28-2023 17:51-0500 Body mass index (BMI) [Ratio] 25.6 kg/m2 Dr. Fernie Altamirano Work Phone: 9(859)[phone] [place] [address] 12-28-2023 15:18-0500 Heart rate 66 /min Dr. Fernie Altamirano Work Phone: 3(205)758-358967 [place] [address] 12-28-2023 15:18-0500 Respiratory rate 18 /min Dr. Fernie Altamirano Work Phone: [facility] 12-28-2023 15:18-0500 SaO2% (BldA) [Mass fraction] 96 % Dr. Fernie Altamirano Work Phone: [facility] 12-28-2023 15:16-0500 Body temperature 98.2 [degF] Dr. Fernie Altamirano Work Phone: [facility] 12-28-2023 15:16-0500 Diastolic blood pressure 65 mm[Hg] Dr. Fernie Altamirano Work Phone: [facility] 12-28-2023 15:16-0500 Systolic blood pressure 98 mm[Hg] Dr. Fernie Altamirano Work Phone: [facility] 12-28-2023 13:22-0500 Body mass index (BMI) [Ratio] 26.6 kg/m2 Dr. Fernie Altamirano Work Phone: [facility] 12-28-2023 13:22-0500 Body weight 91.[address] Fernie Altamirano Work Phone: [facility] 12-28-2023 13:18-0500 Body height 185.[address] Fernie Altamirano Work Phone: [facility] 12-12-2023 16:07-0500 Heart rate 72 /min [facility] 12-12-2023 16:07-0500 Respiratory rate 16 /min [facility] 12-12-2023 16:07-0500 SaO2% (BldA) [Mass fraction] 97 % [facility] 12-12-2023 14:41-0500 Body height 185.42 cm [facility] 12-12-2023 14:41-0500 Body mass index (BMI) [Ratio] 25.4 kg/m2 [facility] 12-12-2023 14:41-0500 Body temperature 97.2 [degF] [facility] 12-12-2023 14:41-0500 Body weight 87.4 kg [facility] 12-12-2023 14:41-0500 Diastolic blood pressure 85 mm[Hg] [facility] 12-12-2023 14:41-0500 Systolic blood pressure 140 mm[Hg] [facility] 11-22-2023 15:10-0500 Diastolic blood pressure 76 mm[Hg] [facility] 11-22-2023 15:10-0500 Heart rate 71 /min [facility] 11-22-2023 15:10-0500 Respiratory rate 14 /min [facility] 11-22-2023 15:10-0500 SaO2% (BldA) [Mass fraction] 98 % [facility] 11-22-2023 15:10-0500 Systolic blood pressure 118 mm[Hg] [facility] 11-22-2023 11:24-0500 Body height 185.42 cm [facility] 11-22-2023 11:24-0500 Body mass index (BMI) [Ratio] 26.4 kg/m2 [facility] 11-22-2023 11:24-0500 Body temperature 96.8 [degF] [facility] 11-22-2023 11:24-0500 Body weight 90.71 kg [facility] Encounters Encounter Date Encounter Type Care Provider Facility Start: 06-05-2024 End: 06-05-2024 ambulatory Fernie Altamirano Facility:[facility] Start: 05-17-2024 End: 05-17-2024 ambulatory Fernie Altamirano Facility:[facility] Start: 03-09-2024 End: 03-09-[address] Fernie Altamirano Work Phone: [facility] Work Phone: Start: 03-09-2024 End: 03-09-[address] Fernie Altamirano Work Phone: [facility]-Physical Therapy Work Phone: Start: 01-20-2024 End: 01-21-2024 Emergency department patient visit Dr. Fernie Altamirano Work Phone: [facility]-Emergency Department Work Phone: Start: 01-18-2024 End: 01-18-2024 Emergency department patient visit Dr. Fernie Altamirano Work Phone: [facility]-Emergency Department Work Phone: Start: 01-14-2024 Encounter for preprocedural respiratory examination Guillermo Parekh [facility] Start: 01-12-2024 End: 01-12-[address] Fernie Altamirano Work Phone: [facility] Work Phone: Start: 01-12-2024 End: 01-12-[address] Fernie Altamirano Work Phone: [facility]-Laboratory Work Phone: Start: 01-12-2024 End: 01-12-2024 ambulatory Fernie Altamirano Facility:[facility] Start: 01-07-2024 End: 01-07-[address] Fernie Altamirano Work Phone: [facility] Work Phone: Start: 01-07-2024 End: 01-07-[address] Fernie Altamirano Work Phone: [facility]-Radiology, [facility] Work Phone: Start: 01-07-2024 End: 01-07-2024 ambulatory Fernie Altamirano Facility:[facility] Start: 01-05-2024 End: 01-05-[address] Fernie Altamirano Work Phone: [facility] Work Phone: Start: 01-05-2024 End: 01-05-[address] Fernie Altamirano Work Phone: [facility]-Laboratory, [facility] [address] [place] [address] Start: 01-05-2024 End: 01-05-2024 ambulatory Fernie Altamirano Facility:[facility] Start: 01-03-2024 End: 01-03-[address] Fernie Altamirano Work Phone: [facility] Work Phone: Start: 01-03-2024 End: 01-03-[address] Fernie Altamirano Work Phone: [facility]Laboratory Work Phone: Start: 01-03-2024 End: 01-03-2024 ambulatory Fernie Ti Katelyn Facility:[facility] Start: 12-30-2023 Non-patient / Non-visit Dr. Domenic Altamirano Work Phone: [facility] Work Phone: Start: 12-29-2023 Non-patient / Non-visit Dr. Domenic Altamirano Work Phone: [facility] Work Phone: Start: 12-28-2023 ambulatory Fernie Ti Katelyn Facility:[facility] Start: 12-28-2023 End: 12-30-2023 Evaluation and management of inpatient Dr. Fernie Altamirano Work Phone: [facility]-Medical Surgical 3 Work Phone: Start: 12-28-2023 Non-patient / Non-visit Dr. Domenic Altamirano Work Phone: [facility] Work Phone: Start: 12-28-2023 ambulatory Fernie Ti Altamirano Facility:[facility] Start: 12-27-2023 End: 12-27-[address] Fernie Altamirano Work Phone: [facility] Work Phone: Start: 12-27-2023 End: 12-27-[address] Fernie Altamirano Work Phone: [facility]-Laboratory, Phy Office 3rd Flr Start: 12-27-2023 End: 12-27-2023 ambulatory Fernie Chi Katelyn Facility:[facility] Start: 12-12-2023 End: 12-12-2023 Emergency department patient visit [facility]-Emergency Department Work Phone: Start: 11-29-2023 End: 11-29-2023 ambulatory [facility] Work Phone: Start: 11-29-2023 End: 11-29-2023 Patient encounter procedure [facility]Laboratory Work Phone: Start: 11-29-2023 End: 11-29-2023 ambulatory [facility] Facility:[facility] Start: 11-22-2023 End: 11-22-2023 ambulatory [facility] Facility:[facility] Start: 11-22-2023 End: 11-22-2023 Emergency department patient visit [facility]-Emergency Department Work Phone: Start: 08-10-2023 End: 08-10-2023 ambulatory [facility] Work Phone: Start: 08-10-2023 End: 08-10-2023 Patient encounter procedure [facility]-Pulmonary Services/Neurology Work Phone: Start: 08-10-2023 End: 08-10-2023 ambulatory [facility] Facility:[facility] Start: 06-02-2023 End: 06-02-2023 ambulatory [facility] Work Phone: Start: 06-02-2023 End: 06-02-2023 Patient encounter procedure [facility]-Laboratory, Phy Office 3rd Flr Start: 05-19-2022 End: 05-19-2022 Patient encounter procedure [facility]-Laboratory, Phy Office 3rd Flr Procedures Date Procedure Procedure Detail Performing Clinician Start: 01-20-2024 Plain chest X-ray Dr. Fernie Altamirano Work Phone: Start: 01-20-2024 Computerized axial tomography of lumbar spine with contrast Dr. Fernie Altamirano Work Phone: Start: 01-20-2024 Bacteria identified in Blood by Culture Dr. Fernie Altamirano Work Phone: Start: 01-20-2024 SARS-CoV-2, Influenza & RSV (PCR) Dr. Domenic Altamirano Work Phone: Start: 01-20-[address] Fernie Altamirano Work Phone: Start: 01-07-[address] Fernie Altamirano Work Phone: Start: 01-07-2024 Plain chest X-ray Dr. Fernie Altamirano Work Phone: Start: 12-30-[address] Fernie Altamirano Work Phone: Start: 12-28-[address] Fernie Altamirano Work Phone: Start: 12-28-2023 SARS-CoV-2, Influenza & RSV (PCR) Dr. Domenic Altamirano Work Phone: Start: 12-28-[address] Fernie Altamirano Work Phone: Start: 12-28-2023 CT of abdomen and pelvis without contrast Dr. Fernie Altamirano Work Phone: Start: 11-22-2023 Computed tomography of abdomen and pelvis with intravenous contrast Start: 08-10-2023 Coronavirus COVID-19 PCR Start: 08-10-2023 Influenza Types A,B Direct FA (ROMELIA) Start: 08-10-2023 Respiratory syncytial virus antigen assay Plan of Treatment Date Care Activity Detail Author Start: 01-21-2024 [facility] Start: 01-20-2024 End: 01-20-2024 [facility] Start: 01-20-2024 Blood culture [facility] Start: 01-20-2024 Bacteria identified in Blood by Culture Blood Culture [facility] Start: 01-20-2024 Bacteria identified in Urine by Culture [facility] Start: 01-18-2024 [facility] Start: 12-30-2023 Patient discharge [facility] Start: 12-28-2023 Ambulation without limitation [facility] Start: 12-28-2023 Assessment of risk o f venous thromboembolism [facility] Start: 12-28-2023 Insertion of cathete r into peripheral vein [facility] Start: 12-28-2023 Providing care accor ding to standard [facility] Start: 12-28-2023 Following clinical p athway protocol [facility] Start: 12-28-2023 Verification routine [facility] Start: 12-28-[address] [facility] Start: 12-28-2023 Hospital admission, emergency, from emergency room, medical nature [facility] Start: 12-28-2023 Bacteria identified in Urine by Culture [facility] Start: 12-28-2023 End: 12-28-2023 [facility] Start: 12-28-2023 Patient referral to dietitian [facility] Start: 12-12-2023 [facility] Start: 11-23-2023 [facility] Patient Education [facility] Work Phone: Patient referral [facility] Work Phone: Payers Date Payer Category Payer Self-pay [id number] 2021 Unknown [id number] 2019 Medicare [id number] 2013 Unknown [id number] Medicare SELF PAY INSURANCE [id number] Unknown [id number] 2.16.8 [id number] Unknown [id number] 2.16.8 [id number] Unknown [id number] 2.16.8 [id number] Unknown [id number] 2.16.8 [id number] Unknown [id number] 2.16.8 [id number] Unknown [id number] 2.16.8 40.1.106927.3.579.2.462 Unknown [id number] 2.16.8 [id number] Unknown [id number] 2.16.8 40.1.123254.3.579.2.462 Unknown [id number] 2.16.8 40.1.400817.3.579.2.462 Unknown [id number] 2.16.8 40.1.280942.3.579.2.462 Unknown [id number] 2.16.8 [id number] Unknown [id number] 2.16.8 40.1.486866.3.579.2.462 Unknown [id number] 2.16.8 40.1.754315.3.579.2.462 Unknown [id number] 2.16.8 [id number] Unknown [id number] 2.16.8 40.1.741298.3.579.2.462 Unknown [id number] 2.16.8 40.1.306821.3.579.2.462 Unknown [id number] 2.16.8 [id number] Unknown [id number] 2.16.8 [id number] Social History Date Type Detail Facility Start: 04-29-2017 End: 01-20-2024 Tobacco smoking status MOIS Unknown if ever smoked [facility] Start: 04-29-2017 None [facility] Start: 04-29-2017 Spouse/ Signif icant Other [facility] Start: 1955 Sex Assigned At Male W [facility] Goals Date Patient Goal Desired Activity /State Functional Status Date Assessment Result Facility 12-30-2023 Functional status Ambulates [facility] Work Phone: Mental Status Date Assessment Result Facility 01-20-2024 Cognitive function Level Of Cons ciousness Awake;Alert [facility] Work Phone: 12-30-2023 Cognitive function Voice/Name [facility] Work Phone: 12-28-2023 Cognitive function Level Of Cons ciousness Awake;Alert;Appropriate;Follow s Commands [facility] Work Phone: Clinical Notes 11-22-2023 to 03-09-2024 Note Date & Type Note Facility 03-09-2024 Discharge summary Note Date/Time March 09, 2024 1:16pm [facility] Physical Therapy [facility] [address] [place] [address] / REHABILITATION SERVICES DISCHARGE SUMMARY MR#: [id number] Acct: [id number] Name: LORIE OBRIEN Rep #: [id number] : 1955 68 From: Cert. MAYNOR Deleon, OCS Referring Dr.: Dr. Guillermo Parekh DO Status: REG RCR Insurance: MEDICARE PART A B [employer] [facility] Discharge Summary D/C summary: It has been my pleasure to treat LORIE OBRIEN referred by Dr. Guillermo Parekh DO, with the diagnosis of INTERVERTRBRAL DISC DISPLACEMENT ,LUMBAR REGION,SPINAL STENOSIS for a total of 10 visit(s). Discharge Date: 03/09/24 Please see the following information for a summary of their discharge status. Subjective Subjective: Patient return to normal Patient Pain Bilateral Back: Pain Intensity (Out of 10): 0 Overall Improvement % Improvement: 100 Objective Objective/Function: OSTURE: mild forward posture INCISION: well approximate ,crusty dry NEURO: denies paresthesia/tingling reflexes L3-4,L4-5 ,L5-S1 1/3 GAIT: reciprocal pattern MMT: quads/hams 4/5 ,hip flexion 4-/5 ,ankle 4/5 LUMBAR ROM: flexion min loss ,extension mod/severe loss ,side glides min loss FLEXABILITY: hamstrings min loss Goals Goal 1:: I with HEP for lumbar Goal Progress: Goal Met Goal 2:: Patient to improve lumbar ROM for function of recovery to tie shoes Goal Progress: Goal Met Goal 3:: Patient to improve back oswestry score by 5 points to improve QOL and function. Goal Progress: Goal Met Goal 4:: Patient to demonstrate 60% -70% improved function and QOL Goal Progress: Goal Met Goal 5:: Patient to return to prior level of function with housework tasks and hobbies with min to no limiations Goal Progress: Goal Met Plan Plan: D/C TO HEP D/C Information Discharge Comments: HEP d/c sentence: If there are questions or concerns regarding this patient's physical therapy, please feel free to call me at [phone]. Thank you for the referral of thispatient. Sincerely, Miguel Smith, PT, Cert MDT, OCS Balance/Gait/Functional tests Balance/Special Test Scores Oswestry Low Back Score: 1 Improvement % Improvement: 100 <Electronically signed by Miguel Smith PT, Cert. T, OCS> 03/09/24 1524 CC: Dr. Guillermo Parekh DO; Dr. Fernie Altamirano MD ~ JLA Signed [facility] Work Phone: 1(791) 373-722202-29-2024 [facility] Medical Records Department [address] [place] [address] Discharge Summary 12/30/23 1737 MR#: [id number] Acct: [id number] Name: LORIE OBRIEN Rep #: [id number] : 1955 68 From: Meera Plaza DO PCP: Dr. Fernie Altamirano MD Status:ADM IN Location: [place] [address] Providers Date of Admission: 12/28/23 Date of Discharge: 12/30/23 Primary Care Physician: Dr. Fernie Altamirano MD Reason For Visit: ABDOMINAL PAIN, ACUTE DIVERTICULITIS, HYPOTENSION Diagnosis Discharge Diagnosis (1) Chronic back pain: Status: Chronic Code(s): M54.9 - Dorsalgia, unspecified; G89.29 - Other chronic pain (2) Acute diverticulitis: Status: Acute Code(s): K57.92 - Diverticulitis of intestine, part unspecified, without perforation or abscess without bleed ing (3) Acute hypotension: Status: Acute Code(s): I95.9 - Hypotension, unspecified (4) Transaminitis: Status: Acute Code(s): R74.01 - Elevation of levels of liver transaminase levels (5) Hyperbilirubinemia: Status: Acute Code(s): E80.6 - Other disorders of bilirubin metabolism Plan Acute sigmoid diverticulitis -Continue IV antibiotics with Zosyn -Continue clear liquid diet for today -As needed pain medication -Continue IV fluids but decrease rate from 150 cc/h to 75 cc/h Hyperbilirubinemia/transaminitis -Etiology is unclear -No dilated biliary ducts noted on ultrasound -May be related to hypotension and decreased perfusion -Bilirubin and transaminases are trending down -Repeat in a.m. and continue to monitor -If do not further trend down may consider ERCP Hypotension -Resolved -Current blood pressure is 142/58 -Continue to monitor Thrombocytopenia -Platelet count has dropped to 104 -Suspect related to Zosyn -If drop further as will transition from Zosyn to Cipro and Flagyl. -Repeat CBC in a.m. -Could also be dilutional with IV fluids Mild serum creatinine elevation -Has returned to normal Hyperlipidemia -Continue home pravastatin GERD -Continue home PPI Neuropathy -Continue home gabapentin Degenerative disc disease of the lumbar spine -Due to have microdiscectomy done in December 2023 DVT prophylaxis -Continue subcu heparin CODE STATUS -Full code Medications at Discharge Home Medications pravastatin 40 mg tablet 40 mg PO QHS 04/29/17 timolol maleate 0.5 % eye drops 1 drp QHS 04/29/17 gabapentin 300 mg capsule 300 mg PO DAILY 12/28/23 naproxen 500 mg tablet 500 mg PO Q12H 12/28/23 pantoprazole 40 mg tablet,delayed release 40 mg PO DAILY 12/28/23 amoxicillin 875 mg-potassium clavulanate 125 mg tablet 1 tab PO BID #10 tabs 12/30/23 Hospital Course Operations None Procedures - (Right upper quadrant ultrasound/MRCP/CT of the abdomen pelvis) Summary of Care Provided Minutes Spent on Discharge: 40 Hospital Course: Mr. Obrien is a 68-year-old white male who presented to emergency department at [facility] on 12/28/2023 with a chief complaint of abdominal pain, fever, and chills that started the evening prior to presentation. The patient was seen in November with similar complaints and a CT was done at that time that had questionable chronic diverticulitis. Patient denied any hematochezia or melena and had no nausea or vomiting. He has not had any diarrhea. He reported his temperature last evening on presentation was 101. Vital signs emergency department demonstrated he was afebrile with a temperature of 97.6, heart rate 82, blood pressure was 81/62 with repeat at 98/65, heart rate was 82 and oxygen saturation was 95% on room air. His CBC was overtly unremarkable, but he did have a significant left shift with a 94.9% neutrophilia on presentation. His chemistry panel was consistent with some mild dehydration showing a BUN of 25 and a serum creatinine of 1.03 and a baseline of 0.7-0.9. His lactic acid was normal however his liver enzymes were elevated with an AST of 105 and an ALT of 6165 and a total bilirubin of 2.2. His UA was somewhat suggestive of infection overall as he had no white cells and only 1+ bacteria however he was positive for nitrates and leuk esterase. Urine culture was sent and is preliminary positive for Enterococcus however colony counts are less than 1000 which is below infection level. COVID/flu/RSV was normal. CT of the abdomen pelvis showed uncomplicated acute sigmoid diverticulitis and a stable right renal cyst with prostatic enlargement and a right upper quadrant ultrasound was performed due to transaminitis and demonstrated a solitary gallstone measuring 1.7 x 1.4 x 1 cm and right renal cysts. Common bile duct was not dilated. He was admitted to the medical floor and maintained on IV antibiotics with Zosyn. Within 24 hours after admission he was feeling much better. His liver enzymes were trending down and his blood pressure had normalized. Diet was (more content not included)...[facility]02-28-2024 Progress note Author Meera Plaza [facility] December 29, 2023 6:36pm Note Date/Time December 29, 2023 5:01pm [facility] Medical Records Department [address] [place] [address] Progress Note - Hospitalist 12/29/23 1650 MR#: [id number] Acct: [id number] Name: LORIE OBRIEN Rep #:[id number] : 1955 68 From: Meera Plaza DO PCP: Dr. Fernie Altamirano MD Status:ADM I N Location: [place] [address] Reason for Visit Reason for Visit: Abdominal pain/fever/chills Subjective Subjective Mr. Obrien is a 68-year-old white male who presented to emergency department at [facility] on 12/28/2023 with a chief complaint of abdominal pain, fever, and chills that started the evening prior to presentation. The patient was seen in November with similar complaints and a CT was done at that time that had questionable chronic diverticulitis. Patient denied any hematochezia or melena and had no nausea or vomiting. He has not had any diarrhea. He reported his temperature last evening on presentation was 101. Vital signs emergency department demonstrated he was afebrile with a temperatureof 97.6, heart rate 82, blood pressure was 81/62 with repeat at 98/65, heart rate was 82 and oxygen saturation was 95% on room air. His CBC was overtly unremarkable, but he did have a significant left shift with a 94.9% neutrophiliaon presentation. His chemistry panel was consistent with some mild dehydration showing a BUN of 25 and a serum creatinine of 1.03 and a baseline of 0.7-0.9. His lactic acid was normal however his liver enzymes were elevated with an AST of 105 and an ALT of 6165 and a total bilirubin of 2.2. His UA was somewhat suggestive of infection overall as he had no white cells and only 1+ bacteria however he was positive for nitrates and leuk esterase. Urine culture was sent and is preliminary positive for Enterococcus however colony counts are less [id number] which is below infection level. COVID/flu/RSV was normal. CT of the abdomen pelvis showed uncomplicated acute sigmoid diverticulitis and a stable right renal cyst with prostatic enlargement and a right upper quadrant ultrasound was performed due to transaminitis and demonstrated a solitary gallstone measuring 1.7 x 1.4 x 1 cm and right renal cysts. Common bile duct was not dilated. He was admitted to the medical floor and maintained on IV antibiotics with Zosyn. Patient states all of his pain is on the right side of his very lower abdomen and he was afraid he had appendicitis. He is having no abdominal pain today. He states the pain he had yesterday was related to his low back and radiated down to his leg. He is tolerating a diet without any difficulty. Objective Data Objective Data Vital Signs: Vital Signs Temp Pulse Resp BP Pulse Ox O2 Del Method 98.3 F 78 18 142/58 H 97 Room Air 12/29/23 15:00 12/29/23 15:00 12/29/23 15:00 12/29/23 15:00 12/29/23 15:00 12/29/23 15:00 Oxygen Delivery Method Room Air Weight: 88.1 kg Body Mass Index (BMI) 25.6 Intake & Output: Intake and Output for Last 24 Hours 12/27/23 12/28/23 12/29/23 23:59 23:59 23:59 Intake Total 4050.0 / 4050.0 2049 Balance 4050.0 / 4050.0 2049 Lab / Micro Data 12/29/23 05:05 12/29/23 05:05 Labs: Laboratory Results - last 24 hr 12/29/23 05:05: WBC 4.2 L, RBC 4.13 L, Hgb 11.6 L, Hct 37.2 L, MCV 90.1, MCH 28.1, MCHC 31.2 L D, RDW Std Deviation 43.8, RDW Coeff of Anshu 13.2, Plt Count 104 L, MPV 9.3, Immature Gran % (Auto) 0.700, Neut % (Auto) 90.3 H, Lymph % (Auto) 5.0 L, [place] % (Auto) 3.6, Eos % (Auto) 0.2, Baso % (Auto) 0.2, Absolute Neuts (auto) 3.8, Absolute Lymphs (auto) 0.21 L, Nucleated RBC % 0, DifferentialComment SCANNED, Diff Path Review March, Sodium 141, Potassium 4.6, Chloride 112 H, Carbon Dioxide 30.0, Anion Gap -1 L, BUN 15, Creatinine 0.76, Estim CreatClear Calc 98.49, Est GFR (MDRD) Af Amer 130, Est GFR (MDRD) Non-Af 108, BUN/Creatinine Ratio 19.7, Glucose 109 H, Calcium 8.4 L, Total Bilirubin 1.80 H,AST 77 H, ALT 141 H, Alkaline Phosphatase 76, Total Protein 4.8 L, Albumin 2.0 L, Globulin 2.8, Albumin/Globulin Ratio 0.7 L Micro: Microbiology 12/28/23 14:00 Urine, Clean Catch Urine Culture - Preliminary GPC Poss Enterococcus sp 12/28/23 14:02 Mucosa - Nose SARS-CoV-2, Influenza & RSV (PCR) - Final Radiography Diagnostic Testing: Radiology Impression Abdomen Ultrasound 12/28/23 18:02 IMPRESSION: Solitary gallstone measuring 1.7 cm x 1.4 cm x 1 cm. Right renal cysts. Electronically Signed: Jermain Mendoza MD at 15:33 EST , Physical Exam Const alert, oriented x3, no apparent distress, average body habitus, healthy appearing and well nourished Constitutional Narrative: Upper middle-aged white male, sitting up in bed eating dinner, appears well and nontoxic HEENT head/scalp atraumatic and moist oral mucous membranes Head and Scalp: normocephalic Resp normal respiratory effort, no retractions, no use of accessory muscles and clearto auscultation bilaterally Auscultation: Negative for rales, rhonchi or wheezes Cardio regular rate, regular rhythm, S1 normal heart sound, S2 normal heart sound, no murmurs, no rub, no gallops and no clicks GI normal to inspection, nondistended, normoactive bowel sounds, soft to palpation and non-tender Extremity no clubbing, cyanosis or edema Extremity Narrative: Pedal pulses are 2+ Neuro oriented x3, moves all extremities and no focal motor deficits Speech: speech normal Psych affect normal Psych Narrative: Eye contact is good, patient interacts appropriately Assessment & Plan Assessment/Plan (1) Chronic back pain: (2) Acute diverticulitis: (3) Acute hypotension: (4) Transaminitis: (5) Hyperbilirubinemia: PLAN: Plan Acute sigmoid diverticulitis -Continue IV antibiotics with Zosyn -Continue clear liquid diet for today -As needed pain medication -Continue IV fluids but decrease rate from 150 cc/h to 75 cc/h Hyperbilirubinemia/transaminitis -Etiology is unclear -No dilated biliary ducts noted on ultrasound -May be related to hypotension and decreased perfusion -Bilirubin and transaminases are trending down -Repeat in a.m. and continue to monitor -If do not further trend down may consider ERCP Hypotension -Resolved -Current blood pressure is 142/58 -Continue to monitor Thrombocytopenia -Platelet count has dropped to 104 -Suspect related to Zosyn -If drop further as will transition from Zosyn to Cipro and Flagyl. -Repeat CBC in a.m. -Could also be dilutional with IV fluids Mild serum creatinine elevation -Has returned to normal Hyperlipidemia -Continue home pravastatin GERD -Continue home PPI Neuropathy -Continue home gabapentin Degenerative disc disease of the lumbar spine -Due to have microdiscectomy done in December 2023 DVT prophylaxis -Continue subcu heparin CODE STATUS -Full code Charges/Coding Visit Charges Inpatient E&M: 74679 Subs Hosp L2 12/29/23 1836 <Electronically signed by Meera Plaza DO> Cosigner Signature (if applicable): CC: ~ Signed [facility] Work Phone: 1(466) 215-450202-27-2024 History and physical note Author Deacon [facility] December 28, 2023 4:37pm Note Date/Time December 28, 2023 4:37pm [facility] Medical Records Department [address] [place] [id number] H&P Exam - Hospitalist 12/28/23 1629 MR#: [id number] Acct: [id number] Name: LORIE OBRIEN Rep #:[id number] : 1955 68 From: Deacon Ramirez DO PCP: Dr. Fernie Altamirano MD Status:ADM I N [id number]PI - General General Date of Admission: 12/28/23 Date of Service: 12/28/23 Chief Complaint: Mid abdominal pain, fever, chills HPI Narrative LORIE OBRIEN, is a 68 M who presents to the emergency room at [facility] with complaints of fever and chills since last night along with mid to lower/right lower quadrant abdominal pain. Patient had been seen int emergency room in November with complaints of abdominal discomfort, CT done at that time question chronic diverticulitis. Patient denies any blood in his stool, he denies any nausea and vomiting, he denies any diarrhea. Patient states that his urine has looked dark and he question whether there was blood inthe urine. Patient denies any dysuria or urinary frequency. Patient states histemperature at home last night went up to 101. Lab work done in the emergency room revealed a normal white blood cell count, hemoglobin and platelet counts were normal, chemistry profile was remarkable forBUN of 25, liver enzymes were elevated with a total bilirubin of 2.2, AST of 105, ALT of 165, patient's urinalysis showed no red cells, there is 0-5 white cells and +1 bacteria. Nitrites were positive. CT of the abdomen pelvis shows evidence of sigmoid diverticulitis. Patient blood pressure was low in the emergency room, he was given a fluid bolusand IV antibiotics were started for diverticulitis. [facility] Medical History High cholesterol Home Medications pravastatin 40 mg tablet 40 mg PO QHS 04/29/17 [History Last Taken 04/28/17] timolol maleate 0.5 % eye drops 1 drp QHS 04/29/17 [History Last Taken 04/28/17] gabapentin 300 mg capsule 300 mg PO DAILY 12/28/23 [History Last Taken Unknown] naproxen 500 mg tablet 500 mg PO Q12H 12/28/23 [History Last Taken Unknown] pantoprazole 40 mg tablet,delayed release 40 mg PO DAILY 12/28/23 [History Last Taken Unknown] Allergy/AdvReac Type Severity Reaction Status Date / Time No Known Allergies Allergy Verified 12/28/23 13:18 Social History (Updated 12/28/23 @ 13:56 by Nighat Treviño) household members: spouse housing: house Smoking Status: Former smoker ROS Constitutional Constitutional: Reports chills and fever(s); Denies anorexia, change in weight, night sweats or weakness Eyes Eyes: Denies blurry vision, change in vision, discharge from eye(s) or eye pain Cardiovascular Cardiovascular: Denies chest pain, claudication, dyspnea on exertion, edema, lightheadedness or palpitations Respiratory/Chest Respiratory/Chest: Denies cough, dyspnea, excessive phlegm production, hemoptysis, productive cough, shortness of breath at rest or shortness of breathwith exertion Gastrointestinal Gastrointestinal: Reports abdominal pain; Denies coffee ground emesis, constipation, diarrhea, dyspepsia, hematemesis, hematochezia, melena, nausea or vomiting Genitourinary Genitourinary: Denies difficulty urinating, dysuria, hematuria, nocturia, urinary frequency, urinary hesitancy, urinary incontinence or urinary urgency Musculoskeletal Musculoskeletal: Denies back pain, joint pain, joint stiffness, joint swelling, myalgias or neck pain Neurologic Neurologic: Denies abnormal gait, abnormal speech, dizziness, focal weakness, headache(s), loss of vision, numbness, other visual disturbances, paresthesias, syncope or tingling Psychiatric Psychiatric: Denies anxiety, cognitive impairment, depression, irritability, mood swings or suicidal ideation Endocrine Endocrinology: Denies change in body appearance, cold intolerance, excessive sweating, heat intolerance, polydipsia or polyuria Hematologic/Lymphatic Hematologic/Lymphatic: Denies none, anemia, easy bleeding, easy bruising or lymphadenopathy Allergic/Immunologic Allergic/Immunologic: Denies rhinitis, urticaria, eczemia or asthma Vital Signs Vital Signs Vital Signs: 12/28/23 13:18 12/28/23 15:16 12/28/23 15:17 Temperature 97.6 F L 98.2 F Temperature Source Temporal Pulse Rate 82 67 Respiratory Rate 20 H 15 Respiratory Effort Normal Respiratory Pattern Normal Blood Pressure 81/62 L 98/65 Blood Pressure Mean 68 76 Pulse Ox 95 94 Oxygen Delivery Method Room Air 12/28/23 15:18 Temperature Temperature Source Pulse Rate 66 Respiratory Rate 18 Respiratory Effort Respiratory Pattern Blood Pressure Blood Pressure Mean Pulse Ox 96 Oxygen Delivery Method Room Air Weight Weight: 91.6 kg Body Mass Index (BMI) 26.6 Physical Exam Const alert, oriented x3, no apparent distress, average body habitus and healthy appearing General Appearance: cooperative, well kempt and well developed Orientation / Consciousness: awake, oriented to person, oriented to place and oriented to time HEENT normocephalic, head/scalp atraumatic, hearing grossly normal bilaterally and moist oral mucous membranes Eyes PERRL, EOMs intact bilaterally and conjunctivae normal Neck supple, no JVD, thyroid normal and no carotid bruits General: trachea midline Resp normal respiratory effort, no retractions, no use of accessory muscles and clearto auscultation bilaterally Auscultation: Negative for rales, rhonchi or wheezes Cardio regular rate, regular rhythm, S1 normal heart sound, S2 normal heart sound, no murmurs, no rub and no gallops GI GI Narrative: Patient is abdomen is soft, there is tenderness to palpation in the mid lower abdominal area and the right lower quadrant, no rebound abdominal tenderness wasnoted, bowel sounds are present in all 4 quadrants, abdomen is not distended. Extremity no clubbing, cyanosis or edema Skin no rashes or lesions noted General Skin Exam: no breakdown Neuro oriented x3, CN's II-XII intact bilaterally, moves all extremities, no focal motor deficits and no sensory deficits noted Sensorium / Orientation: awake, alert, oriented to person, oriented to place andoriented to time Speech: speech normal Psych affect normal Results Lab / Micro Data 12/28/23 14:00 12/28/23 14:00 Labs: Laboratory Results - last 24 hr 12/28/23 14:00: WBC 8.0, RBC 4.90, Hgb 14.2, Hct 43.2, MCV 88.2, MCH 29.0, MCHC 32.9, RDW Std Deviation 43.0, RDW Coeff of Anshu 13.2, Plt Count 153, MPV 9.2, Immature Gran % (Auto) 0.600, Neut % (Auto) 94.9 H, Lymph % (Auto) 2.5 L, [place] %(Auto) 1.4, Eos % (Auto) 0.3, Baso % (Auto) 0.3, Absolute Neuts (auto) 7.6, Absolute Lymphs (auto) 0.20 L, Nucleated RBC % 0, Sodium 137, Potassium 4.4, Chloride 107, Carbon Dioxide 28.0, Anion Gap 2 L, BUN 25 H, Creatinine 1.03, EstGFR (MDRD) Af Amer 92, Est GFR (MDRD) Non-Af 76, BUN/Creatinine Ratio 24.3 H, Glucose 111 H, Lactic Acid 1.9, Calcium 9.0, Total Bilirubin 2.20 H, AST 105 H, ALT 165 H, Alkaline Phosphatase 83, Total Protein 6.1 L, Albumin 2.5 L, Globulin3.6, Albumin/Globulin Ratio 0.7 L, Urine Color Yellow, Urine Clarity Clear, Urine pH 5.0, Ur Specific [place] 1.020, Urine Protein 30 H, Urine Glucose (UA) Normal, Urine Ketones 5 H, Urine Occult Blood 10 H, Urine Nitrite Positive H, Urine Bilirubin 3 H, Urine Urobilinogen 8 H, Ur Leukocyte Esterase 25 H, Urine RBC 0 SEEN, Urine WBC 0-5 SEEN, Ur Squamous Epith Cells 0 SEEN, Urine Bacteria 1+, Urine Mucus 0 SEEN Micro: Microbiology 12/28/23 14:02 Mucosa - Nose SARS-CoV-2, Influenza & RSV (PCR) - Final Imaging Radiology Impression Abdomen/Pelvis CT 12/28/23 13:51 IMPRESSION: Findings suggestive of a noncomplicated acute sigmoid diverticulitis. Stable right renal cyst. Prostatic enlargement. Electronically Signed: Jermain Mendoza MD at 14:55 EST Reading Location ID and State: [facility] / [place] , Service support , Assessment & Plan Assessment/Plan (1) Acute diverticulitis: PLAN: Plan 1. Acute sigmoid diverticulitis-patient's presentation is odd and that he does not complain of any left lower quadrant abdominal pain, CT scan does show evidence of acute diverticulitis however in the sigmoid area. Patient will be admitted to [facility], he was started on Zosyn, he will receive fluids and be on aclear liquid diet for now. #2 elevated liver enzymes-etiology unclear at this point, patient does not appear to have an obstructive type pattern on his liver enzyme elevation, I haveordered an ultrasound of the right upper quadrant, CMP will be repeated tomorrow. #3 hypotension-etiology unclear, this may be due to dehydration, patient will begiven IV fluids and blood pressure will be monitored #4 degenerative disc disease of the lumbar spine-patient is due to have a microdiscectomy done in December of this year. #5 hyperlipidemia-I doubt that the patient's pravastatin is causing any problemsbut I have elected to hold it for now Total clinical time spent by myself addressing the patient's medical issues, reviewing all of his data, and collaborating with patient's care team: 55 minutes Charges/Coding Visit Charges Inpatient E&M: 72182 Init Hosp L2 12/28/23 1637 <Electronically signed by Deacon Ramirez DO> Cosigner Signature (if applicable): CC: Dr. Deacon Ramirez DO; Dr. Fernie Altamirano MD~ Signed [facility] Work Phone: 1(196) 514-378302-27-2024 Discharge summary Author Kasye Thomas [facility] December 28, 2023 3:49pm Note Date/Time December 28, 2023 1:51pm [facility] Medical Records Department [address] [place] [address] [place] [address] Emergency Department Summary 12/28/23 MR#: [id number] Acct: [id number] Name: LORIE OBRIEN Rep #:[id number] : 1955 68 From: Kasey Thomas DO PCP: Dr. Fernie Altamirano MD Status:ADM I N Location: [place] [address] HPI History of Present Illness Chief Complaint: Complaint Detail of Chief Complaint: Fever and chills and generalized weakness Informant: patient Narrative Narrative: Patient presents the emergency department complaint not feeling well since yesterday afternoon. They were seen in the primary care physician for some preadmission testing and on the way home he started feeling fevered and chilled. He states he had a hard time sleeping last night. He has been complaining of some lightheadedness with standing and walking. He denies cough or sore throat. Patient scheduled to have surgery on his back for herniated disc in January 17. Patient also complaining of some right-sided lower abdomen pain. Patient noticed very dark urine today. [facility] Medical History High cholesterol Home Medications pravastatin 40 mg tablet 40 mg PO QHS 04/29/17 [History Last Taken 04/28/17] timolol maleate 0.5 % eye drops 1 drp QHS 04/29/17 [History Last Taken 04/28/17] gabapentin 300 mg capsule 300 mg PO DAILY 12/28/23 [History Last Taken Unknown] naproxen 500 mg tablet 500 mg PO Q12H 12/28/23 [History Last Taken Unknown] pantoprazole 40 mg tablet,delayed release 40 mg PO DAILY 12/28/23 [History Last Taken Unknown] Allergy/AdvReac Type Severity Reaction Status Date / Time No Known Allergies Allergy Verified 12/28/23 13:18 Social History (Updated 12/28/23 @ 13:56 by Nighat Treviño) household members: spouse housing: house Smoking Status: Former smoker ROS ROS ED Review of Systems ROS Unobtainable: other Constitutional Constitutional ED: Reports chills, fever(s) and lethargy; Denies sweats or weight loss Eyes Eyes: Denies blurry vision, change in vision or diplopia ENT ENT ED: Denies rhinorrhea or sore throat Cardiovascular Cardiovascular: Denies chest pain, orthopnea or racing heartbeat Respiratory/Chest Respiratory/Chest: Denies cough, dyspnea, dyspnea on exertion, orthopnea or sputum Gastrointestinal Gastrointestinal: Denies abdominal pain, diarrhea, nausea or vomiting Genitourinary Genitourinary ED: Reports other Details: Dark urine ; Denies dysuria, hematuria or urinary frequency Musculoskeletal Musculoskeletal: Denies arthralgias, back pain, myalgias or neck pain Integumentary Denies abscess, Abrasions or rash Neurologic Neurologic: Reports weakness; Denies headache(s) Psychiatric Psychiatric: Denies anxiety, depression or suicidal thoughts Endocrine Endocrinology: Denies polydipsia, polyphagia or polyuria Hematologic/Lymphatic Hematologic/Lymphatic: Denies easy bleeding, easy bruising or lymphadenopathy Allergic/Immunologic Allergic/Immunologic ED: Denies mouth swelling, tongue swelling or urticaria EXAM Physical Exam Const Vital Signs: 12/28/23 13:18 12/28/23 15:16 12/28/23 15:17 Temperature 97.6 F L 98.2 F Temperature Source Temporal Pulse Rate 82 67 Respiratory Rate 20 H 15 Respiratory Effort Normal Respiratory Pattern Normal Blood Pressure 81/62 L 98/65 Blood Pressure Mean 68 76 Pulse Ox 95 94 Oxygen Delivery Method Room Air 12/28/23 15:18 Temperature Temperature Source Pulse Rate 66 Respiratory Rate 18 Respiratory Effort Respiratory Pattern Blood Pressure Blood Pressure Mean Pulse Ox 96 Oxygen Delivery Method Room Air Positive well nourished and well developed General Appearance ED: well developed and NAD HEENT Reports TM's clear and moist mucous membranes normocephalic and atraumatic; Negative for trauma or tenderness Tympanic Membrane ED: Yes TM's clear Eyes PERRL and EOMs intact bilaterally General Eye ED: Negative for pale conjunctiva or scleral icterus Neck no lymphadenopathy, supple and no JVD General: Negative for tenderness Chest Wall inspection of chest normal and palpation of chest normal Chest: Negative for tenderness Resp normal respiratory effort and clear to auscultation bilaterally Effort and Inspection: Negative for respiratory distress or pain with movement Auscultation: Negative for rhonchi, wheezes or diminished lung sounds Cardio regular rate, regular rhythm, S1 normal heart sound, S2 normal heart sound and no murmurs Peripheral Pulses: pulses 2+ throughout GI normal to inspection, nondistended, normoactive bowel sounds, soft to palpation,non-distended and no masses GI Narrative: Tender to palpation over right lower quadrant with some guarding. There is no rebound, rigidity, or signs. No mass palpated. Back/Spine no CVA tenderness and no thoracic nor lumbar tenderness Extremity normal to inspection General Extremety ED: Negative for edema General Extremity: Negative for edema Neuro oriented x3, CN's II-XII intact bilaterally, no sensory deficits noted and gait normal Sensorium / Orientation: awake, alert, oriented to person, oriented to place andoriented to time Motor Exam: strength 5/5 throughout and strength abnormal Psych mental status grossly normal Skin no rashes or lesions noted and no wounds MDM MDM MDM Narrative Medical decision making narrative: Patient presents with fever and chills and low blood pressure. Complains of lower abdomen pain. Patient also noted dark urine today. IV line established. CBC with differential obtained showed white count 8.0 with hemoglobin 14 and platelet count 153. Chemistries unremarkable. Lactate was normal at 1.9. Patient did have elevated total bilirubin at 2.2 with AST of 105 and ALT of 165 and a normal alk phos at 83. Urinalysis positive for nitrites and +1 bacteria however only 25 leukocyte esterase and 0-5 WBCs seen. Urine culture sent. CT scan of the abdomen pelvis without contrast showed acute diverticulitis of the sigmoid colon without complication. I did start patient on Cipro and Flagyl. On arrival he had a liter of normal saline ordered and his most recent pressure is 97 systolic. I ordered a second liter of normal saline. Case will be discussed with hospitalist to evaluate patient for admission for acute diverticulitis and hypotension. Patient was given 50 mcg of fentanyl IV for hischronic back pain. Lab Data Attestation: I reviewed the patient's lab results. Labs: Laboratory Results - last 24 hr 12/28/23 14:00 WBC 8.0 RBC 4.90 Hgb 14.2 Hct 43.2 MCV 88.2 MCH 29.0 MCHC 32.9 RDW Std Deviation 43.0 RDW Coeff of Anshu 13.2 Plt Count 153 MPV 9.2 Immature Gran % (Auto) 0.600 Neut % (Auto) 94.9 H Lymph % (Auto) 2.5 L [place] % (Auto) 1.4 Eos % (Auto) 0.3 Baso % (Auto) 0.3 Absolute Neuts (auto) 7.6 Absolute Lymphs (auto) 0.20 L Nucleated RBC % 0 Sodium 137 Potassium 4.4 Chloride 107 Carbon Dioxide 28.0 Anion Gap 2 L BUN 25 H Creatinine 1.03 Est GFR (MDRD) Af Amer 92 Est GFR (MDRD) Non-Af 76 BUN/Creatinine Ratio 24.3 H Glucose 111 H Lactic Acid 1.9 Calcium 9.0 Total Bilirubin 2.20 H AST 105 H ALT 165 H Alkaline Phosphatase 83 Total Protein 6.1 L Albumin 2.5 L Globulin 3.6 Albumin/Globulin Ratio 0.7 L Urine Color Yellow Urine Clarity Clear Urine pH 5.0 Ur Specific [place] 1.020 Urine Protein 30 H Urine Glucose (UA) Normal Urine Ketones 5 H Urine Occult Blood 10 H Urine Nitrite Positive H Urine Bilirubin 3 H Urine Urobilinogen 8 H Ur Leukocyte Esterase 25 H Urine RBC 0 SEEN Urine WBC 0-5 SEEN Ur Squamous Epith Cells 0 SEEN Urine Bacteria 1+ Urine Mucus 0 SEEN Radiography Diagnostic Testing: Clinical Impression(s) from Imaging Studies Abdomen/Pelvis CT 12/28/23 13:51 IMPRESSION: Findings suggestive of a noncomplicated acute sigmoid diverticulitis. Stable right renal cyst. Prostatic enlargement. Electronically Signed: Jermain Mendoza MD at 14:55 EST , Discharge Plan Dx/Rx/DC Orders Clinical Impression: Acute hypotension, Acute diverticulitis, Chronic back pain Disposition Disposition: Acute Care Hospital [facility] What to do if you have Problems For any increased pain, shortness of breath, bleeding, nausea or vomiting, chestpain, or any unexpected problems, contact your Primary Care Provider. Call [facility] ([phone]) or report to the closest Emergency Room. Call 911 if necessary. 12/28/23 4983 <Electronically signed by Kasey Thomas DO> Cosigner Signature (if applicable): CC: Dr. Fernie Altamirano MD ~ Signed [facility] Work Phone: [phone] 881-714202-27-2024 Discharge summary Author Kasey Thomas [facility] December 28, 2023 3:49pm Note Date/Time December 28, 2023 1:51pm [facility] Medical Records Department [address] [place] [address] Emergency Department Summary 12/28/23 MR#: [id number] Acct: [id number] Name: LORIE OBRIEN Rep #:[id number] 6 : 1955 68 From: Kasey Thomas DO PCP: Dr. Fernie Altamirano MD Status:ADM I N Location: [place] [address] HPI History of Present Illness Chief Complaint: Complaint Detail of Chief Complaint: Fever and chills and generalized weakness Informant: patient Narrative Narrative: Patient presents the emergency department complaint not feeling well since yesterday afternoon. They were seen in the primary care physician for some preadmission testing and on the way home he started feeling fevered and chilled. He states he had a hard time sleeping last night. He has been complaining of some lightheadedness with standing and walking. He denies cough or sore throat. Patient scheduled to have surgery on his back for herniated disc in January 17. Patient also complaining of some right-sided lower abdomen pain. Patient noticed very dark urine today. [facility] Medical History High cholesterol Home Medications pravastatin 40 mg tablet 40 mg PO QHS 04/29/17 [History Last Taken 04/28/17] timolol maleate 0.5 % eye drops 1 drp QHS 04/29/17 [History Last Taken 04/28/17] gabapentin 300 mg capsule 300 mg PO DAILY 12/28/23 [History Last Taken Unknown] naproxen 500 mg tablet 500 mg PO Q12H 12/28/23 [History Last Taken Unknown] pantoprazole 40 mg tablet,delayed release 40 mg PO DAILY 12/28/23 [History Last Taken Unknown] Allergy/AdvReac Type Severity Reaction Status Date / Time No Known Allergies Allergy Verified 12/28/23 13:18 Social History (Updated 12/28/23 @ 13:56 by Nighat Treviño) household members: spouse housing: house Smoking Status: Former smoker ROS ROS ED Review of Systems ROS Unobtainable: other Constitutional Constitutional ED: Reports chills, fever(s) and lethargy; Denies sweats or weight loss Eyes Eyes: Denies blurry vision, change in vision or diplopia ENT ENT ED: Denies rhinorrhea or sore throat Cardiovascular Cardiovascular: Denies chest pain, orthopnea or racing heartbeat Respiratory/Chest Respiratory/Chest: Denies cough, dyspnea, dyspnea on exertion, orthopnea or sputum Gastrointestinal Gastrointestinal: Denies abdominal pain, diarrhea, nausea or vomiting Genitourinary Genitourinary ED: Reports other Details: Dark urine ; Denies dysuria, hematuria or urinary frequency Musculoskeletal Musculoskeletal: Denies arthralgias, back pain, myalgias or neck pain Integumentary Denies abscess, Abrasions or rash Neurologic Neurologic: Reports weakness; Denies headache(s) Psychiatric Psychiatric: Denies anxiety, depression or suicidal thoughts Endocrine Endocrinology: Denies polydipsia, polyphagia or polyuria Hematologic/Lymphatic Hematologic/Lymphatic: Denies easy bleeding, easy bruising or lymphadenopathy Allergic/Immunologic Allergic/Immunologic ED: Denies mouth swelling, tongue swelling or urticaria EXAM Physical Exam Const Vital Signs: 12/28/23 13:18 12/28/23 15:16 12/28/23 15:17 Temperature 97.6 F L 98.2 F Temperature Source Temporal Pulse Rate 82 67 Respiratory Rate 20 H 15 Respiratory Effort Normal Respiratory Pattern Normal Blood Pressure 81/62 L 98/65 Blood Pressure Mean 68 76 Pulse Ox 95 94 Oxygen Delivery Method Room Air 12/28/23 15:18 Temperature Temperature Source Pulse Rate 66 Respiratory Rate 18 Respiratory Effort Respiratory Pattern Blood Pressure Blood Pressure Mean Pulse Ox 96 Oxygen Delivery Method Room Air Positive well nourished and well developed General Appearance ED: well developed and NAD HEENT Reports TM's clear and moist mucous membranes normocephalic and atraumatic; Negative for trauma or tenderness Tympanic Membrane ED: Yes TM's clear Eyes PERRL and EOMs intact bilaterally General Eye ED: Negative for pale conjunctiva or scleral icterus Neck no lymphadenopathy, supple and no JVD General: Negative for tenderness Chest Wall inspection of chest normal and palpation of chest normal Chest: Negative for tenderness Resp normal respiratory effort and clear to auscultation bilaterally Effort and Inspection: Negative for respiratory distress or pain with movement Auscultation: Negative for rhonchi, wheezes or diminished lung sounds Cardio regular rate, regular rhythm, S1 normal heart sound, S2 normal heart sound and no murmurs Peripheral Pulses: pulses 2+ throughout GI normal to inspection, nondistended, normoactive bowel sounds, soft to palpation,non-distended and no masses GI Narrative: Tender to palpation over right lower quadrant with some guarding. There is no rebound, rigidity, or signs. No mass palpated. Back/Spine no CVA tenderness and no thoracic nor lumbar tenderness Extremity normal to inspection General Extremety ED: Negative for edema General Extremity: Negative for edema Neuro oriented x3, CN's II-XII intact bilaterally, no sensory deficits noted and gait normal Sensorium / Orientation: awake, alert, oriented to person, oriented to place andoriented to time Motor Exam: strength 5/5 throughout and strength abnormal Psych mental status grossly normal Skin no rashes or lesions noted and no wounds MDM MDM MDM Narrative Medical decision making narrative: Patient presents with fever and chills and low blood pressure. Complains of lower abdomen pain. Patient also noted dark urine today. IV line established. CBC with differential obtained showed white count 8.0 with hemoglobin 14 and platelet count 153. Chemistries unremarkable. Lactate was normal at 1.9. Patient did have elevated total bilirubin at 2.2 with AST of 105 and ALT of 165 and a normal alk phos at 83. Urinalysis positive for nitrites and +1 bacteria however only 25 leukocyte esterase and 0-5 WBCs seen. Urine culture sent. CT scan of the abdomen pelvis without contrast showed acute diverticulitis of the sigmoid colon without complication. I did start patient on Cipro and Flagyl. On arrival he had a liter of normal saline ordered and his most recent pressure is 97 systolic. I ordered a second liter of normal saline. Case will be discussed with hospitalist to evaluate patient for admission for acute diverticulitis and hypotension. Patient was given 50 mcg of fentanyl IV for hischronic back pain. Lab Data Attestation: I reviewed the patient's lab results. Labs: Laboratory Results - last 24 hr 12/28/23 14:00 WBC 8.0 RBC 4.90 Hgb 14.2 Hct 43.2 MCV 88.2 MCH 29.0 MCHC 32.9 RDW Std Deviation 43.0 RDW Coeff of Anshu 13.2 Plt Count 153 MPV 9.2 Immature Gran % (Auto) 0.600 Neut % (Auto) 94.9 H Lymph % (Auto) 2.5 L [place] % (Auto) 1.4 Eos % (Auto) 0.3 Baso % (Auto) 0.3 Absolute Neuts (auto) 7.6 Absolute Lymphs (auto) 0.20 L Nucleated RBC % 0 Sodium 137 Potassium 4.4 Chloride 107 Carbon Dioxide 28.0 Anion Gap 2 L BUN 25 H Creatinine 1.03 Est GFR (MDRD) Af Amer 92 Est GFR (MDRD) Non-Af 76 BUN/Creatinine Ratio 24.3 H Glucose 111 H Lactic Acid 1.9 Calcium 9.0 Total Bilirubin 2.20 H AST 105 H ALT 165 H Alkaline Phosphatase 83 Total Protein 6.1 L Albumin 2.5 L Globulin 3.6 Albumin/Globulin Ratio 0.7 L Urine Color Yellow Urine Clarity Clear Urine pH 5.0 Ur Specific [place] 1.020 Urine Protein 30 H Urine Glucose (UA) Normal Urine Ketones 5 H Urine Occult Blood 10 H Urine Nitrite Positive H Urine Bilirubin 3 H Urine Urobilinogen 8 H Ur Leukocyte Esterase 25 H Urine RBC 0 SEEN Urine WBC 0-5 SEEN Ur Squamous Epith Cells 0 SEEN Urine Bacteria 1+ Urine Mucus 0 SEEN Radiography Diagnostic Testing: Clinical Impression(s) from Imaging Studies Abdomen/Pelvis CT 12/28/23 13:51 IMPRESSION: Findings suggestive of a noncomplicated acute sigmoid diverticulitis. Stable right renal cyst. Prostatic enlargement. Electronically Signed: Jermain Mendoza MD at 14:55 EST , Discharge Plan Dx/Rx/DC Orders Clinical Impression: Acute hypotension, Acute diverticulitis, Chronic back pain Disposition Disposition: Acute Care Hospital [facility] What to do if you have Problems For any increased pain, shortness of breath, bleeding, nausea or vomiting, chestpain, or any unexpected problems, contact your Primary Care Provider. Call [facility] ([phone]) or report to the closest Emergency Room. Call 911 if necessary. 12/28/23 1547 <Electronically signed by Kasey Thomas DO> Cosigner Signature (if applicable): CC: Dr. Fernie Altamirano MD ~ Signed [facility] Work Phone: [phone] 555-252302-11-2024 Discharge summary Author Thee Phelan [facility] December 12, 2023 3:34pm Note Date/Time December 12, 2023 3:33pm [facility] Medical Records Department [address] [place] [address] Emergency Department Summary 12/12/23 MR#: [id number] Acct: [id number] Name: LORIE OBRIEN Rep #:[id number] 6 : 1955 68 From: Thee Phelan MD PCP: Dr. Fernie Altamirano MD Status:REG E R Location: ED HPI History of Present Illness Chief Complaint: Back Informant: patient and spouse/S.O. Narrative Narrative: Patient presents with right-sided back pain and sciatica. He has been having the symptoms for about 3 and half weeks. Nothing specifically initiated them. 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 But really no big issues. Never had surgeries. He has had no recent trauma. No fevers or chills. No weight loss. He has had some BPH but his urination is unchanged. He has seen his urologist and had minimal elevation of his PSA but is being followed up. He has radiationof pain mostly down the anterior surface of the right thigh and a little bit into the groin. But no weakness. He was actually seen here on about the . An extensive workup including imaging. It showed some nonspecific thickening ofsome of the bowels but he has no abdominal pain diarrhea issues at all. Patientstates he has not gotten a lot of relief. But when I talked to him he was seen here. He was then seen by his primary doctor who placed him on steroids although I do not know what dose. It sounds like he was also on gabapentin and muscle relaxant. He got well enough that the patient started taking long walks in the park up and down hills for the last 10 days after he finished that. But now the last 3 to 4 days it has been getting worse again. He has been referred to pain management but no referral yet to orthopedic or spine surgeon. [facility] Medical History High cholesterol Home Medications pravastatin 40 mg tablet 40 mg PO QHS 04/29/17 [History Last Taken 04/28/17] timolol maleate 0.5 % eye drops 1 drp QHS 04/29/17 [History Last Taken 04/28/17] oxycodone 5 mg tablet 5 mg PO Q8H PRN PRN Pain ##10 04/30/17 [Rx Last Taken Unknown] rivaroxaban 15 mg tablet (Xarelto) 15 mg PO BIDCM #42 tabs 04/30/17 [Rx Last Taken Unknown] rivaroxaban 20 mg tablet (Xarelto) 20 mg PO DAILY ##90 04/30/17 [Rx Last Taken Unknown] hydrocodone-acetaminophen 5-325mg 5mg-325mg 1 tab PO Q6H PRN PRN Pain 3 days #10TABLETS 11/22/23 [Rx Last Taken Unknown] oxycodone-acetaminophen 5 mg-325 mg tablet 1 tab PO Q6H PRN PRN Pain 3 days #12 TABLETS 12/12/23 [Rx Last Taken Unknown] prednisone 20 mg tablet 60 mg (3 x 20 mg) PO DAILY #15 TABLETS 12/12/23 [Rx Last Taken Unknown] Allergy/AdvReac Type Severity Reaction Status Date / Time No Known Allergies Allergy Verified 11/22/23 11:27 Social History Smoking Status: Former smoker EXAM Physical Exam Narrative Exam Narrative: CONSTITUTIONAL: Patient is nontoxic in appearance. The patient looks a bit uncomfortable. He rubs his right thigh. He moves in bed trying to get a good comfortable spot. HEENT: No notable trauma. Mucous membranes moist. No sinus tenderness. No sign of dental infection. EYES: No conjunctival injection. No pallor. NECK: No meningismus. No JVD. CARDIOVASCULAR: Regular rate actually a little on the slow side but asymptomatic. Regular rhythm. No notable murmur. No JVD. RESPIRATORY: No respiratory distress. Breathing is unlabored. No wheezes. No rhonchi. No rales. No pain with a deep breath. GASTROINTESTINAL: Not distended. Bowel sounds are normal. No tenderness. No guarding. No rebound. No palpable mass. No bruit. Absolutely no tenderness or clinical indication of diverticulitis. GENITOURINARY: No tenderness over the bladder or enlarged bladder. No CVA tenderness. I had him strain and there is no indication of hernia. MUSCULOSKELETAL: Atraumatic. No peripheral edema. No cord. No tenderness along the deep venous system. No asymmetry. Distal pulses are intact. Patient does have some tenderness low lumbar on the right and a little bit into the SI joint. But no skin changes. A little bit of sciatic notch tenderness. I get no peripheral weakness though. Quadrant strength heel and toe standing are okay. Patient is sore with some motions though. NEUROLOGICAL: Patient is alert and oriented. No focal deficit noted. Patient can stand on toes and heels and do squats Patellar reflex does seem a little bit reduced on right compared to left. He isabout 1 on the right and about 1?2 on the left. Achilles reflex are both 1+ and equal. SKIN: No noted rashes. No diaphoresis. No vesicles noted. No notable pallor. PSYCHIATRIC: Patient is calm. Mood is appropriate. Const Vital Signs: 12/12/23 14:41 Temperature 97.2 F L Temperature Source Temporal Pulse Rate 56 L Respiratory Rate 16 Blood Pressure 140/85 H Blood Pressure Mean 103 Pulse Ox 94 Oxygen Delivery Method Room Air MDM MDM MDM Narrative Medical decision making narrative: This patient has been having 3 or so weeks of pain. He has no history indicative of significant cord compression or exam findings. He does have a little bit of reflex change. I do not know if this is new though. But it is concerning. But without weakness bowel bladder dysfunction or numbness I do notthink this necessitates an acute MRI. I will start him on a course of steroids because he got benefit a few weeks ago when he took these. But I do not even know the dose that he was on. I will give him meds for pain and meds here. I have encouraged him to follow-up with orthopedic spine. His doctor has him referred to pain management but this is still a relatively acute/subacute issue and I think would be best if we can just manage and get him better. He may benefit from physical therapy. It is possible he may even get surgery for this. But I think a spine surgeon evaluation is very appropriate. This patient's symptoms seem to match about an L3-4 distribution. But there is no bowel or bladder dysfunction or numbness. Discharge Plan Triage Chief Complaint: Back ED Provider: Thee Phelan Dx/Rx/DC Orders Clinical Impression: Acute lumbar radiculopathy, Lower back pain Instructions: ED Back Pain (Acute or Chronic) Prescriptions: New oxycodone-acetaminophen [oxycodone-acetaminophen] 5-325 mg tablet 1 tab PO Q6H PRN PRN (Reason: Pain) 3 Days Qty: 12 0RF prednisone 20 mg tablet 60 mg PO DAILY Qty: 15 0RF No Action pravastatin 40 MG tablet 40 mg PO QHS Patient Comments: CHOLESTEROL timolol maleate 1 DROP drops 1 drp Right Eye QHS Patient Comments: EYE PRESSURE rivaroxaban [Xarelto] 15 MG tablet 15 mg PO BIDCM Qty: 42 0RF rivaroxaban [Xarelto] 20 MG tablet 20 mg PO DAILY Qty: 90 0RF oxycodone 5 MG tablet 5 mg PO Q8H PRN PRN (Reason: Pain) Qty: 10 0RF hydrocodone-acetaminophen [hydrocodone-acetaminophen] 5-325 mg tablet 1 tab PO Q6H PRN PRN (Reason: Pain) 3 Days Qty: 10 0RF Primary Care Provider: Fernie Altamirano Chi Referrals: Guillermo Parekh DO [Med Staff - Active Staff] - As soon as possible Fernie Altamirano Chi, MD [Primary Care Provider] - Disposition Disposition: Home, Self Care What to do if you have Problems For any increased pain, shortness of breath, bleeding, nausea or vomiting, chestpain, or any unexpected problems, contact your Primary Care Provider. Call [facility] ([phone]) or report to the closest Emergency Room. Call 911 if necessary. 12/12/23 1534 <Electronically signed by Thee Phelan MD> Cosigner Signature (if applicable): CC: Dr. Fernie Altamirano MD ~ Signed [facility] Work Phone: 1(914) 139-452601-22-2024 NoteHNO ID: [id number] Author: RUSH CORREA MD Service: ? Author Type: Physician [...] AT BEDTIME April 29, 2017 Active 04-29-2017 [facility] ([id number]) (Patient not taking: Reported on 11/22/2023) ALLERGIES: [...] follow up with PCP. Report sent to [facility] by ER passport. Rush Correa, [facility] summary Author Meera Plaza [facility] December 30, 2023 5:47pm Note Date/Time December 30, 2023 5:38pm [facility] Medical Records Department [address] [place] [address] Discharge Summary 12/30/23 1737 MR#: [id number] Acct: [id number] Name: LORIE OBRIEN Rep #:[id number] : 1955 68 From: Meera Plaza DO PCP: Dr. Fernie Altamirano MD Status:ADM I N Location: [place] [address] Providers Date of Admission: 12/28/23 Date of Discharge: 12/30/23 Primary Care Physician: Dr. Fernie Altamirano MD Reason For Visit: ABDOMINAL PAIN, ACUTE DIVERTICULITIS, HYPOTENSION Diagnosis Discharge Diagnosis (1) Chronic back pain: Status: Chronic Code(s): M54.9 - Dorsalgia, unspecified; G89.29 - Other chronic pain (2) Acute diverticulitis: Status: Acute Code(s): K57.92 - Diverticulitis of intestine, part unspecified, without perforation or abscess without bleeding (3) Acute hypotension: Status: Acute Code(s): I95.9 - Hypotension, unspecified (4) Transaminitis: Status: Acute Code(s): R74.01 - Elevation of levels of liver transaminase levels (5) Hyperbilirubinemia: Status: Acute Code(s): E80.6 - Other disorders of bilirubin metabolism Plan Acute sigmoid diverticulitis -Continue IV antibiotics with Zosyn -Continue clear liquid diet for today -As needed pain medication -Continue IV fluids but decrease rate from 150 cc/h to 75 cc/h Hyperbilirubinemia/transaminitis -Etiology is unclear -No dilated biliary ducts noted on ultrasound -May be related to hypotension and decreased perfusion -Bilirubin and transaminases are trending down -Repeat in a.m. and continue to monitor -If do not further trend down may consider ERCP Hypotension -Resolved -Current blood pressure is 142/58 -Continue to monitor Thrombocytopenia -Platelet count has dropped to 104 -Suspect related to Zosyn -If drop further as will transition from Zosyn to Cipro and Flagyl. -Repeat CBC in a.m. -Could also be dilutional with IV fluids Mild serum creatinine elevation -Has returned to normal Hyperlipidemia -Continue home pravastatin GERD -Continue home PPI Neuropathy -Continue home gabapentin Degenerative disc disease of the lumbar spine -Due to have microdiscectomy done in December 2023 DVT prophylaxis -Continue subcu heparin CODE STATUS -Full code Medications at Discharge Home Medications pravastatin 40 mg tablet 40 mg PO QHS 04/29/17 timolol maleate 0.5 % eye drops 1 drp QHS 04/29/17 gabapentin 300 mg capsule 300 mg PO DAILY 12/28/23 naproxen 500 mg tablet 500 mg PO Q12H 12/28/23 pantoprazole 40 mg tablet,delayed release 40 mg PO DAILY 12/28/23 amoxicillin 875 mg-potassium clavulanate 125 mg tablet 1 tab PO BID #10 tabs 12/30/23 Hospital Course Operations None Procedures - (Right upper quadrant ultrasound/MRCP/CT of the abdomen pelvis) Summary of Care Provided Minutes Spent on Discharge: 40 Hospital Course: Mr. Obrien is a 68-year-old white male who presented to emergency department at [facility] on 12/28/2023 with a chief complaint of abdominal pain, fever, and chills that started the evening prior to presentation. The patient was seen in November with similar complaints and a CT was done at that time that had questionable chronic diverticulitis. Patient denied any hematochezia or melena and had no nausea or vomiting. He has not had any diarrhea. He reported his temperature last evening on presentation was 101. Vital signs emergency department demonstrated he was afebrile with a temperature of 97.6, heart rate 82, blood pressure was 81/62 with repeat at 98/65, heart rate was 82 and oxygen saturation was 95% on room air. His CBC was overtly unremarkable, but he did have a significant left shift with a 94.9% neutrophiliaon presentation. His chemistry panel was consistent with some mild dehydration showing a BUN of 25 and a serum creatinine of 1.03 and a baseline of 0.7-0.9. His lactic acid was normal however his liver enzymes were elevated with an AST of 105 and an ALT of 6165 and a total bilirubin of 2.2. His UA was somewhat suggestive of infection overall as he had no white cells and only 1+ bacteria however he was positive for nitrates and leuk esterase. Urine culture was sent and is preliminary positive for Enterococcus however colony counts are less [id number] which is below infection level. COVID/flu/RSV was normal. CT of the abdomen pelvis showed uncomplicated acute sigmoid diverticulitis and a stable right renal cyst with prostatic enlargement and a right upper quadrant ultrasound was performed due to transaminitis and demonstrated a solitary gallstone measuring 1.7 x 1.4 x 1 cm and right renal cysts. Common bile duct was not dilated. He was admitted to the medical floor and maintained on IV antibiotics with Zosyn. Within 24 hours after admission he was feeling much better. His liver enzymes were trending down and his blood pressure had normalized. Diet was started and he was monitored for tolerance. I discussed with him the probability of discharge on as long as his liver enzymes trended down. He continued to feel well however his liver enzymes trended slightly back up but his bilirubin normalized. Given this I obtained an MRCP and it was found to be unremarkable. He incidentally was found to have a right renal cyst that was appeared to be noncomplex and should not need extensive follow-up. I have asked him to get a repeat hepatic panel in another week to 2 to ensure normalization and we will hold his atorvastatin until that time and hewas told to hold until he discusses further with his primary care physician. Lissa should receive a repeat CBC as he did have some thrombocytopenia however I suspect this is likely related to his Zosyn as it was normal on presentation. The MRCP did note diverticulosis but no diverticulitis at this time so he appears to be clinically improving. Given no findings of diverticulitis on the MRI I will discharge him home with 5 more days of Augmentin to complete his treatment and have asked him to follow-up with his primary care physician in 1-2weeks. His prescription was sent to his local pharmacy and the patient was discharged in stable condition on 12/30/2023. Discharge diagnoses: Sigmoid diverticulitis-resolving Hyperbilirubinemia-resolved Transaminitis Bilateral renal cysts Hypotension-resolved Thrombocytopenia-stable Leukopenia-suspect antibiotic induced Mild serum creatinine elevation-resolved Hyperlipidemia GERD Neuropathy Degenerative disc disease of the lumbar spine-microdiscectomy to be done in December 2023 Physical Exam Const alert, oriented x3, no apparent distress, average body habitus, no limitations, healthy appearing and well nourished Constitutional Narrative: Upper middle-aged white male, sitting up in bed watching television, at bedside, appears well and nontoxic General Appearance: cooperative, comfortable, well kempt and well developed Orientation / Consciousness: awake, oriented to person, oriented to place and oriented to time Exam Limitations: no limitations HEENT normocephalic, head/scalp atraumatic, hearing grossly normal bilaterally and moist oral mucous membranes HEENT Narrative: Mallampati 2, no thrush Eyes PERRL, EOMs intact bilaterally and conjunctivae normal Eyes Narrative: No scleral icterus Neck no lymphadenopathy and supple Neck Narrative: Trachea midline, no thyroid enlargement Resp normal respiratory effort, no retractions, no use of accessory muscles and clearto auscultation bilaterally Auscultation: Negative for rales, rhonchi or wheezes Cardio regular rate, regular rhythm, S1 normal heart sound, S2 normal heart sound, no murmurs, no rub, no gallops and no clicks GI normal to inspection, nondistended, normoactive bowel sounds, soft to palpation and non-tender Extremity no clubbing, cyanosis or edema Extremity Narrative: Pedal pulses are 2+ Skin no rashes or lesions noted, no wounds, skin turgor normal and no jaundice Neuro oriented x3, moves all extremities and no focal motor deficits Speech: speech normal Psych affect normal Psych Narrative: Eye contact is good, patient interacts appropriately Weight / BMI Weight Weight: 88.1 kg Body Mass Index (BMI) 25.6 ABG / Lab / Microbiology Data 12/30/23 07:51 12/30/23 07:51 Laboratory: Laboratory Results - last 24 hr 12/30/23 07:51: WBC 2.7 L, RBC 4.37 L, Hgb 12.5 L, Hct 39.2 L, MCV 89.7, MCH 28.6, MCHC 31.9 L, RDW Std Deviation 43.8, RDW Coeff of Anshu 13.2, Plt Count 102 L, MPV 9.4, Immature Gran % (Auto) 0.700, Neut % (Auto) 81.6 H, Lymph % (Auto) 10.9 L, [place] % (Auto) 6.0, Eos % (Auto) 0.4, Baso % (Auto) 0.4, Absolute Neuts (auto) 2.2, Absolute Lymphs (auto) 0.29 L, Nucleated RBC % 0, Differential Comment SCANNED, Diff Path Review May foll, Sodium 140, Potassium 4.0, Chloride 110 H, Carbon Dioxide 29.0, Anion Gap 1 L, BUN 11, Creatinine 0.78, Estim Creat Clear Calc 98.49, Est GFR (MDRD) Af Amer 128, Est GFR (MDRD) Non-Af 105, BUN/Creatinine Ratio 14.2, Glucose 111 H, Calcium 9.0, Phosphorus 3.2, Magnesium2.2, Total Bilirubin 0.90, AST 100 H, ALT 171 H, Alkaline Phosphatase 194 H, Total Protein 5.8 L, Albumin 2.2 L, Globulin 3.6, Albumin/Globulin Ratio 0.6 L Microbiology: Microbiology 12/28/23 14:00 Urine, Clean Catch Urine Culture - Final GPC Poss Enterococcus sp 12/28/23 14:02 Mucosa - Nose SARS-CoV-2, Influenza & RSV (PCR) - Final Radiography Diagnostic Testing: Radiology Impression MRCP 12/30/23 09:18 IMPRESSION: Cholelithiasis. Renal cysts. Diverticulosis of the colon. Electronically Signed: Tl Baeza DO at 17:26 EST Reading Location ID and State: [address] [place] [address] Tel [phone], Service support , Meaningful Use Info Meaningful Use Diagnoses (Choose all that apply): None applicable Discharge Plan Admission Admit Date/Time: 12/28/23 16:47 Primary Reason for Your Visit: Abdominal pain Attending Provider: Meera Plaza Primary Care Provider: Fernei Altamirano Chi Consulting Providers: Deacon Ramirez Additional Instructions / Restrictions: 1. Please call your primary care physician and request that a hepatic panel be performed in 1 to 2 weeks to reassess your liver function. Extensive workup here for obstruction was unremarkable and we want to be sure that those trend back down to normal. 2. Please hold your statin (atorvastatin) until instructed to restart it by your primary care physician since your liver enzymes are currently elevated Discharge Orders/Prescriptions Prescriptions: New amoxicillin-pot clavulanate 875-125 mg tablet 1 tab PO BID Qty: 10 0RF Continued timolol maleate 1 DROP drops 1 drp Right Eye QHS Patient Comments: EYE PRESSURE naproxen 500 mg tablet 500 mg PO Q12H Patient Comments: TAKE 1 TAB BY MOUTH TWICE A DAY NEEDED WITH FOOD gabapentin 300 mg capsule 300 mg PO DAILY Patient Comments: TAKE 1 CAPSULE BY MOUTH EVERYDAY AT BEDTIME pantoprazole 40 mg tablet,delayed release (DR/EC) 40 mg PO DAILY Patient Comments: TAKE 1 TABLET BY MOUTH EVERY DAY Held pravastatin 40 MG tablet 40 mg PO QHS Hold Instructions: Until after you get your liver functions rechecked Patient Comments: CHOLESTEROL Referrals / Follow Up: Fernie Altamirano Chi, MD [Primary Care Provider] - Within 2 Weeks Disposition Disposition (needs filled in before D/C Order can be placed): Home, Self Care Charges/Coding Visit Charges Inpatient E&M: 60067 Disch Hosp >30min 12/30/23 1747 <Electronically signed by Meera Plaza DO> Cosigner Signature (if applicable): CC: Dr. Meera Plaza DO; Dr. Fernie Altamirano MD~ Signed [facility] Work Phone: Evaluation noteNo assessment information available [facility] Work Phone: Evaluation note* Diagnosis Onset Date Resolution Status Acute diverticulitis acute Acute hypotension acute Chronic back pain chronic [facility] Work Phone: Evaluation note* Diagnosis Onset Date Resolution Status Acute diverticulitis acute Acute hypotension acute Hyperbilirubinemia acute Transaminitis acute Chronic back pain chronic [facility] Work Phone: Evaluation note* Diagnosis Onset Date Resolution Status Acute diverticulitis acute Transaminitis acute Chronic back pain chronic Acute hypotension resolved Hyperbilirubinemia resolved [facility] Work Phone: History and physical note Author Deacon Ramirez [facility] December 28, 2023 4:37pm Note Date/Time December 28, 2023 4:37pm [facility] Medical Records Department [address] [place] [address] [place] [address] H&P Exam - Hospitalist 12/28/23 1629 MR#: [id number] Acct: [id number] Name: LORIE OBRIEN Rep #:[id number] 1 : 1955 68 From: Deacon Ramirez DO PCP: Dr. Fernie Altamirano MD Status:ADM I N [place] [facility] [place] [facility] HPI - General General Date of Admission: 12/28/23 Date of Service: 12/28/23 Chief Complaint: Mid abdominal pain, fever, chills HPI Narrative LORIE OBRIEN, is a 68 M who presents to the emergency room at [facility] with complaints of fever and chills since last night along with mid to lower/right lower quadrant abdominal pain. Patient had been seen inthe emergency room in November with complaints of abdominal discomfort, CT done at that time question chronic diverticulitis. Patient denies any blood in his stool, he denies any nausea and vomiting, he denies any diarrhea. Patient states that his urine has looked dark and he question whether there was blood inthe urine. Patient denies any dysuria or urinary frequency. Patient states histemperature at home last night went up to 101. Lab work done in the emergency room revealed a normal white blood cell count, hemoglobin and platelet counts were normal, chemistry profile was remarkable forBUN of 25, liver enzymes were elevated with a total bilirubin of 2.2, AST of 105, ALT of 165, patient's urinalysis showed no red cells, there is 0-5 white cells and +1 bacteria. Nitrites were positive. CT of the abdomen pelvis shows evidence of sigmoid diverticulitis. Patient blood pressure was low in the emergency room, he was given a fluid bolusand IV antibiotics were started for diverticulitis. [facility] Medical History High cholesterol Home Medications pravastatin 40 mg tablet 40 mg PO QHS 04/29/17 [History Last Taken 04/28/17] timolol maleate 0.5 % eye drops 1 drp QHS 04/29/17 [History Last Taken 04/28/17] gabapentin 300 mg capsule 300 mg PO DAILY 12/28/23 [History Last Taken Unknown] naproxen 500 mg tablet 500 mg PO Q12H 12/28/23 [History Last Taken Unknown] pantoprazole 40 mg tablet,delayed release 40 mg PO DAILY 12/28/23 [History Last Taken Unknown] Allergy/AdvReac Type Severity Reaction Status Date / Time No Known Allergies Allergy Verified 12/28/23 13:18 Social History (Updated 12/28/23 @ 13:56 by Nighat Treviño) household members: spouse housing: house Smoking Status: Former smoker ROS Constitutional Constitutional: Reports chills and fever(s); Denies anorexia, change in weight, night sweats or weakness Eyes Eyes: Denies blurry vision, change in vision, discharge from eye(s) or eye pain Cardiovascular Cardiovascular: Denies chest pain, claudication, dyspnea on exertion, edema, lightheadedness or palpitations Respiratory/Chest Respiratory/Chest: Denies cough, dyspnea, excessive phlegm production, hemoptysis, productive cough, shortness of breath at rest or shortness of breathwith exertion Gastrointestinal Gastrointestinal: Reports abdominal pain; Denies coffee ground emesis, constipation, diarrhea, dyspepsia, hematemesis, hematochezia, melena, nausea or vomiting Genitourinary Genitourinary: Denies difficulty urinating, dysuria, hematuria, nocturia, urinary frequency, urinary hesitancy, urinary incontinence or urinary urgency Musculoskeletal Musculoskeletal: Denies back pain, joint pain, joint stiffness, joint swelling, myalgias or neck pain Neurologic Neurologic: Denies abnormal gait, abnormal speech, dizziness, focal weakness, headache(s), loss of vision, numbness, other visual disturbances, paresthesias, syncope or tingling Psychiatric Psychiatric: Denies anxiety, cognitive impairment, depression, irritability, mood swings or suicidal ideation Endocrine Endocrinology: Denies change in body appearance, cold intolerance, excessive sweating, heat intolerance, polydipsia or polyuria Hematologic/Lymphatic Hematologic/Lymphatic: Denies none, anemia, easy bleeding, easy bruising or lymphadenopathy Allergic/Immunologic Allergic/Immunologic: Denies rhinitis, urticaria, eczemia or asthma Vital Signs Vital Signs Vital Signs: 12/28/23 13:18 12/28/23 15:16 12/28/23 15:17 Temperature 97.6 F L 98.2 F Temperature Source Temporal Pulse Rate 82 67 Respiratory Rate 20 H 15 Respiratory Effort Normal Respiratory Pattern Normal Blood Pressure 81/62 L 98/65 Blood Pressure Mean 68 76 Pulse Ox 95 94 Oxygen Delivery Method Room Air 12/28/23 15:18 Temperature Temperature Source Pulse Rate 66 Respiratory Rate 18 Respiratory Effort Respiratory Pattern Blood Pressure Blood Pressure Mean Pulse Ox 96 Oxygen Delivery Method Room Air Weight Weight: 91.6 kg Body Mass Index (BMI) 26.6 Physical Exam Const alert, oriented x3, no apparent distress, average body habitus and healthy appearing General Appearance: cooperative, well kempt and well developed Orientation / Consciousness: awake, oriented to person, oriented to place and oriented to time HEENT normocephalic, head/scalp atraumatic, hearing grossly normal bilaterally and moist oral mucous membranes Eyes PERRL, EOMs intact bilaterally and conjunctivae normal Neck supple, no JVD, thyroid normal and no carotid bruits General: trachea midline Resp normal respiratory effort, no retractions, no use of accessory muscles and clearto auscultation bilaterally Auscultation: Negative for rales, rhonchi or wheezes Cardio regular rate, regular rhythm, S1 normal heart sound, S2 normal heart sound, no murmurs, no rub and no gallops GI GI Narrative: Patient is abdomen is soft, there is tenderness to palpation in the mid lower abdominal area and the right lower quadrant, no rebound abdominal tenderness wasnoted, bowel sounds are present in all 4 quadrants, abdomen is not distended. Extremity no clubbing, cyanosis or edema Skin no rashes or lesions noted General Skin Exam: no breakdown Neuro oriented x3, CN's II-XII intact bilaterally, moves all extremities, no focal motor deficits and no sensory deficits noted Sensorium / Orientation: awake, alert, oriented to person, oriented to place andoriented to time Speech: speech normal Psych affect normal Results Lab / Micro Data 12/28/23 14:00 12/28/23 14:00 Labs: Laboratory Results - last 24 hr 12/28/23 14:00: WBC 8.0, RBC 4.90, Hgb 14.2, Hct 43.2, MCV 88.2, MCH 29.0, MCHC 32.9, RDW Std Deviation 43.0, RDW Coeff of Anshu 13.2, Plt Count 153, MPV 9.2, Immature Gran % (Auto) 0.600, Neut % (Auto) 94.9 H, Lymph % (Auto) 2.5 L, [place] %(Auto) 1.4, Eos % (Auto) 0.3, Baso % (Auto) 0.3, Absolute Neuts (auto) 7.6, Absolute Lymphs (auto) 0.20 L, Nucleated RBC % 0, Sodium 137, Potassium 4.4, Chloride 107, Carbon Dioxide 28.0, Anion Gap 2 L, BUN 25 H, Creatinine 1.03, EstGFR (MDRD) Af Amer 92, Est GFR (MDRD) Non-Af 76, BUN/Creatinine Ratio 24.3 H, Glucose 111 H, Lactic Acid 1.9, Calcium 9.0, Total Bilirubin 2.20 H, AST 105 H, ALT 165 H, Alkaline Phosphatase 83, Total Protein 6.1 L, Albumin 2.5 L, Globulin3.6, Albumin/Globulin Ratio 0.7 L, Urine Color Yellow, Urine Clarity Clear, Urine pH 5.0, Ur Specific [place] 1.020, Urine Protein 30 H, Urine Glucose (UA) Normal, Urine Ketones 5 H, Urine Occult Blood 10 H, Urine Nitrite Positive H, Urine Bilirubin 3 H, Urine Urobilinogen 8 H, Ur Leukocyte Esterase 25 H, Urine RBC 0 SEEN, Urine WBC 0-5 SEEN, Ur Squamous Epith Cells 0 SEEN, Urine Bacteria 1+, Urine Mucus 0 SEEN Micro: Microbiology 12/28/23 14:02 Mucosa - Nose SARS-CoV-2, Influenza & RSV (PCR) - Final Imaging Radiology Impression Abdomen/Pelvis CT 12/28/23 13:51 IMPRESSION: Findings suggestive of a noncomplicated acute sigmoid diverticulitis. Stable right renal cyst. Prostatic enlargement. Electronically Signed: Jermain Mendoza MD at 14:55 EST , Assessment & Plan Assessment/Plan (1) Acute diverticulitis: PLAN: Plan 1. Acute sigmoid diverticulitis-patient's presentation is odd and that he does not complain of any left lower quadrant abdominal pain, CT scan does show evidence of acute diverticulitis however in the sigmoid area. Patient will be admitted to [facility], he was started on Zosyn, he will receive fluids and be on aclear liquid diet for now. #2 elevated liver enzymes-etiology unclear at this point, patient does not appear to have an obstructive type pattern on his liver enzyme elevation, I haveordered an ultrasound of the right upper quadrant, CMP will be repeated tomorrow. #3 hypotension-etiology unclear, this may be due to dehydration, patient will begiven IV fluids and blood pressure will be monitored #4 degenerative disc disease of the lumbar spine-patient is due to have a microdiscectomy done in December of this year. #5 hyperlipidemia-I doubt that the patient's pravastatin is causing any problemsbut I have elected to hold it for now Total clinical time spent by myself addressing the patient's medical issues, reviewing all of his data, and collaborating with patient's care team: 55 minutes Charges/Coding Visit Charges Inpatient E&M: 94269 Init Hosp L2 12/28/23 1637 <Electronically signed by Deacon Ramirez DO> Cosigner Signature (if applicable): CC: Dr. Deacon Ramirez DO; Dr. Fernie Altamirano MD~ Signed [facility] Work Phone: Hospital Discharge instructions Additional Instructions Continue to monitor and follow postoperative instructions as you were given by your surgeon. Please feel free to return if any concerns or worsening.[facility] Work Phone: Family History No Family History Records Found Relationship Condition Age at Onset Recorded Date/T cindi Unknown Family History?Clotting Disorder, - Unkno April 29, 2017 12:42pm Family History?Clotting Disorder, - Unkno April 29, 2017 12:42pm Family History?No pertinent history Unkno April 29, 2017 12:42pm Relationship Condition Age at Onset Recorded Date/T cindi Unknown Family History?Clotting Disorder, - Unkno April 29, 2017 11:42am Family History?Clotting Disorder, - Unkno wn April 29, 2017 11:42am Family History?No pertinent history Unkno April 29, 2017 11:42am Advance Directives No Advanced Directives Records Found Advance Directive Response Recorded Date/ Time Living Will No April 30, 2017 10:09am Power of Contract Lead No April 30 7 10:09am Advance Directive Response Recorded Date/ Time Living Will No November 22 11:36am Power of Contract Lead No November 22, 2023 11:36am Advance Directive Response Recorded Date/ Time Living Will No December 12 4:07pm Power of Contract Lead No December 12, 2023 4:07pm Advance Directive Response Recorded Date/ Time Living Will No December 28 024 2:03pm Power of Contract Lead No December 28, 2023 2:03pm Advance Directive Response Recorded Date/ Time Living Will No December 28 024 5:57pm Power of Contract Lead No December 28, 2023 5:57pm Advance Directive Response Recorded Date/ Time Living Will No December 28 6:57pm Power of Contract Lead No December 28, 2023 6:57pm Advance Directive Response Recorded Date/ Time Living Will No January 18, 2024 7:36pm Power of Contract Lead No January 17 7:36pm Advance Directive Response Recorded Date/ Time Living Will Yes January 20, 2024 9:58pm Power of Contract Lead No January 19 9:58pm Chief Complaint and Reason for Visit Chief Complaint Chills (without feve r) Chief Complaint Chills (without feve r) BACK PAIN Chief Complaint BACK PAIN BACK Chief Complaint BACK PAIN BACK ABDOMINAL PAIN, ACUTE DIVERTICULITIS, HYPOTENSION ABDOMINAL PAIN, ACUTE DIVERTICULITIS, HYPOTENSION Reason for Visit Acute diverticulitis Acute hypotension Chronic back pain Chief Complaint BACK PAIN BACK ABDOMINAL PAIN, ACUTE DIVERTICULITIS, HYPOTENSION ABDOMINAL PAIN, ACUTE DIVERTICULITIS, HYPOTENSION ABDOMINAL PAIN, ACUTE DIVERTICULITIS, HYPOTENSION ABDOMINAL PAIN, ACUTE DIVERTICULITIS, HYPOTENSION Reason for Visit Acute diverticulitis Acute hypotension Hyperbilirubinemia Transaminitis Chronic back pain Chief Complaint BACK PAIN BACK ABDOMINAL PAIN, ACUTE DIVERTICULITIS, HYPOTENSION ABDOMINAL PAIN, ACUTE DIVERTICULITIS, HYPOTENSION ABDOMINAL PAIN, ACUTE DIVERTICULITIS, HYPOTENSION ABDOMINAL PAIN, ACUTE DIVERTICULITIS, HYPOTENSION Reason for Visit Acute diverticulitis Transaminitis Chronic back pain Acute hypotension Hyperbilirubinemia Chief Complaint BACK PAIN BACK ABDOMINAL PAIN, ACUTE DIVERTICULITIS, HYPOTENSION ABDOMINAL PAIN, ACUTE DIVERTICULITIS, HYPOTENSION ABDOMINAL PAIN, ACUTE DIVERTICULITIS, HYPOTENSION ABDOMINAL PAIN, ACUTE DIVERTICULITIS, HYPOTENSION PRE OP FOR WASC Reason for Visit Acute diverticulitis Transaminitis Chronic back pain Acute hypotension Hyperbilirubinemia Chief Complaint BACK PAIN BACK ABDOMINAL PAIN, ACUTE DIVERTICULITIS, HYPOTENSION ABDOMINAL PAIN, ACUTE DIVERTICULITIS, HYPOTENSION ABDOMINAL PAIN, ACUTE DIVERTICULITIS, HYPOTENSION ABDOMINAL PAIN, ACUTE DIVERTICULITIS, HYPOTENSION PRE OP FOR WASC Urinary Retention Reason for Visit Acute diverticulitis Transaminitis Chronic back pain Acute hypotension Hyperbilirubinemia Chief Complaint BACK PAIN BACK ABDOMINAL PAIN, ACUTE DIVERTICULITIS, HYPOTENSION ABDOMINAL PAIN, ACUTE DIVERTICULITIS, HYPOTENSION ABDOMINAL PAIN, ACUTE DIVERTICULITIS, HYPOTENSION ABDOMINAL PAIN, ACUTE DIVERTICULITIS, HYPOTENSION PRE OP FOR WASC Urinary Retention WOUND Reason for Visit Acute diverticulitis Transaminitis Chronic back pain Acute hypotension Hyperbilirubinemia Chief Complaint BACK PAIN BACK ABDOMINAL PAIN, ACUTE DIVERTICULITIS, HYPOTENSION ABDOMINAL PAIN, ACUTE DIVERTICULITIS, HYPOTENSION ABDOMINAL PAIN, ACUTE DIVERTICULITIS, HYPOTENSION ABDOMINAL PAIN, ACUTE DIVERTICULITIS, HYPOTENSION PRE OP FOR WASC Urinary Retention WOUND LUMBAR STENOSIS. RX TO BE FAX Reason for Visit Acute diverticulitis Transaminitis Chronic back pain Acute hypotension Hyperbilirubinemia Summary Purpose Additional Source Comments Goals (unrecognized section and content) Goals may be documented in a n alternate sectionGoals may be documented in an alternate sectionGoals may be documented in an alternate sectionGoals may be documented in an alternate sectionGoals may be documented in an alternate sectionGoals may be documented in an alternate section Care Teams (unrecognized sec tion and content) Team Status: Active Member Role Status Dates Dr. Fernie Altamirano MD Family Provider Active Dr. Fernie Altamirano MD Primary Care Provider Active Team Status: Inactive Member Role Status Dates Dr. Fernie Altamirano MD Primary Care Provider, Attending Provider Active Team Status: Inactive Member Role Status Dates Dr. Fernie Altamirano MD Primary Care Provi adan, Attending Provider, Referring Provider Active Team Status: Inactive Member Role Status Dates Dr. Fernie Altamirano MD Primary Care Provider Active Dr. Douglas Shah MD Attending Provider, Emergency Provider Active Team Status: Inactive Member Role Status Dates Dr. Fernie Altamirano MD Primary Care Provider Active Dr. David Gibbs MD Attending Provider, Referr ing Provider Active Team Status: Inactive Member Role Status Dates Dr. Fernie Altamirano MD Primary Care Provider Active Dr. Thee Phelan MD Emergency Provider Active Team Status: Active Member Role Status Dates Dr. Fernie Altamirano MD Primary Care Provider Active Dr. Kasey Thomas DO Emergency Provider Active Dr. Deacon Ramirez DO Admit Provider, Attending Provider, Other Provider Active Team Status: Inactive Member Role Status Dates Dr. Fernie Altamirano MD Primary Care Provider Active Dr. Thee Phelan MD Attending Provider, Emergency Provider Active Team Status: Active Member Role Status Dates Dr. Fernie Altamirano MD Primary Care Provider, Attending Provider Active Team Status: Active Member Role Status Dates Dr. Fernie Altamirano MD Primary Care Provider Active Dr. Kasey Thomas DO Emergency Provider Active Dr. Deacon Ramirez DO Admit Provider, Attending Pro vider Active Team Status: Active Member Role Status Dates Dr. Fernie Altamirano MD Primary Care Provider Active Dr. Kasey Thomas DO Emergency Provider Active Dr. Deacon Ramirez DO Admit Provider, Other Provide r Active Dr. eMera Plaza DO Attending Provider, Other Provide r Active Team Status: Inactive Member Role Status Dates Dr. Fernie Altamirano MD Primary Care Provider Active Dr. Kasey Thomas DO Emergency Provider Active Dr. Deacon Ramirez DO Admit Provider, Other Provide r Active Dr. Meera Plaza DO Attending Provider Active Team Status: Active Member Role Status Dates Dr. Fernie Altamirano MD Primary Care Provider Active Dr. Guillermo Parekh DO Attending Provider, Referring P rovider Active Team Status: Active Member Role Status Dates Dr. Fernie Altamirano MD Primary Care Provi adan, Attending Provider, Referring Provider Active Team Status: Inactive Member Role Status Dates Dr. Fernie Altamirano MD Primary Care Provider Active Dr. Guillermo Parekh DO Attending Provider, Referring P rovider Active Team Status: Inactive Member Role Status Dates Dr. Fernie Altamirano MD Primary Care Provider Active Dr. Jaclyn Phillips MD Emergency Provider Active Team Status: Inactive Member Role Status Dates Dr. Fernie Altamirano MD Primary Care Provider Active Dr. Robert Vallejo DO Emergency Provider Active Team Status: Inactive Member Role Status Dates Dr. Fernie Altamirano MD Primary Care Provider Active Dr. Jaclyn Phillips MD Attending Provider, Emergency Provider Active Team Status: Inactive Member Role Status Dates Dr. Fernie Altamirano MD Primary Care Provider Active Dr. Robert Vallejo DO Attending Provider, Emergency P rovider Active (unrecognized sect ion and content) No Status Records FoundNo Status Records Found INFORMATION SOURCE (unrecogn ized section and content) DATE CREATED AUTHOR 11/22/2023 [facility] DATE CREATED AUTHOR AUTHOR'S ORGANIZ ATION 07/13/2024 [facility] FOR RECORDS PERTAINING TO PATIENTS WHO ARE [...] BE BASED ON THE PRIMARY CLINICAL RECORDS. [facility], [facility]. provides no warranty or guarantee of the accuracy or completeness of information in this document.
[2025-06-06 20:55] LABS: Xtra Tube Kwok EXTRA TUBE
== END | disposition home or self-care (01) ==
LOC: POLAB3 12:48
PROVIDERS: PCP Family Medicine Geriatric Medicine; Visit Provider Family Medicine Geriatric Medicine
DX: Z12.5 Encounter for screening for malignant neoplasm of prostate (principal); E55.9 Vitamin D deficiency, unspecified; R53.83 Other fatigue
CPT/HCPCS: 36415; 80053; 82306; 84153; 84443; 85025; G0103